=== PATIENT | female | born 1995 | race Caucasian/White ===

== ENCOUNTER → 2023-04-13 | Outpatient (CLI) | payer OTHER, SELFPAY ==
--- NOTE | 2023-04-13 16:59 | US_ITS ---
EXAM: US , TRANSVAGINAL CLINICAL INDICATION: pelvic pain/cramping, no hcg available TECHNIQUE: Real-time transvaginal obstetrical ultrasound of the maternal pelvis and a first trimester with image documentation. Transvaginal imaging was used for better evaluation of the fetus and adnexa. COMPARISON: No relevant prior studies available. FINDINGS: GESTATION: There is a small anechoic structure in the left horn of the uterus that may represent a gestational sac that has a mean sac diameter of 2 mm age 4 weeks 6 days. There is no evidence of a pole or yolk sac. PLACENTA/AMNIOTIC FLUID: Cannot be adequately evaluated due to the early gestational age. UTERUS/CERVIX: Uterus measures 8.7 x 4.1 x 6.1 cm. There is a bicornuate uterus present. No myometrial mass. OVARIES: The right ovary measures 4.0 x 2.8 x 2.7 cm. There is a 2.5 x 1.7 2.2 cm echogenic nodule on the right ovary. Left ovary measures 2.7 x 2.2 x 2.4 cm. There is a corpus luteum in the left ovary that measures 1.8 x 2.1 x 1.9 cm. No mass. FREE FLUID: No free fluid. US/Transvaginal w/Preg US IMPRESSION: 1. Bicornuate uterus with an anechoic structure in the left horn which may represent an early gestational sac age 4 weeks 6 days. There is no evidence of a pole or yolk sac. 2. Echogenic nodule in the right ovary. Also appears be a corpus luteal cyst in the left knee. Electronically Signed: Jose Eduardo Palma MD at 18:52 EDT ,
[2023-04-13 19:52] LABS: hCG Titer Quant., Serum 917 mIU/mL (1-3)
== END | disposition home or self-care (01) ==
PROVIDERS: Obstetrics & Gynecology; Referring Provider Registered Nurse; Visit Provider Registered Nurse
DX: O26.891 Other specified pregnancy related conditions, first trimester (principal); R10.2 Pelvic and perineal pain; Z3A.00 Weeks of gestation of pregnancy not specified
CPT/HCPCS: 36415; 76817; 84702

== ENCOUNTER → 2023-04-15 | Outpatient (CLI) | payer OTHER, SELFPAY ==
[2023-04-15 18:15] LABS: hCG Titer Quant., Serum 2033 mIU/mL (1-3)
== END | disposition home or self-care (01) ==
LOC: LAB 17:08
PROVIDERS: Referring Provider Obstetrics & Gynecology; Visit Provider Obstetrics & Gynecology
DX: O26.891 Other specified pregnancy related conditions, first trimester (principal); R10.2 Pelvic and perineal pain; Z3A.00 Weeks of gestation of pregnancy not specified
CPT/HCPCS: 36415; 84702

== ENCOUNTER → 2023-05-03 | Outpatient (CLI) | payer OTHER, SELFPAY ==
--- NOTE | 2023-05-03 10:59 | US_ITS ---
STUDY: FIRST TRIMESTER OBSTETRICAL ULTRASOUND REASON FOR EXAM: Female, 27 years old viability LMP: March 14, 2023. TECHNIQUE: Transvaginal TECHNICAL QUALITY: Adequate. PRIOR ULTRASOUND: Comparison is made with prior study dated April 13, 2023. FINDINGS: There is visualization of a single gestational sac in a normal intrauterine position. The mean sac diameter (MSD) measures 2.6 cm, indicating an estimated gestational age (EGA) of 7 weeks, 4 days. The gestational sac shape is within normal limits. There is a visualized yolk sac. The yolk sac measures 3.4 mm. The placenta is non-visualized. There is visualization of a live embryo. The crown-rump length (CRL) measures 1.16 cm, indicating an estimated gestational age (EGA) of 7 weeks, 3 days. There is demonstrated cardiac activity with a heart rate of 148 bpm. The estimated gestation age (EGA) by LMP is 7 weeks, 1 days. The estimated date of delivery (IRMA) by LMP is December 19, 2022. The estimated gestation age (EGA) by US is 7 weeks, 4 days. The estimated date of delivery (IRMA) by US is December 16, 2022. The uterus measures 10 cm x 8.1 cm by 5.4 cm. There is evidence of a bicornuate uterus. The gestational sac is within the left horn. Questionable small polyps in the endocervical canal. Subchorionic bleed measuring 2.5 cm x 3.5 cm x 0.6 cm. There is no demonstrated uterine fibroid. The cervix is closed. The right ovary measures 3.7 cm x 2.8 cm x 2.1 cm. A corpus luteum cyst is seen measuring 1.2 cm x 1.3 cm x 1.1 cm. There is no visualized right adnexal mass or complex lesion. The left ovary measures 3.2 cm x 2.6 cm x 2 cm. There is no left ovarian cyst. There is no visualized left adnexal mass or complex lesion. There is no fluid in the cul de sac. US/Transvaginal w/Preg US IMPRESSION: Live intrauterine gestation with a mean gestational age of 7 weeks and 4 days. Bicornuate uterus. Subchorionic bleed. Corpus luteum is seen in the right ovary. Electronically Signed: Franklin Osullivan MD at 15:29 EDT ,
== END | disposition home or self-care (01) ==
LOC: OPUS 10:58
PROVIDERS: Referring Provider Obstetrics & Gynecology; Visit Provider Obstetrics & Gynecology
DX: O26.891 Other specified pregnancy related conditions, first trimester (principal); R10.2 Pelvic and perineal pain; Z3A.00 Weeks of gestation of pregnancy not specified
CPT/HCPCS: 76817

== ENCOUNTER → 2023-05-15 | Outpatient (CLI) | payer OTHER, SELFPAY ==
[2023-05-17 22:07] LABS: Chlamydia By Nucleic Acid AMP Negative (Negative); Gonococcus By Nucleic Acid AMP Negative (Negative)
== END | disposition home or self-care (01) ==
LOC: LABSPEC 14:06
PROVIDERS: Referring Provider Obstetrics & Gynecology; Visit Provider Obstetrics & Gynecology
DX: O09.90 Supervision of high risk pregnancy, unspecified, unspecified trimester (principal); Z3A.00 Weeks of gestation of pregnancy not specified
CPT/HCPCS: 87086; 87088; 87491; 87591

== ENCOUNTER → 2023-05-30 | Outpatient (CLI) | payer OTHER, SELFPAY ==
[2023-05-30 10:46] LABS: Absolute Lymphocyte Count 1.39 X10^3/uL (0.83-4.51); Absolute Neutrophil Count 7.2 X10^3/uL (2.0-7.7); Basophil# 0.01 X10^3/uL; Basophil% 0.1 % (0-1); Eosinophil# 0.04 X10^3/uL; Eosinophils% 0.4 % (0-5); Hematocrit 38.7 % (37-47); Hemoglobin 12.5 g/dL (12.0-15.0); Lymphocyte # 1.39 X10^3/ul (0.83-4.51); Lymphocyte % 15.2 % (19-41); Mean Corp Hgb Conc 32.3 g/dL (32-36); Mean Corpuscular Volume 86.8 fL (81-99); Mean Platelet Vol. 9.7 fl (6.2-12.0); Monocyte# 0.49 X10^3/uL; Monocyte% 5.3 % (0-10); NRBC Flagged by Analyzer 0 % (0-5); Neutrophil % 78.7 % (47-70); Platelet Count 289 K/mm3 (150-450); RBC Distribution Width CV 15.5 % (11.6-14.6); RBC Distribution Width SD 49.6 fl (35.1-43.9); Red Blood Count 4.46 M/mm3 (4.2-5.4); White Blood Count 9.2 K/mm3 (4.4-11.0)
[2023-05-30 10:51] LABS: Glucose Challenge Gest 1H 50g 147 mg/dL (70-140)
[2023-05-30 11:27] LABS: NATERA MAILED SPECIMEN
[2023-05-30 11:28] LABS: HIV - WCH Non-Reactive (Nonreactive); Hepatitis B Surface Antigen Non-Reactive (Nonreactive); Hepatitis C Antibody Non-Reactive (Nonreactive); Rubella IgG Reactive (Nonreactive); Syphilis Antibodies Non-reactive
== END | disposition home or self-care (01) ==
LOC: PAVLAB 10:16
PROVIDERS: Referring Provider Obstetrics & Gynecology; Visit Provider Obstetrics & Gynecology
DX: Z34.81 Encounter for supervision of other normal pregnancy, first trimester (principal)
CPT/HCPCS: 36415; 82950; 85025; 86703; 86762; 86780; 86803; 86850; 86900; 86901; 87340

== ENCOUNTER → 2023-06-02 | Outpatient (CLI) | payer OTHER, SELFPAY ==
[2023-06-02 08:33] LABS: Glucose GTT-Gestation. Fasting 83 mg/dL (<105)
[2023-06-02 09:28] LABS: Glucose GTT-Gestational 1 Hr 183 mg/dL (<190)
[2023-06-02 10:43] LABS: Glucose GTT-Gestational 2 Hr 151 mg/dL (<165)
[2023-06-02 11:48] LABS: Glucose GTT-Gestational 3 Hr 118 L (<145)
== END | disposition home or self-care (01) ==
LOC: LAB 07:02
PROVIDERS: Referring Provider Nurse Practitioner Women's Health; Visit Provider Nurse Practitioner Women's Health
DX: Z13.1 Encounter for screening for diabetes mellitus (principal)
CPT/HCPCS: 82951; 82952

== ENCOUNTER → 2023-07-07 | Outpatient (CLI) | payer OTHER, SELFPAY | END | disposition home or self-care (01) | PROVIDERS: Referring Provider Advanced Practice Midwife; Visit Provider Advanced Practice Midwife | DX: O23.40 Unspecified infection of urinary tract in pregnancy, unspecified trimester (principal); N89.8 Other specified noninflammatory disorders of vagina; Z3A.00 Weeks of gestation of pregnancy not specified; O99.891 Other specified diseases and conditions complicating pregnancy | CPT/HCPCS: 87070; 87086; 87088; 87205 ==

== ENCOUNTER → 2023-10-02 | Outpatient (CLI) | payer OTHER, SELFPAY ==
[2023-10-02 09:15] LABS: Absolute Lymphocyte Count 1.79 X10^3/uL (0.83-4.51); Absolute Neutrophil Count 9.5 X10^3/uL (2.0-7.7); Basophil# 0.03 X10^3/uL; Basophil% 0.3 % (0-1); Eosinophil# 0.07 X10^3/uL; Eosinophils% 0.6 % (0-5); Hematocrit 34.9 % (37-47); Hemoglobin 11.1 g/dL (12.0-15.0); Lymphocyte # 1.79 X10^3/ul (0.83-4.51); Lymphocyte % 15.2 % (19-41); Mean Corp Hgb Conc 31.8 g/dL (32-36); Mean Corpuscular Hgb 28.5 pg (27.0-32.0); Mean Corpuscular Volume 89.5 fL (81-99); Mean Platelet Vol. 9.1 fl (6.2-12.0); Monocyte# 0.37 X10^3/uL; Monocyte% 3.1 % (0-10); NRBC Flagged by Analyzer 0 % (0-5); Neutrophil # 9.47 X10^3/uL (2.7-7.7); Neutrophil % 80.3 % (47-70); Platelet Count 287 K/mm3 (150-450); RBC Distribution Width CV 15.3 % (11.6-14.6); RBC Distribution Width SD 49.8 fl (35.1-43.9); White Blood Count 11.8 K/mm3 (4.4-11.0)
[2023-10-02 09:38] LABS: Glucose Challenge Gest 1H 50g 165 mg/dL (70-140)
[2023-10-02 10:13] LABS: HIV - WCH Non-Reactive (Nonreactive); Syphilis Antibodies Non-reactive
== END | disposition home or self-care (01) ==
PROVIDERS: Referring Provider Registered Nurse; Visit Provider Registered Nurse
DX: O09.90 Supervision of high risk pregnancy, unspecified, unspecified trimester (principal); Z3A.00 Weeks of gestation of pregnancy not specified; Z13.1 Encounter for screening for diabetes mellitus
CPT/HCPCS: 36415; 82950; 85025; 86703; 86780

== ENCOUNTER → 2023-10-11 | Outpatient (CLI) | payer OTHER, SELFPAY ==
[2023-10-11 08:11] LABS: Glucose GTT-Gestation. Fasting 88 mg/dL (<105)
[2023-10-11 08:47] LABS: Glucose GTT-Gestational 1 Hr 201 mg/dL (<190)
[2023-10-11 10:04] LABS: Glucose GTT-Gestational 2 Hr 131 mg/dL (<165)
[2023-10-11 11:49] LABS: Glucose GTT-Gestational 3 Hr 109 L (<145)
== END | disposition home or self-care (01) ==
PROVIDERS: Referring Provider Registered Nurse; Visit Provider Registered Nurse
DX: Z13.1 Encounter for screening for diabetes mellitus (principal)
CPT/HCPCS: 36415; 82951; 82952

== ENCOUNTER → 2023-11-20 | Outpatient (CLI) | payer OTHER, SELFPAY ==
--- NOTE | 2023-11-20 07:49 | US_ITS ---
STUDY: SECOND AND THIRD TRIMESTER OBSTETRICAL ULTRASOUND - LIMITED REASON FOR EXAM: Female, 28 years old well being LMP: March 14, 2023 PRIOR ULTRASOUND: Comparison is made with prior study dated May 03, 2023. TECHNIQUE: Transabdominal TECHNICAL QUALITY: Adequate. FINDINGS: There is a single intrauterine fetus. The fetus is in a cephalic presentation. There is demonstrated cardiac activity with a heart rate of 161 bpm. There is a normal amniotic fluid volume. The largest amniotic fluid pocket measures 7.7 cm. The amniotic fluid index (MADDISON) is 20.8 cm. The placenta is anterior in location and is not low lying. There are Grade 1 placental changes. The cervix measures 4.1 cm in length. BIOMETRY: BPD: 9.02 cm: 36 weeks, 4 days HC: 33.67 cm: 38 weeks, 4 days AC: 32.21 cm: 36 weeks, 1 days FL: 7.17 cm: 36 weeks, 5 days Age by LMP: 35 weeks, 6 days. IRMA by LMP: December 19, 2023. age by prior US: 36 weeks, 2 days. IRMA by prior US: December 16, 2023. age by current US: 37 weeks, 1 days. IRMA by current US: December 10, 2023. Estimated weight: 2953 grams, +/- 443 grams, 67 percentile. US/OB Limited With Biometrics IMPRESSION: Single live uterine gestation with mean gestational age of 36 weeks and 2 days. The measurements obtained today fall within the normal expected range. Electronically Signed: Franklin Osullivan MD at 10:59 EST ,
--- OUTSIDE RECORDS SUMMARY | 2023-11-20 08:07 | XMS RPT_ITS | CCD ---
Author Name Unknown Address [address] [place] [address] Organization [facility] Care Team Providers Care Call Out Operator Name Role Phone Free, Text Entry Unavailable Unavailable Talat Allan Unavailable Unavailable YAS CONWAY Primary Care Unavailable PROVIDER, UNKNOWN Attending Unavailable PROVIDER, UNKNOWN Admitting Unavailable PROVIDER, UNKNOWN Attending Unavailable PROVIDER, UNKNOWN Admitting Unavailable YAS CONWAY Primary Care Unavailable Susan, Michoacano Lowe Unavailable Unavailable Unavailable Yas Conway PA-C Primary Care Provider Anurag RODRIGUEZ, Kahlil Diaz Unavailable [phone] Susan, Devendra Peña Referring Unavailabl e Susan, Devendra Peña Attending Unavailabl e Susan, Devendra Peña Primary Care Unavailabl e Susan, Devendra Peña Referring Unavailabl e [place], Devendra Peña Attending Unavailabl e Susan, Devendra Peña Primary Care Unavailabl e Susan, Devendra Peña Primary Care Unavailabl e Susan, Devendra Peña Attending Unavailabl e Susan, Devendra Peña Referring Unavailabl e [place], Devendra Peña Primary Care Unavailabl e Susan, Mrs. [place]on Peña Attending Unavailabl e Susan, Devendra Peña Referring Unavailabl e Susan, Devendra Peña Primary Care Unavailabl e Susan, Mrs. Michoacano Peña Attending Unavailabl e [place], Mrs. Michoacano Peña Referring Unavailabl e Susan, Devendra Peña Primary Care Unavailabl e [place], Mrs. Michoacano Peña Attending Unavailabl e Susan, Mrs. Michoacano Peña Referring Unavailabl e ROLANDO, MD KOJO MCCARTHY Attending Unava ilable [place], Mrs. Michoacano Peña Primary Care Unavailabl e ROLANDO, MD KOJO MCCARTHY Referring Unava ilable [place], Mrs. Michoacano Peña Primary Care Unavailabl e Pershing, Dr. Rafael Malhotra Attending Unavailabl e Louis, Dr. Rafael Malhotra Referring Unavailabl e Susan, Mrs. Michoacano Peña Primary Care Unavailabl e Awais, Shayy Attending Unavailable Fried, Shayy Referring Unavailable ROLANDO, MD KOJO MCCARTHY Attending Unava ilable Susan, Mrs. Michoacano Peña Primary Care Unavailabl e Susan BLUEPRINT TRIMMER-SAYRA, Michoacano Lowe Primary Care Provider [phone] Susan, Mrs. Michoacano Peña Attending Unavailabl e Susan, Mrs. Michoacano Peña Primary Care Unavailabl e NO PRIMARY CARE, Primary Care Unavailable JANES NEFF Referring Unavailable TAWANDAJANES Attending Unavailable ALBER HARRIS Attending Unavailable NO PRIMARY CARE, Primary Care Unavailable ANA CRISTINA [place] Referring Unavailab le SUSAN, MICHOACANO Lowe Primary Care Unavailable JULIO MOORE Attending Unavaila ble SUSAN, MICHOACANO Lowe Attending Unavailable SUSAN, MICHOACANO Lowe Primary Care Unavailable SUSAN, MICHOACANO Lowe Attending Unavailable SUSAN, MICHOACANO Lowe Primary Care Unavailable SUSAN, MICHOACANO Lowe Attending Unavailable SUSAN, MICHOACANO Lowe Primary Care Unavailable SUSAN, MICHOACANO Lowe Attending Unavailable SUSAN, MICHOACANO L Primary Care Unavailable SUSAN, MICHOACANO L Primary Care Unavailable SUSAN, MICHOACANO L Primary Care Unavailable SUSAN, MICHOACANO L Primary Care Unavailable SUSAN, MICHOACANO L Primary Care Unavailable Allergies Allergy Classification Reported Allergen(s) Allergy Type Date of Onset Reaction(s) Facility (14 sources) Penicillin; Translations: [Penicillins] Drug Allergy Rash [facility] (2 sources) Amoxicillin; Translations: [AMOXICILLIN] Drug Allergy 9 Hives [facility] (8 sources) Penicillins; Translations: [PENICILLINS] Propensity to adverse reactions to drug (disorder) [address] [facility] Medications Current Medications Medication Drug Class(es) Dates Sig (Normalized) Sig (Original) [id number] 200 actuat albuterol 0.09 mg/actuat metered dose inhaler (9 sources) beta2-Adrenergic Agonist Start: 07-04-2022 take 2 puff(s) by inhalation every four hours albuterol 90 mcg/actuation inhaler Inhale 2 puffs every 4 hours if needed. 0 07/04/2022 Active Completed/Discontinued Medications Medication Drug Class(es) Dates Sig (Normalized) Sig (Original) brompheniramine maleate 0.4 mg/ml / dextromethorphan hydrobromide 2 mg/ml / pseudoephedrine hydrochloride 6 mg/ml oral solution (2 sources) alpha-Adrenergic Agonist, Uncompetitive I-dxbpir-G-aspartat e Receptor Antagonist, Sigma-1 Agonist Start: 01-09-2023 take 5 mL by mouth every four to six hours as needed Pseudoeph-Bromp hen-DM 30-2-10 MG/5ML Oral Syrup TAKE 5 ML EVERY 4 TO 6 HOURS NEEDED for up to 14 days Quantity: 1 Refills: 0 Ordered: 09-Jan-2023 Michoacano Winston Start : 09-Jan-2023 Active Problems Active Problems Problem Classification Problem Date Documented Da te Episodic/Chronic Acute bronchitis (2 sources) Acute bronchitis; Translations: [Acute bronchitis] 09-20-2021 Episodic Anxiety disorders (4 sources) Anxiety; Translations: [Other anxiety states] Chronic Immunizations and screening for infectious disease (10 sources) Suspected disease caused by 2019-nCoV; Translations: [Contact with or exposure to other viral diseases] Episodic Menstrual disorders (2 sources) Irregular menstruation, unspecified; Translations: [Irregular menstruation, unspecified] Onset: 04-10-2023 Chronic Mood disorders (18 sources) Depressive disorder; Translations: [Depressive disorder, not elsewhere classified] Onset: 01-09-2023 01-09-2023 Chronic Mood disorders (4 sources) Mood disorders; Translations: [Depression, unspecified] Onset: 01-09-2023 Nutritional deficiencies (17 sources) Vitamin D deficiency; Translations: [Unspecified vitamin D deficiency] Onset: 01-09-2023 01-09-2023 Chronic Other lower respiratory disease (4 sources) Persistent cough; Translations: [Cough] Episodic Other nutritional; endocrine; and metabolic disorders (17 sources) Body mass index 30+ - obesity; Translations: [Obesity, unspecified] Onset: 01-09-2023 01-09-2023 Chronic Other upper respiratory disease (9 sources) Allergic rhinitis; Translations: [Allergic rhinitis, cause unspecified] Onset: 01-09-2023 01-09-2023 Chronic Other upper respiratory disease (1 source) Inflammatory disorder of upper respiratory tract; Translations: [Chronic rhinitis] 03-09-2023 Chronic Other upper respiratory disease (2 sources) Chronic rhinitis; Translations: [Chronic rhinitis] Onset: 03-09-2023 Chronic Other upper respiratory disease (2 sources) Other allergic rhinitis; Translations: [Other allergic rhinitis] Onset: 01-09-2023 Chronic Other upper respiratory infections (4 sources) Chronic sinusitis, unspecified; Translations: [Chronic sinusitis, unspecified] Onset: 03-09-2023 Chronic Otitis media and related conditions (15 sources) Acute right otitis media; Translations: [Unspecified otitis media] Onset: 01-09-2023 09-25-2023 Episodic Past or Other Problems Problem Classification Problem Date Documented Da te Episodic/Chronic Abdominal pain (2 sources) Pelvic and perineal pain; Translations: [Pelvic and perineal pain] Onset: 06-13-2023 Episodic Early or threatened labor (1 source) Labor finding; Translations: [False labor, unspecified] Onset: 10-10-2019 10-10-2019 Episodic Genitourinary symptoms and ill-defined conditions (11 sources) Dysuria; Translations: [Dysuria] Onset: 06-03-2023 06-03-2023 Episodic Heart valve disorders (5 sources) Heart murmur; Translations: [Cardiac murmur, unspecified] Onset: 12-23-2016 Resolved: 03-09-2023 12-23-2021 Episodic Inflammatory diseases of female pelvic organs (6 sources) Acute vaginitis; Translations: [Acute vaginitis] Onset: 06-03-2023 06-03-2023 Episodic Malaise and fatigue (17 sources) Fatigue; Translations: [Other malaise and fatigue] Onset: 01-09-2023 01-09-2023 Episodic Other circulatory disease (10 sources) History of clinical finding in subject; Translations: [Personal history of other diseases of circulatory system] Onset: 01-09-2023 01-09-2023 Episodic Other circulatory disease (3 sources) Personal history of other diseases of the circulatory system; Translations: [Personal history of other diseases of the circulatory system] Onset: 07-20-2022 Episodic Other and delivery including normal (14 sources) Delivery normal; Translations: [Normal delivery] Onset: 03-11-2019 09-13-2019 Episodic Results Test Name Value Interpretation Reference Range Facil ity Vital Signs Date Time Vital Sign Value Performing Clinician Facility 09-25-2023 08:41-0500 Body height 165.1 cm Michoacano Davis APRN-SINGLE NEEDLE OPERATOR Work Phone: [facility] 09-25-2023 08:41-0500 Body mass index (BMI) [Ratio] 33.2 kg/m2 Michoacano Davis BLUEPRINT TRIMMER-SINGLE NEEDLE OPERATOR Work Phone: [facility] 09-25-2023 08:41-0500 Body temperature 97.5 [degF] Michoacano Davis BLUEPRINT TRIMMER-SINGLE NEEDLE OPERATOR Work Phone: [facility] 09-25-2023 08:41-0500 Body weight 90.49 kg Michoacano Davis BLUEPRINT TRIMMER-SINGLE NEEDLE OPERATOR Work Phone: [facility] 09-25-2023 08:41-0500 Diastolic blood pressure 64 mm[Hg] Michoacano Davis APRN-SINGLE NEEDLE OPERATOR Work Phone: [facility] 09-25-2023 08:41-0500 Heart rate 107 /min Michoacano Davis BLUEPRINT TRIMMER-SINGLE NEEDLE OPERATOR Work Phone: [facility] 09-25-2023 08:41-0500 SaO2% (BldA) [Mass fraction] 98 % Michoacano Davis APRN-SINGLE NEEDLE OPERATOR Work Phone: [facility] 09-25-2023 08:41-0500 Systolic blood pressure 114 mm[Hg] Michoacano Davis BLUEPRINT TRIMMER-SINGLE NEEDLE OPERATOR Work Phone: [facility] 06-13-2023 07:59-0400 Body mass index (BMI) [Ratio] 33.08 kg/m2 Michoacano Davis BLUEPRINT TRIMMER-SINGLE NEEDLE OPERATOR Work Phone: [facility] 06-13-2023 07:59-0400 Body temperature 96.91 [degF] Michoacano Davis BLUEPRINT TRIMMER-SINGLE NEEDLE OPERATOR Work Phone: [facility] 06-13-2023 07:59-0400 Body weight 90.17 kg Michoacano Davis BLUEPRINT TRIMMER-SINGLE NEEDLE OPERATOR Work Phone: [facility] 06-13-2023 07:59-0400 Diastolic blood pressure 74 mm[Hg] Michoacano Davis BLUEPRINT TRIMMER-SINGLE NEEDLE OPERATOR Work Phone: [facility] 06-13-2023 07:59-0400 Heart rate 111 /min Michoacano Barcenasd BLUEPRINT TRIMMER-SINGLE NEEDLE OPERATOR Work Phone: [facility] 06-13-2023 07:59-0400 SaO2% (BldA) [Mass fraction] 98 % Michoacano Davis BLUEPRINT TRIMMER-SINGLE NEEDLE OPERATOR Work Phone: [facility] 06-13-2023 07:59-0400 Systolic blood pressure 122 mm[Hg] Michoacano Davis BLUEPRINT TRIMMER-SINGLE NEEDLE OPERATOR Work Phone: [facility] 03-09-2023 07:58-0400 Body height 165.1 cm Michoacano Davis BLUEPRINT TRIMMER-SINGLE NEEDLE OPERATOR Work Phone: [facility] 03-09-2023 07:58-0400 Body mass index (BMI) [Ratio] 33.28 kg/m2 Michoacano Davis BLUEPRINT TRIMMER-SINGLE NEEDLE OPERATOR Work Phone: [facility] 03-09-2023 07:58-0400 Body temperature 98.6 [degF] Michoacano Barcenasd BLUEPRINT TRIMMER-SINGLE NEEDLE OPERATOR Work Phone: [facility] 03-09-2023 07:58-0400 Body weight 90.72 kg Michoacano Barcenasd BLUEPRINT TRIMMER-SINGLE NEEDLE OPERATOR Work Phone: [facility] 03-09-2023 07:58-0400 Diastolic blood pressure 76 mm[Hg] Michoacano Barcenasd BLUEPRINT TRIMMER-SINGLE NEEDLE OPERATOR Work Phone: [facility] 03-09-2023 07:58-0400 Heart rate 76 /min Michoacano Barcenasd BLUEPRINT TRIMMER-SINGLE NEEDLE OPERATOR Work Phone: [facility] 03-09-2023 07:58-0400 Systolic blood pressure 109 mm[Hg] Michoacano Barcenasd BLUEPRINT TRIMMER-SINGLE NEEDLE OPERATOR Work Phone: [facility] 12-14-2022 08:03-0500 Body height 165.1 cm Michoacano L Susan Work Phone: [facility] Work Phone: 12-14-2022 08:03-0500 Body mass index (BMI) [Ratio] 32.28 kg/m2 Michoacano L Susan Work Phone: -[facility] Work Phone: 12-14-2022 08:03-0500 Body surface area Derived from formula 1.95 m2 Michoacano L [place] Work Phone: -[facility] Work Phone: 12-14-2022 08:03-0500 Body weight 88 kg Michoacano L [place] Work Phone: [facility] Work Phone: 12-14-2022 08:03-0500 Diastolic blood pressure 68 mm[Hg] Michoacano L [place] Work Phone: [facility] Work Phone: 12-14-2022 08:03-0500 Heart rate 74 /min Michoacano L [place] Work Phone: [facility] Work Phone: 12-14-2022 08:03-0500 Systolic blood pressure 114 mm[Hg] Michoacano L Susan Work Phone: -[facility] Work Phone: 09-14-2022 08:22-0500 Body height 165.1 cm Michoacano L Susan Work Phone: [facility] Work Phone: 09-14-2022 08:22-0500 Body mass index (BMI) [Ratio] 32.15 kg/m2 Michoacano Barcenasd Work Phone: [facility] Work Phone: 09-14-2022 08:22-0500 Body surface area Derived from formula 1.95 m2 Michoacano Lowe [place] Work Phone: [facility] Work Phone: 09-14-2022 08:22-0500 Body weight 87.63 kg Michoacano Barcenasd Work Phone: [facility] Work Phone: 09-14-2022 08:22-0500 Diastolic blood pressure 79 mm[Hg] Michoacano Lowe [place] Work Phone: [facility] Work Phone: 09-14-2022 08:22-0500 Heart rate 87 /min Michoacano Barcenasd Work Phone: [facility] Work Phone: 09-14-2022 08:22-0500 Systolic blood pressure 115 mm[Hg] Michoacano Barcenasd Work Phone: [facility] Work Phone: 06-29-2022 09:08-0400 Body height 165.1 cm Michoacano Barcenasd Work Phone: [facility] Work Phone: 06-29-2022 09:08-0400 Body mass index (BMI) [Ratio] 32.17 kg/m2 Michoacano Lowe Susan Work Phone: [facility] Work Phone: 06-29-2022 09:08-0400 Body surface area Derived from formula 1.95 m2 Michoacano Lowe Susan Work Phone: [facility] Work Phone: 06-29-2022 09:08-0400 Body temperature 97.7 [degF] Michoacano Barcenasd Work Phone: [facility] Work Phone: 06-29-2022 09:08-0400 Body weight 87.69 kg Michoacano Davis Work Phone: [facility] Work Phone: 06-29-2022 09:08-0400 Diastolic blood pressure 70 mm[Hg] Michoacano Barcenasd Work Phone: [facility] Work Phone: 06-29-2022 09:08-0400 Heart rate 87 /min Michoacano Barcenasd Work Phone: [facility] Work Phone: 06-29-2022 09:08-0400 SaO2% (BldA) [Mass fraction] 98 % Michoacano Davis Work Phone: [facility] Work Phone: 06-29-2022 09:08-0400 Systolic blood pressure 118 mm[Hg] Michoacano Davis Work Phone: [facility] Work Phone: 05-11-2022 13:08-0400 Body height 165.1 cm Michoacano Barcenasd Work Phone: [address] Work Phone: 05-11-2022 13:08-0400 Body mass index (BMI) [Ratio] 33.6 kg/m2 Michoacano Barcenasd Work Phone: [address] Work Phone: 05-11-2022 13:08-0400 Body surface area Derived from formula 1.99 m2 Michoacano Barcenasd Work Phone: [place] [address] [address] [place] Work Phone: 05-11-2022 13:08-0400 Body weight 91.6 kg Michoacano Barcenasd Work Phone: [place] [address] [address] [place] Work Phone: 05-11-2022 13:08-0400 Diastolic blood pressure 78 mm[Hg] Michoacano Lowe Susan Work Phone: [address] Work Phone: 05-11-2022 13:08-0400 Systolic blood pressure 120 mm[Hg] Michoacano Lowe [place] Work Phone: [address] Work Phone: 03-30-2022 13:27-0400 Body height 165.1 cm Michoacano Lowe Susan Work Phone: [facility] Work Phone: 03-30-2022 13:27-0400 Body mass index (BMI) [Ratio] 33.38 kg/m2 Michoacano Lowe Susan Work Phone: [facility] Work Phone: 03-30-2022 13:27-0400 Body surface area Derived from formula 1.98 m2 Michoacano Lowe [place] Work Phone: [facility] Work Phone: 03-30-2022 13:27-0400 Body weight 91 kg Michoacano Lowe [place] Work Phone: [facility] Work Phone: 03-30-2022 13:27-0400 Diastolic blood pressure 62 mm[Hg] Michoacano L Susan Work Phone: [facility] Work Phone: 03-30-2022 13:27-0400 Systolic blood pressure 110 mm[Hg] Michoacano L Susan Work Phone: [facility] Work Phone: 03-29-2022 08:07-0400 Body temperature 97.5 [degF] Michoacano Barcenasd Work Phone: [facility] Work Phone: 03-29-2022 08:07-0400 Diastolic blood pressure 62 mm[Hg] Michoacano Lowe Susan Work Phone: [facility] Work Phone: 03-29-2022 08:07-0400 Heart rate 64 /min Michoacano Lowe [place] Work Phone: [facility] Work Phone: 03-29-2022 08:07-0400 Systolic blood pressure 108 mm[Hg] Michoacano Lowe Susan Work Phone: [facility] Work Phone: 03-02-2022 07:38-0400 Body height 165.1 cm Michoacano Lowe [place] Work Phone: [facility] Work Phone: 03-02-2022 07:38-0400 Body mass index (BMI) [Ratio] 33.18 kg/m2 Michoacano Lowe [place] Work Phone: [facility] Work Phone: 03-02-2022 07:38-0400 Body surface area Derived from formula 1.98 m2 Michoacano Lowe [place] Work Phone: [facility] Work Phone: 03-02-2022 07:38-0400 Body weight 90.44 kg Michoacano Barcenasd Work Phone: [facility] Work Phone: 03-02-2022 07:38-0400 Diastolic blood pressure 80 mm[Hg] Michoacano Lowe [place] Work Phone: [facility] Work Phone: 03-02-2022 07:38-0400 Heart rate 72 /min Michoacano Lowe Susan Work Phone: [facility] Work Phone: 03-02-2022 07:38-0400 Systolic blood pressure 118 mm[Hg] Michoacaon Davis Work Phone: [facility] Work Phone: 09-20-2021 16:00-0500 Body height 162 cm Text Entry Free [facility] 09-20-2021 16:00-0500 Body temperature 97.16 [degF] Text Entry Free [facility] 09-20-2021 16:00-0500 Diastolic blood pressure 67 mm[Hg] Text Entry Free [facility] 09-20-2021 16:00-0500 Heart rate 88 /min Text Entry Free [facility] 09-20-2021 16:00-0500 SaO2% (BldA) [Mass fraction] 98 % Text Entry Free [facility] 09-20-2021 16:00-0500 Systolic blood pressure 115 mm[Hg] Text Entry Free [facility] Encounters Encounter Date Encounter Type Care Provider Facility Start: 10-06-2023 End: 10-07-2023 ambulatory [facility] Start: 09-25-2023 End: 09-25-2023 ambulatory [facility] Start: 09-25-2023 End: 09-25-2023 Office outpatient visit 15 minutes Michoacano Davis BLUEPRINT TRIMMER-SINGLE NEEDLE OPERATOR Work Phone: [facility] Procedures Date Procedure Procedure Detail Performing Clinician Start: 10-06-2023 SARS-COV-2 AND INFLU FREDI A/B PCR MICHOACANO SUSAN Start: 06-13-2023 Bacteria identified in Urine by Culture MICHOACANO SUSAN Start: 06-13-2023 Comprehensive metabo lic 2000 panel - Serum or Plasma MICHOACANO DAVIS Start: 06-13-2023 URINALYSIS MICROSCOPIC ONLY MICHOACANO DAVIS Start: 06-13-2023 URINALYSIS WITH REFL EX MICROSCOPIC MICHOACANO DAVIS Start: 06-05-2023 Bacteria identified in Urine by Culture MICHOACANO DAVIS Start: 06-03-2023 TRICH VAGINALIS, AMPLIFIED MICHOACANO DAVIS Start: 06-03-2023 URINALYSIS MICROSCOPIC ONLY MICHOACANO DAVIS Start: 06-03-2023 URINALYSIS WITH REFL EX MICROSCOPIC MICHOACANO DAVIS Start: 04-10-2023 HUMAN CHORIONIC GONADOTROPIN, SERUM QUANTITATIVE MICHOACANO DAVIS Start: 05-11-2022 Microscopic observat ion [Identifier] in Cervix by Cyto stain Michoacano Davis BLUEPRINT TRIMMER-SINGLE NEEDLE OPERATOR Work Phone: Start: 03-03-2022 Lipid 1996 panel - S amanda or Plasma Michoacano Davis BLUEPRINT TRIMMER-SINGLE NEEDLE OPERATOR Work Phone: Start: 03-18-2021 Microscopic observat ion [Identifier] in Cervix by Cyto stain Yas Conway PA-C Work Phone: Operation on uterus Michoacano Lowe Susan Work Phone: Plan of Treatment Date Care Activity Detail Author Start: 2045 Shingles (RZV) Vaccine (1 of 2) Shingles (RZV) Vaccine (1 of 2) [facility] Start: 2045 Zoster Vaccines (1 of 2) Zoster Vaccines (1 of 2) [facility] Start: 07-19-2029 DTaP/Tdap/Td Vaccines (9 - Td or Tdap) DTaP/Tdap/Td Vaccines (9 - Td or Tdap) [facility] Start: 07-19-2029 Tetanus vaccination Tetanus (Td or Tdap) Booster [facility] Start: 03-03-2027 Lipid panel Lipid Panel [facility] Start: 05-11-2025 Screening for malignant neoplasm of cervix [facility] Start: 03-18-2024 Screening for malignant neoplasm of cervix Pap Smear [facility] Start: 12-25-2023 End: 12-25-2023 Patient encounter procedure 12/25/2023 9:30 AM EST Office Visit [facility] [address] [place] [id number] Michoacano Davis, BLUEPRINT TRIMMER-SINGLE NEEDLE OPERATOR [address] [facility] [address] [place] [address] [facility] Start: 07-07-2023 Influenza vaccination Influenza Vaccine (#1) [facility] Start: 06-13-2023 End: 06-13-2024 Comprehensive metabolic 2000 panel - Serum or Plasma Comprehensive Metabolic Panel Lab Routine Acute cystitis without hematuria Proteinuria, unspecified type Depression, controlled Expected: 06/13/2023 (Approximate), Expires: 06/13/2024 [facility] Work Phone: Immunizations Immunization Date Immunization Notes Care Provider Leonora john 08-29-2022 influenza, injectabl e, quadrivalent, contains preservative Michoacano Davis BLUEPRINT TRIMMER-SINGLE NEEDLE OPERATOR Work Phone: [facility] Work Phone: 08-29-2022 influenza, injectabl e, quadrivalent, preservative free Michoacano Davis Work Phone: [facility] Work Phone: Payers Date Payer Category Payer Unknown 2021 Private Health Insurance [id number] 2021 Private Health Insurance [id number] 2021 Unknown [id number] 1995 Unknown [id number] 2. [id number] 1995 Unknown [id number] 2. [id number] 1995 Unknown [id number] 2. [id number] 1995 Unknown [id number] 2.16 [id number] 1995 Unknown [id number] 2.16 [id number] 1995 Unknown [id number] 2.16 [id number] 1995 Unknown [id number] 2. [id number] 1995 Unknown [id number] 2.16. [id number] 1995 Unknown [id number] 2.16. [id number] 1995 Unknown [id number] 2.16. [id number] 1995 Unknown [id number] 2.16. [id number] 1995 Unknown [id number] 2.16. [id number] 1995 Unknown [id number] 2.16.8 [id number] 1995 Unknown [id number] 2.16. [id number] 1995 Unknown [id number] 2.16. [id number] 1995 Unknown [id number] 2.16.8 [id number] 1995 Unknown [id number] 2.16.8 [id number] 1995 Unknown [id number] 2.16.8 [id number] 1995 Unknown [id number] 2.16.84 [id number] 1995 Unknown [id number] 1995 Unknown [id number] 2.16.8 [id number] 1995 Unknown [id number] 2.16.84 [id number] 1995 Unknown [id number] 2.16.84 [id number] 1995 Unknown [id number] 2.16.84 [id number] Social History Date Type Detail Facility [facility] Tobacco smoking consumption unknown [facility] Start: 01-09-2023 End: 06-13-2023 Does not have living will Does not have living will [facility] Work Phone: Start: 12-23-2016 End: 01-09-2023 Tobacco smoking status NHIS Never smoked tobacco [facility] Start: 12-23-2016 End: 01-09-2023 Tobacco use and exposure Smokeless tobacco non-user [facility] Start: 11-03-2021 Alcohol intake Current non-drinker of alcohol (finding) [facility] Start: 11-03-2021 History SDOH Social Connections Phone 5 [facility] Start: 11-03-2021 History SDOH Social Connections Get Together 2 [facility] Start: 11-03-2021 History SDOH Social Connections Meetings 98 [facility] Start: 11-03-2021 History SDOH Social Connections Living 3 [facility] Start: 11-03-2021 History SDOH Financial 4 [facility] Start: 11-03-2021 Education 21 [facility] Start: 1995 Sex Assigned At Female [facility] Start: 01-09-2023 End: 06-13-2023 Tobacco use panel [facility] Work Phone: Start: 1995 Sex Assigned At Not on file [facility] Work Phone: Start: 10-03-2022 Gender identity Identifies as female gender (finding) [facility] Start: 02-27-2023 End: 09-25-2023 Exposure to SARS-CoV-2 (event) Not sure [facility] Start: 06-13-2023 Alcohol intake Ex-drinker (finding) [facility] Work Phone: Clinical Notes 05-11-2022 to 09-22-2023 Michoacano Davis, BLUEPRINT TRIMMER-SINGLE NEEDLE OPERATOR - 09/25/2023 10:30 AM Radha DavisSADAF-SAYRA - 06/13/2023 8:00 AM EDTAssessment & Plan Note - Julio Moore MD - 06/03/2023 10:19 AM EDTPatient Instructions Note Date & Type Note Facility 09-22-2023 History of Presen t illness Narrative Subjective Patient ID: Cristina Lantigua is a 28 y.o. female who presents for Sinusitis, Cough, and Earache. Sx onset Monday, cough, sinus congestion, ear pain, sore throat. Is 28 weeks , checked OB can only take robitussin or sudafed. Is also on Flonase nasal spray Denies fever Review of Systems HENT: Positive for congestion, ear pain, postnasal drip, sinus pressure and sore throat. Negative for ear discharge. Respiratory: Positive for cough. Negative for chest tightness and wheezing. Gastrointestinal: Negative for nausea and vomiting. Neurological: Negative for dizziness, light-headedness and headaches. Objective BP 114/64 (Patient Position: Sitting) Pulse 107 Temp 36.4 C (97.5 F) Ht 1.651 m (5' 5 ) Wt 90.5 kg (199 lb 8 oz) LMP 02/15/2023 SpO2 98% BMI 33.20 kg/m Physical Exam Vitals reviewed. Constitutional: General: She is not in acute distress. Appearance: Normal appearance. HENT: Right Ear: Swelling and tenderness present. Tympanic membrane is perforated. Left Ear: Tympanic membrane and ear canal normal. Mouth/Throat: Lips: [place]. Mouth: Mucous membranes are moist. Pharynx: Posterior oropharyngeal erythema present. No pharyngeal swelling or oropharyngeal exudate. Cardiovascular: Rate and Rhythm: Normal rate and regular rhythm. Pulmonary: Effort: Pulmonary effort is normal. Breath sounds: Normal breath sounds. Skin: General: Skin is warm and dry. Neurological: Mental Status: She is alert and oriented to person, place, and time. Assessment/Plan Diagnoses and all orders for this visit: Acute mucoid otitis media of right ear - cefdinir (Omnicef) 300 mg capsule; Take 1 capsule (300 mg) by mouth 2 times a day for 7 days. Advised to take sudafed as needed for congestion as recommended by OBGYN Return if symptoms persist or worsen documented in this encounter [facility] Work Phone: 06-13-2023 History of Presen t illness Narrative Subjective Patient ID: Cristina Lantigua is a 28 y.o. female who presents for Follow up visit and Depression (Anxiety, vitamin d deficiency). Depression Patient complains of depression. She complains of anxiety. Onset was approximately several weeks ago. Symptoms have been slightly worsened since since that time. Current symptoms include: increased anxiety. Patient denies depressed mood, hopelessness, and insomnia. Family history significant for no psychiatric illness. Possible organic causes contributing are: none. Risk factors: none. Previous treatment includes none. She complains of the following side effects from the treatment: none. 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 Negative for activity change and fatigue. Eyes: Negative for visual disturbance. Gastrointestinal: Positive for nausea and vomiting. Negative for abdominal pain, constipation and diarrhea. Genitourinary: Negative for decreased urine volume, difficulty urinating, dysuria, hematuria and vaginal bleeding. Musculoskeletal: Negative for arthralgias and myalgias. Skin: Negative. Neurological: Negative for dizziness, weakness, light-headedness and headaches. Objective BP 122/74 (BP Location: Left arm, Patient Position: Sitting) Pulse (!) 111 Temp 36.1 C (96.9 F) Wt 90.2 kg (198 lb 12.8 oz) SpO2 98% BMI 33.08 kg/m Physical Exam Constitutional: General: She is not in acute distress. Appearance: Normal appearance. Cardiovascular: Rate and Rhythm: Normal rate and regular rhythm. Pulses: Normal pulses. Pulmonary: Effort: Pulmonary effort is normal. Breath sounds: Normal breath sounds. Abdominal: General: Bowel sounds are normal. Palpations: Abdomen is soft. Skin: General: Skin is warm and dry. Neurological: Mental Status: She is alert and oriented to person, place, and time. Psychiatric: Mood and Affect: Mood normal. Assessment/Plan Diagnoses and all orders for this visit: Acute cystitis without hematuria - Urinalysis with Reflex Microscopic; Future - Comprehensive Metabolic Panel; Future Will follow up with repeat UA Proteinuria, unspecified type - Urinalysis with Reflex Microscopic; Future - Comprehensive Metabolic Panel; Future Depression, controlled - Comprehensive Metabolic Panel; Future -Chronic controlled on Zoloft Other orders - Follow Up In Primary Care - Health Maintenance; Future documented in this encounter [facility] Work Phone: 06-03-2023 Evaluation + Plan note Associated Problem(s): Dysuria -Patient is 12 weeks . Recommendation for empiric treatment of UTI with Macrobid made. Macrobid 100 mg twice daily for 10 days sent into the pharmacy. Patient was recommended to contact her primary care's office in 48 hours for the result of the urine culture, in order to see if she needs to continue the antibiotics. -Urine analysis with culture and sensitivity ordered. To be done today. Patient agreed with the plan of care. [facility] Work Phone: 06-03-2023 Miscellaneous Notes Associated Problem(s): Dysuria -Patient is 12 weeks . Recommendation for empiric treatment of UTI with Macrobid made. Macrobid 100 mg twice daily for 10 days sent into the pharmacy. Patient was recommended to contact her primary care's office in 48 hours for the result of the urine culture, in order to see if she needs to continue the antibiotics. -Urine analysis with culture and sensitivity ordered. To be done today. Patient agreed with the plan of care. documented in this encounter [facility] Work Phone: 06-03-2023 History of Presen t illness Narrative Subjective Patient ID: Cristina Lantigua is a 28 y.o. female who presents for No chief complaint on file.. HPI The patient is a 28 years old female, 12 weeks , who is here for the treatment of a mild dysuria that started couple days ago. A review of system was completed. All systems were reviewed and were normal, except for the ones that are listed in the HPI. Objective Physical Exam Assessment/Plan Problem List Items Addressed This Visit Dysuria - Primary -Patient is 12 weeks . Recommendation for empiric treatment of UTI with Macrobid made. Macrobid 100 mg twice daily for 10 days sent into the pharmacy. Patient was recommended to contact her primary care's office in 48 hours for the result of the urine culture, in order to see if she needs to continue the antibiotics. -Urine analysis with culture and sensitivity ordered. To be done today. Patient agreed with the plan of care. Relevant Medications nitrofurantoin, macrocrystal-monohydrate, (Macrobid) 100 mg capsule Other Relevant Orders C. Trachomatis / N. Gonorrhoeae, Amplified Detection TRICH VAGINALIS, AMPLIFIED Urinalysis with Reflex Microscopic Acute vaginitis Relevant Orders C. Trachomatis / N. Gonorrhoeae, Amplified Detection documented in this encounter [facility] Work Phone: 03-09-2023 History of Presen t illness Narrative Subjective Patient ID: Cristina Lantigua is a 27 y.o. female who presents for Earache. Sx onset yesterday sore throat, today congestion, nasal and sinus Sinus pain, right ear pain Cough with sputum production Has not been taking Flonase Has h/o ear infection and chronic sinusitis Is not currently on daily allergy medication, does see ENT Review of Systems Constitutional: Negative for fatigue and fever. HENT: Positive for congestion, ear pain, postnasal drip, rhinorrhea, sinus pressure, sinus pain and sore throat. Respiratory: Negative for chest tightness, shortness of breath and wheezing. Cardiovascular: Negative for chest pain, palpitations and leg swelling. Gastrointestinal: Negative for constipation, diarrhea, nausea and vomiting. Genitourinary: Negative. Musculoskeletal: Negative. Skin: Negative. Neurological: Negative for dizziness, light-headedness and headaches. Objective BP 109/76 (Patient Position: Standing) Pulse 76 Temp 37 C (98.6 F) Ht 1.651 m (5' 5 ) Wt 90.7 kg (200 lb) BMI 33.28 kg/m Physical Exam Constitutional: General: She is not in acute distress. Appearance: Normal appearance. She is normal weight. She is ill-appearing. HENT: Right Ear: Hearing and tympanic membrane normal. Swelling and tenderness present. Left Ear: Hearing and tympanic membrane normal. Nose: Congestion present. Right Sinus: Frontal sinus tenderness present. Left Sinus: Frontal sinus tenderness present. Mouth/Throat: Lips: [place]. Mouth: Mucous membranes are moist. Pharynx: Oropharyngeal exudate present. Cardiovascular: Rate and Rhythm: Normal rate and regular rhythm. Pulmonary: Effort: Pulmonary effort is normal. Breath sounds: Normal breath sounds. Skin: General: Skin is warm and dry. Neurological: Mental Status: She is alert and oriented to person, place, and time. Assessment/Plan Diagnoses and all orders for this visit: Rhinosinusitis - cefdinir (Omnicef) 300 mg capsule; Take 1 capsule (300 mg) by mouth 2 times a day for 7 days. - fluticasone (Flonase) 50 mcg/actuation nasal spray; Administer 1 spray into each nostril once daily. - Advised to continue on Flonase nasal spray daily and would benefit from taking daily OTC allergy medication such as Tg. documented in this encounter [facility] Work Phone: 03-09-2023 Instructions JONATHAN Romano - 03/09/2023 8:00 AM EDT Complete entire coarse of antibiotics, return if symptoms persist or worsen documented in this encounter [facility] Work Phone: 06-27-2022 History of Presen t illness Narrative Cristina is a 27 female here today with Complaint of sinus symptoms with cough and ear ache.Sx onset Monday eveningsx included fatigue, congestion CHRIS, bilateral ear pain, ear feels full, diarrhea. Fever on 06/28/22 100.2, productive cough.OTC Advil and NyQuil with minimal relief. [facility] Work Phone: 05-11-2022 Note 80 Date of Procedure: 05/11/2022 Pathologist: [facility], Cytology Date Reported: 05/23/2022 Date Received: 05/11/2022 Submitting Physician: KOJO MARSHALL M.D. FINAL CYTOLOGICAL INTERPRETATION A. THINPREP PAP CERVICAL: Specimen adequacy: SATISFACTORY FOR EVALUATION. Quality Indicator: Endocervical/transformation zone component is present. General Categorization: NEGATIVE FOR INTRAEPITHELIAL LESION OR MALIGNANCY. Ancillary Testing: Specimen does not meet the requisition-stated criteria for HPV testing. See Pap test interpretation above. QC review performed at [facility], [address] [place] [address] This specimen has been analyzed by the ThinPrep Imaging System ([employer] an automated imaging and review system, which assists the laboratory in evaluating cells on ThinPrep Pap tests. Following automated imaging, selected de la cruz from every slide were reviewed by a track welder and/or pathologist. Electronically Signed Out By [facility], Cytology//JAYLYN/ELOISA By the signature on this report, the individual or group listed as making the Final Interpretation/Diagnosis certifies that they have reviewed this case. Diagnostic interpretation performed at [facility] [address] [facility]. [place] [id number] Educational Note: Cervical cytology is a screening procedure primarily for squamous cancers and precursors and has associated false-negative and false-positive results as evidenced by published data. Your patient?s test should be interpreted in this context, together with patient?s history and clinical findings. Regular sampling and follow-up of unexplained clinical signs and symptoms are recommended to minimize false negative results. Clinical History Date of Last Menstrual Period: 04/19/2022 Other Clinical Conditions: HPV Reflex for ASC-US only - Include HPV Genotype Annual Clinical Diagnosis History: Screening for cervical cancer - (Z12.4) Source of Specimen A: THINPREP PAP CERVICAL [facility] Department of Pathology [id number] [place] [address] [facility] documented in this encounter [facility] Work Phone: Evaluation note* Diagnosis Dysuria- Primary Acute vaginitis Unspecified vaginitis and vulvovaginitis documented in this encounter [facility] Work Phone: Evaluation note* Diagnosis Acute cystitis without hematuria- Primary Proteinuria, unspecified type Depression, controlled documented in this encounter [facility] Work Phone: Evaluation note* Diagnosis Acute mucoid otitis media of right ear- Primary documented in this encounter [facility] Work Phone: History of Present illness Narrative* Cristina is a 26 yo female here today for wellness exam and to establish care. She has a PMHx of depression (), difficult childbirth, uterine bleeding, and post labor surgical repair of uterus (2019). Patient reports childbirth was very traumatic. She had depression which is controlled now on Zoloft. She has concerns regarding weight gain. She report significant weight gain while on Deppo shot and Nexplanon implant. She is no longer on any form of hormonal control. She has 1 child age 2 and is . She is sexually active. She has not seen OBGYN in 2 years. * Cristina would like lab work up for fatigue and weight gain. She is interested in losing weight and motivated to do so. Discussed medications for weight loss (Adepex), diet, exercise. She feels as though she eats out of boredom or habit * Otherwise she has no other health concerns today * UPT on vaccines * Had COVID infection in 10/2021 [facility] Work Phone: History of Present illness Narrative* Cristina is a 26 yo female here today for wellness exam and to establish care. She has a PMHx of depression (), difficult childbirth, uterine bleeding, and post labor surgical repair of uterus (2019). Patient reports childbirth was very traumatic. She had depression which is controlled now on Zoloft. She has concerns regarding weight gain. She report significant weight gain while on Deppo shot and Nexplanon implant. She is no longer on any form of hormonal control. She has 1 child age 2 and is . She is sexually active. She has not seen OBGYN in 2 years. * Cristina would like lab work up for fatigue and weight gain. She is interested in losing weight and motivated to do so. Discussed medications for weight loss (Adepex), diet, exercise. She feels as though she eats out of boredom or habit * Otherwise she has no other health concerns today * UPT on vaccines * Had COVID infection in 10/2021 [facility] Work Phone: History of Present illness Narrative* Cristina is a 27 yo female, here today with complaints of acute anxiety. * She is having increase in stress anxiety related to purchase/home building. 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 * the costs of building from ground up is becoming expensive and now is dealing with financial strain * recently stopped taking her Zoloft and she was feeling well and restarted 1 week ago * she reports difficulty falling asleep due to worry, irritability and frustration. * She denies HI/SI -[facility] Work Phone: History of Present illness Narrative* The last health maintenance visit was year(s) ago. there are no concerns today. The patient's health since the last visit is described as good. There are no interval changes in the patient's PMH, PSH, and current medications. There are no interval changes in the patient's social and family history.She has regular dental visits. The patient brushes 2 time(s) a day and reports her last dental visit was. Dental problems: no tooth pain. She complains of vision problems. Vision care includes wearing glasses and an eye examination within the last year. The patient complains of has appointment scheduled. She denies hearing loss. Immunizations status: up to date. * Lifestyle: She consumes a diverse and healthy diet. She does not have any weight concerns. She doesnot exercise regularly. She does not use tobacco. She denies alcohol use. * Reproductive health: she reports normal menses. * Cervical cancer screening: cancer screening reviewed and current. * Metabolic screening: lipid profile performed within the past five years. * Cristina is a 27 yo female, here today for annual wellness, she is currently on Zoloft fro depression and anxiety with symptoms well controlled. * She denies anxiety or depression symptom. * [facility] 1 month ago, unsure if , is not currently on control and is sexually active -[facility] Work Phone: Reason for referral (narrative)* Consultation (Routine) - Authorized Specialty Diagnoses / Procedures Referred By Manolo tee Referred To Contact Primary Care Procedures Follow Up In Primary Care - Health Maintenance Michoacano Davis APRN-SAYRA [address] [facility] [place], [place] [id number] Referral ID Status Reason Start Date Expiration Date V isits Requested Visits Authorized [id number] Authorized 06/13/2023 12/10/2023 1 1 [facility] Work Phone: Summary Purpose Family History No Family History Records FoundUnknown Family Member Name Dates Details Family history of diabetes m ellitus: Mother, Father(V18.0, Z83.3) Status:Active Family history of depression : Mother(V17.0, Z81.8) Status:Active Alcohol abuse: Mother(305.00 , F10.10) Status:Active Drug addiction: Mother Status:Active Family history of hypothyroi dism: Mother(V18.19, Z83.49) Status:Active PCOS (polycystic ovarian syn drome): Mother, Sister Status:Active Unknown Family Member Name Dates Details Family history of diabetes m ellitus: Mother, Father(V18.0, Z83.3) Status:Active Family history of depression : Mother(V17.0, Z81.8) Status:Active Alcohol abuse: Mother(305.00 , F10.10) Status:Active Drug addiction: Mother Status:Active Family history of hypothyroi dism: Mother(V18.19, Z83.49) Status:Active PCOS (polycystic ovarian syn drome): Mother, Sister Status:Active Unknown Family Member Name Dates Details Family history of diabetes m ellitus: Mother, Father(V18.0, Z83.3) Status:Active Family history of depression : Mother(V17.0, Z81.8) Status:Active Alcohol abuse: Mother(305.00 , F10.10) Status:Active Drug addiction: Mother Status:Active Family history of hypothyroi dism: Mother(V18.19, Z83.49) Status:Active PCOS (polycystic ovarian syn drome): Mother, Sister Status:Active Unknown Family Member Name Dates Details Family history of diabetes m ellitus: Mother, Father(V18.0, Z83.3) Status:Active Family history of depression : Mother(V17.0, Z81.8) Status:Active Alcohol abuse: Mother(305.00 , F10.10) Status:Active Drug addiction: Mother Status:Active Family history of hypothyroi dism: Mother(V18.19, Z83.49) Status:Active PCOS (polycystic ovarian syn drome): Mother, Sister Status:Active Family history of hypertensi on: Mother, Father(V17.49, Z82.49) Status:Active Unknown Family Member Name Dates Details Family history of diabetes m ellitus: Mother, Father(V18.0, Z83.3) Status:Active Family history of depression : Mother(V17.0, Z81.8) Status:Active Alcohol abuse: Mother(305.00 , F10.10) Status:Active Drug addiction: Mother Status:Active Family history of hypothyroi dism: Mother(V18.19, Z83.49) Status:Active PCOS (polycystic ovarian syn drome): Mother, Sister Status:Active Family history of hypertensi on: Mother, Father(V17.49, Z82.49) Status:Active Unknown Family Member Name Dates Details Family history of diabetes m ellitus: Mother, Father(V18.0, Z83.3) Status:Active Family history of depression : Mother(V17.0, Z81.8) Status:Active Alcohol abuse: Mother(305.00 , F10.10) Status:Active Drug addiction: Mother Status:Active Family history of hypothyroi dism: Mother(V18.19, Z83.49) Status:Active PCOS (polycystic ovarian syn drome): Mother, Sister Status:Active Family history of hypertensi on: Mother, Father(V17.49, Z82.49) Status:Active Unknown Family Member Name Dates Details Family history of diabetes m ellitus: Mother, Father(V18.0, Z83.3) Status:Active Family history of depression : Mother(V17.0, Z81.8) Status:Active Alcohol abuse: Mother(305.00 , F10.10) Status:Active Drug addiction: Mother Status:Active Family history of hypothyroi dism: Mother(V18.19, Z83.49) Status:Active PCOS (polycystic ovarian syn drome): Mother, Sister Status:Active Family history of hypertensi on: Mother, Father(V17.49, Z82.49) Status:Active Unknown Family Member Name Dates Details Family history of diabetes m ellitus: Mother, Father(V18.0, Z83.3) Status:Active Family history of depression : Mother(V17.0, Z81.8) Status:Active Alcohol abuse: Mother(305.00 , F10.10) Status:Active Drug addiction: Mother Status:Active Family history of hypothyroi dism: Mother(V18.19, Z83.49) Status:Active PCOS (polycystic ovarian syn drome): Mother, Sister Status:Active Family history of hypertensi on: Mother, Father(V17.49, Z82.49) Status:Active Unknown Family Member Name Dates Details Family history of diabetes m ellitus: Mother, Father(V18.0, Z83.3) Status:Active Family history of depression : Mother(V17.0, Z81.8) Status:Active Alcohol abuse: Mother(305.00 , F10.10) Status:Active Drug addiction: Mother Status:Active Family history of hypothyroi dism: Mother(V18.19, Z83.49) Status:Active PCOS (polycystic ovarian syn drome): Mother, Sister Status:Active Family history of hypertensi on: Mother, Father(V17.49, Z82.49) Status:Active Unknown Family Member Name Dates Details Family history of diabetes m ellitus: Mother, Father(V18.0, Z83.3) Status:Active Family history of depression : Mother(V17.0, Z81.8) Status:Active Alcohol abuse: Mother(305.00 , F10.10) Status:Active Drug addiction: Mother Status:Active Family history of hypothyroi dism: Mother(V18.19, Z83.49) Status:Active PCOS (polycystic ovarian syn drome): Mother, Sister Status:Active Family history of hypertensi on: Mother, Father(V17.49, Z82.49) Status:Active Unknown Family Member Name Dates Details Family history of diabetes m ellitus: Mother, Father(V18.0, Z83.3) Status:Active Family history of depression : Mother(V17.0, Z81.8) Status:Active Alcohol abuse: Mother(305.00 , F10.10) Status:Active Drug addiction: Mother Status:Active Family history of hypothyroi dism: Mother(V18.19, Z83.49) Status:Active PCOS (polycystic ovarian syn drome): Mother, Sister Status:Active Family history of hypertensi on: Mother, Father(V17.49, Z82.49) Status:Active Unknown Family Member Name Dates Details Family history of diabetes m ellitus: Mother, Father(V18.0, Z83.3) Status:Active Family history of depression : Mother(V17.0, Z81.8) Status:Active Alcohol abuse: Mother(305.00 , F10.10) Status:Active Drug addiction: Mother Status:Active Family history of hypothyroi dism: Mother(V18.19, Z83.49) Status:Active PCOS (polycystic ovarian syn drome): Mother, Sister Status:Active Family history of hypertensi on: Mother, Father(V17.49, Z82.49) Status:Active Unknown Family Member Name Dates Details Family history of diabetes m ellitus: Mother, Father(V18.0, Z83.3) Status:Active Family history of depression : Mother(V17.0, Z81.8) Status:Active Alcohol abuse: Mother(305.00 , F10.10) Status:Active Drug addiction: Mother Status:Active Family history of hypothyroi dism: Mother(V18.19, Z83.49) Status:Active PCOS (polycystic ovarian syn drome): Mother, Sister Status:Active Family history of hypertensi on: Mother, Father(V17.49, Z82.49) Status:Active Advance Directives No Advanced Directives Records FoundLatest Code Status on File Code Status Date Activated Date Inactivated Comments Full Code 10/11/2019 4:23 PM 10/13/2019 6:48 PM Full Code 10/10/2019 8:02 PM 10/11/2019 4:22 PM Chief Complaint New patient - wants blood work.New patient - wants blood work.Patient here today for yearly exam Last pap 2.5 years ago. She states she is worried about having PCOS as her mom and sister have it. She has not been preventing for 2.5 years and has not conceived and has weight gain of 30-40 lbs over 2 year span. LMP:04/19/2022inus pressure/ear pain/cough with production.Anxiety.Med refills. Additional Source Comments INFORMATION SOURCE (unrecogn ized section and content) DATE CREATED AUTHOR AUTHOR'S ORGANIZ ATION 05/01/2018 [facility] DATE CREATED AUTHOR AUTHOR'S ORGANIZ ATION 12/19/2021 [facility] DATE CREATED AUTHOR AUTHOR'S ORGANIZ ATION 02/18/2023 [facility] DATE CREATED AUTHOR AUTHOR'S ORGANIZ ATION 02/18/2023 [employer] DATE CREATED AUTHOR AUTHOR'S ORGANIZ ATION 06/16/2023 [facility] DATE CREATED AUTHOR AUTHOR'S ORGANIZ ATION 08/18/2023 [facility] DATE CREATED AUTHOR AUTHOR'S ORGANIZ ATION 09/26/2023 [facility] DATE CREATED AUTHOR AUTHOR'S ORGANIZ ATION 10/12/2023 [facility] <item> Privacy Markings (unrecogniz ed section and content) Section Author: Shayla Palacios PROHIBITION ON REDISCLOSURE OF CONFIDENTIAL INFORMATION This notice accompanies a disclosure of information concerning a client made to you with the consent of such client. Care Teams (unrecognized sec tion and content) Call Out Operator Relationship Specialty Start Date End Date [place] JONATHAN Lowe [address] [facility] [address] [place] [address] PCP - General 03/02/22 Call Out Operator Relationship Specialty Start Date End Date [place] Davis JONATHAN Lowe [address] [facility] [address] [place] [address] PCP - General 03/02/22 Call Out Operator Relationship Specialty Start Date End Date [place]ano DavisJONATHAN [address] [facility] [address] [place], [place] [id number] PCP - General 03/02/22 Reason for Visit (unrecogniz ed section and content) Reason Comments Follow up visit Depression Anxiety, vitamin d d eficiency Reason Comments Sinusitis Cough Earache FOR RECORDS PERTAINING TO PATIENTS WHO ARE OR HAVE BEEN ENROLLED IN A CHEMICAL DEPENDENCY/SUBSTANCEABUSE PROGRAM, SOME INFORMATION MAY BE OMITTED. This clinical summary was aggregated from multiple sources. Caution should be exercised in using it in the provision of clinical care. This summary normalizes information from multiple sources, and as a consequence, information in this document may materially change the coding, format and clinical context of patient data. In addition, data may be omitted in some cases. CLINICAL DECISIONS SHOULD BE BASED ON THE PRIMARY CLINICAL RECORDS. [facility]. provides no warranty or guarantee of the accuracy or completeness of information in this document.
== END | disposition home or self-care (01) ==
LOC: US 07:49
PROVIDERS: Referring Provider Nurse Practitioner Women's Health; Visit Provider Nurse Practitioner Women's Health
DX: Q51.3 Bicornate uterus (principal)
CPT/HCPCS: 76816

== ENCOUNTER → 2023-11-27 | Outpatient (CLI) | payer OTHER, SELFPAY ==
--- OUTSIDE RECORDS SUMMARY | 2023-11-27 17:19 | XMS RPT_ITS | CCD ---
Author Name Unknown Address [address] [place] [address] Organization [facility] Care Team Providers Care Security Guard Supervisor Name Role Phone Free, Text Entry Unavailable Unavailable Talat Allan Unavailable Unavailable YAS CONWAY Primary Care Unavailable PROVIDER, UNKNOWN Attending Unavailable PROVIDER, UNKNOWN Admitting Unavailable PROVIDER, UNKNOWN Attending Unavailable PROVIDER, UNKNOWN Admitting Unavailable YAS CONWAY Primary Care Unavailable Susan, Michoacano Lowe Unavailable Unavailable Unavailable Yas Conway PA-C Primary Care Provider [phone] Anurag RODRIGUEZ, Kahlil Diaz Unavailable [phone] Susan, Devendra Peña Referring Unavailabl e Susan, Devendra Peña Attending Unavailabl e Susan, Devendra Peña Primary Care Unavailabl e Susan, Devendra Peña Referring Unavailabl e Ringsted, Devendra Peña Attending Unavailabl e Susan, Devendra Peña Primary Care Unavailabl e Susan, Devendra Peña Primary Care Unavailabl e Susan, Devendra Peña Attending Unavailabl e Susan, Devendra Peña Referring Unavailabl e Ringsted, Devendra Peña Primary Care Unavailabl e Susan, Mrs. Michoacano Peña Attending Unavailabl e Susan, Devendra Peña Referring Unavailabl e Susan, Devendra Peña Primary Care Unavailabl e Susan, Mrs. Michoacano Peña Attending Unavailabl e Ringsted, Mrs. Michoacano Peña Referring Unavailabl e Susan, Devendra Peña Primary Care Unavailabl e Ringsted, Mrs. Michoacano Peña Attending Unavailabl e Susan, Mrs. Michoacano Peña Referring Unavailabl e ROLANDO, MD KOJO MCCARTHY Attending Unava ilable Ringsted, Mrs. Michoacano Peña Primary Care Unavailabl e ROLANDO, MD KOJO MCCARTHY Referring Unava ilable Ringsted, Mrs. Michoacano Peña Primary Care Unavailabl e Cannon, Dr. Rafael Malhotra Attending Unavailabl e Louis, Dr. Rafael Malhotra Referring Unavailabl e Susan, Mrs. Michoacano Peña Primary Care Unavailabl e Awais, Shayy Attending Unavailable Fried, Shyay Referring Unavailable ROLANDO, MD KOJO MCCARTHY Attending Unava ilable Susan, Mrs. Michoacano Peña Primary Care Unavailabl e Susan AUTOMOTIVE WELDER-SAYRA, Michoacano Lowe Primary Care Provider [phone] Susan, Mrs. Michoacano Peña Attending Unavailabl e [...] sources) Penicillin; Translations: [Penicillins] Drug Allergy Rash [facility] (2 sources) Amoxicillin; Translations: [AMOXICILLIN] Drug Allergy 9 Hives [facility] [employer] [facility] (8 sources) Penicillins; Translations: [PENICILLINS] Propensity to adverse reactions to drug (disorder) 7 Rash [facility] [place] Rep[facility] Medications Current Medications Medication Drug Class(es) Dates Sig (Normalized) Sig (Original) [id number] 200 actuat albuterol 0.09 mg/actuat metered dose [...] oral solution (2 sources) alpha-Adrenergic Agonist, Uncompetitive Y-fgjyqm-T-aspartat e Receptor Antagonist, Sigma-1 Agonist Start: 01-09-2023 [...] 08:41-0500 Body height 165.1 cm Michoacano Davis APRN-DATABASE PROGRAMMER ANALYST Work Phone: [facility] 09-25-2023 08:41-0500 Body mass index (BMI) [Ratio] 33.2 kg/m2 Michoacano Davis AUTOMOTIVE WELDER-DATABASE PROGRAMMER ANALYST Work Phone: [facility] 09-25-2023 08:41-0500 Body temperature 97.5 [degF] Michoacano Davis AUTOMOTIVE WELDER-DATABASE PROGRAMMER ANALYST Work Phone: [facility] 09-25-2023 08:41-0500 Body weight 90.49 kg Michoacano Davis AUTOMOTIVE WELDER-DATABASE PROGRAMMER ANALYST Work Phone: [facility] 09-25-2023 08:41-0500 Diastolic blood pressure 64 mm[Hg] Michoacano Davis APRN-DATABASE PROGRAMMER ANALYST Work Phone: [facility] 09-25-2023 08:41-0500 Heart rate 107 /min Michoacano Davis AUTOMOTIVE WELDER-DATABASE PROGRAMMER ANALYST Work Phone: [facility] 09-25-2023 08:41-0500 SaO2% (BldA) [Mass fraction] 98 % Michoacano Davis APRN-DATABASE PROGRAMMER ANALYST Work Phone: [facility] 09-25-2023 08:41-0500 Systolic blood pressure 114 mm[Hg] Michoacano Davis AUTOMOTIVE WELDER-DATABASE PROGRAMMER ANALYST Work Phone: [facility] 06-13-2023 07:59-0400 Body mass index (BMI) [Ratio] 33.08 kg/m2 Michoacano Davis AUTOMOTIVE WELDER-DATABASE PROGRAMMER ANALYST Work Phone: [facility] 06-13-2023 07:59-0400 Body temperature 96.91 [degF] Michoacano Davis AUTOMOTIVE WELDER-DATABASE PROGRAMMER ANALYST Work Phone: [facility] 06-13-2023 07:59-0400 Body weight 90.17 kg Michoacano Davis AUTOMOTIVE WELDER-DATABASE PROGRAMMER ANALYST Work Phone: [facility] 06-13-2023 07:59-0400 Diastolic blood pressure 74 mm[Hg] Michoacano Davis AUTOMOTIVE WELDER-DATABASE PROGRAMMER ANALYST Work Phone: [facility] 06-13-2023 07:59-0400 Heart rate 111 /min Michoacano Barcenasd AUTOMOTIVE WELDER-DATABASE PROGRAMMER ANALYST Work Phone: [facility] 06-13-2023 07:59-0400 SaO2% (BldA) [Mass fraction] 98 % Michoacano Davis AUTOMOTIVE WELDER-DATABASE PROGRAMMER ANALYST Work Phone: [facility] 06-13-2023 07:59-0400 Systolic blood pressure 122 mm[Hg] Michoacano Davis AUTOMOTIVE WELDER-DATABASE PROGRAMMER ANALYST Work Phone: [facility] 03-09-2023 07:58-0400 Body height 165.1 cm Michoacano Davis AUTOMOTIVE WELDER-DATABASE PROGRAMMER ANALYST Work Phone: [facility] 03-09-2023 07:58-0400 Body mass index (BMI) [Ratio] 33.28 kg/m2 Michoacano Davis AUTOMOTIVE WELDER-DATABASE PROGRAMMER ANALYST Work Phone: [facility] 03-09-2023 07:58-0400 Body temperature 98.6 [degF] Michoacano Barcenasd AUTOMOTIVE WELDER-DATABASE PROGRAMMER ANALYST Work Phone: [facility] 03-09-2023 07:58-0400 Body weight 90.72 kg Michoacano Barcenasd AUTOMOTIVE WELDER-DATABASE PROGRAMMER ANALYST Work Phone: [facility] 03-09-2023 07:58-0400 Diastolic blood pressure 76 mm[Hg] Michoacano Barcenasd AUTOMOTIVE WELDER-DATABASE PROGRAMMER ANALYST Work Phone: [facility] 03-09-2023 07:58-0400 Heart rate 76 /min Michoacano Barcenasd AUTOMOTIVE WELDER-DATABASE PROGRAMMER ANALYST Work Phone: [facility] 03-09-2023 07:58-0400 Systolic blood pressure 109 mm[Hg] Michoacano Barcenasd AUTOMOTIVE WELDER-DATABASE PROGRAMMER ANALYST Work Phone: [facility] 12-14-2022 08:03-0500 Body height 165.1 cm Michoacano L Susan Work Phone: [facility] Work Phone: 12-14-2022 08:03-0500 Body mass index (BMI) [Ratio] 32.28 kg/m2 Michoacano L Susan Work Phone: -[facility] Work Phone: 12-14-2022 08:03-0500 Body surface area Derived from formula 1.95 m2 Michoacano L Ringsted Work Phone: -[facility] Work Phone: 12-14-2022 08:03-0500 Body weight 88 kg Michoacano L Ringsted Work Phone: [facility] Work Phone: 12-14-2022 08:03-0500 Diastolic blood pressure 68 mm[Hg] Michoacano L Ringsted Work Phone: [facility] Work Phone: 12-14-2022 08:03-0500 Heart rate 74 /min Michoacano L Ringsted Work Phone: [facility] Work Phone: 12-14-2022 08:03-0500 Systolic blood pressure 114 mm[Hg] Michoacano L Susan Work Phone: -[facility] Work Phone: 09-14-2022 08:22-0500 Body height 165.1 cm Michoacano L Susan Work Phone: [facility] Work Phone: 09-14-2022 08:22-0500 Body mass index (BMI) [Ratio] 32.15 kg/m2 Michoacano Barcenasd Work Phone: [facility] Work Phone: 09-14-2022 08:22-0500 Body surface area Derived from formula 1.95 m2 Michoacano Lowe Ringsted Work Phone: [facility] Work Phone: 09-14-2022 08:22-0500 Body weight 87.63 kg Michoacano Barcenasd Work Phone: [facility] Work Phone: 09-14-2022 08:22-0500 Diastolic blood pressure 79 mm[Hg] Michoacano Lowe Ringsted Work Phone: [facility] Work Phone: 09-14-2022 08:22-0500 Heart rate 87 /min Michoacano Barcenasd Work Phone: [facility] Work Phone: 09-14-2022 08:22-0500 Systolic blood pressure 115 mm[Hg] Michoacano Barcenasd Work Phone: [facility] Work Phone: 06-29-2022 09:08-0400 Body height 165.1 cm Michoacano Barcenasd Work Phone: [facility] Work Phone: 06-29-2022 09:08-0400 Body mass index (BMI) [Ratio] 32.17 kg/m2 Michoacano Lowe Susan Work Phone: [facility] Work Phone: 06-29-2022 09:08-0400 Body surface area Derived from formula 1.95 m2 Michoacano Lowe Susan Work Phone: [facility] Work Phone: 06-29-2022 09:08-0400 Body temperature 97.7 [degF] Michoacano Barcenasd Work Phone: [facility] Work Phone: 06-29-2022 09:08-0400 Body weight 87.69 kg Michoacano Davis Work Phone: [facility] Work Phone: 06-29-2022 09:08-0400 Diastolic blood pressure 70 mm[Hg] Michoacano Barcenasd Work Phone: [facility] Work Phone: 06-29-2022 09:08-0400 Heart rate 87 /min Michoacano Barcenasd Work Phone: [facility] Work Phone: 06-29-2022 09:08-0400 SaO2% (BldA) [Mass fraction] 98 % Michoacano Davis Work Phone: [facility] Work Phone: 06-29-2022 09:08-0400 Systolic blood pressure 118 mm[Hg] Michoacano Davis Work Phone: [facility] Work Phone: 05-11-2022 13:08-0400 Body height 165.1 cm Michoacano Barcenasd Work Phone: [address] Work Phone: 05-11-2022 13:08-0400 Body mass index (BMI) [Ratio] 33.6 kg/m2 Michoacano Barcenasd Work Phone: [address] Work Phone: 05-11-2022 13:08-0400 Body surface area Derived from formula 1.99 m2 Michoacano Barcenasd Work Phone: [place] [address] [place] Work Phone: 05-11-2022 13:08-0400 Body weight 91.6 kg Michoacano Barcenasd Work Phone: [place] [address] [place] Work Phone: 05-11-2022 13:08-0400 Diastolic blood pressure 78 mm[Hg] Michoacano Lowe Susan Work Phone: [address] Work Phone: 05-11-2022 13:08-0400 Systolic blood pressure 120 mm[Hg] Michoacano Lowe Ringsted Work Phone: [address] Work Phone: 03-30-2022 13:27-0400 Body height 165.1 cm Michoacano Lowe Susan Work Phone: [facility] Work Phone: 03-30-2022 13:27-0400 Body mass index (BMI) [Ratio] 33.38 kg/m2 Michoacano Lowe Susan Work Phone: [facility] Work Phone: 03-30-2022 13:27-0400 Body surface area Derived from formula 1.98 m2 Michoacano Lowe Ringsted Work Phone: [facility] Work Phone: 03-30-2022 13:27-0400 Body weight 91 kg Michoacano Lowe Ringsted Work Phone: [facility] Work Phone: 03-30-2022 13:27-0400 Diastolic blood pressure 62 mm[Hg] Michoacano L Susan Work Phone: [facility] Work Phone: 03-30-2022 13:27-0400 Systolic blood pressure 110 mm[Hg] Michoacano L Susan Work Phone: [facility] Work Phone: 03-29-2022 08:07-0400 Body temperature 97.5 [degF] Michoacano Barcenasd Work Phone: [facility] Work Phone: 03-29-2022 08:07-0400 Diastolic blood pressure 62 mm[Hg] Michoacano Lowe Susan Work Phone: [facility] Work Phone: 03-29-2022 08:07-0400 Heart rate 64 /min Michoacano Lowe Ringsted Work Phone: [facility] Work Phone: 03-29-2022 08:07-0400 Systolic blood pressure 108 mm[Hg] Michoacano Lowe Susan Work Phone: [facility] Work Phone: 03-02-2022 07:38-0400 Body height 165.1 cm Michoacano Lowe Ringsted Work Phone: [facility] Work Phone: 03-02-2022 07:38-0400 Body mass index (BMI) [Ratio] 33.18 kg/m2 Michoacano Lowe Ringsted Work Phone: [facility] Work Phone: 03-02-2022 07:38-0400 Body surface area Derived from formula 1.98 m2 Michoacano Lowe Ringsted Work Phone: [facility] Work Phone: 03-02-2022 07:38-0400 Body weight 90.44 kg Michoacano Barcenasd Work Phone: [facility] Work Phone: 03-02-2022 07:38-0400 Diastolic blood pressure 80 mm[Hg] Michoacano Lowe Ringsted Work Phone: [facility] Work Phone: 03-02-2022 07:38-0400 Heart rate 72 /min Michoacano Lowe Susan Work Phone: [facility] Work Phone: 03-02-2022 07:38-0400 Systolic blood pressure 118 mm[Hg] Michoacano Davis Work Phone: [facility] Work Phone: 09-20-2021 16:00-0500 Body height 162 cm Text Entry Free [facility] 09-20-2021 16:00-0500 Body temperature 97.16 [degF] Text Entry Free [facility] 09-20-2021 16:00-0500 Diastolic blood pressure 67 mm[Hg] Text Entry Free [facility] 09-20-2021 16:00-0500 Heart rate 88 /min Text Entry Free [facility] 09-20-2021 16:00-0500 SaO2% (BldA) [Mass fraction] 98 % Text Entry Free [facility] 09-20-2021 16:00-0500 Systolic blood pressure 115 mm[Hg] Text Entry Free [facility] Encounters Encounter Date Encounter Type Care Provider Facility Start: 10-06-2023 End: 10-07-2023 ambulatory [facility] Start: 09-25-2023 End: 09-25-[address] [facility] Start: 09-25-2023 End: 09-25-2023 Office outpatient visit 15 minutes Michoacano Davis AUTOMOTIVE WELDER-DATABASE PROGRAMMER ANALYST Work Phone: [facility] Procedures Date Procedure Procedure Detail Performing Clinician [...] 06-03-2023 URINALYSIS WITH REFL EX MICROSCOPIC MICHOACANO ADVIS Start: 04-10-2023 HUMAN CHORIONIC GONADOTROPIN, SERUM QUANTITATIVE MICHOACANO DAVIS Start: 05-11-2022 Microscopic observat ion [Identifier] in Cervix by Cyto stain Michoacano Davis AUTOMOTIVE WELDER-DATABASE PROGRAMMER ANALYST Work Phone: Start: 03-03-2022 Lipid 1996 panel - S amanda or Plasma Michoacano Davis AUTOMOTIVE WELDER-DATABASE PROGRAMMER ANALYST Work Phone: Start: 03-18-2021 Microscopic observat ion [Identifier] in Cervix by Cyto stain Yas Conway PA-C Work Phone: Operation on uterus Michoacano Lowe Susan Work Phone: Plan of Treatment Date Care Activity Detail Author Start: 2045 Shingles (RZV) Vaccine (1 of 2) Shingles (RZV) Vaccine (1 of 2) [facility] Start: 2045 Zoster Vaccines (1 of 2) Zoster Vaccines (1 of 2) [facility] Start: 07-19-2029 DTaP/Tdap/Td Vaccines (9 - Td or Tdap) DTaP/Tdap/Td Vaccines (9 - Td or Tdap) [facility] Start: 07-19-2029 Tetanus vaccination Tetanus (Td or Tdap) Booster [facility] Start: 03-03-2027 Lipid panel Lipid Panel [facility] Start: 05-11-2025 Screening for malignant neoplasm of cervix [facility] Start: 03-18-2024 Screening for malignant neoplasm of cervix Pap Smear [facility] Start: 12-25-2023 End: 12-25-2023 Patient encounter procedure 12/25/2023 9:30 AM EST Office Visit [facility] [address] [place] [id number] Michoacano Davis, AUTOMOTIVE WELDER-DATABASE PROGRAMMER ANALYST [address] [facility] [address] [place] [address] [facility] Start: 07-07-2023 Influenza vaccination Influenza Vaccine (#1) [facility] Start: 06-13-2023 End: 06-13-2024 Comprehensive metabolic 2000 panel - Serum or Plasma Comprehensive Metabolic Panel Lab Routine Acute cystitis without hematuria Proteinuria, unspecified type Depression, controlled Expected: 06/13/2023 (Approximate), Expires: 06/13/2024 [facility] Work Phone: Immunizations Immunization Date Immunization Notes Care Provider Leonora john 08-29-2022 influenza, injectabl e, quadrivalent, contains preservative Michoacano Davis AUTOMOTIVE WELDER-DATABASE PROGRAMMER ANALYST Work Phone: [facility] Work Phone: 08-29-2022 influenza, injectabl e, quadrivalent, preservative free Michoacano Davis Work Phone: [facility] Work Phone: Payers Date Payer Category Payer Unknown 2021 Private Health Insurance [id number] 2021 Private Health Insurance [id number] 2021 Unknown [id number] 1995 Unknown [id number] 2. [id number] 1995 Unknown [id number] 2. 840.1.100919.3.579.2.732 1995 Unknown [id number] 2. 840.1.320014.3.579.2.356 1995 Unknown [id number] 2.16 840.1.474678.3.579.2.356 1995 Unknown [id number] 2.16 840.1.076212.3.579.2.356 1995 Unknown [id number] 2.16 840.1.183426.3.579.2.356 1995 Unknown [id number] 2. 840.1.609711.3.579.2.356 1995 Unknown [id number] 2.16. 840.1.227267.3.579.2.356 1995 Unknown [id number] 2.16. 840.1.461771.3.579.2.356 1995 Unknown [id number] 2.16. 840.1.755970.3.579.2.356 1995 Unknown [id number] 2.16. 840.1.493563.3.579.2.356 1995 Unknown [id number] 2.16. 840.1.175239.3.579.2.356 1995 Unknown [id number] 2.16.8 40.1.533265.3.579.2.1069 1995 Unknown [id number] 2.16. 840.1.521269.3.579.2.479 1995 Unknown [id number] 2.16. 840.1.860422.3.579.2.479 1995 Unknown [id number] 2.16.8 40.1.906200.3.579.2.1243 1995 Unknown [id number] 2.16.8 40.1.630182.3.579.2.4 1995 Unknown [id number] 2.16.8 40.1.396110.3.579.2.1243 1995 Unknown [id number] 2.16.84 0.1.147973.3.579.2.1243 1995 Unknown [id number] 2.16.840. 1.868589.3.579.2.1243 1995 Unknown [id number] 2.16.8 40.1.792090.3.579.2.1244 1995 Unknown [id number] 2.16.84 0.1.604310.3.579.2.1244 1995 Unknown [id number] 2.16.84 0.1.175092.3.579.2.1245 1995 Unknown [id number] 2.16.84 0.1.118590.3.579.2.1245 Social History Date Type Detail Facility [facility] Tobacco smoking consumption unknown [facility] Start: 01-09-2023 End: 06-13-2023 Does not have living will Does not have living will [facility] Work Phone: Start: 12-23-2016 End: 01-09-2023 Tobacco [...] Start: 01-09-2023 End: 06-13-2023 Tobacco use panel [facility] Work Phone: Start: 1995 Sex Assigned At Not on file [facility] Work Phone: Start: 10-03-2022 Gender identity Identifies as female gender (finding) [facility] Start: 02-27-2023 End: 09-25-2023 Exposure to SARS-CoV-2 (event) Not sure [facility] Start: 06-13-2023 Alcohol intake Ex-drinker (finding) [facility] Work Phone: Clinical Notes 05-11-2022 to 09-22-2023 Michoacano Davis, AUTOMOTIVE WELDER-DATABASE PROGRAMMER ANALYST - 09/25/2023 10:30 AM Radha DavisSADAF-SAYRA - [...] membrane and ear canal normal. Mouth/Throat: Lips: [place]. Mouth: Mucous membranes are moist. Pharynx: Posterior [...] persist or worsen documented in this encounter [facility] Work Phone: 06-13-2023 History of Presen t [...] days, is prescribed Zofran not effective, following PRESSROOM WORKER next appointment tomorrow Denies depression symptoms UTI [...] Health Maintenance; Future documented in this encounter [facility] Work Phone: 06-03-2023 Evaluation + Plan note [...] Patient agreed with the plan of care. [facility] Work Phone: 06-03-2023 Miscellaneous Notes Associated Problem(s): [...] plan of care. documented in this encounter [facility] Work Phone: 06-03-2023 History of Presen t [...] Gonorrhoeae, Amplified Detection documented in this encounter [facility] Work Phone: 03-09-2023 History of Presen t [...] Sinus: Frontal sinus tenderness present. Mouth/Throat: Lips: [place]. Mouth: Mucous membranes are moist. Pharynx: Oropharyngeal [...] such as Tg. documented in this encounter [facility] Work Phone: 03-09-2023 Instructions JONATHAN Romano - 03/09/2023 8:00 AM EDT Complete entire coarse of antibiotics, return if symptoms persist or worsen documented in this encounter [facility] Work Phone: 06-27-2022 History of Presen t illness Narrative Cristina is a 27 female here today with Complaint of sinus symptoms with cough and ear ache.Sx onset Monday eveningsx included fatigue, congestion CHRIS, bilateral ear pain, ear feels full, diarrhea. Fever on 06/28/22 100.2, productive cough.OTC Advil and NyQuil with minimal relief. [facility] Work Phone: 05-11-2022 Note 80 Date of Procedure: 05/11/2022 Pathologist: [facility], Cytology Date Reported: 05/23/2022 Date Received: 05/11/2022 Submitting Physician: KOJO MARSHALL M.D. FINAL CYTOLOGICAL INTERPRETATION A. THINPREP PAP CERVICAL: Specimen adequacy: SATISFACTORY FOR EVALUATION. Quality Indicator: Endocervical/transformation zone component is present. General Categorization: NEGATIVE FOR INTRAEPITHELIAL LESION OR MALIGNANCY. Ancillary Testing: Specimen does not meet the requisition-stated criteria for HPV testing. See Pap test interpretation above. QC review performed at [facility], [address] [place] [address] This specimen has been analyzed by the ThinPrep Imaging System ([employer] an automated imaging and review system, which assists the laboratory in evaluating cells on ThinPrep Pap tests. Following automated imaging, selected de la cruz from every slide were reviewed by a tree killer and/or pathologist. Electronically Signed Out By [facility], Cytology//JAYLYN/ELOISA By the signature on this report, the individual or group listed as making the Final Interpretation/Diagnosis certifies that they have reviewed this case. Diagnostic interpretation performed at [facility] [address] [facility]. [place] [id number] Educational Note: Cervical cytology is a screening [...] Source of Specimen A: THINPREP PAP CERVICAL [facility] Department of Pathology [address] [place] [address] [facility] documented in this encounter [facility] Work Phone: Evaluation note* Diagnosis Dysuria- Primary Acute vaginitis Unspecified vaginitis and vulvovaginitis documented in this encounter [facility] Work Phone: Evaluation note* Diagnosis Acute cystitis without hematuria- Primary Proteinuria, unspecified type Depression, controlled documented in this encounter [facility] Work Phone: Evaluation note* Diagnosis Acute mucoid otitis media of right ear- Primary documented in this encounter [facility] Work Phone: History of Present illness Narrative* [...] vaccines * Had COVID infection in 10/2021 [facility] Work Phone: History of Present illness [...] vaccines * Had COVID infection in 10/2021 [facility] Work Phone: History of Present illness Narrative* Cristina is a 27 yo female, here today with complaints of acute anxiety. * She is having increase in stress anxiety related to purchase/home building. Has had some issues with a closing deal and is now dealing with a financial issue and dietary services director is now involved. * the costs of building from ground up is becoming expensive and now is dealing with financial strain * recently stopped taking her Zoloft and she was feeling well and restarted 1 week ago * she reports difficulty falling asleep due to worry, irritability and frustration. * She denies HI/SI -[facility] Work Phone: History of Present illness Narrative* [...] currently on control and is sexually active -[facility] Work Phone: Reason for referral (narrative)* Consultation (Routine) - Authorized Specialty Diagnoses / Procedures Referred By Manolo tee Referred To Contact Primary Care Procedures Follow Up In Primary Care - Health Maintenance Michoacano Davis APRN-SAYRA [address] [facility], [place] [phone] Referral ID Status Reason Start Date Expiration Date V isits Requested Visits Authorized [id number] Authorized 06/13/2023 12/10/2023 1 1 [facility] Work Phone: Summary Purpose Family History [...] DATE CREATED AUTHOR AUTHOR'S ORGANIZ ATION 05/01/2018 [facility] DATE CREATED AUTHOR AUTHOR'S ORGANIZ ATION 12/19/2021 [facility] DATE CREATED AUTHOR AUTHOR'S ORGANIZ ATION 02/18/2023 [facility] DATE CREATED AUTHOR AUTHOR'S ORGANIZ ATION 02/18/2023 [employer] DATE CREATED AUTHOR AUTHOR'S ORGANIZ ATION 06/16/2023 [facility] DATE CREATED AUTHOR AUTHOR'S ORGANIZ ATION 08/18/2023 [facility] DATE CREATED AUTHOR AUTHOR'S ORGANIZ ATION 09/26/2023 [facility] DATE CREATED AUTHOR AUTHOR'S ORGANIZ ATION 10/12/2023 [facility] <item> Privacy Markings (unrecogniz ed section and content) Section Author: Shayla Palacios PROHIBITION ON REDISCLOSURE OF CONFIDENTIAL INFORMATION This notice accompanies a disclosure of information concerning a client made to you with the consent of such client. Care Teams (unrecognized sec tion and content) Security Guard Supervisor Relationship Specialty Start Date End Date Michoacano Davis JONATHAN Lowe [address] [facility] [address] [place] [address] PCP - General 03/02/22 Security Guard Supervisor Relationship Specialty Start Date End Date Michoacano Davis JONATHAN Lowe [address] [facility] [address] [place] [address] PCP - General 03/02/22 Security Guard Supervisor Relationship Specialty Start Date End Date Michoacano DavisJONATHAN [address] [facility] [address] [place], [place] [id number] PCP - General 03/02/22 Reason for Visit [...] BE BASED ON THE PRIMARY CLINICAL RECORDS. [employer] [facility]. provides no warranty or guarantee of the accuracy or completeness of information in this document.
== END | disposition home or self-care (01) ==
LOC: LABSPEC 17:00
PROVIDERS: Referring Provider Obstetrics & Gynecology; Visit Provider Obstetrics & Gynecology
DX: O09.90 Supervision of high risk pregnancy, unspecified, unspecified trimester (principal); Z3A.00 Weeks of gestation of pregnancy not specified
CPT/HCPCS: 87081

== ENCOUNTER 2023-11-29 21:27 | Outpatient (CLI) | payer OTHER, SELFPAY ==
[2023-11-29] VITALS (14 sets, daily range): BP systolic 129; BP diastolic 74–75; PULSE 79–100; TEMP 36.3; O2SAT 97–99; BMI 36.1
--- OUTSIDE RECORDS SUMMARY | 2023-11-29 21:30 | XMS RPT_ITS | CCD ---
Author Name Unknown Address [address] [place] [address] Organization [facility] Care Team Providers Care Director Of Technology Name Role Phone Free, Text Entry Unavailable Unavailable Talat Allan Unavailable Unavailable YAS CONWAY Primary Care Unavailable PROVIDER, UNKNOWN Attending Unavailable PROVIDER, UNKNOWN Admitting Unavailable PROVIDER, UNKNOWN Attending Unavailable PROVIDER, UNKNOWN Admitting Unavailable YAS CONWAY Primary Care Unavailable Susan, Michoacano Lowe Unavailable Unavailable Unavailable Yas Conway PA-C Primary Care Provider [phone] Anurag RODRIGUEZ, Kahlil Diaz Unavailable [phone] Susan, Devendra Peña Referring Unavailabl e Susan, Devendra Peña Attending Unavailabl e Susan, Devendra Peña Primary Care Unavailabl e Susan, Devendra Peña Referring Unavailabl e [place], Devendra Peña Attending Unavailabl e Susan, Devendra Peña Primary Care Unavailabl e Susan, Devendra Peña Primary Care Unavailabl e Susan, Devendra Peña Attending Unavailabl e Susan, Devendra Peña Referring Unavailabl e [place], Devendra Peña Primary Care Unavailabl e Susan, Mrs. Michoacano Peña Attending Unavailabl e Susan, Devendra Peña Referring Unavailabl e Susan, Devendra Peña Primary Care Unavailabl e Susan, Mrs. Michoacano Peña Attending Unavailabl e [place], Mrs. Michoacano Peña Referring Unavailabl e Susan, Devendra Peña Primary Care Unavailabl e [place], Mrs. Michoacano Peña Attending Unavailabl e Susan, Mrs. Michoacano Peña Referring Unavailabl e ROLANDO, MD KOJO MCCARTHY Attending Unava ilable [place], Mrs. Michoacano Pñea Primary Care Unavailabl e ROLANDO, MD KOJO MCCARTHY Referring Unava ilable [place], Mrs. Michoacano Peña Primary Care Unavailabl e [place], Dr. Rafael Malhotra Attending Unavailabl e Louis, Dr. Rafael Malhotra Referring Unavailabl e Susan, Mrs. Michoacano Peña Primary Care Unavailabl e Awais, Shayy Attending Unavailable Fried, Shayy Referring Unavailable ROLANDO, MD KOJO MCCARTHY Attending Unava ilable Susan, Mrs. Michoacano Peña Primary Care Unavailabl e Susan INDUSTRIAL CAFETERIA MANAGER-SAYRA, Michoacano Lowe Primary Care Provider Susan, Mrs. Michoacano Peña Attending Unavailabl e [...] SUSAN, MICHOACANO L Primary Care Unavailable SUSAN, MICHOAACNO L Primary Care Unavailable Allergies Allergy Classification Reported Allergen(s) Allergy Type Date of Onset Reaction(s) Facility (14 sources) Penicillin; Translations: [Penicillins] Drug Allergy Rash [facility] (2 sources) Amoxicillin; Translations: [AMOXICILLIN] Drug Allergy 9 Hives [facility] [employer] [facility] (8 sources) Penicillins; Translations: [PENICILLINS] Propensity to adverse reactions to drug (disorder) 7 Rash [facility] Medications Current Medications Medication Drug Class(es) Dates Sig (Normalized) Sig (Original) [id number] 200 actuat albuterol 0.09 mg/actuat metered dose [...] oral solution (2 sources) alpha-Adrenergic Agonist, Uncompetitive D-kdnvzr-[id number]-aspartat e Receptor Antagonist, Sigma-1 Agonist Start: 01-09-2023 [...] 08:41-0500 Body height 165.1 cm Michoacano Davis APRN-411 DIRECTORY ASSISTANCE OPERATOR Work Phone: [facility] 09-25-2023 08:41-0500 Body mass index (BMI) [Ratio] 33.2 kg/m2 Michoacano Davis INDUSTRIAL CAFETERIA MANAGER-411 DIRECTORY ASSISTANCE OPERATOR Work Phone: [facility] 09-25-2023 08:41-0500 Body temperature 97.5 [degF] Michoacano Davis INDUSTRIAL CAFETERIA MANAGER-411 DIRECTORY ASSISTANCE OPERATOR Work Phone: [facility] 09-25-2023 08:41-0500 Body weight 90.49 kg Michoacano Davis INDUSTRIAL CAFETERIA MANAGER-411 DIRECTORY ASSISTANCE OPERATOR Work Phone: [facility] 09-25-2023 08:41-0500 Diastolic blood pressure 64 mm[Hg] Michoacano Davis APRN-411 DIRECTORY ASSISTANCE OPERATOR Work Phone: [facility] 09-25-2023 08:41-0500 Heart rate 107 /min Michoacano Davis INDUSTRIAL CAFETERIA MANAGER-411 DIRECTORY ASSISTANCE OPERATOR Work Phone: [facility] 09-25-2023 08:41-0500 SaO2% (BldA) [Mass fraction] 98 % Michoacano Davis APRN-411 DIRECTORY ASSISTANCE OPERATOR Work Phone: [facility] 09-25-2023 08:41-0500 Systolic blood pressure 114 mm[Hg] Michoacano Davis INDUSTRIAL CAFETERIA MANAGER-411 DIRECTORY ASSISTANCE OPERATOR Work Phone: [facility] 06-13-2023 07:59-0400 Body mass index (BMI) [Ratio] 33.08 kg/m2 Michoacano Davis INDUSTRIAL CAFETERIA MANAGER-411 DIRECTORY ASSISTANCE OPERATOR Work Phone: [facility] 06-13-2023 07:59-0400 Body temperature 96.91 [degF] Michoacano Davis INDUSTRIAL CAFETERIA MANAGER-411 DIRECTORY ASSISTANCE OPERATOR Work Phone: [facility] 06-13-2023 07:59-0400 Body weight 90.17 kg Michoacano Davis INDUSTRIAL CAFETERIA MANAGER-411 DIRECTORY ASSISTANCE OPERATOR Work Phone: [facility] 06-13-2023 07:59-0400 Diastolic blood pressure 74 mm[Hg] Michoacano Davis INDUSTRIAL CAFETERIA MANAGER-411 DIRECTORY ASSISTANCE OPERATOR Work Phone: [facility] 06-13-2023 07:59-0400 Heart rate 111 /min Michoacano Barcenasd INDUSTRIAL CAFETERIA MANAGER-411 DIRECTORY ASSISTANCE OPERATOR Work Phone: [facility] 06-13-2023 07:59-0400 SaO2% (BldA) [Mass fraction] 98 % Michoacano Davis INDUSTRIAL CAFETERIA MANAGER-411 DIRECTORY ASSISTANCE OPERATOR Work Phone: [facility] 06-13-2023 07:59-0400 Systolic blood pressure 122 mm[Hg] Michoacano Davis INDUSTRIAL CAFETERIA MANAGER-411 DIRECTORY ASSISTANCE OPERATOR Work Phone: [facility] 03-09-2023 07:58-0400 Body height 165.1 cm Michoacano Davis INDUSTRIAL CAFETERIA MANAGER-411 DIRECTORY ASSISTANCE OPERATOR Work Phone: [facility] 03-09-2023 07:58-0400 Body mass index (BMI) [Ratio] 33.28 kg/m2 Michoacano Davis INDUSTRIAL CAFETERIA MANAGER-411 DIRECTORY ASSISTANCE OPERATOR Work Phone: [facility] 03-09-2023 07:58-0400 Body temperature 98.6 [degF] Michoacano Barcenasd INDUSTRIAL CAFETERIA MANAGER-411 DIRECTORY ASSISTANCE OPERATOR Work Phone: [facility] 03-09-2023 07:58-0400 Body weight 90.72 kg Michoacano Barcenasd INDUSTRIAL CAFETERIA MANAGER-411 DIRECTORY ASSISTANCE OPERATOR Work Phone: [facility] 03-09-2023 07:58-0400 Diastolic blood pressure 76 mm[Hg] Michoacano Barcenasd INDUSTRIAL CAFETERIA MANAGER-411 DIRECTORY ASSISTANCE OPERATOR Work Phone: [facility] 03-09-2023 07:58-0400 Heart rate 76 /min Michoacano Barcenasd INDUSTRIAL CAFETERIA MANAGER-411 DIRECTORY ASSISTANCE OPERATOR Work Phone: [facility] 03-09-2023 07:58-0400 Systolic blood pressure 109 mm[Hg] Michoacano Barcenasd INDUSTRIAL CAFETERIA MANAGER-411 DIRECTORY ASSISTANCE OPERATOR Work Phone: [facility] 12-14-2022 08:03-0500 Body height 165.1 cm Michoacano L Susan Work Phone: [facility] Work Phone: 12-14-2022 08:03-0500 Body mass index (BMI) [Ratio] 32.28 kg/m2 Michoacano L Susan Work Phone: -[facility] Work Phone: 12-14-2022 08:03-0500 Body surface area Derived from formula 1.95 m2 Michoacano L [place] Work Phone: -[facility] Work Phone: 12-14-2022 08:03-0500 Body weight 88 kg Michoacano L [place] Work Phone: [facility] Work Phone: 12-14-2022 08:03-0500 Diastolic blood pressure 68 mm[Hg] Michoacano L [place] Work Phone: [facility] Work Phone: 12-14-2022 08:03-0500 Heart rate 74 /min Michoacano L [place] Work Phone: [facility] Work Phone: 12-14-2022 08:03-0500 Systolic blood pressure 114 mm[Hg] Michoacano L Susan Work Phone: -[facility] Work Phone: 09-14-2022 08:22-0500 Body height 165.1 cm Michoacano L Susan Work Phone: [facility] Work Phone: 09-14-2022 08:22-0500 Body mass index (BMI) [Ratio] 32.15 kg/m2 Michoacano Barcenasd Work Phone: [facility] Work Phone: 09-14-2022 08:22-0500 Body surface area Derived from formula 1.95 m2 Michoacano Lowe [place] Work Phone: [facility] Work Phone: 09-14-2022 08:22-0500 Body weight 87.63 kg Michoacano Barcenasd Work Phone: [facility] Work Phone: 09-14-2022 08:22-0500 Diastolic blood pressure 79 mm[Hg] Michoacano Lowe [place] Work Phone: [facility] Work Phone: 09-14-2022 08:22-0500 Heart rate 87 /min Michoacano Barcenasd Work Phone: [facility] Work Phone: 09-14-2022 08:22-0500 Systolic blood pressure 115 mm[Hg] Michoacano Barcenasd Work Phone: [facility] Work Phone: 06-29-2022 09:08-0400 Body height 165.1 cm Michoacano Barcenasd Work Phone: [facility] Work Phone: 06-29-2022 09:08-0400 Body mass index (BMI) [Ratio] 32.17 kg/m2 Michoacano Lowe Susan Work Phone: [facility] Work Phone: 06-29-2022 09:08-0400 Body surface area Derived from formula 1.95 m2 Michoacano Lowe Susan Work Phone: [facility] Work Phone: 06-29-2022 09:08-0400 Body temperature 97.7 [degF] Michoacano Barcenasd Work Phone: [facility] Work Phone: 06-29-2022 09:08-0400 Body weight 87.69 kg Michoacano Davis Work Phone: [facility] Work Phone: 06-29-2022 09:08-0400 Diastolic blood pressure 70 mm[Hg] Michoacano Barcenasd Work Phone: [facility] Work Phone: 06-29-2022 09:08-0400 Heart rate 87 /min Michoacano Barcenasd Work Phone: [facility] Work Phone: 06-29-2022 09:08-0400 SaO2% (BldA) [Mass fraction] 98 % Michoacano Davis Work Phone: [facility] Work Phone: 06-29-2022 09:08-0400 Systolic blood pressure 118 mm[Hg] Michoacano Davis Work Phone: [facility] Work Phone: 05-11-2022 13:08-0400 Body height 165.1 cm Michoacano Barcenasd Work Phone: [address] Work Phone: 05-11-2022 13:08-0400 Body mass index (BMI) [Ratio] 33.6 kg/m2 Michoacano Barcenasd Work Phone: [address] Work Phone: 05-11-2022 13:08-0400 Body surface area Derived from formula 1.99 m2 Michoacano Barcenasd Work Phone: [place] [address] [place] Work Phone: 05-11-2022 13:08-0400 Body weight 91.6 kg Michoacano Barcenasd Work Phone: [place] [address] [place] Work Phone: 05-11-2022 13:08-0400 Diastolic blood pressure 78 mm[Hg] Michoacano Lowe Susan Work Phone: [address] Work Phone: 05-11-2022 13:08-0400 Systolic blood pressure 120 mm[Hg] Michoacano Lowe [place] Work Phone: [address] Work Phone: 03-30-2022 13:27-0400 Body height 165.1 cm Michoacano Lowe Susan Work Phone: [facility] Work Phone: 03-30-2022 13:27-0400 Body mass index (BMI) [Ratio] 33.38 kg/m2 Michoacano Lowe Susan Work Phone: [facility] Work Phone: 03-30-2022 13:27-0400 Body surface area Derived from formula 1.98 m2 Michoacano Lowe [place] Work Phone: [facility] Work Phone: 03-30-2022 13:27-0400 Body weight 91 kg Michoacano Lowe [place] Work Phone: [facility] Work Phone: 03-30-2022 13:27-0400 Diastolic blood pressure 62 mm[Hg] Michoacano L Susan Work Phone: [facility] Work Phone: 03-30-2022 13:27-0400 Systolic blood pressure 110 mm[Hg] Michoacano L Susan Work Phone: [facility] Work Phone: 03-29-2022 08:07-0400 Body temperature 97.5 [degF] Michoacano Barcenasd Work Phone: [facility] Work Phone: 03-29-2022 08:07-0400 Diastolic blood pressure 62 mm[Hg] Michoacano Lowe Susan Work Phone: [facility] Work Phone: 03-29-2022 08:07-0400 Heart rate 64 /min Michoacano Lowe [place] Work Phone: [facility] Work Phone: 03-29-2022 08:07-0400 Systolic blood pressure 108 mm[Hg] Michoacano Lowe Susan Work Phone: [facility] Work Phone: 03-02-2022 07:38-0400 Body height 165.1 cm Michoacano Lowe [place] Work Phone: [facility] Work Phone: 03-02-2022 07:38-0400 Body mass index (BMI) [Ratio] 33.18 kg/m2 Michoacano Lowe [place] Work Phone: [facility] Work Phone: 03-02-2022 07:38-0400 Body surface area Derived from formula 1.98 m2 Michoacano Lowe [place] Work Phone: [facility] Work Phone: 03-02-2022 07:38-0400 Body weight 90.44 kg Michoacano Barcenasd Work Phone: [facility] Work Phone: 03-02-2022 07:38-0400 Diastolic blood pressure 80 mm[Hg] Michoacano Lowe [place] Work Phone: [facility] Work Phone: 03-02-2022 07:38-0400 Heart rate 72 /min Michoacano Lowe Susan Work Phone: [facility] Work Phone: 03-02-2022 07:38-0400 Systolic blood pressure 118 mm[Hg] Michoacano Davis Work Phone: [facility] Work Phone: 09-20-2021 16:00-0500 Body height 162 cm Text Entry Free [facility] 09-20-2021 16:00-0500 Body temperature 97.16 [degF] Text Entry Free [facility] 09-20-2021 16:00-0500 Diastolic blood pressure 67 mm[Hg] Text Entry Free [facility] 09-20-2021 16:00-0500 Heart rate 88 /min Text Entry Free [facility] 09-20-2021 16:00-0500 SaO2% (BldA) [Mass fraction] 98 % Text Entry Free [facility] 09-20-2021 16:00-0500 Systolic blood pressure 115 mm[Hg] Text Entry Free [facility] Encounters Encounter Date Encounter Type Care Provider Facility Start: 10-06-2023 End: 10-07-2023 ambulatory [facility] Start: 09-25-2023 End: 09-25-2023 ambulatory [facility] Start: 09-25-2023 End: 09-25-2023 Office outpatient visit 15 minutes Michoacano Davis INDUSTRIAL CAFETERIA MANAGER-411 DIRECTORY ASSISTANCE OPERATOR Work Phone: [facility] Procedures Date Procedure Procedure Detail [...] in Cervix by Cyto stain Michoacano Davis INDUSTRIAL CAFETERIA MANAGER-411 DIRECTORY ASSISTANCE OPERATOR Work Phone: Start: 03-03-2022 Lipid 1996 panel - S amanda or Plasma Michoacano Davis INDUSTRIAL CAFETERIA MANAGER-411 DIRECTORY ASSISTANCE OPERATOR Work Phone: Start: 03-18-2021 Microscopic observat ion [Identifier] in Cervix by Cyto stain Yas Conway PA-C Work Phone: Operation on uterus Michoacano Lowe Susan Work Phone: Plan of Treatment Date Care Activity Detail Author Start: 2045 Shingles (RZV) Vaccine (1 of 2) Shingles (RZV) Vaccine (1 of 2) [facility] Start: 2045 Zoster Vaccines (1 of 2) Zoster Vaccines (1 of 2) [facility] Start: 07-19-2029 DTaP/Tdap/Td Vaccines (9 - Td or Tdap) DTaP/Tdap/Td Vaccines (9 - Td or Tdap) [facility] Start: 07-19-2029 Tetanus vaccination Tetanus (Td or Tdap) Booster [facility] Start: 03-03-2027 Lipid panel Lipid Panel [facility] Start: 05-11-2025 Screening for malignant neoplasm of cervix [facility] Start: 03-18-2024 Screening for malignant neoplasm of cervix Pap Smear [facility] Start: 12-25-2023 End: 12-25-2023 Patient encounter procedure 12/25/2023 9:30 AM EST Office Visit [facility] [address] [place] [id number] Michoacano Davis, INDUSTRIAL CAFETERIA MANAGER-411 DIRECTORY ASSISTANCE OPERATOR [address] [facility] [place] [address] [place] [address] [facility] Start: 07-07-2023 Influenza vaccination Influenza Vaccine (#1) [facility] Start: 06-13-2023 End: 06-13-2024 Comprehensive metabolic 2000 panel - Serum or Plasma Comprehensive Metabolic Panel Lab Routine Acute cystitis without hematuria Proteinuria, unspecified type Depression, controlled Expected: 06/13/2023 (Approximate), Expires: 06/13/2024 [facility] Work Phone: Immunizations Immunization Date Immunization Notes Care Provider Leonora john 08-29-2022 influenza, injectabl e, quadrivalent, contains preservative Michoacano Davis INDUSTRIAL CAFETERIA MANAGER-411 DIRECTORY ASSISTANCE OPERATOR Work Phone: [facility] Work Phone: 08-29-2022 influenza, injectabl e, quadrivalent, preservative free Michoacano Davis Work Phone: [facility] Work Phone: Payers Date Payer Category Payer Unknown 2021 Private Health Insurance [id number] 2021 Private Health Insurance [id number] 2021 Unknown [id number] 1995 Unknown [id number] 2. [id number] 1995 Unknown [id number] 2. 840.1.335811.3.579.2.732 1995 Unknown [id number] 2. 840.1.641859.3.579.2.356 1995 Unknown [id number] 2.16 840.1.316463.3.579.2.356 1995 Unknown [id number] 2.16 840.1.345180.3.579.2.356 1995 Unknown [id number] 2.16 840.1.616430.3.579.2.356 1995 Unknown [id number] 2. 840.1.235959.3.579.2.356 1995 Unknown [id number] 2.16. 840.1.513664.3.579.2.356 1995 Unknown [id number] 2.16. 840.1.830234.3.579.2.356 1995 Unknown [id number] 2.16. 840.1.699490.3.579.2.356 1995 Unknown [id number] 2.16. 840.1.889984.3.579.2.356 1995 Unknown [id number] 2.16. 840.1.079949.3.579.2.356 1995 Unknown [id number] 2.16.8 40.1.009441.3.579.2.1069 1995 Unknown [id number] 2.16. 840.1.321316.3.579.2.479 1995 Unknown [id number] 2.16. 840.1.097233.3.579.2.479 1995 Unknown [id number] 2.16.8 40.1.117622.3.579.2.1243 1995 Unknown [id number] 2.16.8 40.1.056229.3.579.2.4 1995 Unknown [id number] 2.16.8 40.1.187404.3.579.2.1243 1995 Unknown [id number] 2.16.84 0.1.431279.3.579.2.1243 1995 Unknown [id number] 2.16.840. 1.972359.3.579.2.1243 1995 Unknown [id number] 2.16.8 40.1.105543.3.579.2.1244 1995 Unknown [id number] 2.16.84 0.1.945815.3.579.2.1244 1995 Unknown [id number] 2.16.84 0.1.821654.3.579.2.1245 1995 Unknown [id number] 2.16.84 0.1.584734.3.579.2.1245 Social History Date Type Detail Facility [facility] Tobacco smoking consumption unknown [facility] Start: 01-09-2023 End: 06-13-2023 Does not have living will Does not have living will [facility] Work Phone: Start: 12-23-2016 End: 01-09-2023 [...] Start: 01-09-2023 End: 06-13-2023 Tobacco use panel [facility] Work Phone: Start: 1995 Sex Assigned At Not on file [facility] Work Phone: Start: 10-03-2022 Gender identity Identifies as female gender (finding) [facility] Start: 02-27-2023 End: 09-25-2023 Exposure to SARS-CoV-2 (event) Not sure [facility] Start: 06-13-2023 Alcohol intake Ex-drinker (finding) [facility] Work Phone: Clinical Notes 05-11-2022 to 09-22-2023 Michoacano Davis, INDUSTRIAL CAFETERIA MANAGER-411 DIRECTORY ASSISTANCE OPERATOR - 09/25/2023 10:30 AM Radha DavisSADAF-SAYRA [...] membrane and ear canal normal. Mouth/Throat: Lips: [place]. Mouth: Mucous membranes are moist. Pharynx: Posterior [...] persist or worsen documented in this encounter [facility] Work Phone: 06-13-2023 History of Presen t illness Narrative Subjective Patient ID: Critsina Lantigua is a 28 y.o. 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 [facility] Work Phone: 06-03-2023 Miscellaneous Notes Associated Problem(s): [...] plan of care. documented in this encounter [facility] Work Phone: 06-03-2023 History of Presen t [...] Gonorrhoeae, Amplified Detection documented in this encounter [facility] Work Phone: 03-09-2023 History of Presen t [...] Sinus: Frontal sinus tenderness present. Mouth/Throat: Lips: [place]. Mouth: Mucous membranes are moist. Pharynx: Oropharyngeal [...] such as Tg. documented in this encounter [facility] Work Phone: 03-09-2023 Instructions JONATHAN Romano - 03/09/2023 8:00 AM EDT Complete entire coarse of antibiotics, return if symptoms persist or worsen documented in this encounter [facility] Work Phone: 06-27-2022 History of Presen t illness Narrative Cristina is a 27 female here today with Complaint of sinus symptoms with cough and ear ache.Sx onset Monday eveningsx included fatigue, congestion CHRIS, bilateral ear pain, ear feels full, diarrhea. Fever on 06/28/22 100.2, productive cough.OTC Advil and NyQuil with minimal relief. [facility] Work Phone: 05-11-2022 Note 80 Date of Procedure: 05/11/2022 Pathologist: [facility], Cytology Date Reported: 05/23/2022 Date Received: 05/11/2022 Submitting Physician: KOJO MARSHALL M.D. FINAL CYTOLOGICAL INTERPRETATION A. THINPREP PAP CERVICAL: Specimen adequacy: SATISFACTORY FOR EVALUATION. Quality Indicator: Endocervical/transformation zone component is present. General Categorization: NEGATIVE FOR INTRAEPITHELIAL LESION OR MALIGNANCY. Ancillary Testing: Specimen does not meet the requisition-stated criteria for HPV testing. See Pap test interpretation above. QC review performed at [facility], [address] [place] [address] This specimen has been analyzed by the ThinPrep Imaging System ([id number] an automated imaging and review system, which assists the laboratory in evaluating cells on ThinPrep Pap tests. Following automated imaging, selected de la cruz from every slide were reviewed by a billing representative and/or pathologist. Electronically Signed Out By [facility], Cytology//JAYLYN/ELOISA By the signature on this report, the individual or group listed as making the Final Interpretation/Diagnosis certifies that they have reviewed this case. Diagnostic interpretation performed at [facility] [address] [facility]. [place] [id number] Educational Note: Cervical cytology is a screening [...] Source of Specimen A: THINPREP PAP CERVICAL [facility] Department of Pathology [address] [place] [address] [facility] documented in this encounter [facility] Work Phone: Evaluation note* Diagnosis Dysuria- Primary Acute vaginitis Unspecified vaginitis and vulvovaginitis documented in this encounter [facility] Work Phone: Evaluation note* Diagnosis Acute cystitis without hematuria- Primary Proteinuria, unspecified type Depression, controlled documented in this encounter [facility] Work Phone: Evaluation note* Diagnosis Acute mucoid otitis media of right ear- Primary documented in this encounter [facility] Work Phone: History of Present illness [...] vaccines * Had COVID infection in 10/2021 [facility] Work Phone: History of Present illness [...] vaccines * Had COVID infection in 10/2021 [facility] Work Phone: History of Present illness Narrative* Cristina is a 27 yo female, here today with complaints of acute anxiety. * She is having increase in stress anxiety related to purchase/home building. 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 * the costs of building from ground up is becoming expensive and now is dealing with financial strain * recently stopped taking her Zoloft and she was feeling well and restarted 1 week ago * she reports difficulty falling asleep due to worry, irritability and frustration. * She denies HI/SI -[facility] Work Phone: History of Present illness [...] currently on control and is sexually active -[facility] Work Phone: Reason for referral (narrative)* Consultation (Routine) - Authorized Specialty Diagnoses / Procedures Referred By Manolo tee Referred To Contact Primary Care Procedures Follow Up In Primary Care - Health Maintenance Michoacano Davis APRN-SAYRA [address] [facility], [place] [id number] Referral ID Status Reason Start Date Expiration Date V isits Requested Visits Authorized [id number] Authorized 06/13/2023 12/10/2023 1 1 [facility] Work Phone: Summary Purpose Family History No [...] DATE CREATED AUTHOR AUTHOR'S ORGANIZ ATION 05/01/2018 [facility] [facility] System DATE CREATED AUTHOR AUTHOR'S ORGANIZ ATION 12/19/2021 [facility] DATE CREATED AUTHOR AUTHOR'S ORGANIZ ATION 02/18/2023 [facility] DATE CREATED AUTHOR AUTHOR'S ORGANIZ ATION 02/18/2023 [facility] DATE CREATED AUTHOR AUTHOR'S ORGANIZ ATION 06/16/2023 [facility] DATE CREATED AUTHOR AUTHOR'S ORGANIZ ATION 08/18/2023 [facility] DATE CREATED AUTHOR AUTHOR'S ORGANIZ ATION 09/26/2023 [facility] DATE CREATED AUTHOR AUTHOR'S ORGANIZ ATION 10/12/2023 [facility] <item> Privacy Markings (unrecogniz ed section and content) Section Author: Shayla Palacios PROHIBITION ON REDISCLOSURE OF CONFIDENTIAL INFORMATION This notice accompanies a disclosure of information concerning a client made to you with the consent of such client. Care Teams (unrecognized sec tion and content) Director Of Technology Relationship Specialty Start Date End Date Michoacano Davis JONATHAN Lwoe [address] [facility] [place], [address] [place] [address] PCP - General 03/02/22 Director Of Technology Relationship Specialty Start Date End Date Michoacano Davis JONATHAN Lowe [address] [facility] [place], [address] [place] [address] PCP - General 03/02/22 Director Of Technology Relationship Specialty Start Date End Date Michoacano DavisJONATHAN [address] [facility] [place] [address] [place], [place] [id number] PCP - General 03/02/22 Reason for Visit [...] BE BASED ON THE PRIMARY CLINICAL RECORDS. [employer] [facility]. provides no warranty or guarantee of the accuracy or completeness of information in this document.
[2023-11-29 22:15] LABS: Red Blood Cells-Urine 0 SEEN /hpf (0-5)
[2023-11-29 22:18] LABS: Color, Urine Yellow (Yellow); Glucose, Dipstick Normal (Normal); Ketone-Dipstick 15 mg/dl (Negative); Leukocyte Esterase-Dipstick 100 /ul (Negative); Nitrite-Dipstick Negative (Negative); Occult Blood-Urine Negative /ul (Negative); Protein-Dipstick Negative (Negative); Urine Bilirubin Dipstick Negative (Negative); Urine Clarity Sl. Cloudy (Clear); Urine Urobilinogen 1 mg/dl (Normal)
[2023-11-29 22:24] LABS: Bacteria 1+ /hpf (None Seen); Squamous Epithelial Cells - UA 0-5 SEEN /hpf (5-10); White Blood Cells 5-10 SEEN /hpf (0-5)
[2023-11-29 22:25] LABS: Mucous, Urine RARE /hpf (<or=2+)
[2023-11-29] MEDS: cycloBENZAPRine HCl 10 MG Tablet PO (22:42)
--- NOTE | 2023-12-01 18:22 | OB.TRI.HP_ITS ---
HPI - General HPI Narrative Cristina is a 28 y/o @ 37 weeks 3 days who presents to L&D with lower pelvic pressure. She has known polyhydramnios. Maternal Data Information IRMA Calculator Estimated Delivery Date Method Current WG Current Estimate 12/19/23 LMP (Certain) 37w 3d PFSH PFSH Medical History Bicornuate uterus Home Medications cholecalciferol (vitamin D3) 50 mcg (2,000 unit) capsule 50 mcg PO DAILY 05/15/23 [History Last Taken Unknown] docosahexaenoic acid 200 mg capsule ( DHA) mg PO 05/15/23 [History Last Taken Unknown] famotidine 20 mg tablet (Pepcid) 20 mg PO DAILY #30 tabs 05/15/23 [Rx Last Taken Unknown] ondansetron HCl 4 mg tablet 4 mg PO Q4H #60 tabs 05/15/23 [Rx Last Taken Unknown] sertraline 50 mg tablet (Zoloft) 50 mg PO DAILY 05/15/23 [History Last Taken Unknown] promethazine 12.5 mg tablet 12.5 mg PO Q6H PRN nausea and vomiting #90 tabs 06/20/23 [Rx Last Taken Unknown] aspirin 81 mg tablet,delayed release (Adult Low Dose Aspirin) 81 mg DAILY Covid positive 11/29/23 [History Last Taken Unknown] Allergy/AdvReac Type Severity Reaction Status Date / Time Penicillins AdvReac Mild rash Verified 11/29/23 22:16 Family History Mother , 2016 Thyroid disorder Hypertension Diabetes PCOS (polycystic ovarian syndrome) Father Diabetes Hypertension Sister PCOS (polycystic ovarian syndrome) Social History adopted: No household members: family number of children: 1 current occupational status: employed 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 Date Name GA/Weeks Outcome Route Bth Weight Gen Labor Lgth Anesthesia Del [facility] FOB 10/11/19 Eugenia live - full term 7#6oz Female 12 epi dural [facility] Delivery Date: 10/11/19 Last Updated by: Cheryle Velasco heart shaped uterus, laceration of uterus was taking to OR Visit Details Expected Delivery Route/Plan Labor Preferences- CB/BF classes: no labor support person: Carlos labor intervention preferences: pain management options preferred: epidural cut cord/dad catch: dad cuts the cord : yes PP control planned: discussed discussed possible routes of delivery and associated risks: [] special requests: [] Plans Covid status: discussed Flu vaccine: discussed Tdap vaccine: given Rhogam: na LARC form signed: yes Problem list reviewed and updated with the most current plan of care details and appropriate orders placed. Relevant counseling for the gestational age provided. Continue routine care and follow up unless otherwise noted in visit notes/problem list details OB Flowsheet Initial Weight: Not Recorded Date -?-?-?-?-?-?-?-?-?-?-?-?- EGA Weight BP Urine Prot -?-?-?-?-?-?-?-?-?-?-?-?- Glucose FHR FuHt Pres Dilation -?-?-?-?-?-?-?-?-?-?-?-?- Effaced St Visit Note 05/15/23 -?-?-?-?-?-?-?-?-?-?-?-?- 8w 6d 202 lb 6 oz 102/67 Nega tive -?-?-?-?-?-?-?-?-?-?-?-?- Negative 169 -?-?-?-?-?-?-?-?-?-?-?-?- SM- CRL consiste nt with LMP 06/14/23 -?-?-?-?-?-?-?-?-?-?-?-?- 13w 1d 198 lb 104/68 Negative -?-?-?-?-?-?-?-?-?-?-?-?- Negative 170 -?-?-?-?-?-?--?-?-?-?-?-?- MH-No VB. Recent UTI tx [facility]-culture pending. Br US confirm FHT 07/07/23 -?-?-?-?-?-?-?-?-?-?-?-?- 16w 3d 197 lb 8 oz Negative -?-?-?-?-?-?-?-?-?-?-?-?- Negative 160 -?-?-?-?-?-?-?-?-?-?-?-?- KW-no vb/crampin g. increased thick vaginal discharge, no odor, itching. US on 08/0408/04/23 -?-?-?-?-?-?-?-?-?-?-?-?- 20w 3d 199 lb 8 oz 118/70 Nega tive -?-?-?-?-?-?-?-?-?-?-?-?- Negative 156 -?-?-?-?-?-?-?-?-?-?-?-?- LC- no vb/crampi ng today. had some spotting after lifting heavy boxes last week. resolved. has anatomy scan today. 09/01/23 -?-?-?-?-?-?-?-?-?-?-?-?- 24w 3d 202 lb 4 oz -?-?-?-?-?-?-?-?-?-?-?-?- 155 -?-?-?-?-?-?-?-?-?-?-?-?- LC- no vb/ctx/lo f. good fm. no concerns. 28 week labs ordered. 10/02/23 -?-?-?-?-?-?-?-?-?-?-?-?- 28w 6d 201 lb 4 oz 113/72 Nega tive -?-?-?-?-?-?-?-?-?-?-?-?- Negative 150 28 -?-?-?-?-?-?-?-?-?-?-?-?- JV- 3rd tri labs done today and pending. no lof, vaginal bleeding, or dec fm. tdap done today. wants FMLA paper work filled out. 10/16/23 -?-?-?-?-?-?-?-?-?-?-?-?- 30w 6d 203 lb 8 oz 118/64 Nega tive -?-?-?-?-?-?-?-?-?-?-?-?- Negative 161 30 -?-?-?-?-?-?-?-?-?-?-?-?- MH-No VB, LOF. G ood FM. Recent covid-start low dose ASA. 36 wk growth US ordered 10/31/23 -?-?-?-?-?-?-?-?-?-?-?-?- 33w 0d 205 lb 118/76 Negative -?-?-?-?-?-?-?-?-?-?-?-?- Negative 140 32 -?-?-?-?-?-?-?-?-?-?-?-?- LC- no vb/ctx/lo f. good fm. compression stockings for trace LE edema. no s/sx of PEC. 11/13/23 -?-?-?-?-?-?-?-?-?-?-?-?- 34w 6d 207 lb 8 oz 113/77 Nega tive -?-?-?-?-?-?-?-?-?-?-?-?- Negative 125 33 -?-?-?-?-?-?-?-?-?-?-?-?- JV- no lof, vagi nal bleeding, or dec fm. having leg and lower back cramping. has ultrasound next visit. 11/27/23 -?-?-?-?-?-?-?-?-?-?-?-?- 36w 6d 210 lb 2 oz 111/74 Nega tive -?-?-?-?-?-?-?-?-?-?-?-?- Negative 130 37 -?-?-?-?-?-?-?-?-?-?-?-?- JV- no lof, vagi nal bleeding, or dec fm. MADDISON today is 25 - 27 cm (measured twice) ROS Constitutional Constitutional: Reports systems reviewed and no addt'l complaints, except as documented Gastrointestinal Gastrointestinal: Denies bloating, constipation, cramping, diarrhea, nausea or vomiting Genitourinary Genitourinary: Reports other Details: Denies vaginal odor, vaginal bleeding, or vaginal discharge ; Denies difficulty urinating or flank pain NST FHR Rate Baby A Baseline: 140 Variability:: Moderate Accelerations:: 15 x 15 Decelerations:: None NST Reactive:: Yes FHR Category:: Category I Assessment & Plan (1) Polyhydramnios affecting in third trimester: (2) COVID-19 affecting in second trimester: COMMENT: start low dose ASA (3) Need for Tdap vaccination: COMMENT: Given 10/02/23 (4) Needs flu shot: COMMENT: Given 10/02/23 (5) UTI in : QUALIFIERS: Trimester: second trimester Qualified Code(s): O23.42 - Unspecified infection of urinary tract in , second trimester COMMENT: Seen urgent care at , took 4 days of macrobid. Urine culture negative (6) Abnormal glucose level: COMMENT: 3 HR GTT Normal (7) Bicornuate uterus: COMMENT: in left horn. 36 week growth. 67% (8) Obesity affecting : QUALIFIERS: Trimester: second trimester Obesity type affecting : unspecified obesity Qualified Code(s): O99.212 - Obesity complicating , second trimester COMMENT: GCT 1 tm ordered, healthy weight gain encouraged. (9) History of hemorrhage: COMMENT: obtain records from [facility], questionable cervical laceration at delivery. received blood transfusion. (10) : QUALIFIERS: Weeks of gestation: 36 weeks Qualified Code(s): Z3A.36 - 36 weeks gestation of COMMENT: NIPT LR. declined carrier. NL anatomy. desires cord banking.- paperwork provided. (11) Supervision of high-risk : QUALIFIERS: Trimester: first trimester Qualified Code(s): O09.91 - Supervision of high risk , unspecified, first trimester COMMENT: PRR IRMA 12/19/23 Girl PC Eugenia Carlos PLAN: Plan false labor, no uti symptoms or signs on UA. labor precautions discussed Dc to home. keep next scheduled NST in office. plan 39 week delivery Charges/Coding Multi Select Codes Urinary/Genital Urinary/Genital CPT Codes: 54640-98 non-stress test Interp
== END 2023-11-30 00:02 | disposition home or self-care (01) ==
LOC: WPOUT 21:27 → WP 21:28
PROVIDERS: Referring Provider Obstetrics & Gynecology; Visit Provider Obstetrics & Gynecology
DX: O40.3XX0 Polyhydramnios, third trimester, not applicable or unspecified (principal); Z3A.37 37 weeks gestation of pregnancy
CPT/HCPCS: 59050; 81001; 99221; G0378

== ENCOUNTER 2023-12-18 07:10 | Inpatient (IN) | payer OTHER, SELFPAY ==
[2023-12-18] VITALS (69 sets, daily range): BP systolic 115–170; BP diastolic 56–79; PULSE 67–97; TEMP 36.5–37.2; O2SAT 92–100; BMI 36.7
--- OUTSIDE RECORDS SUMMARY | 2023-12-18 07:21 | XMS RPT_ITS | CCD ---
Author Name Unknown Address [address] [place] [address] Organization [facility] Care Team Providers Care Shift Supervisor Rn Name Role Phone Free, Text Entry Unavailable Unavailable Talat Allan Unavailable Unavailable YAS CONWAY Primary Care Unavailable PROVIDER, UNKNOWN Attending Unavailable PROVIDER, UNKNOWN Admitting Unavailable PROVIDER, UNKNOWN Attending Unavailable PROVIDER, UNKNOWN Admitting Unavailable YAS CONWAY Primary Care Unavailable Susan, Michoacano Lowe Unavailable Unavailable Unavailable Yas Conway PA-C Primary Care Provider Anurag RODRIGUEZ, Kahlil Diaz Unavailable [phone] Susan, Devendra Peña Referring Unavailabl e Chaffee, Devendra Peña Attending Unavailabl e Susan, Devendra Peña Primary Care Unavailabl e Chaffee, Devendra Peña Referring Unavailabl e Chaffee, Devendra Peña Attending Unavailabl e Chaffee, Devendra Peña Primary Care Unavailabl e Chaffee, Devendra Peña Primary Care Unavailabl e Chaffee, Devendra Peña Attending Unavailabl e Chaffee, Devendra Peña Referring Unavailabl e Susan, Devendra Peña Primary Care Unavailabl e Chaffee, Mrs. Michoacano Peña Attending Unavailabl e Susan, Devendra Peña Referring Unavailabl e Chaffee, Devendra Peña Primary Care Unavailabl e Chaffee, Mrs. Michoacano Peña Attending Unavailabl e Susan, Mrs. Michoacano Peña Referring Unavailabl e Chaffee, Devendra Peña Primary Care Unavailabl e Susan, Mrs. Michoacano Peña Attending Unavailabl e Chaffee, Mrs. Michoacano Peña Referring Unavailabl e ROLANDO, MD KOJO MCCARTHY Attending Unava ilable Susan, Mrs. Michoacano Peña Primary Care Unavailabl e ROLADNO, MD OKJO MCCARTHY Referring Unava ilable Susan, Mrs. Michoacano Peña Primary Care Unavailabl e Louis, Dr. Rafael Malhotra Attending Unavailabl e Noble, Dr. Rafael Malhotra Referring Unavailabl e Susan, Mrs. Michoacano Peña Primary Care Unavailabl e Awais, Shayy Attending Unavailable Fried, Shayy Referring Unavailable ROLANDO, MD KOJO MCCARTHY Attending Unava ilable Susan, Mrs. Michoacano Peña Primary Care Unavailabl e Chaffee GROOVER OPERATOR-SAYRA, Michoacano Lowe Primary Care Provider Chaffee, Mrs. Michoacano Peña Attending Unavailabl e Susan, [...] Unavailable SUSAN, MICHOACANO L Primary Care Unavailable SSUAN, MICHOACANO L Primary Care Unavailable SUSAN, MICHOACANO L Primary Care Unavailable SUSAN, MICHOACANO L Primary Care Unavailable Allergies Allergy Classification Reported Allergen(s) Allergy Type Date of Onset Reaction(s) Facility (14 sources) Penicillin; Translations: [Penicillins] Drug Allergy Rash [facility] (2 sources) Amoxicillin; Translations: [AMOXICILLIN] Drug Allergy 9 Hives [facility] (8 sources) Penicillins; Translations: [PENICILLINS] Propensity to adverse reactions to drug (disorder) 7 [facility] Medications Current Medications Medication Drug Class(es) Dates Sig (Normalized) Sig (Original) [id number] 200 actuat albuterol 0.09 mg/actuat metered dose [...] oral solution (2 sources) alpha-Adrenergic Agonist, Uncompetitive A-dscpvq-T-aspartat e Receptor Antagonist, Sigma-1 Agonist Start: 01-09-2023 [...] 08:41-0500 Body height 165.1 cm Michoacano Davis APRN-REEL SYSTEM OPERATOR Work Phone: [facility] 09-25-2023 08:41-0500 Body mass index (BMI) [Ratio] 33.2 kg/m2 Michoacano Davis GROOVER OPERATOR-REEL SYSTEM OPERATOR Work Phone: [facility] 09-25-2023 08:41-0500 Body temperature 97.5 [degF] Michoacano Davis GROOVER OPERATOR-REEL SYSTEM OPERATOR Work Phone: [facility] 09-25-2023 08:41-0500 Body weight 90.49 kg Michoacano Davis GROOVER OPERATOR-REEL SYSTEM OPERATOR Work Phone: [facility] 09-25-2023 08:41-0500 Diastolic blood pressure 64 mm[Hg] Michoacano Davis APRN-REEL SYSTEM OPERATOR Work Phone: [facility] 09-25-2023 08:41-0500 Heart rate 107 /min Michoacano Davis GROOVER OPERATOR-REEL SYSTEM OPERATOR Work Phone: [facility] 09-25-2023 08:41-0500 SaO2% (BldA) [Mass fraction] 98 % Michoacano Davis APRN-REEL SYSTEM OPERATOR Work Phone: [facility] 09-25-2023 08:41-0500 Systolic blood pressure 114 mm[Hg] Michoacano Davis GROOVER OPERATOR-REEL SYSTEM OPERATOR Work Phone: [facility] 06-13-2023 07:59-0400 Body mass index (BMI) [Ratio] 33.08 kg/m2 Michoacano Davis GROOVER OPERATOR-REEL SYSTEM OPERATOR Work Phone: [facility] 06-13-2023 07:59-0400 Body temperature 96.91 [degF] Michoacano Davis GROOVER OPERATOR-REEL SYSTEM OPERATOR Work Phone: [facility] 06-13-2023 07:59-0400 Body weight 90.17 kg Michoacano Davis GROOVER OPERATOR-REEL SYSTEM OPERATOR Work Phone: [facility] 06-13-2023 07:59-0400 Diastolic blood pressure 74 mm[Hg] Michoacano Davis GROOVER OPERATOR-REEL SYSTEM OPERATOR Work Phone: [facility] 06-13-2023 07:59-0400 Heart rate 111 /min Michoacano Barcenasd GROOVER OPERATOR-REEL SYSTEM OPERATOR Work Phone: [facility] 06-13-2023 07:59-0400 SaO2% (BldA) [Mass fraction] 98 % Michoacano Davis GROOVER OPERATOR-REEL SYSTEM OPERATOR Work Phone: [facility] 06-13-2023 07:59-0400 Systolic blood pressure 122 mm[Hg] Michoacano Davis GROOVER OPERATOR-REEL SYSTEM OPERATOR Work Phone: [facility] 03-09-2023 07:58-0400 Body height 165.1 cm Michoacano Davis GROOVER OPERATOR-REEL SYSTEM OPERATOR Work Phone: [facility] 03-09-2023 07:58-0400 Body mass index (BMI) [Ratio] 33.28 kg/m2 Michoacano Davis GROOVER OPERATOR-REEL SYSTEM OPERATOR Work Phone: [facility] 03-09-2023 07:58-0400 Body temperature 98.6 [degF] Michoacano Barcenasd GROOVER OPERATOR-REEL SYSTEM OPERATOR Work Phone: [facility] 03-09-2023 07:58-0400 Body weight 90.72 kg Michoacano Barcenasd GROOVER OPERATOR-REEL SYSTEM OPERATOR Work Phone: [facility] 03-09-2023 07:58-0400 Diastolic blood pressure 76 mm[Hg] Michoacano Barcenasd GROOVER OPERATOR-REEL SYSTEM OPERATOR Work Phone: [facility] 03-09-2023 07:58-0400 Heart rate 76 /min Michoacano Barcenasd GROOVER OPERATOR-REEL SYSTEM OPERATOR Work Phone: [facility] 03-09-2023 07:58-0400 Systolic blood pressure 109 mm[Hg] Michoacano Barcenasd GROOVER OPERATOR-REEL SYSTEM OPERATOR Work Phone: [facility] 12-14-2022 08:03-0500 Body height 165.1 cm Michoacano L Susan Work Phone: [facility] Work Phone: 12-14-2022 08:03-0500 Body mass index (BMI) [Ratio] 32.28 kg/m2 Michoacano L Chaffee Work Phone: -[facility] Work Phone: 12-14-2022 08:03-0500 Body surface area Derived from formula 1.95 m2 Michoacano L Chaffee Work Phone: -[facility] Work Phone: 12-14-2022 08:03-0500 Body weight 88 kg Michoacano L Chaffee Work Phone: [facility] Work Phone: 12-14-2022 08:03-0500 Diastolic blood pressure 68 mm[Hg] Michoacano L Chaffee Work Phone: [facility] Work Phone: 12-14-2022 08:03-0500 Heart rate 74 /min Michoacano L Chaffee Work Phone: [facility] Work Phone: 12-14-2022 08:03-0500 Systolic blood pressure 114 mm[Hg] Michoacano L Chaffee Work Phone: -[facility] Work Phone: 09-14-2022 08:22-0500 Body height 165.1 cm Michoacano L Chaffee Work Phone: [facility] Work Phone: 09-14-2022 08:22-0500 Body mass index (BMI) [Ratio] 32.15 kg/m2 Michoacano Barcenasd Work Phone: [facility] Work Phone: 09-14-2022 08:22-0500 Body surface area Derived from formula 1.95 m2 Michoacano Lowe Susan Work Phone: [facility] Work Phone: 09-14-2022 08:22-0500 Body weight 87.63 kg Michoacano Barcenasd Work Phone: [facility] Work Phone: 09-14-2022 08:22-0500 Diastolic blood pressure 79 mm[Hg] Michoacano Lowe Chaffee Work Phone: [facility] Work Phone: 09-14-2022 08:22-0500 Heart rate 87 /min Michoacano Barcenasd Work Phone: [facility] Work Phone: 09-14-2022 08:22-0500 Systolic blood pressure 115 mm[Hg] Michoacano Barcenasd Work Phone: [facility] Work Phone: 06-29-2022 09:08-0400 Body height 165.1 cm Michoacano Barcenasd Work Phone: [facility] Work Phone: 06-29-2022 09:08-0400 Body mass index (BMI) [Ratio] 32.17 kg/m2 Michoacano Lowe Chaffee Work Phone: [facility] Work Phone: 06-29-2022 09:08-0400 Body surface area Derived from formula 1.95 m2 Michoacano Lowe Susan Work Phone: [facility] Work Phone: 06-29-2022 09:08-0400 Body temperature 97.7 [degF] Michoacano Barcenasd Work Phone: [facility] Work Phone: 06-29-2022 09:08-0400 Body weight 87.69 kg Michoacano Davis Work Phone: [facility] Work Phone: 06-29-2022 09:08-0400 Diastolic blood pressure 70 mm[Hg] Michoacano Barcenasd Work Phone: [facility] Work Phone: 06-29-2022 09:08-0400 Heart rate 87 /min Michoacano Barcenasd Work Phone: [facility] Work Phone: 06-29-2022 09:08-0400 SaO2% (BldA) [Mass fraction] 98 % Michoacano Davis Work Phone: [facility] Work Phone: 06-29-2022 09:08-0400 Systolic blood pressure 118 mm[Hg] Michoacano Davis Work Phone: [facility] Work Phone: 05-11-2022 13:08-0400 Body height 165.1 cm Michoacano Barcenasd Work Phone: [address] Work Phone: 05-11-2022 13:08-0400 Body mass index (BMI) [Ratio] 33.6 kg/m2 Michoacano Barcenasd Work Phone: [address] Work Phone: 05-11-2022 13:08-0400 Body surface area Derived from formula 1.99 m2 Michoacano Barcenasd Work Phone: [place] [address] [place] Work Phone: 05-11-2022 13:08-0400 Body weight 91.6 kg Michoacano Barcenasd Work Phone: [place] [address] [place] Work Phone: 05-11-2022 13:08-0400 Diastolic blood pressure 78 mm[Hg] Michoacano Lowe Susan Work Phone: [address] Work Phone: 05-11-2022 13:08-0400 Systolic blood pressure 120 mm[Hg] Michoacano Lowe Chaffee Work Phone: [address] Work Phone: 03-30-2022 13:27-0400 Body height 165.1 cm Michoacano Lowe Chaffee Work Phone: [facility] Work Phone: 03-30-2022 13:27-0400 Body mass index (BMI) [Ratio] 33.38 kg/m2 Michoacano Lowe Susan Work Phone: [facility] Work Phone: 03-30-2022 13:27-0400 Body surface area Derived from formula 1.98 m2 Michoacano Lowe Susan Work Phone: [facility] Work Phone: 03-30-2022 13:27-0400 Body weight 91 kg Michoacano Lowe Susan Work Phone: [facility] Work Phone: 03-30-2022 13:27-0400 Diastolic blood pressure 62 mm[Hg] Michoacano L Chaffee Work Phone: [facility] Work Phone: 03-30-2022 13:27-0400 Systolic blood pressure 110 mm[Hg] Michoacano L Chaffee Work Phone: [facility] Work Phone: 03-29-2022 08:07-0400 Body temperature 97.5 [degF] Michoacano Barcenasd Work Phone: [facility] Work Phone: 03-29-2022 08:07-0400 Diastolic blood pressure 62 mm[Hg] Michoacano Lowe Susan Work Phone: [facility] Work Phone: 03-29-2022 08:07-0400 Heart rate 64 /min Michoacano Lowe Chaffee Work Phone: [facility] Work Phone: 03-29-2022 08:07-0400 Systolic blood pressure 108 mm[Hg] Michoacano Lowe Susan Work Phone: [facility] Work Phone: 03-02-2022 07:38-0400 Body height 165.1 cm Michoacano Lowe Susan Work Phone: [facility] Work Phone: 03-02-2022 07:38-0400 Body mass index (BMI) [Ratio] 33.18 kg/m2 Michoacano Lowe Chaffee Work Phone: [facility] Work Phone: 03-02-2022 07:38-0400 Body surface area Derived from formula 1.98 m2 Michoacano Lowe Susan Work Phone: [facility] Work Phone: 03-02-2022 07:38-0400 Body weight 90.44 kg Michoacano Barcenasd Work Phone: [facility] Work Phone: 03-02-2022 07:38-0400 Diastolic blood pressure 80 mm[Hg] Mcihoacano Lowe Susan Work Phone: [facility] Work Phone: 03-02-2022 07:38-0400 Heart rate 72 /min Michoacano Lowe Susan Work Phone: [facility] Work Phone: 03-02-2022 07:38-0400 Systolic blood pressure 118 mm[Hg] Michoacano Davis Work Phone: [facility] Work Phone: 09-20-2021 16:00-0500 Body height 162 cm Text Entry [facility] 09-20-2021 16:00-0500 Body temperature 97.16 [degF] Text Entry [facility] 09-20-2021 16:00-0500 Diastolic blood pressure 67 mm[Hg] Text Entry [facility] 09-20-2021 16:00-0500 Heart rate 88 /min Text Entry [facility] 09-20-2021 16:00-0500 SaO2% (BldA) [Mass fraction] 98 % Text Entry [facility] 09-20-2021 16:00-0500 Systolic blood pressure 115 mm[Hg] Text Entry [facility] Encounters Encounter Date Encounter Type Care Provider Facility Start: 10-06-2023 End: 10-07-[address] [facility] Start: 09-25-2023 End: 09-25-2023 ambulatory [facility] Start: 09-25-2023 End: 09-25-2023 Office outpatient visit 15 minutes Michoacano Davis GROOVER OPERATOR-REEL SYSTEM OPERATOR Work Phone: [facility] Procedures Date Procedure Procedure Detail Performing [...] in Cervix by Cyto stain Michoacano Davis GROOVER OPERATOR-REEL SYSTEM OPERATOR Work Phone: Start: 03-03-2022 Lipid 1996 panel - S amanda or Plasma Michoacano Davis GROOVER OPERATOR-REEL SYSTEM OPERATOR Work Phone: Start: 03-18-2021 Microscopic observat [...] Zoster Vaccines (1 of 2) [facility] Start: 07-19-2029 DTaP/Tdap/Td Vaccines (9 - Td or Tdap) DTaP/Tdap/Td Vaccines (9 - Td or Tdap) [facility] Start: 07-19-2029 Tetanus vaccination Tetanus (Td or Tdap) [facility] Start: 03-03-2027 Lipid panel Lipid Panel [facility] Start: 05-11-2025 Screening for malignant neoplasm of cervix [facility] Start: 03-18-2024 Screening for malignant neoplasm of cervix Pap Smear [facility] Start: 12-25-2023 End: 12-25-2023 Patient encounter procedure 12/25/2023 9:30 AM EST Office Visit [facility] [address] [place] [id number] Michoacano Davis, GROOVER OPERATOR-REEL SYSTEM OPERATOR [address] [facility] [address] [place] [address] [facility] Start: 07-07-2023 Influenza vaccination Influenza Vaccine (#1) [facility] Start: 06-13-2023 End: 06-13-2024 Comprehensive metabolic 2000 panel - Serum or Plasma Comprehensive Metabolic Panel Lab Routine Acute cystitis without hematuria Proteinuria, unspecified type Depression, controlled Expected: 06/13/2023 (Approximate), Expires: 06/13/2024 [facility] Work Phone: Immunizations Immunization Date Immunization Notes Care Provider Leonora john 08-29-2022 influenza, injectabl e, quadrivalent, contains preservative Michoacano Davis GROOVER OPERATOR-REEL SYSTEM OPERATOR Work Phone: [facility] Work Phone: 08-29-2022 influenza, injectabl e, quadrivalent, preservative free Michoacano Davis Work Phone: [facility] Work Phone: Payers Date Payer Category Payer Unknown 2021 Private Health Insurance [id number] 2021 Private Health Insurance [id number] 2021 Unknown [id number] 1995 Unknown [id number] 2. [id number] 1995 Unknown [id number] 2. 840.1.665620.3.579.2.732 1995 Unknown [id number] 2. 840.1.470003.3.579.2.356 1995 Unknown [id number] 2.16 840.1.106734.3.579.2.356 1995 Unknown [id number] 2.16 840.1.338324.3.579.2.356 1995 Unknown [id number] 2.16 840.1.446258.3.579.2.356 1995 Unknown [id number] 2. 840.1.036379.3.579.2.356 1995 Unknown [id number] 2.16. 840.1.895223.3.579.2.356 1995 Unknown [id number] 2.16. 840.1.117184.3.579.2.356 1995 Unknown [id number] 2.16. 840.1.975667.3.579.2.356 1995 Unknown [id number] 2.16. 840.1.088634.3.579.2.356 1995 Unknown [id number] 2.16. 840.1.762899.3.579.2.356 1995 Unknown [id number] 2.16.8 40.1.137127.3.579.2.1069 1995 Unknown [id number] 2.16. 840.1.712911.3.579.2.479 1995 Unknown [id number] 2.16. 840.1.497042.3.579.2.479 1995 Unknown [id number] 2.16.8 40.1.429877.3.579.2.1243 1995 Unknown [id number] 2.16.8 40.1.663401.3.579.2.4 1995 Unknown [id number] 2.16.8 40.1.277092.3.579.2.1243 1995 Unknown [id number] 2.16.84 0.1.256380.3.579.2.1243 1995 Unknown [id number] 2.16.840. 1.661456.3.579.2.1243 1995 Unknown [id number] 2.16.8 40.1.765279.3.579.2.1244 1995 Unknown [id number] 2.16.84 0.1.642665.3.579.2.1244 1995 Unknown [id number] 2.16.84 0.1.655411.3.579.2.1245 1995 Unknown [id number] 2.16.84 0.1.053464.3.579.2.1245 Social History Date Type Detail Facility [facility] Tobacco smoking consumption unknown [facility] Start: 01-09-2023 End: 06-13-2023 Does not have living will Does not have living will [facility] Work Phone: Start: 12-23-2016 End: 01-09-2023 [...] End: 06-13-2023 Tobacco use panel [facility] Work Phone: Start: 1995 Sex Assigned At Not on file [facility] Work Phone: Start: 10-03-2022 Gender identity Identifies as female gender (finding) [facility] Start: 02-27-2023 End: 09-25-2023 Exposure to SARS-CoV-2 (event) Not sure [facility] Start: 06-13-2023 Alcohol intake Ex-drinker (finding) [facility] Work Phone: Clinical Notes 05-11-2022 to 09-22-2023 Michoacano Davis, GROOVER OPERATOR-REEL SYSTEM OPERATOR - 09/25/2023 10:30 AM Radha DavisSADAF-SAYRA [...] membrane and ear canal normal. Mouth/Throat: Lips: [place]. Mouth: Mucous membranes are moist. 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 [facility] Work Phone: 06-03-2023 Miscellaneous Notes Associated Problem(s): [...] care. documented in this encounter [facility] Work Phone: 06-03-2023 History of Presen t [...] Detection documented in this encounter [facility] Work Phone: 03-09-2023 History of Presen t [...] Sinus: Frontal sinus tenderness present. Mouth/Throat: Lips: [place]. Mouth: Mucous membranes are moist. Pharynx: Oropharyngeal [...] Tg. documented in this encounter [facility] Work Phone: 03-09-2023 Instructions JONATHAN Romano - 03/09/2023 8:00 AM EDT Complete entire coarse of antibiotics, return if symptoms persist or worsen documented in this encounter [facility] Work Phone: 06-27-2022 History of Presen t illness Narrative Cristina is a 27 female here today with Complaint of sinus symptoms with cough and ear ache.Sx onset Monday eveningsx included fatigue, congestion CHRIS, bilateral ear pain, ear feels full, diarrhea. Fever on 06/28/22 100.2, productive cough.OTC Advil and NyQuil with minimal relief. [facility] Work Phone: 05-11-2022 Note 80 Date of Procedure: 05/11/2022 Pathologist: [facility], Cytology Date Reported: 05/23/2022 Date Received: 05/11/2022 Submitting Physician: KOJO MARSHALL M.D. FINAL CYTOLOGICAL INTERPRETATION A. THINPREP PAP CERVICAL: Specimen adequacy: SATISFACTORY FOR EVALUATION. Quality Indicator: Endocervical/transformation zone component is present. General Categorization: NEGATIVE FOR INTRAEPITHELIAL LESION OR MALIGNANCY. Ancillary Testing: Specimen does not meet the requisition-stated criteria for HPV testing. See Pap test interpretation above. QC review performed at [facility], [address] [place] [address] This specimen has been analyzed by the ThinPrep Imaging System ([employer] an automated imaging and review system, which assists the laboratory in evaluating cells on ThinPrep Pap tests. Following automated imaging, selected de la cruz from every slide were reviewed by a budget engineer and/or pathologist. Electronically Signed Out By [facility], Cytology//JAYLYN/ELOISA By the signature on this report, the individual or group listed as making the Final Interpretation/Diagnosis certifies that they have reviewed this case. Diagnostic interpretation performed at [facility] [address] [facility]. [place] [id number] Educational Note: Cervical cytology is a screening [...] Source of Specimen A: THINPREP PAP CERVICAL [facility] Department of Pathology [id number] [place] [address] [facility] documented in this encounter [facility] Work Phone: Evaluation note* Diagnosis Dysuria- Primary Acute vaginitis Unspecified vaginitis and vulvovaginitis documented in this encounter [facility] Work Phone: Evaluation note* Diagnosis Acute cystitis without hematuria- Primary Proteinuria, unspecified type Depression, controlled documented in this encounter [facility] Work Phone: Evaluation note* Diagnosis Acute mucoid otitis media of right ear- Primary documented in this encounter [facility] Work Phone: History of Present illness Narrative* [...] vaccines * Had COVID infection in 10/2021 [facility] Work Phone: History of Present illness Narrative* [...] vaccines * Had COVID infection in 10/2021 [facility] Work Phone: History of Present illness Narrative* Cristina is a 27 yo female, here today with complaints of acute anxiety. * She is having increase in stress anxiety related to purchase/home building. 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 * the costs of building from ground up is becoming expensive and now is dealing with financial strain * recently stopped taking her Zoloft and she was feeling well and restarted 1 week ago * she reports difficulty falling asleep due to worry, irritability and frustration. * She denies HI/SI -[facility] Work Phone: History of Present illness Narrative* [...] currently on control and is sexually active -[facility] Work Phone: Reason for referral (narrative)* Consultation (Routine) - Authorized Specialty Diagnoses / Procedures Referred By Manolo tee Referred To Contact Primary Care Procedures Follow Up In Primary Care - Health Maintenance Michoacano Davis APRN-SAYRA [address] [facility], [place] [id number] Referral ID Status Reason Start Date Expiration Date V isits Requested Visits Authorized [id number] Authorized 06/13/2023 12/10/2023 1 1 [facility] Work Phone: Summary Purpose Family History [...] DATE CREATED AUTHOR AUTHOR'S ORGANIZ ATION 05/01/2018 [facility] DATE CREATED AUTHOR AUTHOR'S ORGANIZ ATION 12/19/2021 [facility] DATE CREATED AUTHOR AUTHOR'S ORGANIZ ATION 02/18/2023 [facility] DATE CREATED AUTHOR AUTHOR'S ORGANIZ ATION 02/18/2023 [facility] DATE CREATED AUTHOR AUTHOR'S ORGANIZ ATION 06/16/2023 [facility] DATE CREATED AUTHOR AUTHOR'S ORGANIZ ATION 08/18/2023 [facility] DATE CREATED AUTHOR AUTHOR'S ORGANIZ ATION 09/26/2023 [facility] DATE CREATED AUTHOR AUTHOR'S ORGANIZ ATION 10/12/2023 [facility] <item> Privacy Markings (unrecogniz ed section and content) Section Author: Shayla Palacios PROHIBITION ON REDISCLOSURE OF CONFIDENTIAL INFORMATION This notice accompanies a disclosure of information concerning a client made to you with the consent of such client. Care Teams (unrecognized sec tion and content) Shift Supervisor Rn Relationship Specialty Start Date End Date Michoacano Davis JONATHAN [address] [facility] [address] [place] [address] PCP - General 03/02/22 Shift Supervisor Rn Relationship Specialty Start Date End Date Michoacano Davis JONATHAN [address] [facility] [address] [place] [address] PCP - General 03/02/22 Shift Supervisor Rn Relationship Specialty Start Date End Date Michoacano DavisJONATHAN [address] [facility] [address] [place], [place] [id number] PCP - General 03/02/22 Reason for Visit [...] BE BASED ON THE PRIMARY CLINICAL RECORDS. [employer] [facility]. provides no warranty or guarantee of the accuracy or completeness of information in this document.
[2023-12-18] MEDS: Lactated Ringers 1,000 ML 50 ML IV (07:55)
[2023-12-18 08:30] LABS: Absolute Lymphocyte Count 2.45 X10^3/uL (0.83-4.51); Absolute Neutrophil Count 8.1 X10^3/uL (2.0-7.7); Basophil# 0.03 X10^3/uL; Basophil% 0.3 % (0-1); Eosinophil# 0.05 X10^3/uL; Eosinophils% 0.4 % (0-5); Hematocrit 33.7 % (37-47); Hemoglobin 10.7 g/dL (12.0-15.0); Lymphocyte # 2.45 X10^3/ul (0.83-4.51); Lymphocyte % 21.3 % (19-41); Mean Corp Hgb Conc 31.8 g/dL (32-36); Mean Corpuscular Hgb 27.6 pg (27.0-32.0); Mean Corpuscular Volume 87.1 fL (81-99); Mean Platelet Vol. 10.1 fl (6.2-12.0); Monocyte# 0.85 X10^3/uL; Monocyte% 7.4 % (0-10); NRBC Flagged by Analyzer 0 % (0-5); Neutrophil # 8.05 X10^3/uL (2.7-7.7); Neutrophil % 70.2 % (47-70); Platelet Count 338 K/mm3 (150-450); RBC Distribution Width CV 16.5 % (11.6-14.6); Red Blood Count 3.87 M/mm3 (4.2-5.4); White Blood Count 11.5 K/mm3 (4.4-11.0)
--- NOTE | 2023-12-18 08:41 | PCM.HP.OB ---
HPI - General General Date of Admission: 12/18/23 HPI Narrative KEENA LANTIGUA, is a 28 F who presents for IOL secondary to polyhydramnios Maternal Data Information IRMA Calculator Estimated Delivery Date Method Current WG Current Estimate 12/19/23 LMP (Certain) 39w 6d PFSH PFS Medical History (Updated 12/18/23 @ 08:[address] Azucena Nam MD) Anxiety Bicornuate uterus Depression History of blood transfusion Polyhydramnios Home Medications cholecalciferol (vitamin D3) 50 mcg (2,000 unit) capsule 50 mcg PO DAILY 05/15/23 [History Last Taken 12/17/23 22:30 50 mcg] docosahexaenoic acid 200 mg capsule ( DHA) mg PO 05/15/23 [History Last Taken 12/17/23 22:30 200 mg] famotidine 20 mg tablet (Pepcid) 20 mg PO DAILY heartburn #30 tabs 05/15/23 [Rx Last Taken 12/17/23 22:30 20 mg] ondansetron HCl 4 mg tablet 4 mg PO Q4H #60 tabs 05/15/23 [Rx Last Taken Unknown] sertraline 50 mg tablet (Zoloft) 50 mg PO DAILY anxiety/dep 05/15/23 [History Last Taken 12/17/23 22:30 50 mg] promethazine 12.5 mg tablet 12.5 mg PO Q6H PRN nausea and vomiting #90 tabs 06/20/23 [Rx Last Taken Unknown] aspirin 81 mg tablet,delayed release (Adult Low Dose Aspirin) 81 mg DAILY Covid positive 11/29/23 [History Last Taken 12/17/23 22:30 81 mg] Allergy/AdvReac Type Severity Reaction Status Date / Time Penicillins AdvReac Mild rash Verified 12/18/23 08:13 Family History Mother , 2016 Thyroid disorder Hypertension Diabetes PCOS (polycystic ovarian syndrome) Father Diabetes Hypertension Sister PCOS (polycystic ovarian syndrome) Social History adopted: No household members: family number of children: 1 current occupational status: employed 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 Date Name GA/Weeks Outcome Route Bth Weight Gen Labor Lgth Anesthesia Del Locatn Provider FOB 10/11/19 Eugenia live - full term 7#6oz Female 12 epidural [facility] Delivery Date: 10/11/19 Last Updated by: Cheryle Velasco heart shaped uterus, laceration of uterus was taking to OR Visit Details Expected Delivery Route/Plan Labor Preferences- CB/BF classes: no labor support person: Carlos labor intervention preferences: pain management options preferred: epidural cut cord/dad catch: dad cuts the cord : yes PP control planned: discussed discussed possible routes of delivery and associated risks: [] special requests: [] Plans Covid status: discussed Flu vaccine: discussed Tdap vaccine: given Rhogam: na LARC form signed: yes Problem list reviewed and updated with the most current plan of care details and appropriate orders placed. Relevant counseling for the gestational age provided. Continue routine care and follow up unless otherwise noted in visit notes/problem list details OB Flowsheet Initial Weight: Not Recorded Date <del>?</del> EGA Weight BP Urine Prot <del>?</del> Glucose FHR FuHt Pres Dilation <del>?</del> Effaced St Visit Note 05/15/23 <del>?</del> 8w 6d 202 lb 6 oz 102/67 Negative <del>?</del> Negative 169 <del>?</del> SM- CRL consistent with LMP 06/14/23 <del>?</del> 13w 1d 198 lb 104/68 Negative <del>?</del> Negative 170 <del>?</del> MH-No VB. Recent UTI tx [facility]-culture pending. Br US confirm FHT 07/07/23 <del>?</del> 16w 3d 197 lb 8 oz Negative <del>?</del> Negative 160 <del>?</del> KW-no vb/cramping. increased thick vaginal discharge, no odor, itching. US on 08/0408/04/23 <del>?</del> 20w 3d 199 lb 8 oz 118/70 Negative <del>?</del> Negative 156 <del>?</del> LC- no vb/cramping today. had some spotting after lifting heavy boxes last week. resolved. has anatomy scan today. 09/01/23 <del>?</del> 24w 3d 202 lb 4 oz <del>?</del> 155 <del>?</del> LC- no vb/ctx/lof. good fm. no concerns. 28 week labs ordered. 10/02/23 <del>?</del> 28w 6d 201 lb 4 oz 113/72 Negative <del>?</del> Negative 150 28 <del>?</del> JV- 3rd tri labs done today and pending. no lof, vaginal bleeding, or dec fm. tdap done today. wants FMLA paper work filled out. 10/16/23 <del>?</del> 30w 6d 203 lb 8 oz 118/64 Negative <del>?</del> Negative 161 30 <del>?</del> MH-No VB, LOF. Good FM. Recent covid-start low dose ASA. 36 wk growth US ordered 10/31/23 <del>?</del> 33w 0d 205 lb 118/76 Negative <del>?</del> Negative 140 32 <del>?</del> LC- no vb/ctx/lof. good fm. compression stockings for trace LE edema. no s/sx of PEC. 11/13/23 <del>?</del> 34w 6d 207 lb 8 oz 113/77 Negative <del>?</del> Negative 125 33 <del>?</del> JV- no lof, vaginal bleeding, or dec fm. having leg and lower back cramping. has ultrasound next visit. 11/27/23 <del>?</del> 36w 6d 210 lb 2 oz 111/74 Negative <del>?</del> Negative 130 37 <del>?</del> JV- no lof, vaginal bleeding, or dec fm. MADDISON today is 25 - 27 cm (measured twice) 12/04/23 <del>?</del> 37w 6d 211 lb 123/76 Negative <del>?</del> Negative 150 Cephalic 2.5 <del>?</del> 70 -2 JV- heart tracing showed some marked variability in the beginning of the NST, followed by moderate variability and + accelerations. JV- heart tracing showed some marked variability in the beginning of the NST, followed by moderate variability and + accelerations. MADDISON is 19 today 12/11/23 <del>?</del> 38w 6d 210 lb 107/68 <del>?</del> 140 Cephalic 2.5 <del>?</del> 50 -2 SM- no vb lof good fm no regular ctx set up for IOL monday per patient request due to daughters surgery monday SM- no vb lof good fm no regular ctx set up for IOL monday per patient request due to daughters surgery monday, repeat nst 12/14/23 <del>?</del> 39w 2d 212 lb 6 oz 123/78 Negative <del>?</del> Negative 140 <del>?</del> MH-NST only reactive. NST FHR Rate Baby A Baseline: 130 Variability:: Moderate Accelerations:: 15 x 15 Decelerations:: None NST Reactive:: Yes FHR Category:: Category I Uterine Activity:: irregular ROS Constitutional Constitutional: Reports systems reviewed and no addt'l complaints, except as documented Eyes Eyes: Denies change in vision ENT HEENT: Reports systems reviewed and no addt'l complaints, except as documented; Denies headache(s) Cardiovascular Cardiovascular: Reports systems reviewed and no addt'l complaints, except as documented; Denies chest pain or dyspnea Respiratory/Chest Respiratory/Chest: Reports systems reviewed and no addt'l complaints, except as documented Gastrointestinal Gastrointestinal: Reports systems reviewed and no addt'l complaints, except as documented; Denies abdominal pain Genitourinary Genitourinary: Reports systems reviewed and no addt'l complaints, except as documented, contractions Details: present (irregular) and movement Details: present; Denies dysuria or genital lesions Musculoskeletal Musculoskeletal: Reports systems reviewed and no addt'l complaints, except as documented Neurologic Neurologic: Reports systems reviewed and no addt'l complaints, except as documented Endocrine Endocrinology: Reports systems reviewed and no addt'l complaints, except as documented Vital Signs Vital Signs Vital Signs: 12/18/23 07:37 12/18/23 07:37 12/18/23 07:36 Temperature Temperature Source Temporal Pulse Rate 96 Blood Pressure 132/78 H BP Systolic 132 BP Diastolic 78 12/18/23 07:36 12/18/23 08:36 12/18/23 08:36 Temperature 98.9 F Temperature Source Pulse Rate 77 Blood Pressure 124/71 H BP Systolic 124 BP Diastolic 71 Weight Weight: 214 lb 1.102 oz Body Mass Index (BMI) 36.7 Physical Exam Const alert, oriented x3, no apparent distress and healthy appearing HEENT normocephalic and moist oral mucous membranes Head and Scalp: atraumatic Neck full ROM, no lymphadenopathy, supple and thyroid normal General: trachea midline Lymph Lymphatic: no lymphadenopathy noted Chest inspection of chest normal Resp normal respiratory effort Cardio regular rate GI normal to inspection, nondistended, normoactive bowel sounds, soft to palpation and non-tender Inspection: gravid external exam normal Manual OB Exam: estimated gestational size appropriate, presentation cephalic, dilated, effaced and station Extremity normal to inspection General Extremity: Negative for edema Skin no rashes or lesions noted Neuro no focal motor deficits and deep tendon reflexes 2+ bilaterally Motor Exam: strength 5/5 throughout and clonus absent Psych mental status grossly normal Labs Labs Labs: Blood Type O POSITIVE Antibody Screen NEGATIVE Hct 33.7 % (37-47) L Hgb 10.7 g/dL (12.0-15.0) L Pap Smear Negative Obstetrics Ultrasound Syphilis Total Ab Non-reactive Rubella IgG Antibody Reactive (Nonreactive) Hep Bs Antigen Non-Reactive (Nonreactive) Hepatitis C Antibody Non-Reactive (Nonreactive) Chlamydia DNA (DEBORAH) Negative (Negative) N.gonorrhoeae DNA (DEBORAH) Negative (Negative) HIV 1&2 Antibody Non-Reactive (Nonreactive) Glucose 1 Hr 50 gm 165 mg/dL (70-140) H Gest Glucose Tolerance MG/DL Assessment & Plan (1) Polyhydramnios affecting in third trimester: COMMENT: weekly nsts, deliver 40 weeks, repeat NST ordered . (2) COVID-19 affecting in second trimester: COMMENT: start low dose ASA (3) Need for Tdap vaccination: COMMENT: Given 10/02/23 (4) Needs flu shot: COMMENT: Given 10/02/23 (5) UTI in : QUALIFIERS: Trimester: second trimester Qualified Code(s): O23.42 - Unspecified infection of urinary tract in , second trimester COMMENT: Seen urgent care at , took 4 days of macrobid. Urine culture negative (6) Abnormal glucose level: COMMENT: 3 HR GTT Normal (7) Obesity affecting : QUALIFIERS: Trimester: third trimester Obesity type affecting : unspecified obesity Qualified Code(s): O99.213 - Obesity complicating , third trimester COMMENT: GCT 1 tm ordered, healthy weight gain encouraged. (8) History of hemorrhage: COMMENT: obtain records from [facility], questionable cervical laceration at delivery. received blood transfusion. (9) : QUALIFIERS: Weeks of gestation: 39 weeks Qualified Code(s): Z3A.39 - 39 weeks gestation of COMMENT: NIPT LR. declined carrier. NL anatomy. desires cord banking.-paperwork provided. 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 36 week growth. 67% (12) Encounter for induction of labor: PLAN: Plan Patient presents IOL, plan management for with pitocin/AROM. Pain management: plans epidural. GBS negative. Management of any complications: poly I have reviewed the [facility] and made any clinically relevant updates.
[2023-12-18] MEDS: Oxytocin 15 Units/NS 250ml 15 UNITS/250 ML IV.SOLN 2 UNITS IV (08:45)
[2023-12-18 09:09] LABS: Syphilis Antibodies Non-reactive
[2023-12-18] MEDS: Acetaminophen 500 MG Tablet PO (12:29)
[2023-12-18] MEDS: LACTATED RINGERS 500 ML 999 ML IV (12:56)
[2023-12-18] MEDS: fentaNYL-bupivacaine (epidural) 100 ML BAG EPIDURAL (13:58)
[2023-12-18] MEDS: Ondansetron 4 MG/2 ML Vial IV (14:40)
[2023-12-18] MEDS: Lactated Ringers 1,000 ML 200 ML IV (16:09)
[2023-12-18] MEDS: Oxytocin 15 Units/NS 250ml 15 UNITS/250 ML IV.SOLN 83 UNITS IV (18:05)
--- NOTE | 2023-12-18 18:09 | EX.PCM.OBRPT ---
Assessment & Plan (1) Encounter for induction of labor: (2) Polyhydramnios affecting in third trimester: COMMENT: weekly nsts, deliver 40 weeks, repeat NST ordered . (3) UTI in : QUALIFIERS: Trimester: second trimester Qualified Code(s): O23.42 - Unspecified infection of urinary tract in , second trimester COMMENT: Seen urgent care at , took 4 days of macrobid. Urine culture negative (4) Abnormal glucose level: COMMENT: 3 HR GTT Normal (5) Obesity affecting : QUALIFIERS: Trimester: third trimester Obesity type affecting : unspecified obesity Qualified Code(s): O99.213 - Obesity complicating , third trimester COMMENT: GCT 1 tm ordered, healthy weight gain encouraged. (6) History of hemorrhage: COMMENT: obtain records [facility], questionable cervical laceration at delivery. received blood transfusion. (7) : QUALIFIERS: Weeks of gestation: 39 weeks Qualified Code(s): Z3A.39 - 39 weeks gestation of COMMENT: NIPT LR. declined carrier. NL anatomy. desires cord banking.-paperwork provided. (8) Supervision of high-risk : QUALIFIERS: Trimester: third trimester Qualified Code(s): O09.93 - Supervision of high risk , unspecified, third trimester COMMENT: PRR IRMA 12/19/23 Girl PC Eugenia Carlos (9) Bicornuate uterus: COMMENT: in left horn. 36 week growth. 67% Maternal Data Information IRMA Calculator Estimated Delivery Date Method Current WG Current Estimate 12/19/23 LMP (Certain) 39w 6d Vaginal Delivery Operative Information Date of Procedure: 12/18/23 Pre-Operative Diagnosis: see a/p diagnoses Post-Operative Diagnosis: same Surgery / Procedure Performed: Spontaneous Vaginal Delivery Type of Anesthesia: Epidural Special Medications: none Estimated Blood Loss: 200 Fluids Replaced: crystalloid Findings Description of Procedure: patient was noted to be complete. membranes ruptured. Patient began pushing and delivered the head in the CLARA presentation. The head was delivered atraumatically. The anterior and posterior shoulders delivered without complication followed by the rest of the infant and the infant was placed on the maternal abdomen. Delayed cord clamping was employed for approximately 60 seconds. Cord was clamped and cut and gentle traction was applied to the cord and the placenta delivered spontaneously immediately following it was noted to be intact with three-vessel cord. The perineum and vagina were inspected and noted to have no laceration. EBL was 200 cc. Patient and tolerated delivery well. Amniotic Fluid Description: Clear Placental Delivery Description: Spontaneous Placenta Disposition: [facility] Cord Vessel Description: 3 Vessels Cord Entanglement: None Delayed Cord Clamping: Yes Post Vaginal Delivery Medications Given After Delivery: IV Pitocin Episiotomy Description: None Complication Complications: None Procedures Urinary/Genital [id number]: [id number] Vaginal Delivery [facility]
--- NOTE | 2023-12-18 18:10 | DCINST_ITS ---
Discharge Instructions Diet Discharge Diet: No restrictions Activity Discharge Activity: Return to Normal Activity, May Not Drive (while taking narcotic pain medications.) and May Shower May resume sexual activity in: 4-6 weeks Dressing / Incision Call your doctor if your incision/area has: Continuous Slow Oozing, Sudden Increased Bleeding, Increased Pain/ Swelling, Increased Redness and Foul Smelling Discharge Follow Up Care Please Follow Up With: Azucena Nam MD When: Call [phone] to make an appointment with your doctor in 6 weeks. If you had elevated blood pressure or 4th degree laceration, you will need to be seen in 2 weeks. Test Results: Test results from this visit will be discussed in further detail at your follow- up appointment, if applicable. Discharge Plan Admission Admit Date/Time: 12/18/23 07:10 Attending Provider: Azucena Nam Primary Care Provider: Care Physician,Thalia Primary Discharge Orders/Prescriptions Prescriptions: No Action sertraline [Zoloft] 50 mg tablet 50 mg PO DAILY cholecalciferol (vitamin D3) 50 mcg (2,000 unit) capsule 50 mcg PO DAILY DHA 200 mg capsule PO famotidine [Pepcid] 20 mg tablet 20 mg PO DAILY Qty: 30 6RF ondansetron HCl 4 mg tablet 4 mg PO Q4H Qty: 60 3RF aspirin [Adult Low Dose Aspirin] 81 mg tablet,delayed release (DR/EC) 81 mg DAILY promethazine 12.5 mg tablet 12.5 mg PO Q6H PRN (Reason: nausea and vomiting) Qty: 90 2RF Referrals / Follow Up: Care Physician,No Primary [Primary Care Provider] - Disposition Disposition (needs filled in before D/C Order can be placed): Home, Self Care
--- NOTE | 2023-12-18 18:11 | DCINST_ITS ---
Discharge Instructions Diet Discharge Diet: No restrictions Activity May resume sexual activity in: 4-6 weeks Dressing / Incision Call your doctor if your incision/area has: Continuous Slow Oozing, Sudden Increased Bleeding, Increased Pain/ Swelling, Increased Redness and Foul Smelling Discharge Follow Up Care Please Follow Up With: Azucena Nam MD Test Results: Test results from this visit will be discussed in further detail at your follow- up appointment, if applicable. Discharge Plan Admission Admit Date/Time: 12/18/23 07:10 Attending Provider: Azucena Nam Primary Care Provider: Care PhysicianThalia Primary Discharge Orders/Prescriptions Prescriptions: No Action sertraline [Zoloft] 50 mg tablet 50 mg PO DAILY cholecalciferol (vitamin D3) 50 mcg (2,000 unit) capsule 50 mcg PO DAILY DHA 200 mg capsule PO famotidine [Pepcid] 20 mg tablet 20 mg PO DAILY Qty: 30 6RF ondansetron HCl 4 mg tablet 4 mg PO Q4H Qty: 60 3RF aspirin [Adult Low Dose Aspirin] 81 mg tablet,delayed release (DR/EC) 81 mg DAILY promethazine 12.5 mg tablet 12.5 mg PO Q6H PRN (Reason: nausea and vomiting) Qty: 90 2RF Referrals / Follow Up: Care Physician,Thalia Primary [Primary Care Provider] - Disposition Disposition (needs filled in before D/C Order can be placed): Home, Self Care
[2023-12-18] MEDS: Naproxen 500 MG Tablet PO (18:58)
--- NOTE | 2023-12-18 20:41 | NURSING ---
epidural catheter removed at 1954 by this RN. Blue tip verified and intact.
[2023-12-19] VITALS: BP 130/72; PULSE 70; RESP 16; TEMP 36.7; O2SAT 98
[2023-12-19 00:04] VITALS: BP 130/72; PULSE 68
[2023-12-19 03:46] VITALS: BP 127/66; PULSE 61; PULSE 64; RESP 16; TEMP 36.3; O2SAT 100
[2023-12-19] MEDS: Acetaminophen 500 MG Tablet 1000 MG PO ×2 (03:51→10:40)
--- NOTE | 2023-12-19 07:27 | PN.OBGYN_ITS ---
Subjective Subjective Patient doing well without complaints. Tolerating PO. Ambulating and voiding without difficulty. Feeding well. Denies chest pain, shortness of breath, calf pain/swelling, fevers, chills, lightheadedness. Objective Data Objective Data Vital Signs: Vital Signs Temp Pulse Resp BP Pulse Ox O2 Del Method 97.4 F L 61 16 127/66 H 100 Room Air 12/19/23 03:46 12/19/23 03:46 12/19/23 03:46 12/19/23 03:46 12/19/23 03:46 12/19/23 03:46 Oxygen Delivery Method Room Air Weight: 214 lb 1.102 oz Body Mass Index (BMI) 36.7 Intake & Output: Intake and Output for Last 24 Hours 12/17/23 12/18/23 12/19/23 23:59 23:59 23:59 Intake Total 2134.16 / 2134.16 Output Total 1050 / 1050 400 / 400 Balance 1084.16 / 1084.16 -400 / -400 Lab / Micro Data Attestation: I reviewed the patient's lab results. 12/18/23 07:55 Labs: Laboratory Results - last 24 hr 12/18/23 07:55: WBC 11.5 H, RBC 3.87 L, Hgb 10.7 L, Hct 33.7 L, MCV 87.1, MCH 27.6, MCHC 31.8 L, RDW Std Deviation 52.0 H, RDW Coeff of Aniceto 16.5 H, Plt Count 338, MPV 10.1, Immature Gran % (Auto) 0.400, Neut % (Auto) 70.2 H, Lymph % (Auto) 21.3, [place] % (Auto) 7.4, Eos % (Auto) 0.4, Baso % (Auto) 0.3, Absolute Neuts (auto) 8.1 H, Absolute Lymphs (auto) 2.45, Nucleated RBC % 0, Syphilis Total Ab Non-reactive, Blood Type O POSITIVE, Antibody Screen NEGATIVE ROS Constitutional Constitutional: Reports systems reviewed and no addt'l complaints, except as documented; Denies anorexia or headache(s) Cardiovascular Cardiovascular: Reports systems reviewed and no addt'l complaints, except as documented; Denies dizziness, dyspnea, nausea or tachypnea Respiratory/Chest Respiratory/Chest: Reports systems reviewed and no addt'l complaints, except as documented; Denies cough, dyspnea, shortness of breath at rest or tachypnea Gastrointestinal Gastrointestinal: Reports systems reviewed and no addt'l complaints, except as documented; Denies abdominal pain, constipation or nausea Genitourinary Genitourinary: Reports systems reviewed and no addt'l complaints, except as documented; Denies burning urination, difficulty urinating, dysuria, urinary frequency or urinary incontinence Musculoskeletal Musculoskeletal: Reports systems reviewed and no addt'l complaints, except as documented Integumentary Integumentary: Reports systems reviewed and no addt'l complaints, except as documented Neurologic Neurologic: Reports systems reviewed and no addt'l complaints, except as documented; Denies abnormal speech, dizziness or headache(s) Psychiatric Psychiatric: Reports systems reviewed and no addt'l complaints, except as doc umented Endocrine Endocrinology: Reports systems reviewed and no addt'l complaints, except as documented Hematologic/Lymphatic Hematologic/Lymphatic: Reports systems reviewed and no addt'l complaints, except as documented Physical Exam Const alert, oriented x3 and no apparent distress Neck full ROM Resp normal respiratory effort, normal air movement and no retractions Effort and Inspection: able to speak in complete sentences and symmetric chest movement GI soft to palpation Bladder / Kidney Exam: bladder normal to palpation Uterus Palpation: uterus fundus firm Extremity normal to inspection and full ROM Psych mental status grossly normal, thought process normal and cooperative Assessment & Plan (1) Vaginal delivery: PLAN: s/p PPD # 1 1. routine post delivery care 2. breast feeding- support given 3. rh positive 4. rubella immune 5. Discharge home Charges/Coding Multi Select Codes Urinary/Genital Urinary/Genital CPT Codes: No Charge
[2023-12-19] MEDS: Naproxen 500 MG Tablet PO ×2 (07:37→14:35)
[2023-12-19 08:18] VITALS: BP 127/73; PULSE 74; RESP 16; TEMP 36.2; O2SAT 98
[2023-12-19 08:19] VITALS: BP 127/73; PULSE 71
[2023-12-19] MEDS: Sertraline 50 MG Tablet PO (10:41)
[2023-12-19] MEDS: Famotidine 20 MG Tablet PO (10:41)
[2023-12-19 14:06] VITALS: BP 135/82; PULSE 68; RESP 16; TEMP 36.6
--- NOTE | 2023-12-19 15:40 | CASEMGMT ---
Social Work Assessment Labor and Delivery Unit Patient Address:[address] [place] [address] [address], [place] [id number] Phone number: [phone] Date of Referral: 12/18/23 Time of Referral:? [id number] Referred By: Azucena Nam Date of Intervention: ??12/19/23 Time of Intervention:? 1230 Reason for Referral:? Other Sw completed chart review and acknowledges social work consult. Sw notes that mother of baby (REN- Cristina) has history of anxiety and depression. Sw presented to bedside and introduced self to MOB and father of baby (FOConrado- Giuseppe). Also present was paternal grandma. Sw asked if it was okay for sw to complete assessment, or was ok to return later. MOB stated okay to complete assessment now. Sw completed psychosocial assessment and provided resources. History obtained from: medical records, MOB and FOB Household composition: Currently residing in the home is DEVEN MCCLURE, their 4 year old daughter (Eugenia, : 10/11/19) and now baby. Parents deny any issues or concerns with housing. Patient's parent/guardian status:? ?REN states that she and DEVEN met through her sister and brother in law. They randomly met one day while getting lunch with REN's sister and her . They have been together for 9 years. No concerns at this time regarding domestic violence or intimate partner violence. Medical History: ?REN is 2, para 1- now 2 following labor and delivery of .REN received routine care with [facility] during . REN delivered baby on 12/18/23 via vaginal delivery at 39 weeks gestation. Baby girl, named Lissy Eastman, was born weighing 8lb and 4oz and her apgars were 8 and 9 at one and five minutes of life, respectfully. Baby will be followed by Dr. Lund for pediatrics. REN states that she is breast feeding and it is going well, she has a pump for home. Educational Status:? Both parents graduated high school and obtained some college. No concerns with reading, learning or comprehension. Financial Status: Both parents are gainfully employed outside of the home. 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 Infant Supplies:?? Parents report that they have obtained all necessary baby supplies, including: car seat, safe sleep space, clothes, diapers and wipes. Childcare/Caregiver(s):? MOB is the primary caregiver to baby along with FOB when he is not working. MOB states that if they ever need assistance with childcare paternal grandma is able to help. Transportation:?? Both parents drive and have reliable means of transportation. No barriers. Programs/Agencies Involved: No linkage financial community resources at this time. ??? Children Services/Legal Issues:??? No history of children services involvement. No issues or concerns warranting referral to be made at this time. Behavioral Health Issues: ??Mental Health History:??DEVEN denies mental health history. MOB states that she has been diagnosed with anxiety and depression. REN is prescribed zoloft from her primary care doctor. MOB states that she had depression following the delivery of her first baby. MOB states that she was extremely depressed and felt as though she struggled to establish a connection with the baby. MOB reports that she feels fine at this time following delivery of baby. ? Substance Use History: MOB denies substance use history prior to and during .?? Family History:?Parents deny substance use history among their family members as well as no significant mental health diagnoses including bipolar and schizophrenia. ? Drug Screens: ??No drug screens observed in chart review. Family/Social Stressors:? Parents deny stressors or concerns at this time. Support Systems: MOB states that DEVEN, paternal grandma and her sister are her biggest supports. Depression/Shaken Baby/Safe Sleeping:? Sw educated parents on signs and symptoms of baby blues and depression to be on the lookout for. Sw provided literature for parents to review along with list of local resources. Parents expressed understanding. Sw educated parents on shaken baby prevention and ABCs of safe sleep. Parents express understanding. ASSESSMENT:? MOB and baby admitted following labor and delivery of . MOB and FOB participated in compeltion of psychosocial assessment. Parents made and maintained eye contact with sw during assessment. Parents observed to provide supportive, loving and appropriate hands on care of . MOB with mental health history including depression. MOB aware of signs and symptoms to be on the look out for. Parents receptive to sw involvement and support. PLAN:? MOB and baby to be discharged when medically ready. ?No other services requested or indicated. Socrates Chavez, [employer], HEAD HOST/HOSTESS
== END 2023-12-19 18:55 | disposition home or self-care (01) | DRG 807 ==
PROVIDERS: Admitting Provider Obstetrics & Gynecology; Visit Provider Obstetrics & Gynecology
DX: O40.3XX0 Polyhydramnios, third trimester, not applicable or unspecified (principal); Z37.0 Single live birth; E66.8 Other obesity; O99.214 Obesity complicating childbirth; O99.814 Abnormal glucose complicating childbirth; Z79.82 Long term (current) use of aspirin; Z87.440 Personal history of urinary (tract) infections; Q51.3 Bicornate uterus; Z87.59 Personal history of other complications of pregnancy, childbirth and the puerperium; Z86.16 Personal history of COVID-19; Z3A.39 39 weeks gestation of pregnancy; O99.893 Other specified diseases and conditions complicating puerperium
CPT/HCPCS: 59025; 59050; 85025; 86780; 86850; 86900; 86901; 99221; J7120; G0378; J2405

== ENCOUNTER → 2024-02-01 | Outpatient (CLI) | payer OTHER, SELFPAY ==
[2024-02-05 18:11] LABS: HPV Reflexed? NOT INDICATED
== END | disposition home or self-care (01) ==
PROVIDERS: Referring Provider Obstetrics & Gynecology; Visit Provider Obstetrics & Gynecology
DX: Z12.4 Encounter for screening for malignant neoplasm of cervix (principal)
CPT/HCPCS: 88175; G0145

== ENCOUNTER → 2025-01-03 | Outpatient (CLI) | payer OTHER, SELFPAY ==
[2025-01-03 16:32] LABS: Thyroid Stim Hormone (TSH) 0.969 uIU/mL (0.300-4.200)
== END | disposition home or self-care (01) ==
LOC: LAB 14:51
PROVIDERS: Referring Provider Obstetrics & Gynecology; Visit Provider Obstetrics & Gynecology
DX: R63.5 Abnormal weight gain (principal); Z30.09 Encounter for other general counseling and advice on contraception
CPT/HCPCS: 36415; 84439; 84443

== ENCOUNTER → 2025-05-03 | Outpatient (CLI) | payer OTHER, SELFPAY ==
--- NOTE | 2025-05-02 | LES_PTH ---
PATIENT: KEENA LANTIGUA LOC: [facility] U#:[id number] AGE/SX: 29/F ROOM: RE05/03/[address]: Dr. Braydon Adame MD : [id number] BED: DIS: 05/03/2025 SPEC #: [id number] RECD: 05/02/25 17:12 STATUS: ARCHANA REDilcia #: [id number] JOSETTE: 05/02/25 00:[address]: Braydon Adame DEPT: SURGICAL PATHOLOGY RECD BY: Talat Mukherjee ENTERED: 05/05/25 09:41 SP TYPE: Lesion OT DR: No Primary Care Phys Tissues: A - Skin of face, NOS B - Skin of face, NOS C - Skin of face, NOS Procedures: Surgery Specimen Level IV HEADER OPERATION: Excision and closure, three nevi on face PRE-OP DIAGNOSIS: Skin lesions TISSUE SUBMITTED: A- Right chin lesion, B- Right cheek inferior lesion, C- Right upper cheek lesion MICROSCOPIC DIAGNOSIS A. Chin, right, lesion, excision: * Intradermal melanocytic nevus. * B. Cheek, inferior, right, lesion, excision: * Intradermal melanocytic nevus. C. Cheek, upper, right, lesion, excision: * Intradermal melanocytic nevus. MICROSCOPIC DESCRIPTION Slides are reviewed. GROSS DESCRIPTION Received in 3 formalin containers, labeled with the patient's name and date of . Designated as: A. Right chin lesion is a 0.9 x 0.4 cm gilbert skin ellipse, devoid of orientation and excised to a maximum depth of 0.3 cm. There are blue markings along the periphery and a 0.3 x 0.2 cm vague, hyperpigmented apparent lesion abutting the nearest peripheral edge. The resection margin is inked orange and the specimen is serially sectioned. Entirely submitted in 1 cassette. B. Right cheek inferior lesion is a 0.5 x 0.3 cm gilbert skin ellipse, devoid of orientation and excised to a maximum depth of 0.2 cm. The epidermal surface is granular and somewhat friable with a <0.1 x <0.1 cm area of hyperpigmentation, located 0.1 cm from the peripheral edge. The resection margin is inked and the specimen is bisected. Entirely submitted in 1 cassette. C. Right upper cheek lesion is a 0.2 x 0.2 x <0.1 cm irregular, light brown skin shave devoid of orientation. The resection margin is inked orange and the specimen is entirely submitted in 1 cassette. [place] 05/05/2025 CPT:96779x2
--- OUTSIDE RECORDS SUMMARY | 2025-05-03 08:59 | XMS RPT_ITS | CCD ---
Author Organization [facility] Care Team Providers Care Fire Tower Keeper Name Role Phone Free, Text Entry Unavailable Unavailable Talat Allan Unavailable Unavailable STALIN ISABEL Primary Care Unavailable PROVIDER, UNKNOWN Attending Unavailable PROVIDER, UNKNOWN Admitting Unavailable PROVIDER, UNKNOWN Attending Unavailable PROVIDER, UNKNOWN Admitting Unavailable STALIN ISABEL Primary Care Unavailable SusanKeyonna Mynor Unavailable Unavailable Unavailable Stalin Isabel PA-C Primary Care Provider Kahlil Osborn MD Unavailable [phone] Susan, Keyonna Peña Referring Unavailabl e Susan, Devendra Peña Attending Unavailabl e [place], Devendra Peña Primary Care Unavailabl e Susan, Devendra Peña Referring Unavailabl e Susan, Devendra Peña Attending Unavailabl e Susan, Devendra Keyonnathom Peña Primary Care Unavailabl e [place], Devendra Keyonnathom Peña Primary Care Unavailabl e [place], Devendra Peña Attending Unavailabl e Susan, Devendra Peña Referring Unavailabl e Susan, Mrs. Curranthom Peña Primary Care Unavailabl e [place], Devendra Peña Attending Unavailabl e Susan, Keyonna Peña Referring Unavailabl e [place], Keyonna Peña Primary Care Unavailabl e Susan, Devendra Peña Attending Unavailabl e [place], Devendra Peña Referring Unavailabl e Susan, Keyonna Peña Primary Care Unavailabl e [place], Devendra Peña Attending Unavailabl e [place], Devendra Peña Referring Unavailabl e MD BEVERLY ASTUDILLO Attending Unava ilable Susan, Mrs. Keyonna Peña Primary Care Unavailabl e MD BEVERLY ASTUDILLO Referring Unava ilable [place], Mrs. Keyonna Peña Primary Care Unavailabl e [place], Dr. Rafael Malhotra Attending Unavailabl e [place], Dr. Rafael Malhotra Referring Unavailabl e Susan, Mrs. Keyonna Peña Primary Care Unavailabl e Fried, Shayy Attending Unavailable Fried, Shayy Referring Unavailable MD BEVERLY ASTUDILLO Attending Unava ilable [place], Mrs. Keyonna Peña Primary Care Unavailabl e [place] ROCKET ENGINE COMPONENT MECHANIC-REAL ESTATE ASSESSOR, Keyonna Lowe Primary Care Provider [phone] Dr. Azucena Nam Attending Provider [phone] SUSAN, KEYONNA Primary Care Provider Unavailabl e SUSAN, KEYONNA Referring Provider Unavailable Susan, Mrs. Keyonna Peña Attending Unavailabl e Susan, Mrs. Keyonna Peña Primary Care Unavailabl e Yun BASKET OPERATOR, BASKET OPERATOR-C Janes Attending Provider [phone] JULIA Cavanaugh Attending Provider [phone] NO PRIMARY CARE, MD Primary Care Unavailable JANES MALCOLM S Referring Unavailable YUNJANES WINTER S Attending Unavailable ALBER HARRIS Attending Unavailable NO PRIMARY CARE, MD Primary Care Unavailable ELEANOR [place] Referring Unavailab le [place] BASKET OPERATOR, BASKET OPERATOR-C Janes Attending Provider [phone] SUSAN, KEYONNA Primary Care Provider Unavailabl e SUSAN, KEYONNA Referring Provider Unavailable JULIA Cavanaugh Attending Provider [phone] JULIA Christie Attending Provider [phone] Dr. Eleanor Zimmerman Attending Provider [phone] Yun BASKET OPERATOR, BASKET OPERATOR-C Janes Attending Provider [phone] SUSAN, KEYONNA Primary Care Provider Unavailabl e SUSAN, KEYONNA Referring Provider Unavailable JULIA Christie Attending Provider [phone] Care Physician, No Primary Primary Care Provider Unavailable Dr. Eleanor Zimmerman Referring Provider [phone] Dr. Eleanor Zimmerman Other Provider Care Physician, No Primary Referring Provider Un available Dr. Azucena Nam Attending Provider [phone] Dr. Azucena Nam Admit Provider Dr. Azucena Nam Other Provider JULIA Cavanaugh Attending Provider [phone] Stentz PA-C, Aubrey Primary Care Provider Yun BASKET OPERATOR, BASKET OPERATOR-C Janes Attending Provider [phone] SUSAN, KEYONNA Primary Care Provider Unavailabl e SUSAN, KEYONNA Referring Provider Unavailable JULIA Christie Attending Provider Dr. Eleanor Zimmerman Attending Provider [phone] Care Physician, No Primary Primary Care Provider Unavailable Dr. Eleanor Zimmerman Referring Provider [phone] Dr. Eleanor Zimmerman Other Provider Care Physician, No Primary Referring Provider Un available Dr. Azucena Nam Attending Provider [phone] Dr. Azucena Nam Admit Provider Dr. Azucena Nam Other Provider JULIA Cavanaugh Attending Provider [phone] Bertrand DE SOUZA, AP-Dafne Li Attending Provider STENTZ, AUBREY Primary Care Unavailable SUSAN, KEYONNA L Primary Care Unavailable SUSAN, KEYONNA L Primary Care Unavailable SUSAN, KEYONNA L Primary Care Unavailable Petruzzi PA-C, Stalin Primary Care Provider Kahlil Osborn MD Unavailable [phone] Susan ROCKET ENGINE COMPONENT MECHANIC-Keyonna COLBERT Primary Care Provider Care Physician, No Primary Primary Care Provider Unavailable Care Physician, No Primary Referring Provider Un available Dr. Eleanor Zimmerman DO Attending Provider Dr. Eleanor Zimmerman DO Referring Provider STENTZ, AUBREY Attending Unavailable STENTZ, AUBREY Primary Care Unavailable NATASHA JOHN Attending Unavailable STENTZ, AUBREY Primary Care Unavailable STENTZ, AUBREY Attending Unavailable STENTZ, AUBREY Primary Care Unavailable STENTZ, AUBREY Attending Unavailable STENTZ, AUBREY Referring Unavailable STENTZ, AUBREY Primary Care Unavailable Deep RODRIGUEZ, Dr. Bryson Attending Provider [phone] Stalin Isabel PA-C Primary Care Provider [phone] Yun DE SOUZA, Janes Attending Unavailable Care Physician, No Primary Referring Unava ilable Care Physician, No Primary Primary Care Unava ilable Care Physician, No Primary Referring Unava ilable Care Physician, No Primary Primary Care Unava ilable Braydon Adame Attending Unavailable Care Physician, No Primary Referring Unava ilable Eleanor Zimmerman Attending Unavailabl e Care Physician, No Primary Primary Care Unava ilable Vande VelEleanor hyde Attending Unavailabl e Vande Velde, Eleanor Referring Unavailabl e Care Physician, No Primary Primary Care Unava ilable Care Physician, No Primary Referring Unava ilable Care Physician, No Primary Primary Care Unava ilable Yesica Herrera Attending Unavailable Pallavi Cavanaugh Attending Unavailable Care Physician, No Primary Referring Unava ilable Care Physician, No Primary Primary Care Unava ilable Care Physician, No Primary Referring Unava ilable Care Physician, No Primary Primary Care Unava ilable Bertrand DE SOUZA, Jen Attending Unavailable Braydon Adame Attending Unavailable Care Physician, No Primary Referring Unava ilable Care Physician, No Primary Primary Care Unava ilable Allergies Allergy Classification Reported Allergen(s) Allergy Type Date of Onset Reaction(s) Facility (14 sources) Penicillin; Translations: [Penicillins] Drug Allergy Rash [facility] (11 sources) Amoxicillin; Translations: [AMOXICILLIN] Drug Allergy 9 Hives [facility] (20 sources) Penicillins; Translations: [PENICILLINS] Propensity to adverse reactions to drug (disorder) 7 [facility] Medications Current Medications Medication Drug Class(es) Dates Sig (Normalized) Sig (Original) [id number] 200 actuat albuterol 0.09 mg/actuat metered dose inhaler (11 sources) beta2-Adrenergic Agonist Start: 07-04-2022 End: 12-25-2023 take 2 puff(s) by inhalation every four hours albuterol 90 mcg/actuation inhaler Inhale 2 puffs every 4 hours if needed. 0 07/04/2022 12/25/2023 Discontinued (Med List Cleanup) Start: 07-04-2022 take 2 puff(s) by in halation every four to six hours as needed Albuterol Sulfate HFA 108 (90 Base) MCG/ACT Inhalation Aerosol Solution INHALE 2 PUFFS EVERY 4-6 HOURS NEEDED. Quantity: 3 Refills: 1 Ordered: 04-Jul-2022 Keyonna Winston Start : 04-Jul-2022 Active Start: 09-20-2021 take 2 puff(s) by in halation twice daily as needed for cough albuterol 90 mcg/inh inhalation aerosol ; 2 puff(s) inhaled 2 times a day as needed for cough Quantity: 8.5 Refills: 0 Ordered: 20-Sep-2021 Talat Allan Start: 20-Sep-2021 Generic Substitution Allowed Comments: For inhalation only.It is very important that you take or use this exactly as directed. Do not skip doses or discontinue unless directed by your doctor.Obtain medical advice before taking any non-prescription drugs as some may affect the action of this medication.Shake well before use. Comment on above: For inhalation only. It is very important that you take or use this exactly as directed. Do not skip doses or discontinue unless directed by your doctor.Obtain medical advice before taking any non-prescription drugs as some may affect the action of this medication.Shake well before use. amoxicillin 875 mg / clavulanate 125 mg oral tablet (2 sources) Penicillin-class Antibacterial Start: 06-29-20 End: 07-06-20 take 1 tablet by mouth once daily Amoxicillin-Pot Clavulanate 875-125 MG Oral Tablet TAKE 1 TABLET EVERY 12 HOURS DAILY. Quantity: 14 Refills: 0 Ordered: 29-Jun-2022 Keyonna Winston Start : 29-Jun-2022 End : 06-Jul-2022 Active Start: 03-29-2022 End: 04-05-2022 take 1 tablet by mouth once daily Amoxicillin-Pot Clavulanate 875-125 MG Oral Tablet TAKE 1 TABLET EVERY 12 HOURS DAILY. Quantity: 14 Refills: 0 Ordered: 29-Mar-2022 Keyonna Winston Start : 29-Mar-2022 End : 05-Apr-2022 Active azithromycin 250 mg oral tablet (1 source) Macrolide Antimicrobial Start: 08-06-2024 End: 08-11-2024 azithromycin (Zithromax) 250 mg tablet Indications: Acute non-recurrent sinusitis, unspecified location Take 2 tablets (500 mg) by mouth once daily for 1 day, THEN 1 tablet (250 mg) once daily for 4 days. Take 2 tabs (500 mg) by mouth today, than 1 daily for 4 days.. 6 tablet 08/06/2024 08/11/2024 Active biotin 1 mg oral capsule (3 sources) Start: 01-03-2025 take 1 capsule by mouth once daily Biotin 1 mg capsule Active 1 mg PO daily January 03, 2025 1:00am cefdinir 300 mg oral capsule (2 sources) Cephalosporin Antibacterial Start: 09-25-2023 End: 10-02-2023 take 1 capsule by mouth twice daily cefdinir (Omnicef) 300 mg capsule Indications: Acute mucoid otitis media of right ear Take 1 capsule (300 mg) by mouth 2 times a day for 7 days. 14 capsule 0 09/25/2023 10/02/2023 Active Start: 03-09-2023 End: 03-16-2023 take 1 capsule by mouth twice daily cefdinir (Omnicef) 300 mg capsule Indications: Rhinosinusitis Take 1 capsule (300 mg) by mouth 2 times a day for 7 days. 14 capsule 0 03/09/2023 03/16/2023 Active cholecalciferol 0.05 mg oral capsule (20 sources) Vitamin D Start: 05-15-2023 take 1 capsule by mouth once daily Cholecalciferol (Vitamin D3) 50 mcg (2,000 unit) capsule Active 50 ug PO DAILY May 15, 2023 12:00am cholecalciferol (Vitamin D-3) 25 MCG (1000 UT) tablet Take by mouth. Active Vitamin D 1000 U NIT TABS Quantity: 2 Refills: 0 Ordered: 03-Mar-2022 DO Active Norgestimate-Ethinyl Estradiol (3 sources) Progestin, Estrogen Start: 01-03-2025 Norgestimate-Ethinyl Estradiol (Sprintec (28)) 0.25-35 mg-mcg tablet Active 1 {tbl} PO daily January 03, 2025 1:00am fluconazole 150 mg oral tablet (1 source) Azole Antifungal Start: 01-13-2023 End: 03-09-2023 fluconazole (Diflucan) 150 mg tablet Indications: Vaginal yeast infection Take 1 dose today then repeat dose in 2-3 days 2 tablet 0 01/13/2023 03/09/2023 Discontinued (Med List Cleanup) fluticasone propionate 0.05 mg/actuat metered dose nasal spray (19 sources) Corticosteroid Start: 03-09-2023 End: 12-25-2023 take 1 spray(s) nasal route once daily fluticasone (Flonase) 50 mcg/actuation nasal spray Indications: Rhinosinusitis Administer 1 spray into each nostril once daily. 16 g 3 12/25/2023 Active Start: 06-29-2022 End: 03-09-2023 fluticasone (Flonase) 50 mcg/actuation nasal spray Administer into affected nostril(s). 0 06/29/2022 03/09/2023 Discontinued (Reorder) Start: 06-29-2022 fluticasone (F lonase) 50 mcg/actuation nasal spray Administer into affected nostril(s). 0 06/29/2022 Active Start: 11-04-2021 take 1 spray(s) nasa l route once daily fluticasone (FLONASE) 50 mcg/act nasal inhaler Indications: Acute serous otitis media, recurrence not specified, unspecified laterality Use 1 [place] in each nostril daily. 16 g 3 11/04/2021 Active meloxicam 7.5 mg oral tablet (1 source) Nonsteroidal Anti-inflammatory Drug Start: 05-27-2024 End: 06-11-2024 take 2 tablets by mouth once daily meloxicam (Mobic) 7.5 mg tablet Indications: Flank pain as manifestation of blood transfusion reaction Take 2 tablets (15 mg) by mouth once daily for 15 days. 30 tablet 05/27/2024 06/11/2024 Active Multivitamin preparation (1 source) Multi Vitamin+ Quantity: 0 Refills: 0 Ordered: 20-Sep-2021 Barbara Pastrana Generic Substitution Allowed multivitamin tablet (9 sources) multivitamin tablet Take by mouth. Active multivitamin tab let Take by mouth. 0 Active Multivitamin tablet (3 sources) Start: 01-03-2025 Multivitamin t ablet Active 1 {tbl} PO daily January 03, 2025 1:00am sertraline 25 mg oral tablet (20 sources) Serotonin Reuptake Inhibitor Start: 12-25-2023 End: 03-12-2025 take 1 tablet by mouth once daily sertraline (Zoloft) 25 mg tablet Indications: Depression, controlled Take 1 tablet (25 mg) by mouth once daily. 90 tablet 3 03/12/2024 03/12/2025 Active Start: 09-14-2022 take 1 tablet by colt th every other day Sertraline HCl - 25 MG Oral Tablet Take 1 tablet every other day for 2 weeks, then take daily in addition too nando 50 mg tablet Quantity: 30 Refills: 1 Ordered: 14-Sep-2022 Keyonna Winston Start : 14-Sep-2022 Active Start: 05-11-2021 End: 03-12-2025 take 1 tablet by mouth once daily Sertraline (Zoloft) 50 mg tablet Active 50 mg PO DAILY May 15, 2023 12:00am Zoloft Quantity: 0 Refills: 0 Ordered: 20-Sep-2021 Barbara Pastrana Generic Substitution Allowed tretinoin 1 mg/ml topical cream (3 sources) Retinoid Start: 01-03-2025 Tretinoin 0.1 % cream Active 1 NMA TOPICAL AT BEDTIME 45 January 03, 2025 1:00am Completed/Discontinued Medications Medication Drug Class(es) Dates Sig (Normalized) Sig (Original) aspirin 81 mg delayed release oral tablet (6 sources) Platelet Aggregation Inhibitor, Nonsteroidal Anti-inflammatory Drug Start: 11-29-2023 End: 02-01-2024 Aspirin (Aspirin 81 Mg Tablet,Delayed Release) 81 mg tablet,delayed release (DR/EC) Discontinued 81 mg DAILY November 29, 2023 1:00am February 01, 2024 12:08pm brompheniramine maleate 0.4 mg/ml / dextromethorphan hydrobromide 2 mg/ml / pseudoephedrine hydrochloride 6 mg/ml oral solution (3 sources) alpha-Adrenergic Agonist, Uncompetitive C-booljw-V-aspartat e Receptor Antagonist, Sigma-1 Agonist Start: 01-09-2023 take 5 mL by mouth every four to six hours as needed Pseudoeph-Bromphe n-DM 30-2-10 MG/5ML Oral Syrup TAKE 5 ML EVERY 4 TO 6 HOURS NEEDED for up to 14 days Quantity: 1 Refills: 0 Ordered: 09-Jan-2023 Keyonna Winston Start : 09-Jan-2023 Active Start: 01-09-2023 End: 01-23-2023 take 5 mL by mouth four times daily as needed mdeaivyglskuggw-suldqpjlb-IZ 2-30-10 mg/ 5 mL syrup Indications: Non-seasonal allergic rhinitis, unspecified trigger , Other acute recurrent sinusitis Take 5 mL by mouth 4 times a day as needed for allergies for up to 14 days. 120 mL 0 01/09/2023 01/23/2023 Active Start: 09-20-2021 take 10 mL by mouth every six hours brompheniramine/pseudoephedrine/dextrome thor rowell [id number]/5 mL oral syrup ; 10 milliliter(s) orally every 6 hours Quantity: 120 Refills: 0 Ordered: 20-Sep-2021 Talat Allan Start: 20-Sep-2021 Generic Substitution Allowed Comments: May cause drowsiness. Alcohol may intensify this effect. Use care when operating dangerous machinery.Obtain medical advice before taking any non-prescription drugs as some may affect the action of this medication. Comment on above: May cause drowsiness . Alcohol may intensify this effect. Use care when operating dangerous machinery.Obtain medical advice before taking any non-prescription drugs as some may affect the action of this medication. ciprofloxacin 3 mg/ml / dexamethasone 1 mg/ml otic suspension (2 sources) Corticosteroid, Quinolone Antimicrobial Start: 01-09-2023 Ciprofloxacin-Dexamet hasone 0.3-0.1 % Otic Suspension INSTILL 4 DROPS IN THE AFFECTED EAR(S) TWICE DAILY Quantity: 1 Refills: 0 Ordered: 09-Jan-2023 Keyonna Winston Start : 09-Jan-2023 Active Start: 01-09-2023 End: 01-14-2023 ciprofloxacin-dexamethasone (CiproDEX) otic suspension Indications: Recurrent acute allergic otitis media of both ears Administer 4 drops into each ear in the morning and 4 drops before bedtime. Do all this for 5 days. 7.5 mL 0 01/09/2023 01/14/2023 Active docosahexaenoic acid 200 mg oral capsule (13 sources) Start: 05-15-2023 End: 01-03-2025 Docosahexaenoic Acid ( Dha) 200 mg capsule Discontinued mg PO May 15, 2023 12:00am January 03, 2025 3:16pm famotidine 20 mg oral tablet (13 sources) Histamine-2 Receptor Antagonist Start: 05-15-2023 End: 06-27-2024 take 1 tablet by mouth once daily Famotidine (Pepcid) 20 mg tablet Discontinued 20 mg PO DAILY May 15, 2023 12:00am June 27, 2024 2:43pm hydrOXYzine hydrochloride 10 mg oral tablet (4 sources) Antihistamine Start: 09-14-2022 take 1 tablet by mouth three times daily as needed for anxiety hydrOXYzine HCl - 10 MG Oral Tablet TAKE 1 TABLET 3 times daily PRN as needed for anxiety Quantity: 90 Refills: 1 Ordered: 14-Sep-2022 Keyonna Winston Start : 14-Sep-2022 Active Multi-Vitamins TABS (13 sources) Multi-Vitamins T ABS Quantity: 0 Refills: 0 Ordered: 02-Mar-2022 DO Active mupirocin 0.02 mg/mg topical ointment (3 sources) RNA Synthetase Inhibitor Antibacterial Start: 08-29-2024 End: 01-03-2025 Mupirocin 2 % ointment Discontinued 1 NMA TOPICAL THREE TIMES A DAY August 29, 2024 12:00am January 03, 2025 3:16pm Apply to area three times daily nitrofurantoin, macrocrystals 25 mg / nitrofurantoin, monohydrate 75 mg oral capsule (6 sources) Nitrofuran Antibacterial Start: 12-20-2023 End: 12-27-2023 take 1 capsule by mouth twice daily at mealtime Nitrofurantoin Monohyd/M-Cryst (Macrobid) 100 mg capsule Discontinued 100 mg PO TWICE A DAY 14 December 20, 2023 1:00am December 26, 2023 1:00am December 27, 2023 1:04am must administer with a meal/food Start: 06-03-2023 End: 06-13-2023 take 1 capsule by mouth twice daily nitrofurantoin, macrocrystal-monohydrate , (Macrobid) 100 mg capsule Indications: Dysuria Take 1 capsule (100 mg) by mouth 2 times a day for 10 days. 20 capsule 0 06/03/2023 06/13/2023 Active ondansetron 4 mg oral tablet (20 sources) Serotonin-3 Receptor Antagonist Start: 05-15-2023 End: 02-01-2024 take 1 tablet by mouth every four hours Ondansetron Hcl 4 mg tablet Discontinued 4 mg PO Q4H 60 May 15, 2023 12:00am February 01, 2024 12:08pm Start: 04-19-2023 End: 05-15-2023 take 1 tablet by mouth every eight hours Ondansetron 4 mg tablet,disintegrating Discontinued 4 mg PO Q8H April 19, 2023 12:00am May 15, 2023 9:32am predniSONE 10 mg oral tablet (3 sources) Start: 07-04-2022 End: 12-14-2022 predniSONE 10 MG Oral Tablet take 4 tablets for 2 days, then 3 tablets for 2, take 2 tablets for 2 days then take 1 tablet for 2 days. Quantity: 21 Refills: 0 Ordered: 04-Jul-2022 Keyonna Winston Start : 04-Jul-2022 End : 14-Dec-2022 Complete Start: 09-20-2021 End: 09-24-2021 take 3 tablets by mouth once daily at mealtime predniSONE 10 mg oral tablet ; 3 tab(s) orally once a day x 5 days Quantity: 15 Refills: 0 Ordered: 20-Sep-2021 Talat Allan Start: 20-Sep-2021 End: 24-Sep-2021 Generic Substitution Allowed Comments: It is very important that you take or use this exactly as directed. Do not skip doses or discontinue unless directed by your doctor.Obtain medical advice before taking any non-prescription drugs as some may affect the action of this medication.Take with food or milk. Comment on above: It is very important that you take or use this exactly as directed. Do not skip doses or discontinue unless directed by your doctor.Obtain medical advice before taking any non-prescription drugs as some may affect the action of this medication.Take with food or milk. Probiotic CAPS (13 sources) Probiotic CAPS Quantity: 0 Refills: 0 Ordered: 02-Mar-2022 DO Active promethazine hydrochloride 12.5 mg oral tablet (10 sources) Phenothiazine Start: End: take 1 tablet by mouth every six hours as needed for nausea and vomiting Promethazine 12.5 mg tablet Discontinued 12.5 mg PO EVERY 6 HOURS as needed for nausea and vomiting June 20, 2023 12:00am February 01, 2024 12:08pm Vitamin B Complex (B Complex-Vitamin B12) tablet (13 sources) Start: End: Vitamin B Complex (B Complex-Vitamin B12) tablet Discontinued 1 {tbl} PO DAILY May 15, 2023 12:00am November 29, 2023 11:17pm Start: 05-15-2023 End: 11-29-2023 take 1 tablet by mouth once daily Vitamin B Complex (B Complex-Vitamin B12) tablet Discontinued 1 TABLET PO DAILY May 15, 2023 12:00am November 29, 2023 11:17pm Start: 05-15-2023 End: 11-29-2023 take 1 tablet by mouth once daily Vitamin B Complex (B Complex-Vitamin B12) tablet Discontinued 1 TABLET PO DAILY May 14, 2023 11:00pm November 29, 2023 10:17pm Start: 05-15-2023 take 1 tablet by colt th once daily Vitamin B Complex (B Complex-Vitamin B12) tablet Active 1 TABLET PO DAILY May 14, 2023 11:00pm Start: 05-15-2023 take 1 tablet by colt th once daily Vitamin B Complex (B Complex-Vitamin B12) tablet Active 1 TABLET PO DAILY May 15, 2023 12:00am Problems Active Problems Problem Classification Problem Date Documented Date Episodic/Chronic Acute bronchitis (2 sources) Acute bronchitis; Translations: [Acute bronchitis] 09-20-2021 Episodic Anxiety disorders (7 sources) Anxiety; Translations: [Other anxiety states] Onset: 08-06-2024 08-06-2024 Chronic Diabetes mellitus without complication (20 sources) Abnormal glucose level; Translations: [Other abnormal glucose] 06-02-2023 Episodic Comment on above: 3 HR GTT Normal 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 36 week growth. 67% Immunizations and screening for infectious disease (20 sources) Suspected disease caused by 2019-nCoV; Translations: [Contact with or exposure to other viral diseases] 10-02-2023 Episodic Comment on above: Given 10/02/23 Menstrual disorders (3 sources) Irregular menstruation, unspecified; Translations: [Amenorrhea, unspecified] Onset: 06-13-2023 Chronic Mood disorders (20 sources) Depressive disorder; Translations: [Depressive disorder, not elsewhere classified] Onset: 01-09-2023 01-09-2023 Chronic Mood disorders (4 sources) Mood disorders; Translations: [Depression, unspecified] Onset: 01-09-2023 Nutritional deficiencies (20 sources) Vitamin D deficiency; Translations: [Unspecified vitamin D deficiency] Onset: 01-09-2023 01-09-2023 Chronic Other and unspecified benign neoplasm (2 sources) Dermal cellular nevus ; Translations: [Other benign neoplasm of skin of unspecified part of face] 04-18-2025 Episodic Comment on above: x3 Other complications of (13 sources) Maternal obesity complicating , childbirth and the puerperium, antepartum; Translations: [Obesity complicating , unspecified trimester] 05-15-2023 Chronic Comment on above: GCT 1 tm ordered, he althy weight gain encouraged. Other complications of (20 sources) Obesity complicating , unspecified trimester; Translations: [Obesity complicating , childbirth, or the puerperium, unspecified as to episode of care or not applicable] 05-15-2023 Chronic Other complications of (15 sources) Pain in female pelvis; Translations: [Other specified related conditions, first trimester] 04-13-2023 Episodic Other complications of (13 sources) High risk ; Translations: [Supervision of high risk , unspecified, unspecified trimester] 05-15-2023 Episodic Comment on above: PRR [facility]MA 12/19/23 Girl PC Eugenia Carlos Other complications of (20 sources) Supervision of high risk , unspecified, unspecified trimester; Translations: [Supervision of unspecified high-risk ] 05-15-2023 Episodic Other complications of (10 sources) Urinary tract infection in ; Translations: [Unspecified infection of urinary tract in , unspecified trimester] 06-14-2023 Episodic Comment on above: Seen urgent care at , took 4 days of macrobid. Urine culture negative Other complications of (20 sources) Unspecified infection of urinary tract in , unspecified trimester; Translations: [Infections of genitourinary tract in , unspecified as to episode of care or not applicable] 06-14-2023 Episodic Other complications of (8 sources) Disease caused by 2019-nCoV; Translations: [Other viral diseases complicating , second trimester] 10-16-2023 Episodic Comment on above: start low dose ASA Other complications of (8 sources) Other viral diseases complicating , second trimester; Translations: [Other viral diseases in the mother, antepartum condition or complication] 10-16-2023 Episodic Other female genital disorders (2 sources) Vaginal discharge; Translations: [Other specified noninflammatory disorders of vagina] 07-07-2023 Episodic Other female genital disorders (3 sources) Other specified noninflammatory disorders of vagina; Translations: [Leukorrhea, not specified as infective] 08-04-2023 Episodic Other lower respiratory disease (4 sources) Persistent cough; Translations: [Cough] Episodic Other nutritional; endocrine; and metabolic disorders (20 sources) Body mass index 30+ - obesity; Translations: [Obesity, unspecified] Onset: 01-09-2023 01-09-2023 Chronic Other nutritional; endocrine; and metabolic disorders (6 sources) Weight increased; Translations: [Abnormal weight gain] 01-03-2025 Episodic Other and delivery including normal (20 sources) Delivery normal; Translations: [Normal delivery] Onset: 03-11-2019 Resolved: 08-06-2024 09-13-2019 Episodic Comment on above: 10/11/19 39 WEEKS FEM KATIE 7LBS 6OZ; NIPT LR. declined ca rrier. NL anatomy. desires cord banking.-paperwork provided. Other screening for suspected conditions (not mental disorders or infectious disease) (20 sources) Patient encounter status; Translations: [Breast screening, unspecified] Onset: 05-11-2022 Episodic Comment on above: 11/30/2018 NIL; No PA needed for IUD Ref# [id number] Other upper respiratory disease (1 source) Inflammatory disorder of upper respiratory tract; Translations: [Chronic rhinitis] 03-09-2023 Chronic Other upper respiratory infections (3 sources) Chronic sinusitis, unspecified; Translations: [Unspecified sinusitis (chronic)] Onset: 10-06-2023 12-25-2023 Chronic Otitis media and related conditions (12 sources) Acute right otitis media; Translations: [Unspecified otitis media] 09-25-2023 Episodic Polyhydramnios and other problems of amniotic cavity (7 sources) Polyhydramnios with problem; Translations: [Polyhydramnios, third trimester, not applicable or unspecified] 11-27-2023 Episodic Comment on above: weekly nsts, deliver 40 weeks, repeat NST ordered . Residual codes; unclassified (13 sources) History of hemorrhage; Translations: [Personal history of other complications of , childbirth and the puerperium] 05-15-2023 Episodic Comment on above: obtain records from [facility], questionable cervical laceration at delivery. received blood transfusion. Residual codes; unclassified (20 sources) Personal history of other complications of , childbirth and the puerperium; Translations: [Personal history of other genital system and obstetric disorders] 05-15-2023 Episodic Unclassified (2 sources) pt here for med check Onset: 09-20-2024 Past or Other Problems Problem Classification Problem Date Documented Date Episodic/Chronic Abdominal pain (6 sources) Unspecified abdominal pain; Translations: [Pelvic and perineal pain] Onset: 06-13-2023 Episodic Complications of surgical procedures or medical care (5 sources) Other complications following infusion, transfusion and therapeutic injection, initial encounter; Translations: [Flank pain] Onset: 05-27-2024 Episodic Contraceptive and procreative management (3 sources) Encounter for surveillance of implantable subdermal contraceptive; Translations: [Encounter for initial prescription of implantable subdermal contraceptive] Onset: 06-27-2024 Episodic E Codes: Adverse effects of medical care (4 sources) Other medical procedures as the cause of abnormal reaction of the patient, or of later complication, without mention of misadventure at the time of the procedure; Translations: [Other medical procedures as the cause of abnormal reaction of the patient, or of later complication, without mention of misadventure at the time of the procedure] Onset: 05-27-2024 Episodic Early or threatened labor (3 sources) Labor finding; Translations: [False labor, unspecified] Onset: 10-10-2019 10-10-2019 Episodic Genitourinary symptoms and ill-defined conditions (14 sources) Dysuria; Translations: [Dysuria] Onset: 06-03-2023 Resolved: 08-06-2024 06-03-2023 Episodic Heart valve disorders (11 sources) Heart murmur; Translations: [Cardiac murmur, unspecified] Onset: 12-23-2016 Resolved: 03-09-2023 12-23-2021 Episodic Inflammatory diseases of female pelvic organs (10 sources) Acute vaginitis; Translations: [Acute vaginitis] Onset: 06-03-2023 Resolved: 08-06-2024 06-03-2023 Episodic Malaise and fatigue (20 sources) Fatigue; Translations: [Other malaise and fatigue] Onset: 01-09-2023 01-09-2023 Episodic Other circulatory disease (15 sources) History of clinical finding in subject; Translations: [Personal history of other diseases of circulatory system] Onset: 01-09-2023 01-09-2023 Episodic Other circulatory disease (3 sources) Personal history of other diseases of the circulatory system; Translations: [Personal history of other diseases of the circulatory system] Onset: 07-20-2022 Episodic Other nutritional; endocrine; and metabolic disorders (1 source) Abnormal weight gain; Translations: [Abnormal weight gain] Onset: 01-16-2025 Episodic Other skin disorders (3 sources) Ingrowing nail; Translations: [Ingrowing nail] Onset: 02-09-2018 02-09-2018 Episodic Other upper respiratory disease (15 sources) Allergic rhinitis; Translations: [Allergic rhinitis, cause unspecified] Onset: 01-09-2023 Resolved: 08-06-2024 01-09-2023 Chronic Other upper respiratory infections (15 sources) Upper respiratory infection; Translations: [Acute sinusitis] Onset: 08-06-2024 09-20-2021 Episodic Comment on above: URI Skin and subcutaneous tissue infections (3 sources) Paronychia of toe; Translations: [Cellulitis of unspecified toe] Onset: 05-19-2017 05-19-2017 Episodic Unclassified (10 sources) Finding of menstrual bleeding; Translations: [Menstruation] Comment on above: AGE 9; Unclassified (4 sources) Onset: 12-25-2023 Resolved: 05-27-2024 12-25-2023 Urinary tract infections (4 sources) Acute cystitis; Translations: [Acute cystitis without hematuria] Onset: 06-13-2023 06-13-2023 Episodic Results Test Name Value Interpretation Reference Range Facility Plastic Surgery Visit Report on 04-18-2025 Plastic Surgery Visit Report [facility] [address], [address] [place] [address] OFFICE VISIT Date of Service: 04/18/25 MR#: [id number] Acct: [id number] Name: CRISTINA SMILEY Rep #: [id number] : 1995 Provider: Dr. Braydon Adame MD Age/Sex: 29/F Location: [facility] Status: Signed Intake Vital Signs 3 01/03/25 14:06 04/18/25 11:14 Height 5 ft 4 in Weight: 190 lb BP 118/83 H Blood Pressure Location Rt brachial Position Sitting Respiration 18 Pulse 85 Pulse Source Monitor Pulse Oximetry (%) 97 Oxygen Delivery Method room air Intake Visit Reasons: MOLES ON FACE Chief Complaint: Moles on face Is patient in pain?: No Allergies Penicillins Adverse Reaction (Mild, Verified 04/18/25 10:52) rash Medications 3 ???Medication ???Instructions ???Recorded ???Confirmed ???Type cholecalciferol (vitamin D3) 50 50 mcg PO DAILY 05/15/23 04/18/25 History mcg (2,000 unit) capsule sertraline 50 mg tablet (Zoloft) 50 mg PO DAILY anxiety/dep 3 04/18/25 History biotin 1 mg capsule 1 mg PO QDAY 01/03/25 04/18/25 His tory multivitamin 1 tab PO QDAY 01/03/25 04/18/25 Hi story norgestimate 0.25 mg-ethinyl 1 tab PO QDAY #84 tabs 01/03/25 Rx estradiol 0.035 mg tablet (Sprintec (28)) tretinoin 0.1 % topical cream 1 applic topical QHS #45 grams 04/18/25 Rx PFSH Medical History Vaginal delivery Encounter for induction of labor History of blood transfusion Polyhydramnios Depression Anxiety Polyhydramnios affecting in third trimester COVID-19 affecting in second trimester Need for Tdap vaccination Needs flu shot UTI in Abnormal glucose level Obesity affecting History of hemorrhage Supervision of high-risk Bicornuate uterus Family History Mother , 2016 Thyroid disorder Hypertension Diabetes PCOS (polycystic ovarian syndrome) Father Diabetes Hypertension Sister PCOS (polycystic ovarian syndrome) Social History adopted: No household members: family number of children: 2 current occupational 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 She reports these spots have been present for years and have increased in size over the last year. These facial nevi do not cause pain but are sensitive, prompting her concern due to her father's history of skin cancer. The nevi are located on the right malar cheek and along the marionette line, each less than 0.5 mm in size, slightly raised, and presenting with varying pigmentation. There are no signs of recent acute changes such as bleeding. The patient is otherwise healthy, with no other significant symptoms or medical history of skin issues reported. Attestation: Documentation on this patient encounter was supported using ambient scribe technology/ voice AI technology. The patient consented to recording for the purpose of documenting the encounter. Provider reviewed content of the generated note prior to signature. ROS Details - Dermatologic: Reports sensitive spots on her face; Denies pain. - General: Denies recent acute changes or symptoms. - Social: Denies smoking or vaping. General General: Yes good health; No fatigue, fever(s) or weight loss HENMT HENMT: No rhinitis, sore throat/mouth sore, nasal congestion, contacts or glaucoma Endo Endocrine: No thyroid disease, polydipsia, heat intolerance, cold intolerance, hepatitis or excessive urine Skin Skin: Yes changing moles; No Bleeding, bruising or suspicious lesion Musc Musculoskeletal: No joint pain, joint stiffness, muscle weakness, back pain, osteoarthritis or Muscle aches/ myalgia Neuro Neurological: Yes headache(s), No lightheadedness and No numbness Cardio Cardiovascular: No chest pain, pacemaker, fatigue or shortness of breat with exertion Psych Psychiatric: No depression, claustrophobia or anxiety Resp Respiratory: No spitting up, shortness of breath, sleep apnea, asthma, emphysema, TB, Cough or Smoker Gastro Gastroi (more content not included)... Normal 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 Is patient in pain?: No Allergies Penicillins Adverse Reaction (Mild, Verified 01/03/25 14:05) rash Medications ???Medication ???Instructions ???Recorded ???Confirmed ???Type cholecalciferol (vitamin D3) 50 50 mcg PO DAILY 05/15/23 01/03/25 History mcg (2,000 unit) capsule sertraline 50 mg tablet (Zoloft) 50 mg PO DAILY anxiety/dep 3 01/03/25 History biotin 1 mg capsule 1 mg PO QDAY 01/03/25 01/03/25 His tory multivitamin 1 tab PO QDAY 01/03/25 01/03/25 Hi story norgestimate 0.25 mg-ethinyl 1 tab PO QDAY #84 tabs 01/03/25 Rx estradiol 35 mcg tablet (Sprintec (28)) tretinoin 0.1 % topical cream 1 applic topical QHS #45 grams 01/03/25 Rx Post menopausal: No Patient : No PFSH Medical History Vaginal delivery Encounter for induction of labor History of blood transfusion Polyhydramnios Depression Anxiety Polyhydramnios affecting in third trimester COVID-19 affecting in second trimester Need for Tdap vaccination Needs flu shot UTI in Abnormal glucose level Obesity affecting History of hemorrhage Supervision of high-risk Bicornuate uterus Family History Mother , 2016 Thyroid disorder Hypertension Diabetes PCOS (polycystic ovarian syndrome) Father Diabetes Hypertension Sister PCOS (polycystic ovarian syndrome) Social History adopted: No household members: family number of children: 2 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 she complains of weight gain and acne. She is breast feeding her one year old but wants to wean off and wants to try ocps again. no migraine with aura history, blood clots, or seizure history. History 2 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 Date Name GA/Weeks Outcome Route Bth Weight Gen Labor Lgth Anesthesia Del Locatn Provider FOB 10/11/19 Eugenia live - full term 7#6oz Female 12 epidural [facility] 12/21/23 Ilah 40 live - full term 8lbs 4oz Female [facility] Mar nasreen Lopezrett Delivery Date: 10/11/19 Last Updated by: Cheryle Velasco heart shaped uterus, laceration of uterus was taking to OR Delivery Date: 12/21/23 Last Updated by: Mary Ovalles IOL poly ROS Const ROS Unobtainable: All systems reviewed are unremarkable except as noted in H Resp Resp: Reports system reviewed and no additional complaints, except as documented; Denies cough GI GI: Reports as per HPI Psych Psych: Reports system reviewed and no additional complaints, except as documented Exam Const General: cooperative, healthy appearing, comfortable and no acute distress Resp Effort Inspection: normal respiratory effort Skin General: no rashes or lesions noted Psych Appearance: grossly normal Speech and Movement: speech and movement normal Office Procedures Nexplanon Removal Nexplanon Removal Consent Signed: Yes Time out checklist: patient Details: Sign in Communication: Completed Sign out Discussion: Completed Technique: Patient place din supine position with left arm bent at the elbow and placed of the head. Skin cleansed with betadine. 1 mL of 1% lidocaine with epi injected subQ along insertion site. Scalpel used to make a 5mm stab incision superficially at distal end of nexplanon. De (more content not included)... Normal [facility] T4 Free Directon 01-03-2025 T4 FREE DIRECT 1.00 ng/dL Normal 0.76-1.46 [facility] Comment on above: Performed By: #### L [id number], [id number] #### [facility] [address] [place], [address] T4 freeOrdered By: Eleanor Hooks on 01-03-2025 Free T4 [Mass/Vol] 1.00 ng/dL 0.76-1.46 [facility] TSH DL <= 0.005 mIU/L QnOrde red By: Eleanor Hooks on 01-03-2025 Thyroid Stimulating Hormone (TSH) 0.969 uIU/mL 0.300-4.200 [facility] TSH Qn 0.969 uIU/mL 0.300-4.200 [facility] Thyroid Stim Hormone (TSH)on 01-03-2025 TSH 0.969 uIU/mL Normal 0.300-4.200 [facility] Comment on above: Performed By: #### L [id number], [id number] #### [facility] [address] [place], [place], [id number] [facility] MR/EL.[facility] [address] [place] [address] OFFICE VISIT Date of Service: 08/29/24 MR#: [id number] Acct: [id number] Name: CRISTINA SMILEY Rep #: [id number] : 1995 Provider: Jen Thurston NP Age/Sex: 29/F Location: [facility] Status: Signed Intake Vital Signs 07/19/24 10:43 08/29/24 09:08 08/29/24 10:58 Height 5 ft 4 in 5 ft 4 in 5 ft 4 in Weight: 190 lb 2 oz BMI 32.6 BP 114/71 Intake Visit Reasons: NIPPLE CHECK Chief Complaint: nipple check, discomfort Allergies Penicillins Adverse Reaction (Mild, Verified 07/19/24 10:48) rash : Yes PFSH PFSH Medical History Vaginal delivery Encounter for induction of labor History of blood transfusion Polyhydramnios Depression Anxiety Polyhydramnios affecting in third trimester COVID-19 affecting in second trimester Need for Tdap vaccination Needs flu shot UTI in Abnormal glucose level Obesity affecting History of hemorrhage Supervision of high-risk Bicornuate uterus Family History Mother , 2016 Thyroid disorder Hypertension Diabetes PCOS (polycystic ovarian syndrome) Father Diabetes Hypertension Sister PCOS (polycystic ovarian syndrome) Social History adopted: No household members: family number of children: 2 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 Date Name GA/Weeks Outcome Route Bth Weight Infant Gen Labor Lgth Anesthesia Del Locatn Provider FOB 10/11/19 Eugenia live - full term 7#6oz Female 12 epidural [facility] 12/21/23 Ilah 40 live - full term 8lbs 4oz Female [facility] Mar canthony Giuseppe Delivery Date: 10/11/19 Last Updated by: Cheryle Velasco heart shaped uterus, laceration of uterus was taking to OR Delivery Date: 12/21/23 Last Updated by: Mary Ovalles IOL poly HPI HPI HPI: CRISTINA SMILEY, is a 29 F who presents to the office today for nipple pain, discomfort. History provided by the patient. ROS ROS Const Constitutional: Denies fever(s) or lethargy : Denies nipple discharge Skin Skin/Breast: Denies breast pain, breast skin changes or nipple discharge Details: on demand when with baby, pumping when at work, noticed slightly swollen area to left areola over a month ago, did pop area and blood came out, feels like it is still healing but noticed another area on right areola Exam Maternal Assessment Breast Assessment Bilateral Breasts: Full Nipple Assessment Bilateral Nipples: Everted Areolar Tissue Areolar Tissue: Pliable Assessment Baby Feeding History Is your baby latching onto the breast: Yes Number of Breast Feedings in 24 hours: on demand when with baby Breast Pumping Type of Breast Pump: MomCozy Frequency: q 3 hours when at work Amount: 3-6 oz Goals Breast Feeding Goals: Exclusive Exam Const General: comfortable and no acute distress Orientation: alert and oriented x3 Chest Breast inspection: normal inspection of the breasts Breast palpation: normal palpation of the breasts Other: left areola with 0.5x0.5 cm skin abrasion, appears to be healing, no bleeding, right areola with 0.5x0.5 cm raised area to gland, no swelling or redness present Resp Effort Inspection: normal respiratory effort Skin General: no rashes or lesions noted Psych Appearance: grossly normal Mental Status: mental status grossly normal Affect: normal affect Assessment and Plan Assessment and Plan (1) nipple pain: Plan: Appears to be superficial abrasions - possible rubbing from pump on glands. Healing on left side. Will send in mupirocin to use TID. Follow up if no improvement or for any new/worsening symptoms. (2) Care and examination of lactating mother: Plan: Plan as above. Medications: New mupirocin 2% Apply to area t (more content not included)... Normal 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 Is patient in pain?: No Allergies Penicillins Adverse Reaction (Mild, Verified 07/19/24 10:48) rash Medications ???Medication ???Instructions ???Recorded ???Confirmed ???Type cholecalciferol (vitamin D3) 50 50 mcg PO DAILY 05/15/23 07/19/24 History mcg (2,000 unit) capsule docosahexaenoic acid 200 mg mg PO 05/15/23 07/19/24 History capsule ( DHA) sertraline 50 mg tablet (Zoloft) 50 mg PO DAILY anxiety/dep 05/15/23 07/19/24 History Post menopausal: No Patient : No PFSH PFSH Medical History Vaginal delivery Encounter for induction of labor History of blood transfusion Polyhydramnios Depression Anxiety Polyhydramnios affecting in third trimester COVID-19 affecting in second trimester Need for Tdap vaccination Needs flu shot UTI in Abnormal glucose level Obesity affecting History of hemorrhage Supervision of high-risk Bicornuate uterus Family History Mother , 2016 Thyroid disorder Hypertension Diabetes PCOS (polycystic ovarian syndrome) Father Diabetes Hypertension Sister PCOS (polycystic ovarian syndrome) Social History adopted: No household members: family number of children: 2 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 Date Name GA/Weeks Outcome Route Bth Weight Infant Gen Labor Lgth Anesthesia Del Locatn Provider FOB 10/11/19 Eugenia live - full term 7#6oz Female 12 epidural [facility] 12/21/23 Ilah 40 live - full term 8lbs 4oz Female [facility] Misty Chin Delivery Date: 10/11/19 Last Updated by: Cheryle Velasco heart shaped uterus, laceration of uterus was taking to OR Delivery Date: 12/21/23 Last Updated by: Mary Ovalles IOL poly HPI nexplanon insert Details: CRISTINA SMILEY is a 29 year old who presents for NExplanon Insertion. ROS Const Constitutional: Reports system reviewed and no additional complaints, except as documented Cardio Card: Reports system reviewed and no additional complaints, except as documented Resp Resp: Reports system reviewed and no additional complaints, except as documented GI GI: Reports system reviewed and no additional complaints, except as documented : Reports system reviewed and no additional complaints, except as documented Musc Musc: Reports system reviewed and no additional complaints, except as documented Skin Skin/Breast: Reports system reviewed and no additional complaints, except as documented Neuro Neuro: Reports system reviewed and no additional complaints, except as documented Psych Psych: Reports system reviewed and no additional complaints, except as documented Endo Endo: Reports system reviewed and no additional complaints, except as documented Elmer/Lymph Hematologic/Lymphatic: Reports system reviewed and no additional complaints, except as documented Aller/Immun Allergic/Immunologic: Reports system reviewed and no additional complaints, except as documented Exam Const General: cooperative, healthy appearing and comfortable Neck Neck: normal visual inspection and full ROM Resp Effort Inspection: normal respiratory effort, able to speak in complete sentences and symmetric chest movement GI Inspection: normal to inspection Palpation: soft Neuro General: patient alert, patient awake and patient oriented x3 Cognition: normal cogn (more content not included)... Normal 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 Office Visit Report [facility] [address], [address] [place] [address] OFFICE VISIT Date of Service: 06/27/24 MR#: [id number] Acct: [id number] Name: CRISTINA SMILEY Rep #: [id number] : 1995 Provider: SELAM Redman Age/Sex: 29/F Location: [facility] Status: Signed Intake Vital Signs 02/19/24 14:09 06/27/24 14:41 Height 5 ft 4 in 5 ft 4 in Weight: 187 lb BMI 32.1 BP 122/75 H Intake Visit Reasons: BC CONSULT Chief Complaint: control Is patient in pain?: No Allergies Penicillins Adverse Reaction (Mild, Verified 06/27/24 14:43) rash Medications ???Medication ???Instructions ???Recorded ???Confirmed ???Type cholecalciferol (vitamin D3) 50 50 mcg PO DAILY 05/15/23 06/27/24 History mcg (2,000 unit) capsule docosahexaenoic acid 200 mg mg PO 05/15/23 06/27/24 History capsule ( DHA) sertraline 50 mg tablet (Zoloft) 50 mg PO DAILY anxiety/dep 05/15/23 06/27/24 History Is last menstrual period known: Yes Last Menstrual Period: 06/01/24 Post menopausal: No Patient : No : Yes Control Method: none PFSH Medical History Vaginal delivery Encounter for induction of labor History of blood transfusion Polyhydramnios Depression Anxiety Polyhydramnios affecting in third trimester COVID-19 affecting in second trimester Need for Tdap vaccination Needs flu shot UTI in Abnormal glucose level Obesity affecting History of hemorrhage Supervision of high-risk Bicornuate uterus Family History Mother , 2016 Thyroid disorder Hypertension Diabetes PCOS (polycystic ovarian syndrome) Father Diabetes Hypertension Sister PCOS (polycystic ovarian syndrome) Social History adopted: No household members: family number of children: 2 current occupational status: employed 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 current occupational exposures/hazards: No pets and animals: Yes pets and animals: dog(s) history of recent travel: No sexually active: Yes Smoking Status: Former smoker second hand exposure: Yes alcohol intake: current details: not during what type of physical activity do you participate in: none seatbelt use: always do you feel safe at home: Yes 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 Date Name GA/Weeks Outcome Route Bth Weight Gen Labor Lgth Anesthesia Del Locatn Provider FOB 10/11/19 Eugenia live - full term 7#6oz Female 12 epidural [facility] 12/21/23 Ilah 40 live - full term 8lbs 4oz Female [facility] Misty Chin Delivery Date: 10/11/19 Last Updated by: Cheryle Velasco heart shaped uterus, laceration of uterus was taking to OR Delivery Date: 12/21/23 Last Updated by: Mary Ovalles IOL poly Exam Const General: cooperative, healthy appearing, comfortable and well developed Eyes General: appearance normal, both eyes and all related structures Neck Neck: normal visual inspection Skin General: no rashes or lesions noted Neuro General: patient alert, patient awake, patient oriented x3 and moves all extremities Psych Appearance: grossly normal and well kempt Affect: normal affect Speech and Movement: speech and movement normal Attitude: cooperative Results POC Urine Office , Urine Negative Last Edit by Bianca Jain on 06/27/24 14:52 Coding Level of Care Code Established Pt Off vis,est,level 2 Patient Type Established Diagnoses Encounter for counseling regarding contraception Z30.09 Assessment and Plan Assessment and Plan (1) Encounter for counseling regarding contraception: Status: Acute Plan: Discussed different contraception options. S/P vaginal delivery. She is interested in non hormonal Paragaurd (copper IUD). RTO to have placed. Education offered to patient; declines. Call office with questions or concerns. Orders: Orders POC Urine Today Z30.9 - Encounter for contraceptive management, unspecified 06/27/24 1509 Date Yesica DOSS Cosigner Signature: Date (more content not included)... Normal [facility] Bacteria identifiedon 2023 Bacteria identified Cx Nom (U) Test: Urine Culture Specimen Source: Clean Catch/Voided Specimen Type: Urine Specimen Date: 05/27/2024 1054 Result Date: 05/28/2024 1023 Result Status: Final result Abnormal: No Resulting Lab: [facility] [address] [place] [address] CULTURE No significant growth Normal [facility] Comment on above: Performed By: #### 6 30-4 #### NICKY Lowe ([id number]) [facility] ([facility]) [address] [place] [address] Basic metabolic 2000 panelon 05-27-2024 Anion gap [Moles/Vol] 13 mmol/L Normal 10-20 [facility] Comment on above: Performed By: #### 2 4321-2 #### AG TOSCANO ([id number]) [facility] ([facility]) [address] [place] [address]229 Calcium [Mass/Vol] 9.1 mg/dL Normal 8.6-10.3 [facility] Comment on above: Performed By: #### 2 4321-2 #### AG TOSCANO ([id number]) [facility] ([facility]) [address] [place] [address]5047 Chloride [Moles/Vol] 107 mmol/L Normal 98-107 [facility] Comment on above: Performed By: #### 2 4321-2 #### AG TOSCANO ([id number]) [facility] ([facility]) [address] [place] [address] 15906 CO2 [Moles/Vol] 23 mmol/L Normal 21-[address] [facility] Comment on above: Performed By: #### 2 4321-2 #### AG TOSCANO ([id number]) [facility] ([facility]) [address] [place] [address] 55649 Creatinine [Mass/Vol] 0.54 mg/dL Normal 0.50-1.05 [facility] Comment on above: Performed By: #### 2 4321-2 #### AG TOSCANO ([id number]) [facility] ([facility]) [address] [place] [address] 58858 GFR/1.73 sq M.predicted MDRD (S/P/Bld) [Vol rate/Area] mL/min/{1.73_m2} Normal >60 [facility] Comment on above: Result Comment: Calc ulations of estimated GFR are performed using the 2020 CKD-EPI Study Refit equation without the race variable for the IDMS-Traceable creatinine methods. https://jasn.asnjournals.org/content//ASN.74800 49579 Performed By: #### 2 4321-2 #### AG TOSCANO ([id number]) [facility] ([facility]) [address] [place] [address] 59904 Glucose [Mass/Vol] 75 mg/dL Normal 74-99 [facility] Comment on above: Performed By: #### 2 4321-2 #### AG TOSCANO ([id number]) [facility] ([facility]) [address] [place] [address] 41598 Potassium [Moles/Vol] 3.9 mmol/L Normal 3.5-5.3 [facility] Comment on above: Performed By: #### 2 4321-2 #### AG TOSCANO ([id number]) [facility] ([facility]) [address] [place] [address] 15045 Sodium [Moles/Vol] 139 mmol/L Normal 136-145 [facility] Comment on above: Performed By: #### 2 4321-2 #### AG TOSCANO ([id number]) [facility] ([facility]) [address] [place] [address] 88300 Urea nitrogen [Mass/Vol] 15 mg/dL Normal 6-23 [facility] Comment on above: Performed By: #### 2 4321-2 #### AG TOSCANO ([id number]) [facility] ([facility]) [address] [place] [address] 84403 CBC panel Auto (Bld)on 05-27 Erythrocyte distribution width (RBC) [Ratio] 14.2 % Normal 11.5-14.5 [facility] Comment on above: Performed By: #### 5 8410-2 #### AG TOSCANO ([id number]) [facility] ([facility]) [address] [place] [address] 46909 Hematocrit (Bld) [Volume fraction] 40.2 % Normal 36.0-46.0 [facility] Comment on above: Performed By: #### 5 8410-2 #### AG TOSCANO ([id number]) [facility] ([facility]) [address] [place] [address] 97081 Hemoglobin (Bld) [Mass/Vol] 12.5 g/dL Normal 12.0-16.0 [facility] Comment on above: Performed By: #### 5 8410-2 #### AG TOSCANO ([id number]) [facility] ([facility]) [address] [place] [address] 61956 MCH (RBC) [Entitic mass] 28.7 pg Normal 26.0-34.0 [facility] Comment on above: Performed By: #### 5 8410-2 #### AG TOSCANO ([id number]) [facility] ([facility]) [address] [place] [address] 35770 MCHC (RBC) [Mass/Vol] 31.1 g/dL Low 32.0-36.0 [facility] Comment on above: Performed By: #### 5 8410-2 #### AG TOSCANO ([id number]) [facility] ([facility]) [address] [place] [address] 55227 MCV (RBC) [Entitic vol] 92 fL Normal 80-100 [facility] Comment on above: Performed By: #### 5 8410-2 #### AG TOSCANO ([id number]) [facility] ([facility]) [address] [place] [address] 01905 Nucleated RBC/100 WBC (Bld) [Ratio] 0.0 /100 WBCs Normal 0.0-0.0 [facility] Comment on above: Performed By: #### 5 8410-2 #### AG TOSCANO ([id number]) [facility] ([facility]) [address] [place] [address] 45208 Platelets (Bld) [#/Vol] 305 x10*3/uL Normal 150-450 [facility] Comment on above: Performed By: #### 5 8410-2 #### AG TOSCANO ([id number]) [facility] ([facility]) [address] [place] [address] RBC (Bld) [#/Vol] 4.35 x10*6/uL Normal 4.00-5.20 [facility] Comment on above: Performed By: #### 5 8410-2 #### AG TOSCANO ([id number]) [facility] ([facility]) [facility] [place] [phone] WBC (Bld) [#/Vol] 6.1 x10*3/uL Normal 4.4-11.3 [facility] Comment on above: Performed By: #### 5 8410-2 #### AG TOSCANO ([id number]) [facility] ([facility]) [address] [place] [address] POCT UA Automated manually r esultedon 05-27-2024 Appearance (U) Clear Clear [facility] Work Phone: [phone] Glucose Test strip (U) [Mass/Vol] Negative NEGATIVE mg/dl [facility] Work Phone: Hemoglobin Ql (U) Negative NEGATIVE [facility] Work Phone: )[phone] Interpretation and review of laboratory results Abnormal [facility] Work Phone: )[phone] Leukocyte esterase Test strip Ql (U) TRACE Abnormal NEGATIVE [facility] Work Phone: Nitrite Ql (U) Negative NEGATIVE [facility] Work Phone: pH (U) 7.0 [pH] No Reference Range Established [facility] Work Phone: POC Bilirubin, Urine Negative NEGATIVE [facility] Work Phone: )[phone] POC Color, Urine Dark [place] Abnormal Straw, Yellow, Light-Yellow [facility] Work Phone: )[phone] POC Ketones, Urine Negative NEGATIVE mg/dl [facility] Work Phone: )[phone] POC Protein, Urine TRACE Abnormal NEGATIVE, 30 (1+) mg/dl [facility] Work Phone: POC Specific [place], Urine 1.025 1.005 - 1.035 [facility] Work Phone: POC Urobilinogen, Urine 1.0 0.2, 1.0 EU/DL [facility] Work Phone: [facility] Work Phone: Cervical or vagninal specime n microscopic examination by cytology stain (reported asOrdered By: Azucena Nam on 02-01-2024 Cytology report Cyto stain Doc (Cvx/Vag) Comment . [facility] Comment on above: The Pap smear is a s creening test designed to aid in thedetection of premalignant and malignant conditions of theuterine cervix. It is not a diagnostic procedure andshould not be used as the sole means of detecting cervicalcancer. Both false-positive and false-negative reports dooccur. Laboratory - CytologyOrdered By: Azucena Nam on 02-01-2024 Emergency Room Physician Cyto stain Nom (Cvx/Vag) [ID] Comment . [facility] Comment on above: Mignon Casas, Cyto technologist (ASCP) Laboratory - Miscellaneous t estsOrdered By: Azucena Nam on 02-01-2024 Service comment (Unsp spec) [Interp] . . [facility] No Panel InformationOrdered By: Azucena Nam on 02-01-2024 Human Papillomavirus Screen Comment . [facility] Comment on above: The HPV DNA reflex c riteria were not met with this specimenresult therefore, no HPV testing was performed.Performed at: [address] [id number] Director: Uzma Hammonds MD, Phone: [phone] Thin prep Papanicolaou smear with manual screeningOrdered By: Azucena Nam on 02-01-2024 Thin prep Papanicolaou smear with manual screening Comment . [facility] Comment on above: NEGATIVE FOR INTRAEP ITHELIAL LESION OR MALIGNANCY. This liquid based Th inPrep(R) pap test was screened withthe use of an image guided system. Absolute lymphocyte countOrd ered By: Azucena Nam on 12-18-2023 Lymphocytes Auto (Unsp spec) [#/Vol] 2.45 10*3/uL 0.83-4.51 [facility] Automated lymphocyte count a s percentage of total leukocytesOrdered By: Azucena Nam on 12-18-2023 Lymphocytes/100 WBC Auto (Unsp spec) 21.3 % 19-41 [facility] Basophil percentageOrdered B y: Azucena Nam on 12-18-2023 Basophils/100 WBC (Bld) 0.3 % 0-1 [facility] Eosinophils/100 WBC (Bld) 0.4 % 0-5 [facility] Hemoglobin (Bld) [Mass/Vol] 10.7 g/dL 12.0-15.0 [facility] Monocytes/100 WBC (Bld) 7.4 % 0-10 [facility] Neutrophils (Bld) [#/Vol] 8.1 10*3/uL 2.0-7.7 [facility] Neutrophils/100 WBC (Bld) 70.2 % 47-70 [facility] WBC (Bld) [#/Vol] 11.5 10*3/uL 4.4-11.0 [facility] Determination of erythrocyte mean corpuscular volume (MCV)Ordered By: Azucena Nam on 12-18-2023 MCV (RBC) [Entitic vol] 87.1 fL 81-99 [facility] Erythrocyte distribution wid th ratioOrdered By: Azucena Nam on 12-18-2023 Erythrocyte distribution width (RBC) [Ratio] 16.5 % 11.6-14.6 [facility] Erythrocyte distribution wid th standard deviationOrdered By: Azucena Nam on 12-18-2023 Erythrocyte distribution width (RBC) [Entitic vol] 52.0 fL 35.1-43.9 [facility] Hematocrit Auto (Bld) [Volum e fraction]Ordered By: Azucena Nam on 12-18-2023 Hematocrit (Bld) [Volume fraction] 33.7 % 37-47 [facility] Immature granulocytes/100 WB C Auto (Bld)Ordered By: Azucena Nam on 12-18-2023 Immature granulocytes/100 WBC (Bld) 0.400 % 0.0-0.9 [facility] Comment on above: IG% - Immature Granu locytes (promyelocytes, myelocytes and metamyelocytes) > 1% indicates that a LEFT SHIFT is Present. Laboratory - Hematology and Cell countsOrdered By: Azucena Nam on 12-18-2023 MCH (RBC) [Entitic mass] 27.6 pg 27.0-32.0 [facility] MCHC (RBC) [Mass/Vol] 31.8 g/dL 32-36 [facility] Nucleated RBC/100 WBC (Bld) [Ratio] 0 % 0-5 [facility] Platelet mean volume (Bld) [Entitic vol] 10.1 fL 6.2-12.0 [facility] Platelets (Bld) [#/Vol] 338 10*3/uL 150-450 [facility] RBC Auto (Bld) [#/Vol]Ordere d By: Azucena Nam on 12-18-2023 RBC (Bld) [#/Vol] 3.87 10*6/uL 4.2-5.4 [facility] Serum Treponema species anti body detectionOrdered By: Azucena Nam on 12-18-2023 Treponema sp Ab Ql (S) Non-Reactive [facility] Laboratory - Chemistry and C hemistry - challengeon 12-14-2023 Glucose Ql (U) Negative [facility] Laboratory - Urinalysison Protein Ql (U) Negative [facility] Comment on above: Office Urine Protein previously reported as Positive Laboratory - Chemistry and C hemistry - challengeon 12-04-2023 Glucose Ql (U) Negative [facility] - Urinalysison Protein Ql (U) Negative [facility] Basophil percentageOrdered B y: Eleanor Hooks on 11-29-2023 Basophil percentage 5-10 SEEN /hpf 0-5 [facility] Bilirubin Test strip Ql (U)O rdered By: Eleanor Hooks on 11-29-2023 Bilirubin Ql (U) Negative Negative [facility] Ketones Test strip Ql (U)Ord ered By: Eleanor Hooks on 11-29-2023 Ketones Ql (U) 15 mg/dl Negative [facility] Mucus LM Ql (Urine sed)Order ed By: Eleanor Hooks on 11-29-2023 Mucus Ql (Urine sed) RARE /hpf [facility] Nitrite Test strip Ql (U)Ord ered By: Eleanor Hooks on 11-29-2023 Nitrite Ql (U) Negative Negative [facility] No Panel InformationOrdered By: Eleanor Hooks on 11-29-2023 Urine RBC 0 SEEN /hpf 0-5 [facility] Protein Test strip Ql (U)Ord ered By: Eleanor Hooks on 11-29-2023 Protein Ql (U) Negative Negative [facility] Squamous epithelial cells de tection in urine sediment by light microscopyOrdered By: Eleanor Hooks on 11-29-2023 Epithelial cells.squamous LM Ql (Urine sed) 0-5 SEEN /hpf 5-10 [facility] Urine blood detectionOrdered By: Eleanor Hooks on 11-29-2023 RBC Ql (U) Negative Negative [facility] Urine clarityOrdered By: Serenity Hooks on 11-29-2023 Clarity (U) Sl. Cloudy Clear [facility] Urine color determinationOrd ered By: Eleanor Hooks on 11-29-2023 Color (U) Yellow Yellow [facility] Urine glucose detectionOrder ed By: Eleanor Hooks on 11-29-2023 Glucose Ql (U) Normal mg/dl Normal [facility] Urine leukocyte esterase det ection by dipstickOrdered By: Eleanor Hooks on 11-29-2023 Leukocyte esterase Test strip Ql (U) 100 /ul Negative [facility] Urine pHOrdered By: Eleanor Hooks on 11-29-2023 pH (U) 6.0 [pH] 5.0 - 8.0 [facility] Urine sediment bacteria coun t by microscopy (number/high power field)Ordered By: Eleanor Hooks on 11-29-2023 Bacteria LM.HPF (Urine sed) [#/Area] 1 /[HPF] None Seen [facility] Urine specific gravity measu rementOrdered By: Eleanor Hooks on 11-29-2023 Specific gravity (U) [Rel density] 1.020 1.002-1.030 [facility] Urine urobilinogen measureme ntOrdered By: Eleanor Hooks on 11-29-2023 Urobilinogen Ql (U) 1 mg/dl Normal [facility] Laboratory - Chemistry and C hemistry - challengeon 11-27-2023 Glucose Ql (U) Negative [facility] Laboratory - Urinalysison Protein Ql (U) Negative [facility] No Panel InformationOrdered By: Eleanor Hooks on 11-27-2023 Group B Streptococcus Culture Group B Beta Streptococcus is not isolated. [facility] Group B Streptococcus Culture Group B Beta Streptococcus is not isolated. [facility] Laboratory - Chemistry and C hemistry - challengeon 11-13-2023 Glucose Ql (U) Negative [facility] Laboratory - Urinalysison Protein Ql (U) Negative [facility] Laboratory - Chemistry and C hemistry - challengeon 10-31-2023 Glucose Ql (U) Negative [facility] - Urinalysison Protein Ql (U) Negative [facility] Laboratory - Chemistry and C hemistry - challengeon 10-16-2023 Glucose Ql (U) Negative [facility] - Urinalysison Protein Ql (U) Negative [facility] Quantitative serum or plasma 3 hour gestational glucose tolerance panelOrdered By: Lucina Christie on 10-11-2023 Glucose tolerance 3 hours gestational panel See comment [facility] Comment on above: FASTING 88 Col: 04/28 0708GLUCOSE TOLERANCE TEST FOR Reference Interval GESTATIONAL DIABETES Fasting <105 mg/dL 1 hour <190 mg/dl 2 hour <165 mg/dl 3 hour <145 mg/dl 1 HR GLU 201 H Col: 10/11/23 0815 2 HR GLU 131 Col: 10/11/23 0916 3 HR GLU 109 Col: 10/11/23 1016 Influenza virus A and B and SARS-CoV-2 (COVID-19) identified DEBORAH+probe Nom (Resp)on 10-06-2023 FLUAV RNA DEBORAH+probe Ql (Resp) Not detected Normal Not Detected [facility] Comment on above: Order Comment: This assay has received FDA Emergency Use Authorization (EUA) and is only authorized for the duration of time that circumstances exist to justify the authorization of the emergency use of in vitro diagnostic tests for the detection of SARS-CoV-2 virus and/or diagnosis of COVID-19 infection under section 564(b)(1) of the Act, 21 U.S.C. 360bbb-3(b)(1). Testing for SARS-CoV-2 is only recommended for patients who meet current clinical and/or epidemiological criteria as defined by federal, state, or local public health directives. This assay is an in vitro diagnostic nucleic acid amplification test for the qualitative detection of SARS-CoV-2, Influenza A, and Influenza B from nasopharyngeal specimens and has been validated for use at [facility]. Negative results do not preclude COVID-19 infections or Influenza A/B infections, and should not be used as the sole basis for diagnosis, treatment, or other management decisions. If Influenza A/B and RSV PCR results are negative, testing for Parainfluenza virus, Adenovirus and Metapneumovirus is routinely performed for [facility] pediatric oncology and intensive care inpatients, and is available on other patients by placing an add-on request. Performed By: #### 9 5423-0 #### NICKY Lowe ([id number]) [facility] ([facility]) [address] [place] [address] FLUBV RNA DEBORAH+probe Ql (Resp) Not detected Normal Not Detected [facility] Comment on above: Order Comment: This assay has received FDA Emergency Use Authorization (EUA) and is only authorized for the duration of time that circumstances exist to justify the authorization of the emergency use of in vitro diagnostic tests for the detection of SARS-CoV-2 virus and/or diagnosis of COVID-19 infection under section 564(b)(1) of the Act, 21 U.S.C. 360bbb-3(b)(1). Testing for SARS-CoV-2 is only recommended for patients who meet current clinical and/or epidemiological criteria as defined by federal, state, or local public health directives. This assay is an in vitro diagnostic nucleic acid amplification test for the qualitative detection of SARS-CoV-2, Influenza A, and Influenza B from nasopharyngeal specimens and has been validated for use at [facility]. Negative results do not preclude COVID-19 infections or Influenza A/B infections, and should not be used as the sole basis for diagnosis, treatment, or other management decisions. If Influenza A/B and RSV PCR results are negative, testing for Parainfluenza virus, Adenovirus and Metapneumovirus is routinely performed for [facility] pediatric oncology and intensive care inpatients, and is available on other patients by placing an add-on request. Performed By: #### 9 5423-0 #### NICKY Lowe ([id number]) [facility] ([facility]) [address] [place] [address] SARS-CoV-2 (COVID-19) ORF1ab region DEBORAH+probe Ql (Resp) Detected Abnormal Not Detected [facility] Comment on above: Order Comment: This assay has received FDA Emergency Use Authorization (EUA) and is only authorized for the duration of time that circumstances exist to justify the authorization of the emergency use of in vitro diagnostic tests for the detection of SARS-CoV-2 virus and/or diagnosis of COVID-19 infection under section 564(b)(1) of the Act, 21 U.S.C. 360bbb-3(b)(1). Testing for SARS-CoV-2 is only recommended for patients who meet current clinical and/or epidemiological criteria as defined by federal, state, or local public health directives. This assay is an in vitro diagnostic nucleic acid amplification test for the qualitative detection of SARS-CoV-2, Influenza A, and Influenza B from nasopharyngeal specimens and has been validated for use at [facility]. Negative results do not preclude COVID-19 infections or Influenza A/B infections, and should not be used as the sole basis for diagnosis, treatment, or other management decisions. If Influenza A/B and RSV PCR results are negative, testing for Parainfluenza virus, Adenovirus and Metapneumovirus is routinely performed for [facility] pediatric oncology and intensive care inpatients, and is available on other patients by placing an add-on request. Performed By: #### [id number] #### NICKY Lowe ([id number]) [facility] ([facility]) [address] [place] [id number] Absolute lymphocyte countOrd ered By: Lucina Christie on 10-02-2023 Lymphocytes Auto (Unsp spec) [#/Vol] 1.79 10*3/uL 0.83-4.51 [facility] Basophil percentageOrdered B y: Lucina Christie on 10-02-2023 Basophils/100 WBC (Bld) 0.3 % 0-1 [facility] Eosinophils/100 WBC (Bld) 0.6 % 0-5 [facility] Neutrophils (Bld) [#/Vol] 9.5 10*3/uL 2.0-7.7 [facility] Neutrophils/100 WBC (Bld) 80.3 % 47-70 [facility] WBC (Bld) [#/Vol] 11.8 10*3/uL 4.4-11.0 [facility] Blood erythrocytes count (nu mber/volume)Ordered By: Lucina Christie on 10-02-2023 RBC (Bld) [#/Vol] 3.90 10*6/uL 4.2-5.4 [facility] Blood hemoglobin measurement (mass/volume)Ordered By: Lucina Christie on 10-02-2023 Hemoglobin (Bld) [Mass/Vol] 11.1 g/dL 12.0-15.0 [facility] Blood lymphocytes/100 leukoc ytesOrdered By: Lucina Christie on 10-02-2023 Lymphocytes/100 WBC (Bld) 15.2 % 19-41 [facility] Blood monocytes/100 leukocyt esOrdered By: Lucina Christie on 10-02-2023 Monocytes/100 WBC (Bld) 3.1 % 0-10 [facility] Blood platelet mean volumeOr dered By: Lucina Christie on 10-02-2023 Platelet mean volume (Bld) [Entitic vol] 9.1 fL 6.2-12.0 [facility] Determination of erythrocyte mean corpuscular volume (MCV)Ordered By: Lucina Christie on 10-02-2023 MCV (RBC) [Entitic vol] 89.5 fL 81-99 [facility] Gestational diabetes screen 1-hour screen with 50g oral glucose loadOrdered By: Lucina Christie on 10-02-2023 Glucose 1 Hr post 50 g glucose PO [Mass/Vol] 165 mg/dL 70-140 [facility] HIV 1 and HIV-2 antibody ass ay with HIV-1 p24 antigen detectionOrdered By: Lucina Christie on 10-02-2023 HIV 1+2 Ab+HIV1 p24 Ag IA Ql Non-Reactive Nonreactive [facility] Hematocrit Auto (Bld) [Volum e fraction]Ordered By: Lucina Christie on 10-02-2023 Hematocrit (Bld) [Volume fraction] 34.9 % 37-47 [facility] - Chemistry and C hemistry - challengeon 10-02-2023 Glucose Ql (U) Negative [facility] - Hematology and Cell countsOrdered By: Lucina Christie on 10-02-2023 Erythrocyte distribution width (RBC) [Entitic vol] 49.8 fL 35.1-43.9 [facility] Erythrocyte distribution width (RBC) [Ratio] 15.3 % 11.6-14.6 [facility] Immature granulocytes/100 WBC (Bld) 0.500 % 0.0-0.9 [facility] Comment on above: IG% - Immature Granu locytes (promyelocytes, myelocytes and metamyelocytes) > 1% indicates that a LEFT SHIFT is Present. MCH (RBC) [Entitic mass] 28.5 pg 27.0-32.0 [facility] Nucleated RBC/100 WBC (Bld) [Ratio] 0 % 0-5 [facility] - Urinalysison Protein Ql (U) Negative [facility] MCHC Auto (RBC) [Mass/Vol]Or dered By: Lucina Christie on 10-02-2023 MCHC (RBC) [Mass/Vol] 31.8 g/dL 32-36 [facility] Platelets bldOrdered By: Elis Christie on 10-02-2023 Platelets (Bld) [#/Vol] 287 10*3/uL 150-450 [facility] Serum Treponema species anti body detectionOrdered By: Lucina Christie on 10-02-2023 Treponema sp Ab Ql (S) Non-Reactive [facility] - Chemistry and C hemistry - challengeon 08-04-2023 Glucose Ql (U) Negative [facility] - Urinalysison Protein Ql (U) Negative [facility] Culture, urineOrdered By: Carlos Cavanaugh on 07-07-2023 Bacteria identified Cx Nom (U) Positive [facility] Bacteria identified Cx Nom (U) Positive [facility] Gram stain for investigation of transfusion reactionOrdered By: Pallavi Cavanaugh on 07-07-2023 Microscopic observation Gram stain Nom (Unsp spec) [facility] Microscopic observation Gram stain Nom (Unsp spec) [facility] - Chemistry and C hemistry - challengeon 07-07-2023 Bilirubin Ql (U) Small (1+) [facility] Glucose Ql (U) Negative [facility] Ketones Ql (U) Moderate (40+) [facility] pH (U) 5.0 [pH] [facility] Specific gravity (U) [Rel density] 1.030 [facility] Urobilinogen (U) [Mass/Vol] Negative [facility] - Hematology and Cell countson 07-07-2023 Hemoglobin Ql (U) Negative [facility] - Specimen inform ationon 07-07-2023 Clarity (U) Cloudy [facility] Color (U) [place] [facility] - Urinalysison Nitrite Ql (U) Negative [facility] Protein Ql (U) Negative [facility] No Panel Informationon 07-[address] [facility] Urine Non-Hemolyzed Blood Negative [facility] Thin prep Papanicolaou smear with manual screeningOrdered By: Pallavi Cavanaugh on 07-07-2023 Thin prep Papanicolaou smear with manual screening Normal genital michael isolated [facility] Thin prep Papanicolaou smear with manual screening Normal genital michael isolated [facility] - Chemistry and C hemistry - challengeon 06-14-2023 Glucose Ql (U) Negative [facility] - Urinalysison Protein Ql (U) Negative [facility] COMPREHENSIVE PANELon 2022 Albumin [Mass/Vol] 3.9 g/dL Normal 3.4 - 5.0 [facility] Comment on above: Performed By: #### C MP #### [address] [address] ALP [Catalytic activity/Vol] 58 U/L Normal 33 - 110 [facility] Comment on above: Performed By: #### C MP #### [address] [address] ALT [Catalytic activity/Vol] 16 U/L Normal 7 - 45 [facility] Comment on above: Result Comment: Bridgett ents treated with Sulfasalazine may generate falsely decreased results for ALT. Performed By: #### C MP #### [address] [address] Anion gap [Moles/Vol] 13 mmol/L Normal 10 - 20 [facility] Comment on above: Performed By: #### C MP #### [address] [address] AST [Catalytic activity/Vol] 13 U/L Normal 9 - 39 [facility] Comment on above: Performed By: #### C MP #### [address] [address] Bilirubin [Mass/Vol] 0.5 mg/dL Normal 0.0 - 1.2 [facility] Comment on above: Performed By: #### C MP #### [address] [address] Calcium [Mass/Vol] 8.9 mg/dL Normal 8.6 - 10.3 [facility] Comment on above: Performed By: #### C MP #### [address] [address] Chloride [Moles/Vol] 104 mmol/L Normal 98 - 107 [facility] Comment on above: Performed By: #### C MP #### [address] [address] Creatinine [Mass/Vol] 0.55 mg/dL Normal 0.50 - 1.05 [facility] Comment on above: Performed By: #### C MP #### [address] [address] eGFR FEMALE >90 Normal >90 [facility] Comment on above: Result Comment: CALC ULATIONS OF ESTIMATED GFR ARE PERFORMED USING THE 2020 CKD-EPI STUDY REFIT EQUATION WITHOUT THE RACE VARIABLE FOR THE IDMS-TRACEABLE CREATININE METHODS. https://jasn.asnjournals.org/content//ASN.16141 34162 Performed By: #### C MP #### [address] [address] Glucose [Mass/Vol] 120 mg/dL High 74 - 99 [facility] Comment on above: Performed By: #### C MP #### [place] [id number] HCO3 (Bld) [Moles/Vol] 22 mmol/L Normal 21 - 32 [facility] Comment on above: Performed By: #### C MP #### [place] [id number] Potassium [Moles/Vol] 3.7 mmol/L Normal 3.5 - 5.3 [facility] Comment on above: Performed By: #### C MP #### [place] [address] Protein [Mass/Vol] 6.1 g/dL Low 6.4 - 8.2 [facility] Comment on above: Performed By: #### C MP #### [place] [address] Sodium [Moles/Vol] 135 mmol/L Low 136 - 145 [facility] Comment on above: Performed By: #### C MP #### [place] [address] Urea nitrogen [Mass/Vol] 6 mg/dL Normal 6 - 23 [facility] Comment on above: Performed By: #### C MP #### [place] [address] UA MICROSCOPICon 06-13-2023 BACTERIA 4+ /HPF Abnormal [facility] Comment on above: Performed By: #### U AMIC #### [address] [address] Mucus Ql (Urine sed) 4+ /LPF Normal [facility] Comment on above: Performed By: #### U AMIC #### [place] [address] RBC 3 /HPF Normal 0-5 [facility] Comment on above: Performed By: #### U AMIC #### [place] [address] SQUAMOUS EPITH. CELLS 10 /HPF Normal [facility] Comment on above: Performed By: #### U AMIC #### [place] [address] WBC 16 /HPF Abnormal 0-5 [facility] Comment on above: Performed By: #### U AMIC #### [place] [address] WBC CLUMPS MOD Normal [facility] Comment on above: Performed By: #### U AMIC #### [place] [address] Lab Specimen Source Normal [facility] Comment on above: Performed By: #### U AMIC #### [place] [address] Performed By: #### U A #### [place] [address] Performed By: #### C MP #### [place] [address] URINALYSISon 06-13-2023 Appearance (U) HAZY Normal CLEAR [facility] Comment on above: Performed By: #### U A #### [place] [address] Bilirubin Ql (U) Negative Normal NEGATIVE [facility] Comment on above: Performed By: #### U A #### [place] [address] Color (U) Yellow Normal STRAW,YELLOW [facility] Comment on above: Performed By: #### U A #### [place] [address] Glucose Ql (U) 150(1+) Abnormal NEGATIVE [facility] Comment on above: Performed By: #### U A #### [place] [address] Hemoglobin Ql (U) Negative Normal NEGATIVE [facility] Comment on above: Performed By: #### U A #### [place] [address] Ketones Ql (U) 5 (TRACE) Abnormal NEGATIVE [facility] Comment on above: Performed By: #### U A #### [place] [id number] Leukocyte esterase Test strip Ql (U) SMALL (1+) Abnormal NEGATIVE [facility] Comment on above: Performed By: #### U A #### [address] [address] Nitrite Ql (U) Negative Normal NEGATIVE [facility] Comment on above: Performed By: #### U A #### [place] [id number] pH (U) 5.0 [pH] Normal 5.0 - 8.0 [facility] Comment on above: Performed By: #### U A #### [place] [id number] Protein Ql (U) Negative Normal NEGATIVE [facility] Comment on above: Performed By: #### U A #### [place] [address] Specific gravity (U) [Rel density] 1.030 Normal 1.005 - 1.035 [facility] Comment on above: Performed By: #### U A #### [place] [id number] Urobilinogen (U) [Mass/Vol] mg/dL Normal 0.0 - 1.9 [facility] Comment on above: Performed By: #### U A #### [place] [id number] URINE CULTURE,BACTERIALon URINE CULTURE,BACTERIAL PATIENT: CRSITINA SMILEY LOCATION: [facility] BILL#: [id number] : 89 AGE: SEX: F ORDERED BY: KEYONNA DAVIS SOURCE: URINE COLLECTED: 06/13/23 14:50 ANTIBIOTICS AT JOSETTE.: RECEIVED : 06/14/23 19:44 SITE: Clean Catch/Voided R E S U L T S URINE CULTURE,BACTERIAL FINAL 06/15/23 12:18 NO SIGNIFICANT GROWTH. Normal [facility] Comment on above: Performed By: #### U RINC #### [facility] [address] [place] [address] URINE CULTURE,BACTERIALon URINE CULTURE,BACTERIAL PATIENT: CRISTINA SMILEY LOCATION: [facility] N[facility]UL#: [id number] : 89 AGE: SEX: F ORDERED BY: JULIO MOORE SOURCE: URINE COLLECTED: 06/05/23 07:52 ANTIBIOTICS AT JOSETTE.: RECEIVED : 06/05/23 19:37 SITE: Clean Catch/Voided R E S U L T S URINE CULTURE,BACTERIAL FINAL 06/06/23 12:01 NO SIGNIFICANT GROWTH. Normal [facility] Comment on above: Performed By: #### U RIN #### [facility] [address] [place] [address] TRICHOMONAS,NUCLEIC ACID DET ECTIONon 06-04-2023 TRICHOMONAS VAGINALIS Negative Normal Negative [facility] Comment on above: Result Comment: The APTIMA Trichomonas vaginalis assay is FDA-approved for testing on female endocervical swabs, vaginal swabs, and ThinPrep liquid pap samples. Performance characteristics for Trichomonas vaginalis on specific [id number] sample types (female and male urine and male urethral swabs) have been validated by [facility]. This laboratory is certified by CLIA to perform high complexity testing. Samples from all other sites are not validated for this method. Performance characteristics for Trichomonas Vaginalis testing on urine samples has been validated by [facility]. Testing on this sample type is not FDA-approved, but such approval is not necessary. This laboratory is certified by CLIA to perform high complexity testing. Performed By: #### T GAGE #### [facility] [address] [place] [address] GC + CHLAMYDIA BY AMPLIFIED DETECTIONon 06-03-2023 CHLAMYDIA TRACH.,AMPLIFIED Canceled Normal [facility] Comment on above: Order Comment: TEST GC + CHLAMYDIA BY AMPLIFIED DETECTION WAS CANCELLED, 06/03/2023 15:16 Aptima sent to [facility]. Performed By: #### [facility] #### [place] [address] N.GONORRHEA,AMPLIFIED Canceled Normal [facility] Comment on above: Order Comment: TEST GC + CHLAMYDIA BY AMPLIFIED DETECTION WAS CANCELLED, 06/03/2023 15:16 Aptima sent to [facility]. Performed By: #### G CCHA #### [place] [address] Lab Specimen Source Urine Normal [facility] Comment on above: Order Comment: TEST GC + CHLAMYDIA BY AMPLIFIED DETECTION WAS CANCELLED, 06/03/2023 15:16 Aptima sent to [facility]. Performed By: #### G [facility] #### [place] [address] Performed By: #### T GAGE #### [facility] [address] [place] [address] UA MICROSCOPICon 06-03-2023 AMORPHOUS CRYSTAL 3+ /HPF Abnormal [facility] Comment on above: Performed By: #### U AMIC #### [place] [address] BACTERIA 1+ /HPF Abnormal [facility] Comment on above: Performed By: #### U AMIC #### [place] [address] RBC None Normal 0-5 [facility] Comment on above: Performed By: #### U AMIC #### [place] [address] WBC None Normal 0-5 [facility] Comment on above: Performed By: #### U AMIC #### [place] [address] Lab Specimen Source Normal [facility] Comment on above: Performed By: #### U AMIC #### [place] [address] Performed By: #### U A #### [place] [id number] URINALYSISon 06-03-2023 Appearance (U) HAZY Normal CLEAR [facility] Comment on above: Performed By: #### U A #### [place] [address] Bilirubin Ql (U) Negative Normal NEGATIVE [facility] Comment on above: Performed By: #### U A #### [place] [address] Color (U) Red Normal STRAW,YELLOW [facility] Comment on above: Performed By: #### U A #### [place] [address] Glucose Ql (U) 50(TRACE) Abnormal NEGATIVE [facility] Comment on above: Performed By: #### U A #### [place] [address] Hemoglobin Ql (U) Negative Normal NEGATIVE [facility] Comment on above: Performed By: #### U A #### [place] [address] Ketones Ql (U) Negative Normal NEGATIVE [facility] Comment on above: Performed By: #### U A #### [place] [address] Leukocyte esterase Test strip Ql (U) Negative Normal NEGATIVE [facility] Comment on above: Performed By: #### U A #### [place] [address] Nitrite Ql (U) Positive Abnormal NEGATIVE [facility] Comment on above: Performed By: #### U A #### [place] [address] pH (U) 5.0 [pH] Normal 5.0 - 8.0 [facility] Comment on above: Performed By: #### U A #### [place] [address] Protein Ql (U) 100 (2+) Abnormal NEGATIVE [facility] Comment on above: Performed By: #### U A #### [place] [address] Specific gravity (U) [Rel density] 1.020 Normal 1.005 - 1.035 [facility] Comment on above: Performed By: #### U A #### [address] [place] [address] Urobilinogen (U) [Mass/Vol] 4.0 mg/dL High 0.0 - 1.9 [facility] Comment on above: Result Comment: SOME PIGMENTS AND MEDICATIONS MAY CAUSE A FALSE POSITIVE UROBILINOGEN Performed By: #### U A #### [address] [address] Quantitative serum or plasma 3 hour gestational glucose tolerance panelOrdered By: Janes Malcolm on 06-02-2023 Glucose tolerance 3 hours gestational panel See comment [facility] Comment on above: FASTING 83 Col: 05/07 06/28 0730GLUCOSE TOLERANCE TEST FOR Reference Interval GESTATIONAL DIABETES Fasting <105 mg/dL 1 hour <190 mg/dl 2 hour <165 mg/dl 3 hour <145 mg/dl 1 HR GLU 183 Col: 06/02/23 0833 2 HR GLU 151 Col: 06/02/23 0933 3 HR GLU 118 Col: 06/02/23 1033 Absolute lymphocyte countOrd ered By: Azucena Nam on 05-30-2023 Lymphocytes Auto (Unsp spec) [#/Vol] 1.39 10*3/uL 0.83-4.51 [facility] Basophil percentageOrdered B y: Azucena Nam on 05-30-2023 Basophils/100 WBC (Bld) 0.1 % 0-1 [facility] Eosinophils/100 WBC (Bld) 0.4 % 0-5 [facility] Neutrophils (Bld) [#/Vol] 7.2 10*3/uL 2.0-7.7 [facility] Neutrophils/100 WBC (Bld) 78.7 % 47-70 [facility] WBC (Bld) [#/Vol] 9.2 10*3/uL 4.4-11.0 [facility] Blood erythrocytes count (nu mber/volume)Ordered By: Azucena Nam on 05-30-2023 RBC (Bld) [#/Vol] 4.46 10*6/uL 4.2-5.4 [facility] Blood hemoglobin measurement (mass/volume)Ordered By: Azucena Nam on 05-30-2023 Hemoglobin (Bld) [Mass/Vol] 12.5 g/dL 12.0-15.0 [facility] Blood lymphocytes/100 leukoc ytesOrdered By: Azucena Nam on 05-30-2023 Lymphocytes/100 WBC (Bld) 15.2 % 19-41 [facility] Blood monocytes/100 leukocyt esOrdered By: Azucena Nam on 05-30-2023 Monocytes/100 WBC (Bld) 5.3 % 0-10 [facility] Blood platelet mean volumeOr dered By: Azucena Nam on 05-30-2023 Platelet mean volume (Bld) [Entitic vol] 9.7 fL 6.2-12.0 [facility] Determination of erythrocyte mean corpuscular volume (MCV)Ordered By: Azucena Nam on 05-30-2023 MCV (RBC) [Entitic vol] 86.8 fL 81-99 [facility] Gestational diabetes screen 1-hour screen with 50g oral glucose loadOrdered By: Azucena Nam on 05-30-2023 Glucose 1 Hr post 50 g glucose PO [Mass/Vol] 147 mg/dL 70-140 [facility] HIV 1 and HIV-2 antibody ass ay with HIV-1 p24 antigen detectionOrdered By: Azucena Nam on 05-30-2023 HIV 1+2 Ab+HIV1 p24 Ag IA Ql Non-Reactive Nonreactive [facility] Hematocrit Auto (Bld) [Volum e fraction]Ordered By: Azucena Nam on 05-30-2023 Hematocrit (Bld) [Volume fraction] 38.7 % 37-47 [facility] - Hematology and Cell countsOrdered By: Azucena Nam on 05-30-2023 Erythrocyte distribution width (RBC) [Entitic vol] 49.6 fL 35.1-43.9 [facility] Erythrocyte distribution width (RBC) [Ratio] 15.5 % 11.6-14.6 [facility] Immature granulocytes/100 WBC (Bld) 0.300 % 0.0-0.9 [facility] Comment on above: IG% - Immature Granu locytes (promyelocytes, myelocytes and metamyelocytes) > 1% indicates that a LEFT SHIFT is Present. MCH (RBC) [Entitic mass] 28.0 pg 27.0-32.0 [facility] Nucleated RBC/100 WBC (Bld) [Ratio] 0 % 0-5 [facility] Auto ([facility]BC) [Mass/Vol]Or dered By: Azucena Nam on 05-30-2023 MCHC (RBC) [Mass/Vol] 32.3 g/dL 32-36 [facility] No Panel InformationOrdered By: Azucena Nam on 05-30-2023 Hepatitis B Surface Antigen Non-Reactive Nonreactive [facility] Hepatitis C Antibody Non-Reactive Nonreactive [facility] Comment on above: Non Reactive: < 0.8 Equivocal: >/= 0.8 to < 1.0 Reactive: >/= 1.0The CDC recommends that a reactive/equivocal HCV antibody result be followed up by the HCV Nucleic Acid Amplificationtest (031952) Miscellaneous Test Comment MAILED SPECIMEN [facility] Rubella IgG Antibody Reactive Nonreactive [facility] Comment on above: Antibody Results Int erpretation of Immune Status Non Reactive Presumed Non-Immune Equivocal Equivocal Reactive Presumed Immune Platelets bldOrdered By: Carlitos Nam on 05-30-2023 Platelets (Bld) [#/Vol] 289 10*3/uL 150-450 [facility] Serum Treponema species anti body detectionOrdered By: Azucena Nam on 05-30-2023 Treponema sp Ab Ql (S) Non-Reactive [facility] Chlamydia trachomatis rRNA d etection by probe and target amplification methodOrdered By: Azucena Nam on 05-15-2023 C. trachomatis rRNA DEBORAH+probe Ql (Unsp spec) Negative Negative [facility] Culture, urineOrdered By: Suzanne Nam on 05-15-2023 Bacteria identified Cx Nom (U) Positive [facility] - Chemistry and C hemistry - challengeon 05-15-2023 Glucose Ql (U) Negative [facility] - Microbiology an d Antimicrobial susceptibilityOrdered By: Azucena Nam on 05-15-2023 N. gonorrhoeae DNA DEBORAH+probe Ql (Unsp spec) Negative Negative [facility] Comment on above: Performed at: =[address] [id number] Director: Uzma Hammonds MD, Phone: [phone] Laboratory - Urinalysison Protein Ql (U) Negative [facility] Serum or plasma choriogonado tropin detectionOrdered By: Dr. Nam on 04-15-2023 HCG ( test) Ql 2033 mIU/mL <4 [facility] Comment on above: hCG levels with Gest ational AgeGestational Age hCG mIU/mL (IU/L)0.2 - 1 week 5 - 501-2 weeks 50 - 5002-3 weeks 100 - 34685-4 weeks 500 - 348918-6 weeks 1000 - 485716-6 weeks 89419 - 100,0006-8 weeks 99527 - 200,0002-3 months 09714 - 100,000 Serum or plasma choriogonado tropin detectionOrdered By: Dr. Nam on 04-13-2023 HCG ( test) Ql 917 mIU/mL <4 [facility] Comment on above: hCG levels with Gest ational AgeGestational Age hCG mIU/mL (IU/L)0.2 - 1 week 5 - 501-2 weeks 50 - 5002-3 weeks 100 - 36233-7 weeks 500 - 453997-5 weeks 1000 - 619170-2 weeks 67295 - 100,0006-8 weeks 02606 - 200,0002-3 months 497[address] - 100,000 HCG,BETA-QUANTITATIVEon -0 HCG,BETA-QUANTITATIVE 335 mIU/mL Abnormal [facility] Comment on above: Result Comment: . Total HCG measurement is performed using the [employer] Access Immunoassay which detects intact HCG and free beta HCG subunit. . This test is not indicated for use as a tumor marker. HCG testing is performed using a different test methodology at [facility] than other [facility]. Direct result comparison should only be made within the same method. REF VALUES NON FEMALE <5 MALES <5 . Low-level positive HCG results can be seen in early , in papi- or post-menopausal females due to normal pituitary HCG production, or with analytic interference. Repeat testing in 48-72 hours can aid in assessing for as results should double in this time period. FSH measurement is recommended in papi- or post-menopausal females as concurrent elevation of FSH can support pituitary production as the source of the HCG elevation. Performed By: #### H CGQU #### [address] [address] Lab Specimen Source Normal [facility] Comment on above: Performed By: #### H CGQU #### [address] [address] DIGESTER - Office Visiton 02-04 DIGESTER - Office Visit Diagnoses/Problems Assessed Breast tenderness in female (611.71) (N64.4) Provider Impressions Breast exam wnl Disc. option of breast u/s if tenderness resumes or pt. has any additional concerns and pt. verbalized understanding Chief Complaint PT HERE TODAY WITH CONCERNS OF RIGHT BREAST PAIN. PT STATES THE PAIN STARTED LAST WEEK IN BOTH BREAST. PT STATES HER PARTNER FELT A LUMP IN HER RIGHT BREAST. PT STATES SHE WAS ALSO 9 DAYS LATE ON HER PERIOD. PT DID TAKE A TEST AND BOTH WERE NEGATIVE. PT DID START HER PERIOD 02/15/23. History of Present IllnessPt. presents for f/u on bilateral breast tenderness Had breast tenderness this month, 9 days late for period, now period has started and breast tenderness has subsided Pt. desires breast exam today Open to x 2.5 yrs, not ready for fertility intervention at this time Review of Systems Constitutional: no fever and no chills. Integumentary: as noted in HPI. Active Problems Problems Acute right otitis media (382.9) (H66.91) Acute sinusitis (461.9) (J01.90) Allergic rhinitis (477.9) (J30.9) Depression, controlled (311) (F32.A) Fatigue (780.79) (R53.83) History of heart murmur in childhood (V12.59) (Z86.79) Mild vitamin D deficiency (268.9) (E55.9) Obesity (BMI 30-39.9) (278.00) (E66.9) Persistent cough (786.2) (R05.3) Screening for breast cancer (V76.10) (Z12.39) Screening for cervical cancer (V76.2) (Z12.4) Situational anxiety (300.09) (F41.8) Suspected COVID-19 virus infection (V01.79) (Z20.822) Upper respiratory infection (465.9) (J06.9) Women's annual routine gynecological examination (V72.31) (Z01.419) Past Medical History Problems History of Encounter for Papanicolaou smear of cervix (V76.2) (Z12.4) 11/30/2018 NIL Encounter for preventive health examination (V70.0) (Z00.00) Resolved Date: History of Menstruation AGE 9 History of NVD (normal vaginal delivery) (650) (O80) 10/11/19 39 WEEKS FEMALE 7LBS 6OZ Surgical History Problems History of Uterine surgery Family History Mother Family history of Alcohol abuse Family history of Drug addiction Family history of depression (V17.0) (Z81.8) Family history of diabetes mellitus (V18.0) (Z83.3) Family history of hypertension (V17.49) (Z82.49) Family history of hypothyroidism (V18.19) (Z83.49) Family history of PCOS (polycystic ovarian syndrome) Father Family history of diabetes mellitus (V18.0) (Z83.3) Family history of hypertension (V17.49) (Z82.49) Sister Family history of PCOS (polycystic ovarian syndrome) Social History Problems Does not have living will History of marijuana use (305.23) (F12.91) Never smoker No illicit drug use Rarely consumes alcohol (V49.89) (Z78.9) Sexually active Allergies Medication Penicillins Rash; Recorded By: Maddison Atkins; 03/02/2022 7:39:56 AM Current Meds Medication NameInstruction Albuterol Sulfate HFA 108 (90 Base) MCG/ACT Inhalation Aerosol SolutionINHALE 2 PUFFS EVERY 4-6 HOURS NEEDED. Ciprofloxacin-Dexamethas one 0.3-0.1 % Otic SuspensionINSTILL 4 DROPS IN THE AFFECTED EAR(S) TWICE DAILY Fluticasone Propionate 50 MCG/ACT Nasal Suspension1 spray in each nostril twice daily as needed for post-nasal drip hydrOXYzine HCl - 10 MG Oral TabletTAKE 1 TABLET 3 times daily PRN as needed for anxiety Multi-Vitamins TABS Probiotic CAPS Gvrgjtczo-Wyfoysbv-BY 30-2-10 MG/5ML Oral SyrupTAKE 5 ML EVERY 4 TO 6 HOURS NEEDED for up to 14 days Sertraline HCl - 25 MG Oral TabletTake 1 tablet every other day for 2 weeks, then take daily in addition too nando 50 mg tablet Sertraline HCl - 50 MG Oral TabletTAKE 1 TABLET DAILY. Vitamin D 1000 UNIT TABS Vitals Vital Signs Recorded: 16Feb2023 10:34AM Shtkynzh015 Ywmtmrdvk20 Height5 ft 5 in Mslmlo618 lb 15.87 oz BMI Idvlrfmokd61.45 kg/m2 BSA Calculated1.98 [id number] Physical Exam Constitutional: Alert and in no acute distress. Well developed, well nourished Pulmonary: No respiratory distress Chest: Breasts: normal appearance, no nipple discharge and no skin changes, palpation of breasts and axillae: no palpable mass and no axillary lymphadenopathy and sexual maturation normal Psychiatric: alert and oriented x 3., affect normal to patient baseline, mood: appropriate and judgment and insight: intact Signatures Electronically signed by : Shayy Ernandez, SADAF-CNAndrés ROCKET ENGINE COMPONENT MECHANIC-REAL ESTATE ASSESSOR; Feb 16 2023 10:47AM EST (Author) Normal Touchworks CBCon 12-14-2022 Erythrocyte distribution width (RBC) [Ratio] 15.3 % High 11.5 - 14.5 [facility] Comment on above: Performed By: #### C BC #### [address] [address] Hematocrit (Bld) [Volume fraction] 42.4 % Normal 36.0 - 46.0 [facility] Comment on above: Performed By: #### C BC #### [address] [address] Hemoglobin (Bld) [Mass/Vol] 12.8 g/dL Normal 12.0 - 16.0 [facility] Comment on above: Performed By: #### C BC #### [address] [address] MCHC (RBC) [Mass/Vol] 30.2 g/dL Low 32.0 - 36.0 [facility] Comment on above: Performed By: #### C BC #### [address] [address] MCV (RBC) [Entitic vol] 88 fL Normal 80 - 100 [facility] Comment on above: Performed By: #### C BC #### [place] [id number] Platelets (Bld) [#/Vol] 400 10*3/uL Normal 150 - 450 [facility] Comment on above: Performed By: #### C BC #### [address] [address] RBC 4.80 x10E12/L Normal 4.00 - 5.20 [facility] Comment on above: Performed By: #### C BC #### [address] [address] WBC (Bld) [#/Vol] 9.5 10*3/uL Normal 4.4 - 11.3 [facility] Comment on above: Performed By: #### C BC #### [address] [address] COMPREHENSIVE PANELon 2022 Albumin [Mass/Vol] 4.4 g/dL Normal 3.4 - 5.0 [facility] Comment on above: Performed By: #### C MP #### [address] [address] ALP [Catalytic activity/Vol] 70 U/L Normal 33 - 110 [facility] Comment on above: Performed By: #### C MP #### [address] [address] ALT [Catalytic activity/Vol] 23 U/L Normal 7 - 45 [facility] Comment on above: Result Comment: Bridgett ents treated with Sulfasalazine may generate falsely decreased results for ALT. Performed By: #### C MP #### [address] [address] Anion gap [Moles/Vol] 9 mmol/L Low 10 - 20 [facility] Comment on above: Performed By: #### C MP #### [address] [address] AST [Catalytic activity/Vol] 18 U/L Normal 9 - 39 [facility] Comment on above: Performed By: #### C MP #### [address] [address] Bilirubin [Mass/Vol] 0.7 mg/dL Normal 0.0 - 1.2 [facility] Comment on above: Performed By: #### C MP #### [address] [address] Calcium [Mass/Vol] 9.6 mg/dL Normal 8.6 - 10.3 [facility] Comment on above: Performed By: #### C MP #### [address] [address] Chloride [Moles/Vol] 105 mmol/L Normal 98 - 107 [facility] Comment on above: Performed By: #### C MP #### [address] [address] Creatinine [Mass/Vol] 0.66 mg/dL Normal 0.50 - 1.05 [facility] Comment on above: Performed By: #### C MP #### [address] [address] eGFR FEMALE >90 Normal >90 [facility] Comment on above: Result Comment: CALC ULATIONS OF ESTIMATED GFR ARE PERFORMED USING THE 2020 CKD-EPI STUDY REFIT EQUATION WITHOUT THE RACE VARIABLE FOR THE IDMS-TRACEABLE CREATININE METHODS. https://jasn.asnjournals.org/content/early//ASN.17758 43506 Performed By: #### C MP #### [address] [address] Glucose [Mass/Vol] 114 mg/dL High 74 - 99 [facility] Comment on above: Performed By: #### C MP #### [address] [address] HCO3 (Bld) [Moles/Vol] 28 mmol/L Normal 21 - 32 [facility] Comment on above: Performed By: #### C MP #### [address] [address] Potassium [Moles/Vol] 3.9 mmol/L Normal 3.5 - 5.3 [facility] Comment on above: Performed By: #### C MP #### [address] [address] Protein [Mass/Vol] 7.4 g/dL Normal 6.4 - 8.2 [facility] Comment on above: Performed By: #### C MP #### [address] [address] Sodium [Moles/Vol] 138 mmol/L Normal 136 - 145 [facility] Comment on above: Performed By: #### C MP #### [address] [address] Urea nitrogen [Mass/Vol] 13 mg/dL Normal 6 - 23 [facility] Comment on above: Performed By: #### C MP #### [address] [address] Laboratory - Chemistry and C hemistry - challengeon 12-14-2022 Albumin BCP dye [Mass/Vol] 4.4 g/dL 3.4 - 5.0 [facility] Work Phone: ALP [Catalytic activity/Vol] 70 U/L 33 - 110 [facility] Work Phone: [phone] ALT With P-5'-P [Catalytic activity/Vol] 23 U/L 7 - 45 [facility] Work Phone: [phone] Comment on above: Patients treated wit h Sulfasalazine may generate falsely decreased results for ALT. Anion gap [Moles/Vol] 9 mmol/L below low threshold 10 - 20 [facility] Work Phone: [phone] AST With P-5'-P [Catalytic activity/Vol] 18 U/L 9 - 39 [facility] Work Phone: [phone] Bilirubin [Mass/Vol] 0.7 mg/dL 0.0 - 1.2 [facility] Work Phone: [phone] Calcium [Mass/Vol] 9.6 mg/dL 8.6 - 10.3 [facility] Work Phone: [phone] Chloride [Moles/Vol] 105 mmol/L 98 - 107 [facility] Work Phone: [phone] CO2 [Moles/Vol] 28 mmol/L 21 - 32 [facility] Work Phone: Creatinine [Mass/Vol] 0.66 mg/dL See Below [facility] Work Phone: Comment on above: Reference Range: 0.5 0 - 1.05 Glucose [Mass/Vol] 114 mg/dL above high threshold 74 - 99 [facility] Work Phone: [phone] Potassium [Moles/Vol] 3.9 mmol/L 3.5 - 5.3 [facility] Work Phone: Protein [Mass/Vol] 7.4 g/dL 6.4 - 8.2 [facility] Work Phone: [phone] Sodium [Moles/Vol] 138 mmol/L 136 - 145 [facility] Work Phone: Urea nitrogen [Mass/Vol] 13 mg/dL 6 - 23 [facility] Work Phone: Laboratory - Hematology and Cell countson 12-14-2022 Erythrocyte distribution width (RBC) [Ratio] 15.3 % above high threshold See Below [facility] Work Phone: [phone] Comment on above: Reference Range: 11. 5 - 14.5 Hematocrit (Bld) [Volume fraction] 42.4 % See Below [facility] Work Phone: Comment on above: Reference Range: 36. 0 - 46.0 Hemoglobin (Bld) [Mass/Vol] 12.8 g/dL See Below [facility] Work Phone: Comment on above: Reference Range: 12. 0 - 16.0 MCHC (RBC) [Mass/Vol] 30.2 g/dL below low threshold See Below [facility] Work Phone: Comment on above: Reference Range: 32. 0 - 36.0 MCV (RBC) [Entitic vol] 88 fL 80 - 100 [facility] Work Phone: [phone] Platelets (Bld) [#/Vol] 400 10*3/uL 150 - 450 [facility] Work Phone: RBC (Bld) [#/Vol] 4.80 {x10E12/L} See Below [facility] Work Phone: Comment on above: Reference Range: 4.0 0 - 5.20 WBC (Bld) [#/Vol] 9.5 10*3/uL 4.4 - 11.3 [facility] Work Phone: No Panel Informationon 12-14 >90 >90 [facility] Work Phone: Comment on above: CALCULATIONS OF DILAN MATED GFR ARE PERFORMED USING THE 2020 CKD-EPI STUDY REFIT EQUATION WITHOUT THE RACE VARIABLE FOR THE IDMS-TRACEABLE CREATININE METHODS.https://jasn.asnjournals.org/content/early//A .1701116310 Office Visit ([facility])on 12-14-2022 Follow-up visit Diagnoses/Problems Encounter for preventive health examination (V70.0) (Z00.00) Mild vitamin D deficiency (268.9) (E55.9) Depression, controlled (311) (F32.A) Orders Depression, controlled Renew: Sertraline HCl - 50 MG Oral Tablet (Zoloft); TAKE 1 TABLET DAILY Follow-up visit in 6 months Outpatient Follow-up Status: Hold For - Scheduling Requested for: [id number] Health Maintenance Complete Blood Count; Status:In Progress - Specimen/Data Collected; Done: [id number] Comprehensive Metabolic Panel; Status:In Progress - Specimen/Data Collected; Done: [id number] Mild vitamin D deficiency Vitamin D 25-Hydroxy; Status:In Progress - Specimen/Data Collected; Done: [id number] Situational anxiety Start: Sertraline HCl - 25 MG Oral Tablet; Take 1 tablet every other day for 2 weeks, then take daily in addition too nando 50 mg tablet Provider Impressions Vitamin D Deficiency: Continue on vitamin D3 supplement daily, will check lab for Vitamin D hydroxy Depression/Anxiety: Symptoms well controlled on Zoloft 75 mg daily, refill sent to pharmacy Will check lab for CBC and CMP Follow up in 1 year for annual wellness or as needed Chief Complaint Med refills. History of Present Illness The last health maintenance visit was year(s) ago. there are no concerns today. The patient's health since the last visit is described as good. There are no interval changes in the patient's PMH, PSH, and current medications. There are no interval changes in the patient's social and family history. She has regular dental visits. The patient brushes 2 time(s) a day and reports her last dental visit was. Dental problems: no tooth pain. She complains of vision problems. Vision care includes wearing glasses and an eye examination within the last year. The patient complains of has appointment scheduled. She denies hearing loss. Immunizations status: up to date. Lifestyle: She consumes a diverse and healthy diet. She does not have any weight concerns. She does not exercise regularly. She does not use tobacco. She denies alcohol use. Reproductive health: she reports normal menses. Cervical cancer screening: cancer screening reviewed and current. Metabolic screening: lipid profile performed within the past five years. Cristina is a 27 yo female, here today for annual wellness, she is currently on Zoloft fro depression and anxiety with symptoms well controlled. She denies anxiety or depression symptom. [facility] 1 month ago, unsure if , is not currently on control and is sexually active 'Scores and Scales' CEASAR-7 [id number] CEASAR-7 Total Score20 Feeling nervous, anxious or on edgeNearly every day - 3 Not being able to stop or control worryingNearly every day - 3 Worrying too much about different thingsNearly every day - 3 Trouble relaxingNearly every day - 3 Being so restless that it's hard to sit stillOver half the days - 2 Becoming easily annoyed or irritableNearly every day - 3 Feeling afraid as if something awful might happenNearly every day - 3 Review of Systems Constitutional: no chills, no fever and no night sweats. Eyes: no blurred vision and no eyesight problems. Cardiovascular: no chest pain, no intermittent leg claudication, no lower extremity edema, no palpitations and no syncope. Respiratory: no cough, no shortness of breath during exertion, no shortness of breath at rest and no wheezing. Gastrointestinal: no abdominal pain, no blood in stools, no constipation, no diarrhea, no melena, no nausea, no rectal pain and no vomiting. Genitourinary: no dysuria, no change in urinary frequency, no urinary hesitancy, no feelings of urinary urgency and no vaginal discharge. Musculoskeletal: no arthralgias, no back pain and no myalgias. Integumentary: no new skin lesions and no rashes. Neurological: no difficulty walking, no headache, no limb weakness, no numbness and no tingling. Psychiatric: no anxiety, no depression, no homicidal thoughts, no anhedonia and no suicidal ideations. Hematologic/Lymphatic: no tendency for easy bruising. Active Problems Acute right otitis media (382.9) (H66.91) Acute sinusitis (461.9) (J01.90) Allergic rhinitis (477.9) (J30.9) Depression, controlled (311) (F32.A) Fatigue (780.79) (R53.83) History of heart murmur in childhood (V12.59) (Z86.79) Mild vitamin D deficiency (268.9) (E55.9) Obesity (BMI 30-39.9) (278.00) (E66.9) Persistent cough (786.2) (R05.3) Screening for breast cancer (V76.10) (Z12.39) Screening for cervical cancer (V76.2) (Z12.4) Situational anxiety (300.09) (F41.8) Suspected COVID-19 virus infection (V01.79) (Z20.822) Upper respiratory infection (465.9) (J06.9) Women's annual routine gynecological examination (V72.31) (Z01.419) Past Medical History History of Encounter for Papanicolaou smear of cervix (V76.2) (Z12.4) 11/30/2018 NIL Encounter for preventive health examination (V70.0) (Z00.00) Resolved Date: History of Menstruation A (more content not included)... Normal [employer] Tobacco Screening.on 023 Tobacco use status CPHS b) No -[facility] Work Phone: VITAMIN D, 25-HYDROXYon VITAMIN D, 25-HYDROXY 35 ng/mL Normal [facility] Comment on above: Result Comment: . DEFICIENCY: < 20 NG/ML INSUFFICIENCY: 20-29 NG/ML SUFFICIENCY: 30-100 NG/ML THIS ASSAY ACCURATELY QUANTIFIES THE SUM OF VITAMIN D3, 25-HYDROXY AND VIT D2,25-HYDROXY. Performed By: #### V TDOH #### [facility] [address] [place] [address] Vitamin D 25-Hydroxyon 12-14 25-hydroxyvitamin D3 [Mass/Vol] 35 ng/mL [facility] Work Phone: Comment on above: .DEFICIENCY: < 20 NG /MLINSUFFICIENCY: 20-29 NG/MLSUFFICIENCY: 30-100 NG/MLTHIS ASSAY ACCURATELY QUANTIFIES THE SUM OFVITAMIN D3, 25-HYDROXY AND VIT D2,25-HYDROXY. No Panel Informationon 09-14 Nearly every day - 3 [facility] Work Phone: Over half the days - 2 [facility] Work Phone: Severe Anxiety [facility] Work Phone: Very difficult [facility] Work Phone: Comment on above: How difficult have t hose problems made it for you to do your work, take care of things at home, or get along with other people? 20 1 [facility] Work Phone: Comment on above: Over the last two we eks, how often have you been bothered by the following problems? Feeling nervous, anxious, or on edge: Nearly every day - 3Not being able to stop or control worrying: Nearly every day - 3Worrying too much about different things: Nearly every day - 3Trouble relaxing: Nearly every day - 3Being so restless that it's hard to sit still: Over half the days - 2Becoming easily annoyed or irritable: Nearly every day - 3Feeling afraid as if something awful might happen: Nearly every day - 3 Office Visit ([facility]on 09-14-2022 Follow-up visit Diagnoses/Problems Situational anxiety (300.09) (F41.8) Depression, controlled (311) (F32.A) Orders Depression, controlled, Situational anxiety Follow-up visit in 3 months Outpatient Follow-up Status: Hold For - Scheduling Requested for: 14Sep2022 Situational anxiety Start: hydrOXYzine HCl - 10 MG Oral Tablet; TAKE 1 TABLET 3 times daily PRN as needed for anxiety Start: Sertraline HCl - 25 MG Oral Tablet; Take 1 tablet every other day for 2 weeks, then take daily in addition too nando 50 mg tablet Provider Impressions Situational anxiety: Start on Hydroxyzine 10 mg three times a day as needed for acute anxiety, will increase Zoloft to 75 mg, take 75 mg every other day, alternating with 50 mg for 2 weeks, then take 75 mg daily. Depression: Symptoms controlled, Zoloft as above. Follow up in 3 months Chief Complaint Anxiety. History of Present Illness Cristina is a 27 yo female, here today with complaints of acute anxiety. She is having increase in stress anxiety related to purchase/home building. 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 the costs of building from ground up is becoming expensive and now is dealing with financial strain recently stopped taking her Zoloft and she was feeling well and restarted 1 week ago she reports difficulty falling asleep due to worry, irritability and frustration. She denies HI/SI 'Scores and Scales' CEASAR-7 14Sep2022 CEASAR-7 Total Score20 Feeling nervous, anxious or on edgeNearly every day - 3 Not being able to stop or control worryingNearly every day - 3 Worrying too much about different thingsNearly every day - 3 Trouble relaxingNearly every day - 3 Being so restless that it's hard to sit stillOver half the days - 2 Becoming easily annoyed or irritableNearly every day - 3 Feeling afraid as if something awful might happenNearly every day - 3 Review of Systems Constitutional: no chills, no fever and no night sweats. Cardiovascular: no chest pain, no intermittent leg claudication, no lower extremity edema, no palpitations and no syncope. Respiratory: no cough, no shortness of breath during exertion, no shortness of breath at rest and no wheezing. Gastrointestinal: no abdominal pain, no blood in stools, no constipation, no diarrhea, no melena, no nausea, no rectal pain and no vomiting. Neurological: no difficulty walking, no headache, no limb weakness, no numbness and no tingling. Psychiatric: anxiety and sleep disturbances, but no personality change, no depression, no homicidal thoughts and no suicidal ideations. Active Problems Acute right otitis media (382.9) (H66.91) Acute sinusitis (461.9) (J01.90) Allergic rhinitis (477.9) (J30.9) Depression, controlled (311) (F32.A) Fatigue (780.79) (R53.83) History of heart murmur in childhood (V12.59) (Z86.79) Mild vitamin D deficiency (268.9) (E55.9) Obesity (BMI 30-39.9) (278.00) (E66.9) Persistent cough (786.2) (R05.3) Screening for breast cancer (V76.10) (Z12.39) Screening for cervical cancer (V76.2) (Z12.4) Suspected COVID-19 virus infection (V01.79) (Z20.822) Upper respiratory infection (465.9) (J06.9) Women's annual routine gynecological examination (V72.31) (Z01.419) Past Medical History History of Encounter for Papanicolaou smear of cervix (V76.2) (Z12.4) 11/30/2018 NIL Encounter for preventive health examination (V70.0) (Z00.00) Resolved Date: History of Menstruation AGE 9 History of NVD (normal vaginal delivery) (650) (O80) 10/11/19 39 WEEKS FEMALE 7LBS 6OZ Surgical History History of Uterine surgery Family History Family history of Alcohol abuse Family history of Drug addiction Family history of depression (V17.0) (Z81.8) Family history of diabetes mellitus (V18.0) (Z83.3) Family history of hypertension (V17.49) (Z82.49) Family history of hypothyroidism (V18.19) (Z83.49) Family history of PCOS (polycystic ovarian syndrome) Family history of diabetes mellitus (V18.0) (Z83.3) Family history of hypertension (V17.49) (Z82.49) Family history of PCOS (polycystic ovarian syndrome) Social History Does not have living will History of marijuana use (305.23) (F12.91) Never smoker No illicit drug use Rarely consumes alcohol (V49.89) (Z78.9) Sexually active Allergies Penicillins Rash; Recorded By: Maddison Atkins; 03/02/2022 7:39:56 AM Current Meds Medication NameInstructionReason Fluticasone Propionate 50 MCG/ACT Nasal Suspension1 spray in each nostril twice daily as needed for post-nasal dripAllergic rhinitis Albuterol Sulfate HFA 108 (90 Base) MCG/ACT Inhalation Aerosol SolutionINHALE 2 PUFFS EVERY 4-6 HOURS NEEDED.Allergic rhinitis, Persistent cough Sertraline HCl - 50 MG Oral TabletTAKE 1 TABLET DAILY.Depression, controlled Vitamin D 1000 UNIT TABSMild vitamin D deficiency predniSONE 10 MG Oral Tablettake 4 tablets for 2 days, then 3 tablets for 2, take 2 (more content not included)... Normal [employer] Tobacco Screening.on 022 Tobacco use status CPHS b) No -[facility] Work Phone: Electrocardiogram 12 Leadon 07-20-2022 Electrocardiogram 12 Lead Ventricular Rate 73 Atrial Rate 73 P-R Interval 138 QRS Duration 90 Q-T Interval 364 QTC Calculation(Bazett) 401 P [place] 48 R [place] 73 T [place] 61 QRS Count 12 Q Onset 218 P Onset 149 P Offset 207 T Offset 400 QTC [place] 388 Diagnosis Class Normal Diagnosis Normal sinus rhythm Normal ECG No previous ECGs available Confirmed by Elmer Montemayor (85) on 07/22/2022 10:46:20 AM Normal [facility] Office Visit (Family Medicin e)on 07-04-2022 Follow-up visit Diagnoses/Problems Persistent cough (786.2) (R05.3) Allergic rhinitis (477.9) (J30.9) Upper respiratory infection (465.9) (J06.9) Orders Allergic rhinitis, Persistent cough Start: Albuterol Sulfate HFA 108 (90 Base) MCG/ACT Inhalation Aerosol Solution; INHALE 2 PUFFS EVERY 4-6 HOURS NEEDED Persistent cough, Upper respiratory infection Start: predniSONE 10 MG Oral Tablet; take 4 tablets for 2 days, then 3 tablets for 2, take 2 tablets for 2 days then take 1 tablet for 2 days Provider Impressions Upper respiratory infection: Will start on Albuterol inhaler as needed for cough and prednisone 10 mg tapering dose pack. Complete antibiotic and take Robitussin as needed for cough. If symptoms persist or worsen return to office Chief Complaint Cough/ears are full. History of Present Illness Cristina is a 27 yo female here to follow up on acute sinuitis and ear infection. She reports sinus symptoms improved, facial pain/swelling is better, however ears still feel full and cough is worsening. She has a few days left on her antibiotic, she is taking daily allergy medication and Flonase daily as well She denies fever, wheezing, or SOB Review of Systems Constitutional: no chills, no fever and no night sweats. Eyes: no eyesight problems, no eye pain and eyes not red. ENT: the ears feel full, but no earache and no discharge from the ear(s). Respiratory: cough, but no shortness of breath during exertion, no shortness of breath at rest and no wheezing. Gastrointestinal: no abdominal pain, no blood in stools, no constipation, no diarrhea, no melena, no nausea, no rectal pain and no vomiting. Genitourinary: no dysuria, no change in urinary frequency, no urinary hesitancy, no feelings of urinary urgency and no vaginal discharge. Neurological: no difficulty walking, no headache, no limb weakness, no numbness and no tingling. Psychiatric: no anxiety, no depression, no anhedonia and no substance use disorders. Active Problems Acute right otitis media (382.9) (H66.91) Acute sinusitis (461.9) (J01.90) Allergic rhinitis (477.9) (J30.9) Depression, controlled (311) (F32.A) Fatigue (780.79) (R53.83) History of heart murmur in childhood (V12.59) (Z86.79) Mild vitamin D deficiency (268.9) (E55.9) Obesity (BMI 30-39.9) (278.00) (E66.9) Screening for breast cancer (V76.10) (Z12.39) Screening for cervical cancer (V76.2) (Z12.4) Suspected COVID-19 virus infection (V01.79) (Z20.822) Women's annual routine gynecological examination (V72.31) (Z01.419) Past Medical History History of Encounter for Papanicolaou smear of cervix (V76.2) (Z12.4) 11/30/2018 NIL Encounter for preventive health examination (V70.0) (Z00.00) Resolved Date: History of Menstruation AGE 9 History of NVD (normal vaginal delivery) (650) (O80) 10/11/19 39 WEEKS FEMALE 7LBS 6OZ Surgical History History of Uterine surgery Family History Family history of Alcohol abuse Family history of Drug addiction Family history of depression (V17.0) (Z81.8) Family history of diabetes mellitus (V18.0) (Z83.3) Family history of hypertension (V17.49) (Z82.49) Family history of hypothyroidism (V18.19) (Z83.49) Family history of PCOS (polycystic ovarian syndrome) Family history of diabetes mellitus (V18.0) (Z83.3) Family history of hypertension (V17.49) (Z82.49) Family history of PCOS (polycystic ovarian syndrome) Social History Does not have living will History of marijuana use (305.23) (Z87.898) Never smoker No illicit drug use Rarely consumes alcohol (V49.89) (Z78.9) Sexually active Allergies Penicillins Rash; Recorded By: Maddison Atkins; 03/02/2022 7:39:56 AM Current Meds Medication NameInstructionReason Amoxicillin-Pot Clavulanate 875-125 MG Oral TabletTAKE 1 TABLET EVERY 12 HOURS DAILY.Acute right otitis media, Acute sinusitis Fluticasone Propionate 50 MCG/ACT Nasal Suspension1 spray in each nostril twice daily as needed for post-nasal dripAllergic rhinitis Vitamin D 1000 UNIT TABSMild vitamin D deficiency Multi-Vitamins TABS Probiotic CAPS Zoloft 50 MG Oral TabletTAKE 1 TABLET DAILY. Physical Exam Constitutional: Alert and in no acute distress. Well developed, well nourished. acutely ill and well nourished. Head and Face: Head and face: Normal. Palpation of the face and sinuses: Normal. Eyes: Normal external exam. Pupils were equal in size, round, reactive to light (PERRL) with normal accommodation and extraocular movements intact (EOMI). Ears, Nose, Mouth, and Throat: External inspection of ears and nose: Normal. Otoscopic examination: Normal. The right tympanic membrane was normal and had an intact light reflex. The left tympanic membrane was normal and had an intact light reflex. The right external canal was swollen and was erythematous. The left external canal was swollen and was erythematous. Cardiovascular: Heart rate and rhythm were normal, normal S1 and S2, no gallops, no murmurs and no (more content not included)... [facility] e)on 06-29-2022 Follow-up visit Diagnoses/Problems Acute sinusitis (461.9) (J01.90) Acute right otitis media (382.9) (H66.91) Allergic rhinitis (477.9) (J30.9) Orders Acute right otitis media, Acute sinusitis Start: Amoxicillin-Pot Clavulanate 875-125 MG Oral Tablet; TAKE 1 TABLET EVERY 12 HOURS DAILY Allergic rhinitis Start: Fluticasone Propionate 50 MCG/ACT Nasal Suspension; 1 spray in each nostril twice daily as needed for post-nasal drip Provider Impressions Right otitis media: Augmentin 875/125 mg twice daily for 7 days. If ear infection reoccurs may need to see ENT, this is the second occurrence since 03/27. Sinuitis: Antibiotic as above, will start on Flonase nasal spray twice daily. Allergic Rhinitis: Recommend OTC 24 hour allergy medication daily and Flonase nasal spray as above. return if symptoms persist or worsen. Chief Complaint Sinus pressure/ear pain/cough with production. History of Present Illness Cristina is a 27 female here today with Complaint of sinus symptoms with cough and ear ache. Sx onset Monday evening sx included fatigue, congestion CHRIS, bilateral ear pain, ear feels full, diarrhea. Fever on 06/28/22 100.2, productive cough. OTC Advil and NyQuil with minimal relief. Review of Systems Constitutional: feeling poorly, feeling tired and fever, but no chills and no night sweats. Eyes: no blurred vision and no eyesight problems. ENT: earache, the ears feel full, nasal congestion, nasal discharge, postnasal drip, rhinorrhea and sinus pressure, but no hearing loss, no tinnitus, no hoarseness, no oral lesions and no sore throat. Cardiovascular: no chest pain, no intermittent leg claudication, no lower extremity edema, no palpitations and no syncope. Respiratory: no cough, no shortness of breath during exertion, no shortness of breath at rest and no wheezing. Gastrointestinal: no abdominal pain, no blood in stools, no constipation, no diarrhea, no melena, no nausea, no rectal pain and no vomiting. Genitourinary: no dysuria, no change in urinary frequency, no urinary hesitancy, no feelings of urinary urgency and no vaginal discharge. Neurological: headache, but no difficulty walking, no dizziness, no limb weakness, no numbness and no tingling. Psychiatric: no anxiety, no depression, no anhedonia and no substance use disorders. Active Problems Acute right otitis media (382.9) (H66.91) Depression, controlled (311) (F32.A) Fatigue (780.79) (R53.83) History of heart murmur in childhood (V12.59) (Z86.79) Mild vitamin D deficiency (268.9) (E55.9) Obesity (BMI 30-39.9) (278.00) (E66.9) Screening for breast cancer (V76.10) (Z12.39) Screening for cervical cancer (V76.2) (Z12.4) Suspected COVID-19 virus infection (V01.79) (Z20.822) Women's annual routine gynecological examination (V72.31) (Z01.419) Past Medical History History of Encounter for Papanicolaou smear of cervix (V76.2) (Z12.4) 11/30/2018 NIL Encounter for preventive health examination (V70.0) (Z00.00) Resolved Date: History of Menstruation AGE 9 History of NVD (normal vaginal delivery) (650) (O80) 10/11/19 39 WEEKS FEMALE 7LBS 6OZ Surgical History History of Uterine surgery Family History Family history of Alcohol abuse Family history of Drug addiction Family history of depression (V17.0) (Z81.8) Family history of diabetes mellitus (V18.0) (Z83.3) Family history of hypertension (V17.49) (Z82.49) Family history of hypothyroidism (V18.19) (Z83.49) Family history of PCOS (polycystic ovarian syndrome) Family history of diabetes mellitus (V18.0) (Z83.3) Family history of hypertension (V17.49) (Z82.49) Family history of PCOS (polycystic ovarian syndrome) Social History Does not have living will History of marijuana use (305.23) (Z87.898) Never smoker No illicit drug use Rarely consumes alcohol (V49.89) (Z78.9) Sexually active Allergies Penicillins Rash; Recorded By: Maddison Atkins; 03/02/2022 7:39:56 AM Current Meds Medication NameInstructionReason Vitamin D 1000 UNIT TABSMild vitamin D deficiency Multi-Vitamins TABS Probiotic CAPS Zoloft 50 MG Oral TabletTAKE 1 TABLET DAILY. Vitals Vital Signs Recorded: 29Jun2022 09:08AM Ywlxwqvxtbe08.7 F Heart Rate87 Vkknwfhq324 Oebcvndnu78 Height5 ft 5 in Yjyxqz044 lb 5 oz BMI Wctywnrxbl57.17 kg/m2 BSA Calculated1.95 Tobacco Useb) No O2 Ciatmuhtad73 Physical Exam Constitutional: Alert and in no acute distress. Well developed, well nourished. well developed, acutely ill, well nourished and appears tired. Head and Face: Palpation of the face and sinuses: Abnormal. (edema to right cheek). Examination of the Sinuses: right maxillary tenderness and right frontal tenderness. Ears, Nose, Mouth, and Throat: External inspection of ears and nose: Normal. Otoscopic examination: Abnormal. The right tympanic membrane was red. The right external canal was tender, was swollen and was erythematous. Exam of the right middle ear showed a middle (more content not included)... Normal [employer] Tobacco Screening.on 022 Tobacco use status [facility] b) No [facility] Work Phone: LMPon 05-11-2022 Last menstrual period start date 19Apr2022 [facility] [employer] Work Phone: [phone] Laboratory - Cytologyon Cytology report Cyto stain.thin prep Doc (Cvx/Vag) [facility] [employer] Work Phone: [phone] DIGESTER - Office Visiton DIGESTER - Office Visit Provider Impressio ns Patient is here for routine [employer] exam Pap smear was done with HPV reflex. Patient advised that if she does not conceived after 1 year of trying we could pursue an infertility work-up. Although the yield is probably low considering she conceived spontaneously 2-1/2 years ago Chief Complaint Patient here today for yearly exam Last pap 2.5 years ago. She states she is worried about having PCOS as her mom and sister have it. She has not been preventing for 2.5 years and has not conceived and has weight gain of 30-40 lbs over 2 year span. LMP:04/19/2022 History of Present IllnessPatient is a 26-year-old woman who comes in for routine [employer] O[employer]ATOR exam. Patient reports that she does not use anything for contraception has not been trying to prevent a . She has currently a child that is 2-1/2 years old. The child was conceived spontaneously. Patient reports a family history of PCOS however she reports that her menstrual cycles come monthly. Patient reports that she has concerns about recent weight gain however she reports that her PCP did a whole panel of blood work and a work-up and thus far has not found any clear source for her recent weight gain Review of Systems Constitutional: Denies any significant temperature change but reports recent weight gain which her PCP has worked up and has not found any clear etiology. Cardiovascular: Denies any shortness of breath or chest pain. Respiratory: Denies any cough or shortness of breath. Gastrointestinal: Denies any changes in her bowel habits or abdominal pain. Genitourinary: as noted in HPI. Musculoskeletal: Denies any change in her mobility. Psychiatric: Denies any significant change in her mood or in her sleeping pattern. Active Problems Problems Acute right otitis media (382.9) (H66.91) Depression, controlled (311) (F32.A) Fatigue (780.79) (R53.83) Mild vitamin D deficiency (268.9) (E55.9) Obesity (BMI 30-39.9) (278.00) (E66.9) Screening for breast cancer (V76.10) (Z12.39) Screening for cervical cancer (V76.2) (Z12.4) Suspected COVID-19 virus infection (V01.79) (Z20.822) Women's annual routine gynecological examination (V72.31) (Z01.419) Past Medical History Problems History of Encounter for Papanicolaou smear of cervix (V76.2) (Z12.4) 11/30/2018 NIL Encounter for preventive health examination (V70.0) (Z00.00) Resolved Date: History of Menstruation AGE 9 History of NVD (normal vaginal delivery) (650) (O80) 10/11/19 39 WEEKS FEMALE 7LBS 6OZ Surgical History Problems History of Uterine surgery Family History Mother Family history of Alcohol abuse Family history of Drug addiction Family history of depression (V17.0) (Z81.8) Family history of diabetes mellitus (V18.0) (Z83.3) Family history of hypertension (V17.49) (Z82.49) Family history of hypothyroidism (V18.19) (Z83.49) Family history of PCOS (polycystic ovarian syndrome) Father Family history of diabetes mellitus (V18.0) (Z83.3) Family history of hypertension (V17.49) (Z82.49) Sister Family history of PCOS (polycystic ovarian syndrome) Social History Problems Does not have living will History of marijuana use (305.23) (Z87.898) Never smoker No illicit drug use Rarely consumes alcohol (V49.89) (Z78.9) Sexually active Allergies Medication Penicillins Rash; Recorded By: Maddison Atkins; 03/02/2022 7:39:56 AM Current Meds Medication NameInstruction Multi-Vitamins TABS Probiotic CAPS Vitamin D 1000 UNIT TABS Zoloft 50 MG Oral TabletTAKE 1 TABLET DAILY. Vitals Vital Signs Recorded: [id number] 01:08PM Zdbvsucd517 Ggwgqcwad50 Height5 ft 5 in Yltprf579 lb 15.04 oz BMI Wgtgmsyngb73.6 kg/m2 BSA Calculated1.99 [id number] Physical Exam Constitutional: Healthy-appearing in no physical distress. Head and Face: No obvious lesions. Neck: Good range of motion no masses no adenopathy. Cardiovascular: Regular rate and rhythm. Pulmonary: Clear to auscultation with good air movement. Chest: No discrete masses discharge retraction or skin changes. Abdomen: Soft nontender no masses. External genitalia revealed no lesions the vagina was well estrogenized the cervix was nonfriable uterus and adnexa were normal size nontender Musculoskeletal: Good mobility of her extremities. Psychiatric: Appropriately oriented with normal mood and affect. Signatures Electronically signed by : Beverly Astudillo DO; May 11 2022 1:34PM EST (Author) Normal [facility] LMPon 03-30-2022 Last menstrual period start date 14Mar2022 [facility] Work Phone: DIGESTER - Office Visiton 03-07 DIGESTER - Office Visit Diagnoses/Problems Assessed Women's annual routine gynecological examination (V72.31) (Z01.419) Screening for breast cancer (V76.10) (Z12.39) Screening for cervical cancer (V76.2) (Z12.4) Chief Complaint NEW Patient is here for yearly exam. Patient does NOT DO self breast exams regularly. LMP 03/14/22 PT HAS NO CONCERNS AT THIS TIME. Active Problems Problems Acute right otitis media (382.9) (H66.91) Depression, controlled (311) (F32.A) Fatigue (780.79) (R53.83) Mild vitamin D deficiency (268.9) (E55.9) Obesity (BMI 30-39.9) (278.00) (E66.9) Screening for breast cancer (V76.10) (Z12.39) Screening for cervical cancer (V76.2) (Z12.4) Suspected COVID-19 virus infection (V01.79) (Z20.822) Women's annual routine gynecological examination (V72.31) (Z01.419) Past Medical History Problems Encounter for preventive health examination (V70.0) (Z00.00) Resolved Date: History of Menstruation AGE 9 History of NVD (normal vaginal delivery) (650) (O80) 10/11/19 39 WEEKS FEMALE 7LBS 6OZ Surgical History Problems History of Uterine surgery Family History Mother Family history of Alcohol abuse Family history of Drug addiction Family history of depression (V17.0) (Z81.8) Family history of diabetes mellitus (V18.0) (Z83.3) Family history of hypertension (V17.49) (Z82.49) Family history of hypothyroidism (V18.19) (Z83.49) Family history of PCOS (polycystic ovarian syndrome) Father Family history of diabetes mellitus (V18.0) (Z83.3) Family history of hypertension (V17.49) (Z82.49) Sister Family history of PCOS (polycystic ovarian syndrome) Social History Problems Does not have living will History of marijuana use (305.23) (Z87.898) Never smoker No illicit drug use Rarely consumes alcohol (V49.89) (Z78.9) Sexually active Allergies Medication Penicillins Rash; Recorded By: Maddison Atkins; 03/02/2022 7:39:56 AM Current Meds Medication NameInstruction Amoxicillin-Pot Clavulanate 875-125 MG Oral TabletTAKE 1 TABLET EVERY 12 HOURS DAILY. Multi-Vitamins TABS Probiotic CAPS Vitamin D 1000 UNIT TABS Zoloft 50 MG Oral TabletTAKE 1 TABLET DAILY. Vitals Vital Signs Recorded: 30Mar2022 01:27PM Gibhqfeg035 Hqqtqqgjh28 Height5 ft 5 in Gauuhy906 lb 9.87 oz BMI Eltihmhulh11.38 kg/m2 BSA Calculated1.98 [id number] Signatures Electronically signed by : Rafael Myers DO; Mar 30 2022 1:55PM EST (Author) [facility] Covid 19 Resultson 2 SARS-CoV-2 (COVID-19) RNA DEBORAH+probe Ql (Unsp spec) NEGATIVE COVID-19 Test Coronaviruses are common world-wide and are the cause of many common colds. SARS-COV2 is a new coronavirus that began circulating worldwide in 2019 so we are calling it COVID-19. It has been estimated that four out of five patients with COVID-19 will recover at home without the need for medical attention. Symptoms of COVID-19 may include cough, fever, shortness of breath, loss of taste or smell and other flu-like symptoms including chills, sore muscles, sore throat, and headache. Severe illness is more common in older people and people with other health problems such as high blood pressure, obesity, and immune system problems. If the test is positive, you have COVID-19. You will be contacted by the ordering physicians office and instructed to remain on home isolation, in accordance with CDC guidelines. You may also be contacted by the [facility] to see if any of your close contacts may have been exposed to the virus and need to quarantine. If the test is negative, you likely do not have COVID-19 at this time, but you still may have a different illness that can spread to other people (like Influenza, or the Flu) and could still be at risk for getting COVID-19. We recommend that you stay away from other people to limit the spread of illness until your symptoms are improving and you are fever-free for 24 hours without the use of fever lowering medications such as acetaminophen or ibuprofen. No test is 100% accurate so if you are still concerned you may have COVID-19, talk to your doctor about the need to continue to stay away from others. Medicines Unless your provider told you not to use the following: Acetaminophen (Tylenol and others) is generally safe. Anti-inflammatory medications, such as Ibuprofen (Advil or Motrin) or Naproxen (Aleve) can also be used. Pwhk-eia-dkjuzyt cough and cold medicines can be used according to the instructions on the package. Some xrhm-iyi-luyebwf medicines also contain acetaminophen. Make sure you are not taking more than your recommended dose. For those not hospitalized, there is no specific treatment available for this illness. Antibiotics do not treat Coronaviruses. Follow-Up Follow up with your doctor by scheduling a virtual visit or consider follow-up at one of our urgent care fever clinics. If you are having difficulty breathing, or are very weak and having difficulty standing, this is a medical emergency. Call 911 or have someone take you to the nearest emergency room immediately. If possible, wear a facemask. Additional guidance from the CDC for patients who tested POSITIVE for COVID-19 How to isolate: Isolate yourself in a specific room at home and limit your contact with others. Use a separate bathroom from other members of the household, when possible. Leave home only to get essential medical care. Do not go to work, school or public areas. Avoid using public transportation, ride-sharing, or taxis. Restrict contact with pets and other animals. If you must care for your pet or be around animals while you are sick, wash your hands before and after your interaction and wear a facemask. Make sure that shared spaces in the home have good airflow, such as by an air conditioner or an opened window, weather permitting. Personal Hygiene Procedures: Wear a face mask when in the same room as other people or pets. If a face mask interferes with your breathing, others should wear a mask when sharing space with you. Frequent hand-washing: wash your hands with soap and water for at least 20 seconds. If soap and water are not available, use alcohol-based hand attending psychiatrist. Avoid touching your eyes, nose, and mouth with unwashed hands. Household Hygiene Procedures: Avoid sharing personal household items such as dishes, glassware, cups, eating utensils, towels or bedding with other people or pets in your home. After use, these items should be washed with soap and hot water. Disinfect all high-touch surfaces every day with antibacterial cleaning solutions such as Lysol wipes, bleach, cleansers, etc. High-touch surfaces include tabletops, doorknobs, bathroom fixtures, toilets, phones, keyboards, tablets and bedside tables. Immediately clean any surfaces that may have blood, poop or body fluids on them, using antibacterial cleaning solutions such as Lysol wipes, bleach, cleansers, etc. If clothing or bedding come into contact with blood, poop or body fluids, they should be washed immediately. Follow the directions on the laundry detergent and clothing labels but hot water is recommended when possible. Stopping home isolation precautions: If possible, consult your doctor before stopping home isolation precautions. According to the CDC, you can discontinue home isolation precautions when you have met both of these criteria: Your fever and respiratory symptoms have been gone for 24 ruthie (more content not included)... Normal [facility] INFLUENZA A/B, COVID 2019 PC R,SYMPTOMATICon 03-29-2022 INFLUENZA A, PCR Not detected Normal Not Detected [facility] Comment on above: Result Comment: Resp iratory virus testing is performed routinely by PCR for Influenza A/B and RSV. If Influenza and RSV PCR are negative, testing for parainfluenza 1,2,3 viruses and adenovirus is routinely performed for oncology inpatients and intensive care unit patients at [facility] and is available on request on other patients by calling Laboratory Client Services at [phone]. Not Detected results do not preclude Influenza A/B or RSV infections since the adequacy of sample collection or low viral burden may impact the clinical sensitivity of this test method. Performed By: #### C OINP #### [facility] [id number] [place] [address] INFLUENZA B, PCR Not detected Normal Not Detected [facility] Comment on above: Result Comment: Resp iratory virus testing is performed routinely by PCR for Influenza A/B and RSV. If Influenza and RSV PCR are negative, testing for parainfluenza 1,2,3 viruses and adenovirus is routinely performed for oncology inpatients and intensive care unit patients at [facility] and is available on request on other patients by calling Laboratory Client Services at [phone] Not Detected results do not preclude Influenza A/B or RSV infections since the adequacy of sample collection or low viral burden may impact the clinical sensitivity of this test method. . The TaqManTM SARS-CoV-2, Flu A, Flu B Multiplex Assay is a multiplex, real-time RT-PCR assay for the detection of RNA from the SARS-CoV-2, Influenza A, and Influenza B viruses. A negative result does not preclude the possibility of SARS-CoV-2, Influenza A, or Influenza B infections, and should not be used as the sole basis for patient management decision as a negative result may be caused by very low levels of infection, collection errors, or testing errors. . This test was developed and its performance characteristics were determined by the Microbiology Laboratory, Department of Pathology, [facility], [employer], [place]. It has not been cleared or approved by the US Food and Drug Administration; however, FDA clearance or approval is not currently required for clinical use. This test should not be regarded as investigational or for research purposes. Performed By: #### C OINP #### [facility] [address] [place] [address] SARS-CoV-2 (COVID-19) RNA DEBORAH+probe Ql (Unsp spec) Not detected Normal Not Detected [facility] Comment on above: Result Comment: . This assay is designed to detect the N, ORF1ab and/or S genes of SARS-CoV-2 via nucleic acid amplification. A Negative (NOT DETECTED) result does not preclude 2019-nCoV infection since the adequacy of sample collection and/or low viral burden may result in presence of viral nucleic acids below the clinical sensitivity of this test method. Negative (NOT DETECTED) result should not be used as the sole basis for treatment or other patient management decisions. Rather negative results should be combined with clinical observations, patient history, and epidemiological information to make patient management decisions. Fact sheet for providers: https://www.fda.gov/media/135526/download Fact sheet for patients: https://www.fda.gov/media/902209/download This test has received FDA Emergency Use Authorization (EUA) and has been verified by [facility] ([facility]). This test is only authorized for the duration of time that circumstances exist to justify the authorization of the emergency use of in vitro diagnostic tests for the detection of SARS-CoV-2 virus and/or diagnosis of COVID-19 infection under section 564(b)(1) of the Act, 21 U.S.C. 360bbb-3(b)(1), unless the authorization is terminated or revoked sooner. [facility] is certified under CLIA-88 as qualified to perform high complexity testing. Testing is performed in the [facility] laboratories located at [address] [place] [address]. Performed By: #### C OINP #### [place] [address] Lab Specimen Source Nasal, Nasopharyngeal Normal [facility] Comment on above: Performed By: #### C OINP #### [place] [address] INFLUENZA A/B, COVID 2019 PCR,SYMPTOMATIC Not detected See Below -[facility] Work Phone: Comment on above: Reference Range: Not Detected.This assay is designed to detect the N, ORF1ab and/or S genes of SARS-CoV-2 via nucleic acid amplification. A Negative (NOT DETECTED) result does not preclude 2019-nCoV infection since the adequacy of sample collection and/or low viral burden may result in presence of viral nucleic acids below the clinical sensitivity of this test method. Negative (NOT DETECTED) result should not be used as the sole basis for treatment or other patient management decisions. Rather negative results should be combined with clinical observations, patient history, and epidemiological information to make patient management decisions.Fact sheet for providers: https://www.fda.gov/media/010459/downloadFact sheet for patients: https://www.fda.gov/media/921069/downloadThis test has received FDA Emergency Use Authorization (EUA) and has been verified by [facility] ([facility]). This test is only authorized for the duration of time that circumstances exist to justify the authorization of the emergency use of in vitro diagnostic tests for the detection of SARS-CoV-2 virus and/or diagnosis of COVID-19 infection under section 564(b)(1) of the Act, 21 U.S.C. 360bbb-3(b)(1), unless the authorization is terminated or revoked sooner. [facility] is certified under CLIA-88 as qualified to perform high complexity testing. Testing is performed in the [facility] laboratories located at [address] [place] [address]. Reference Range: Not Detected Respiratory virus testing is performed routinely by PCR for Influenza A/B and RSV. If Influenza and RSV PCR are negative, testing for parainfluenza 1,2,3 viruses and adenovirus is routinely performed for oncology inpatients and intensive care unit patients at [facility] and is available on request on other patients by calling Laboratory Client Services at [phone] Not Detected results do not preclude Influenza A/B or RSV infections since the adequacy of sample collection or low viral burden may impact the clinical sensitivity of this test method..The TaqManTM SARS-CoV-2, Flu A, Flu B Multiplex Assay is a multiplex, real-time RT-PCR assay for the detection of RNA from the SARS-CoV-2, Influenza A, and Influenza B viruses. A negative result does not preclude the possibility of SARS-CoV-2, Influenza A, or Influenza B infections, and should not be used as the sole basis for patient management decision as a negative result may be caused by very low levels of infection, collection errors, or testing errors. .This test was developed and its performance characteristics were determined by the Microbiology Laboratory, Department of Pathology, [facility], [employer], [place]. It has not been cleared or approved by the US Food and Drug Administration; however, FDA clearance or approval is not currently required for clinical use. This test should not be regarded as investigational or for research purposes. SOURCE: Nasal, Nasop haryngealReference Range: Not Detected Respiratory virus testing is performed routinely by PCR for Influenza A/B and RSV. If Influenza and RSV PCR are negative, testing for parainfluenza 1,2,3 viruses and adenovirus is routinely performed for oncology inpatients and intensive care unit patients at [facility] and is available on request on other patients by calling Laboratory Client Services at [phone]. Not Detected results do not preclude Influenza A/B or RSV infections since the adequacy of sample collection or low viral burden may impact the clinical sensitivity of this test method. Office Visit (Family Nael dennis)on 03-29-2022 Follow-up visit Diagnoses/Problems Suspected COVID-19 virus infection (V01.79) (Z20.822) Acute right otitis media (382.9) (H66.91) Orders Acute right otitis media Start: Amoxicillin-Pot Clavulanate 875-125 MG Oral Tablet; TAKE 1 TABLET EVERY 12 HOURS DAILY Suspected COVID-19 virus infection INFLUENZA A/B, COVID 2019 PCR,SYMPTOMATIC; Status:In Progress - Specimen/Data Collected; Done: 29Mar2022 Provider Impressions Acute right otitis media: Start Augmentin for 7 days. Suspected COVID 19: will obtain COVID PCR test, instructed to isolate until COVID test results available. If positive follow company and cdc guideline for returning to work and masking. Return if symptoms persist or worsen. Chief Complaint B/L ear pain/sore throat/ fatigue/cough - since monday. History of Present Illness Cristina is a 26 yo female here today with complaints of sore throat, ear pain, and cough. Sx onset 03/25/20. She has had COVID tested positive in 10/2021. She is vaccinated Moderna Patient denies fever, change of taste or smell or body aches. Review of Systems Constitutional: feeling poorly, but no chills, not feeling tired, no fever and no night sweats. Eyes: no blurred vision and no eyesight problems. ENT: earache, postnasal drip and sore throat. Cardiovascular: no chest pain, no intermittent leg claudication, no lower extremity edema, no palpitations and no syncope. Respiratory: cough. Gastrointestinal: no abdominal pain, no blood in stools, no constipation, no diarrhea, no melena, no nausea, no rectal pain and no vomiting. Genitourinary: no dysuria, no change in urinary frequency, no urinary hesitancy, no feelings of urinary urgency and no vaginal discharge. Neurological: no difficulty walking, no headache, no limb weakness, no numbness and no tingling. Endocrine: no recent weight gain and no recent weight loss. Active Problems Depression, controlled (311) (F32.A) Fatigue (780.79) (R53.83) Mild vitamin D deficiency (268.9) (E55.9) Obesity (BMI 30-39.9) (278.00) (E66.9) Past Medical History Encounter for preventive health examination (V70.0) (Z00.00) Resolved Date: Surgical History History of Uterine surgery Family History Family history of Alcohol abuse Family history of Drug addiction Family history of depression (V17.0) (Z81.8) Family history of diabetes mellitus (V18.0) (Z83.3) Family history of hypothyroidism (V18.19) (Z83.49) Family history of PCOS (polycystic ovarian syndrome) Family history of diabetes mellitus (V18.0) (Z83.3) Family history of PCOS (polycystic ovarian syndrome) Social History Does not have living will Never smoker No illicit drug use Allergies Penicillins Rash; Recorded By: Maddison Atkins; 03/02/2022 7:39:56 AM Current Meds Medication NameInstructionReason Vitamin D 1000 UNIT TABSMild vitamin D deficiency Multi-Vitamins TABS Probiotic CAPS Zoloft 50 MG Oral TabletTAKE 1 TABLET DAILY. Vitals Vital Signs Recorded: [id number] 08:07AM Epfuvablgrx93.5 F Heart Rate64 Adatnyki351 Uawawdsts31 Tobacco Useb) No Physical Exam Ears, Nose, Mouth, and Throat: External inspection of ears and nose: Normal. Otoscopic examination: Abnormal. The right tympanic membrane was red and was obscured partially, but had an intact light reflex. The left tympanic membrane was normal. The right external canal was tender and was erythematous. The left external canal was normal. Exam of the right middle ear showed a middle ear effusion serous and mucoid. Hearing: Normal. Nasal mucosa, septum, and turbinates: Normal. Oropharynx: Normal. Inspection of the oropharynx showed fully visible tonsils, uvula and soft palate (Mallampati class 1). Oral mucosa was normal. The palate examination showed no abnormalities. The tongue was normal. The tonsils were normal. Cardiovascular: Heart rate and rhythm were normal, normal S1 and S2, no gallops, no murmurs and no pericardial rub. Pedal pulses: Normal. No peripheral edema. Pulmonary: No respiratory distress. Clear bilateral breath sounds. Psychiatric: Judgment and insight: Intact. Mood and affect: Normal. 'Scores and Scales' Signatures Electronically signed by : JONATHAN Du; Mar 29 2022 9:18AM EST (Author) Normal [employer] Tobacco Screening.on 022 Tobacco use status CP b) No -[facility] Work Phone: CBCon 03-03-2022 Erythrocyte distribution width (RBC) [Ratio] 15.7 % High 11.5 - 14.5 [facility] Comment on above: Performed By: #### C BC #### [place] [address] Hematocrit (Bld) [Volume fraction] 38.4 % Normal 36.0 - 46.0 [facility] Comment on above: Performed By: #### C BC #### [address] [address] Hemoglobin (Bld) [Mass/Vol] 12.6 g/dL Normal 12.0 - 16.0 [facility] Comment on above: Performed By: #### C BC #### [address] [address] MCHC (RBC) [Mass/Vol] 32.7 g/dL Normal 32.0 - 36.0 [facility] Comment on above: Performed By: #### C BC #### [address] [address] MCV (RBC) [Entitic vol] 83 fL Normal 80 - 100 [facility] Comment on above: Performed By: #### C BC #### [address] [address] Platelets (Bld) [#/Vol] 383 10*3/uL Normal 150 - 450 [facility] Comment on above: Performed By: #### C BC #### [address] [address] RBC 4.60 x10E12/L Normal 4.00 - 5.20 [facility] Comment on above: Performed By: #### C BC #### [address] [address] WBC (Bld) [#/Vol] 7.4 10*3/uL Normal 4.4 - 11.3 [facility] Comment on above: Performed By: #### C BC #### [address] [address] COMPREHENSIVE PANELon 2021 Albumin [Mass/Vol] 4.3 g/dL Normal 3.4 - 5.0 [facility] Comment on above: Performed By: #### C MP #### [address] [address] ALP [Catalytic activity/Vol] 94 U/L Normal 33 - 110 [facility] Comment on above: Performed By: #### C MP #### [address] [address] ALT [Catalytic activity/Vol] 21 U/L Normal 7 - 45 [facility] Comment on above: Result Comment: Bridgett ents treated with Sulfasalazine may generate falsely decreased results for ALT. Performed By: #### C MP #### [address] [address] Anion gap [Moles/Vol] 13 mmol/L Normal 10 - 20 [facility] Comment on above: Performed By: #### C MP #### [address] [address] AST [Catalytic activity/Vol] 19 U/L Normal 9 - 39 [facility] Comment on above: Performed By: #### C MP #### [address] [address] Bilirubin [Mass/Vol] 0.7 mg/dL Normal 0.0 - 1.2 [facility] Comment on above: Performed By: #### C MP #### [address] [address] Calcium [Mass/Vol] 9.1 mg/dL Normal 8.6 - 10.3 [facility] Comment on above: Performed By: #### C MP #### [address] [address] Chloride [Moles/Vol] 104 mmol/L Normal 98 - 107 [facility] Comment on above: Performed By: #### C MP #### [address] [address] Creatinine [Mass/Vol] 0.58 mg/dL Normal 0.50 - 1.05 [facility] Comment on above: Performed By: #### C MP #### [address] [address] eGFR FEMALE >90 Normal >90 [facility] Comment on above: Result Comment: CALC ULATIONS OF ESTIMATED GFR ARE PERFORMED USING THE 2020 CKD-EPI STUDY REFIT EQUATION WITHOUT THE RACE VARIABLE FOR THE IDMS-TRACEABLE CREATININE METHODS. https://jasn.asnjournals.org/content/early//ASN.81474 12427 Performed By: #### C MP #### [address] [address] Glucose [Mass/Vol] 82 mg/dL Normal 74 - 99 [facility] Comment on above: Performed By: #### C MP #### [address] [address] HCO3 (Bld) [Moles/Vol] 24 mmol/L Normal 21 - 32 [facility] Comment on above: Performed By: #### C MP #### [address] [address] Potassium [Moles/Vol] 3.5 mmol/L Normal 3.5 - 5.3 [facility] Comment on above: Performed By: #### C MP #### [address] [address] Protein [Mass/Vol] 7.3 g/dL Normal 6.4 - 8.2 [facility] Comment on above: Performed By: #### C MP #### [address] [address] Sodium [Moles/Vol] 137 mmol/L Normal 136 - 145 [facility] Comment on above: Performed By: #### C MP #### [address] [place] [address] Urea nitrogen [Mass/Vol] 11 mg/dL Normal 6 - 23 [facility] Comment on above: Performed By: #### C MP #### [address] [address] HEMOGLOBIN A1Con 03-03-2022 Glucose [Mass/Vol] 114 mg/dL Normal [facility] Comment on above: Performed By: #### H BA1E #### [address] [address] HbA1c (Bld) [Mass fraction] 5.6 % Normal [facility] Comment on above: Result Comment: Diag nosis of Diabetes-Adults Non-Diabetic: < or = 5.6% Increased risk for developing diabetes: 5.7-6.4% Diagnostic of diabetes: > or = 6.5% . Monitoring of Diabetes Age (y) Therapeutic Goal (%) Adults: >18 <7.0 Pediatrics: 13-18 <7.5 7-12 <8.0 0- 6 7.5-8.5 [employer]. Diabetes Care 33(S1), Nov 2009. Performed By: #### H BA1E #### [address] [address] Hemoglobin A1Con 03-03-2022 Glucose [Mass/Vol] 114 mg/dL [facility] Work Phone: HbA1c (Bld) [Mass fraction] 5.6 % [facility] Work Phone: Comment on above: Diagnosis of Diabete s-Adults Non-Diabetic: < or = 5.6% Increased risk for developing diabetes: 5.7-6.4% Diagnostic of diabetes: > or = 6.5%. Monitoring of Diabetes Age (y) Therapeutic Goal (%) Adults: >18 <7.0 Pediatrics: 13-18 <7.5 7-12 <8.0 0- 6 7.5-8.5 [employer]. Diabetes Care 33(S1), Nov 2009. LIPID PANEL (CORONARY RISK 2 )on 03-03-2022 Cholesterol [Mass/Vol] 144 mg/dL Normal 0 - 199 [facility] Comment on above: Result Comment: . AGE DESIRABLE BORDERLINE HIGH HIGH 0-19 Y 0 - 169 170 - 199 >/= 200 20-24 Y 0 - 189 190 - 224 >/= 225 >24 Y 0 - 199 200 - 239 >/= 240 All ranges are based on fasting samples. Specific therapeutic targets will vary based on patient-specific cardiac risk. . Pediatric guidelines reference:Pediatrics 2011, 128(S5). Adult guidelines reference: NCEP ATPIII Guidelines, PAM 2001, 258:2486-97 . Venipuncture immediately after or during the administration of Metamizole may lead to falsely low results. Testing should be performed immediately prior to Metamizole dosing. Performed By: #### L IPID #### [address] [address] Cholesterol in HDL [Mass/Vol] 60.0 mg/dL Normal [facility] Comment on above: Result Comment: . AGE VERY LOW LOW NORMAL HIGH 0-19 Y < 35 < 40 40-45 ---- 20-24 Y ---- < 40 >45 ---- >24 Y ---- < 40 40-60 >60 . Performed By: #### L IPID #### [address] [address] Cholesterol in LDL [Mass/Vol] 74 mg/dL Normal 0 - 99 [facility] Comment on above: Result Comment: . NEAR BORD AGE DESIRABLE OPTIMAL HIGH HIGH VERY HIGH 0-19 Y 0 - 109 --- 110-129 >/= 130 ---- 20-24 Y 0 - 119 --- 120-159 >/= 160 ---- >24 Y 0 - 99 100-129 130-159 160-189 >/=190 . Performed By: #### L IPID #### [address] [address] Cholesterol in VLDL [Mass/Vol] 10 mg/dL Normal 0 - 40 [facility] Comment on above: Performed By: #### L IPID #### [address] [address] Cholesterol.total/Chol esterol in HDL [Mass ratio] 2.4 {ratio} Normal [facility] Comment on above: Result Comment: REF VALUES DESIRABLE < 3.4 HIGH RISK > 5.0 Performed By: #### L IPID #### [address] [address] Triglyceride [Mass/Vol] 51 mg/dL Normal 0 - 149 [facility] Comment on above: Result Comment: . AGE DESIRABLE BORDERLINE HIGH HIGH VERY HIGH 0 D-90 D 19 - 174 ---- ---- ---- 91 D- 9 Y 0 - 74 75 - 99 >/= 100 ---- 10-19 Y 0 - 89 90 - 129 >/= 130 ---- 20-24 Y 0 - 114 115 - 149 >/= 150 ---- >24 Y 0 - 149 150 - 199 200- 499 >/= 500 . Venipuncture immediately after or during the administration of Metamizole may lead to falsely low results. Testing should be performed immediately prior to Metamizole dosing. Performed By: #### L IPID #### [address] [address] Laboratory - Chemistry and C hemistry - challengeon 03-03-2022 Albumin BCP dye [Mass/Vol] 4.3 g/dL 3.4 - 5.0 [facility] Work Phone: ALP [Catalytic activity/Vol] 94 U/L 33 - 110 [facility] Work Phone: ALT With P-5'-P [Catalytic activity/Vol] 21 U/L 7 - 45 [facility] Work Phone: Comment on above: Patients treated wit h Sulfasalazine may generate falsely decreased results for ALT. Anion gap [Moles/Vol] 13 mmol/L 10 - 20 [facility] Work Phone: AST With P-5'-P [Catalytic activity/Vol] 19 U/L 9 - 39 [facility] Work Phone: Bilirubin [Mass/Vol] 0.7 mg/dL 0.0 - 1.2 [facility] Work Phone: Calcium [Mass/Vol] 9.1 mg/dL 8.6 - 10.3 [facility] Work Phone: Chloride [Moles/Vol] 104 mmol/L 98 - 107 [facility] Work Phone: CO2 [Moles/Vol] 24 mmol/L 21 - 32 [facility] Work Phone: Creatinine [Mass/Vol] 0.58 mg/dL See Below [facility] Work Phone: Comment on above: Reference Range: 0.5 0 - 1.05 Glucose [Mass/Vol] 82 mg/dL 74 - 99 [facility] Work Phone: [phone] Potassium [Moles/Vol] 3.5 mmol/L 3.5 - 5.3 [facility] Work Phone: [phone] Protein [Mass/Vol] 7.3 g/dL 6.4 - 8.2 [facility] Work Phone: [phone] Sodium [Moles/Vol] 137 mmol/L 136 - 145 [facility] Work Phone: [phone] TSH Qn 2.11 m[IU]/L See Below [facility] Work Phone: Comment on above: Reference Range: 0.4 4 - 3.98 TSH testing is performed using different testing methodology at [facility] than at other [facility]. Direct result comparisons should only be made within the same method. Urea nitrogen [Mass/Vol] 11 mg/dL 6 - 23 [facility] Work Phone: Laboratory - Hematology and Cell countson 03-03-2022 Erythrocyte distribution width (RBC) [Ratio] 15.7 % above high threshold See Below [facility] Work Phone: Comment on above: Reference Range: 11. 5 - 14.5 Hematocrit (Bld) [Volume fraction] 38.4 % See Below [facility] Work Phone: Comment on above: Reference Range: 36. 0 - 46.0 Hemoglobin (Bld) [Mass/Vol] 12.6 g/dL See Below [facility] Work Phone: Comment on above: Reference Range: 12. 0 - 16.0 MCHC (RBC) [Mass/Vol] 32.7 g/dL See Below [facility] Work Phone: Comment on above: Reference Range: 32. 0 - 36.0 MCV (RBC) [Entitic vol] 83 fL 80 - 100 [facility] Work Phone: Platelets (Bld) [#/Vol] 383 10*3/uL 150 - 450 [facility] Work Phone: RBC (Bld) [#/Vol] 4.60 {x10E12/L} See Below [facility] Work Phone: Comment on above: Reference Range: 4.0 0 - 5.20 WBC (Bld) [#/Vol] 7.4 10*3/uL 4.4 - 11.3 [facility] Work Phone: Lipid Panelon 03-03-2022 Cholesterol [Mass/Vol] 144 mg/dL 0 - 199 [facility] Work Phone: Comment on above: . AGE DESIRABLE BORD NINA HIGH HIGH 0-19 Y 0 - 169 170 - 199 >/= 200 20-24 Y 0 - 189 190 - 224 >/= 225 >24 Y 0 - 199 200 - 239 >/= 240 All ranges are based on fasting samples. Specific therapeutic targets will vary based on patient-specific cardiac risk.. Pediatric guidelines reference:Pediatrics 2011, 128(S5). Adult guidelines reference: NCEP ATPIII Guidelines, PAM 2001, 258:2486-97. Venipuncture immediately after or during the administration of Metamizole may lead to falsely low results. Testing should be performed immediately prior to Metamizole dosing. Cholesterol in HDL [Mass/Vol] 60.0 mg/dL [facility] Work Phone: Comment on above: . AGE VERY LOW LOW N ORMAL HIGH 0-19 Y < 35 < 40 40-45 ---- 20-24 Y ---- < 40 >45 ---- >24 Y ---- < 40 40-60 >60. Cholesterol in LDL [Mass/Vol] 74 mg/dL 0 - 99 [facility] Work Phone: Comment on above: . NEAR BORD AGE ENRIQUE RABLE OPTIMAL HIGH HIGH VERY HIGH 0-19 Y 0 - 109 --- 110-129 >/= 130 ---- 20-24 Y 0 - 119 --- 120-159 >/= 160 ---- >24 Y 0 - 99 100-129 130-159 160-189 >/=190. Cholesterol.total/Chol esterol in HDL [Mass ratio] 2.4 {ratio} [facility] Work Phone: Comment on above: REF VALUESDESIRABLE < 3.4HIGH RISK > 5.0 Triglyceride [Mass/Vol] 51 mg/dL 0 - 149 [facility] [employer] Phone: Comment on above: . AGE DESIRABLE BORD NINA HIGH HIGH VERY HIGH 0 D-90 D 19 - 174 ---- ---- ----91 D- 9 Y 0 - 74 75 - 99 >/= 100 ---- 10-19 Y 0 - 89 90 - 129 >/= 130 ---- 20-24 Y 0 - 114 115 - 149 >/= 150 ---- >24 Y 0 - 149 150 - 199 200- 499 >/= 500. Venipuncture immediately after or during the administration of Metamizole may lead to falsely low results. Testing should be performed immediately prior to Metamizole dosing. Lipid Panel 10 mg/dL 0 - 40 [facility] Work Phone: No Panel Informationon 03-03 >90 >90 [facility] [employer] Phone: Comment on above: CALCULATIONS OF DILAN MATED GFR ARE PERFORMED USING THE 2020 CKD-EPI STUDY REFIT EQUATION WITHOUT THE RACE VARIABLE FOR THE IDMS-TRACEABLE CREATININE METHODS.[email or web address] TSH WITH REFLEX TO FREE T4 I F ABNORMALon 03-03-2022 TSH Qn 2.11 m[IU]/L Normal 0.44 - 3.98 [facility] Comment on above: Result Comment: TSH testing is performed using different testing methodology at [facility] than at other [facility]. Direct result comparisons should only be made within the same method. Performed By: #### T HYDS #### [address] [address] VITAMIN B12on 03-03-2022 Cobalamin (Vitamin B12) [Mass/Vol] 422 pg/mL Normal 211 - 911 [facility] Comment on above: Performed By: #### C MP #### [address] [address] VITAMIN D, 25-HYDROXYon 02-05 VITAMIN D, 25-HYDROXY 22 ng/mL Abnormal [facility] Comment on above: Result Comment: . DEFICIENCY: < 20 NG/ML INSUFFICIENCY: 20-29 NG/ML SUFFICIENCY: 30-100 NG/ML THIS ASSAY ACCURATELY QUANTIFIES THE SUM OF VITAMIN D3, 25-HYDROXY AND VIT D2,25-HYDROXY. Performed By: #### C MP #### [address] [address] Vitamin B12, Serumon 022 Cobalamin (Vitamin B12) [Mass/Vol] 422 pg/mL 211 - 911 [facility] Work Phone: Vitamin D 25-Hydroxyon 03-03 25-hydroxyvitamin D3 [Mass/Vol] 22 ng/mL Abnormal [facility] Work Phone: Comment on above: .DEFICIENCY: < 20 NG /MLINSUFFICIENCY: 20-29 NG/MLSUFFICIENCY: 30-100 NG/MLTHIS ASSAY ACCURATELY QUANTIFIES THE SUM OFVITAMIN D3, 25-HYDROXY AND VIT D2,25-HYDROXY. Office Visit (Family Medicin e)on 03-02-2022 Follow-up visit Diagnoses/Problems Encounter for preventive health examination (V70.0) (Z00.00) Obesity (BMI 30-39.9) (278.00) (E66.9) Fatigue (780.79) (R53.83) Depression, controlled (311) (F32.A) Orders Fatigue Vitamin B12, Serum; Status:Active; Requested for:02Mar2022; Vitamin D 25-Hydroxy; Status:Active; Requested for:02Mar2022; Health Maintenance Complete Blood Count; Status:Active; Requested for:02Mar2022; Follow-up visit in 1 year Outpatient Follow-up Status: Hold For - Scheduling Requested for: 02Mar2022 Gynecology Referral Evaluation and Treatment Evaluate AND Treat, establish care, family HX of PCOS and mother with hysterectomy in 30's Status: Hold For - Scheduling Requested for: 02Mar2022 Comprehensive Metabolic Panel; Status:Active; Requested for:02Mar2022; Lipid Panel; Status:Active; Requested for:02Mar2022; TSH WITH REFLEX TO FREE T4 IF ABNORMAL; Status:Active; Requested for:02Mar2022; Obesity (BMI 30-39.9) Hemoglobin A1C; Status:Active; Requested for:02Mar2022; SocHx: Never smoker Tobacco Use Screening; Status:Complete; Done: 02Mar2022 Provider Impressions Health Maintenance: Will check labs for CBC, CMP, Lipid panel, and TSH. Will refer to OBGYN fro establish care. Obesity: Will check HGB A1C and TSH. Recommend healthy diet increase protein, fruits and vegetables. Increase activity/exercise. Fatigue: will check Vitamin B12 and D levels. Depression: Well controlled continue on current medication Zoloft 50 mg daily. Chief Complaint New patient - wants blood work. Adult Risk Screening Tobacco Screening: CRISTINA does not use tobacco. Blood Pressure monitoring Blood Pressure Controlled, Systolic <130 mm Hg Depression/Suicide Screening: During the past 2 weeks, the patient has not felt down, depressed or hopeless. During the past 2 weeks, the patient has not felt little interest or pleasure in doing things. History of Present Illness Cristina is a 26 yo female here [...] has not seen OBGYN in 2 years. Cristina would like lab work up for fatigue and weight gain. She is interested in losing weight and motivated to do so. Discussed medications for weight loss (Adepex), diet, exercise. She feels as though she eats out of boredom or habit Otherwise she has no other health concerns today UPT on vaccines Had COVID infection in 10/2021 Review of Systems Constitutional: feeling tired, but no chills, not feeling poorly, no fever and no night sweats. Eyes: no blurred vision and no eyesight problems. ENT: no hearing loss, no nasal congestion, no nasal discharge, no hoarseness and no sore throat. Neck: no mass(es) and no swelling. Cardiovascular: no chest pain, no intermittent leg claudication, no lower extremity edema, no palpitations and no syncope. Respiratory: no cough, no shortness of breath during exertion, no shortness of breath at rest and no wheezing. Gastrointestinal: no abdominal pain, no blood in stools, no constipation, no diarrhea, no melena, no nausea, no rectal pain and no vomiting. Genitourinary: no dysuria, no change in urinary frequency, no urinary hesitancy, no feelings of urinary urgency and no vaginal discharge The patient presents with complaints of sudden onset of moderate bilateral lower abdominal and bilateral lower back dysmenorrhea, described as sharp. Her symptoms are caused by menarche. Symptoms are improved by NSAIDs. Symptoms are not made worse by psychological stress and missing meals. Risk Factors: obesity. Musculoskeletal: no arthralgias, no back pain and no myalgias. Integumentary: no new skin lesions and no rashes. Neurological: no difficulty walking, no headache, no limb weakness, no numbness and no tingling. Psychiatric: no anxiety, no depression, no anhedonia and no substance use disorders. Endocrine: no changes in appetite, no polyuria, no feelings of weakness, no hair thinning or loss, no heat/cold intolerance and no muscle weakness. Surgical History History of Uterine surgery Family History Family history of Alcohol abuse Family history of Drug addiction Family history of depression (V17.0) (Z81.8) Family history of diabetes mellitus (V18.0) (Z83.3) Family history of hypothyroidism (V18.19) (Z83.49) Family history of PCOS (polycystic ovarian syndrome) Family history of diabetes mellitus (V18.0) (Z83.3) Family history of PCOS (polycystic ovarian syndrome) Social History Does not have living will Never smoker No (more content not included)... Normal [employer] Tobacco Screening.on 022 Tobacco use status [facility] b) No -[facility] Work Phone: Telephone Encounteron 2021 Profiling Machine Setup Operator Authentication Interface Message Text From: Cristina Smiley To: Physician Print Designer Stalin Sloan Sent: 11/09/2021 7:41 AM EST Subject: Question Hi Dr Sloan, Today is my first day back to work, on my way there I got nauseous and also pulled over on the side of the road to throw up. Could this be from my antibiotic or motion sickness from not driving anywhere the last few weeks? And if that's the case what is the next step as far as antibiotics go, or could I get an RX for zofran to help with the nausea until it gets better? Thank you, Cristina Smiley Normal [facility] Progress Noteson 11-04-2021 Profiling Machine Setup Operator Authentication Interface Message Text TELEMEDICINE VISIT - FOLLOW-UP This visit was performed via interactive telehealth. This visit was initiated by the patient and the patient and provider interacted in real time. Location of the patient: Home of patient Location of the provider: [facility] [address] [place] [id number] MEDICATIONS: Current Outpatient Medications Medication Sig Dispense Refill * sertraline (Zoloft) 50 MG tablet Take 1 Tablet by mouth daily. 90 Tablet 3 No current facility-administered medications for this visit. Farzana Sloan, I know it's been a while since I've seen you. I just tested positive for covid this morning and wanted to see if there any suggestions you had as far as reducing symptoms or any vitamins I should take to help. Also I feel like I have so much congestion it's starting to give me an ear ache and I'm worried I might have an infection. Is there anyway I can do a virtual visit with you or do you have any other suggestions? Thank you, Cristina Smiley. Appetite: Good Fever: denies Chills: denies Nausea: denies Vomiting: denies Diarrhea: denies Bowel Status: bowel movement QD PHYSICAL EXAM Physical findings attained by report and telemedicine visualization Covid-19 Telephone Encounter: Because of the recent pandemic of Covid-19 we are minimizing potential exposure of patients by making telephone calls to scheduled patients. I have determined, based on history and conversation, that this patient's in person visit can be postponed until the pandemic has subsided. Through shared decision making, the patient concurs with this course of action Cristina was seen today for telephone counseling and other issues and ear pain/earache. Pt with Covid c/o left ear pain getting worst h/o ear infections. Diagnoses and all orders for this visit: Acute serous otitis media, recurrence not specified, unspecified laterality- Bactrim and Flonase COVID- treat symptoms taking Vitamins. Follow up: as needed Phone numbers This visit has been rescheduled as a phone visit to comply with patient safety concerns in accordance with CDC recommendations. Total Time Spent with Patient which also includes pre-charting and post chartin minutes, of which greater than 50% was spent on counseling or coordinating care. Stalin Isabel PA-C Normal [facility] Telephone Encounteron 2020 Profiling Machine Setup Operator Authentication Interface Message Text Patient was identified by name and date of . Quin Hsu Was able to make pt appt for 11/04/21 Pt verbalized understanding, no further questions or concerns at this time Normal [facility] Profiling Machine Setup Operator Authentication Interface Message Text Regarding: Covid ----- Message from Stalin Isabel PA-C sent at 11/03/2021 9:42 AM EST ----- ----- Message from Cristina Smiley to Stalin Isabel PA-C sent at 11/02/2021 7:10 PM ----- Farzana Sloan, I know it's been a while since I've seen you. I just tested positive for covid this morning and wanted to see if there any suggestions you had as far as reducing symptoms or any vitamins I should take to help. Also I feel like I have so much congestion it's starting to give me an ear ache and I'm worried I might have an infection. Is there anyway I can do a virtual visit with you or do you have any other suggestions? Thank you, Cristina Weston [facility] Profiling Machine Setup Operator Authentication Interface Message Text Call pt make telephone tomorrow,. Tell her to take Vit C, D3 and Zinc. Thanks, Stalin Weston [facility] Profiling Machine Setup Operator Authentication Interface Message Text From: Cristina Smiley To: Physician Print Designer Stalin Sloan Sent: 11/02/2021 7:10 PM EST Subject: Ninoid Farzana Sloan, I know it's been a while since I've seen you. I just tested positive for covid this morning and wanted to see if there any suggestions you had as far as reducing symptoms or any vitamins I should take to help. Also I feel like I have so much congestion it's starting to give me an ear ache and I'm worried I might have an infection. Is there anyway I can do a virtual visit with you or do you have any other suggestions? Thank you, Cristina Weston [facility] Progress Noteson 04-02-2021 Profiling Machine Setup Operator Authentication Interface Message Text Comment on results sent to patient via Teamly. Normal [facility] HUMAN PAPILLOMA VIRUSon 03-06 HPV HIGH RISK Negative Normal Negative [facility] Comment on above: Order Comment: This test is performed using an automated nucleic acid amplification assay (SMIC, [employer] [place], [place]). This assay detects RNA of HPV types 16,18,31,33,35,39,45,51,52,56,58,59,66 and 68 in cervical specimens. Result Comment: A ne gative result does not exclude the possibility of low levels of infection or sampling error. 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: menses: Q month Last pap: 11/24 STD's: no BC/HRT: CI. Mammo: no Sexual Activity: yes Patient's last menstrual period was 03/04/2021. Urinary Incontinence: no Urinary Urge: no Family history of uterine or ovarian cancer: no Family history of colon cancer: no Family history of breast cancer: no Regular self breast exam: no History of abnormal mammogram: no History of abnormal lipids: no Meds: Current Outpatient Medications on File Prior to Visit Medication Sig Dispense Refill * sertraline (ZOLOFT) 50 MG tablet Take 1 Tablet by mouth daily. 90 Tablet 3 No current facility-administered medications on file prior to visit. All: Allergies Allergen Reactions * Amoxicillin Hives * Penicillins Rash Past Medical History: Diagnosis Date * Acid reflux * Heart murmur 12/23/2016 Overview: as a child only * Paronychia, toe 05/19/2017 Past Surgical History: Procedure Laterality Date * REPAIR, LACERATION, CERVICAL N/A 10/11/2019 Procedure: REPAIR, LACERATION, CERVICAL; Surgeon: Kahlil Osborn MD; Location: LABOR AND DELIVERY; Service: Obstetrics PE: BP 120/60 Pulse 85 Resp 16 Wt 172 lb (78 kg) LMP 03/04/2021 No BMI 29.52 kg/m??? GEN: normal general appearance; no acute distress; well nourished; normal gait and stance; oriented to time, place, and person; appropriate mood and affect SKIN: no rashes, lesion, ulcers HEENT: normal external appearance of ears and nose THYROID: no thyromegally NECK: no masses or crepitus NODES: no cervical or supraclavicular lymphadenopathy BREAST: symmetrical; non-tender; no: masses, retractions, dimpling, discharge. 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 VAGINA: mucosa is healthy and without lesions; vaginal ponce are well supported without evidence of prolapse CERVIX: appears normal without lesions or discharge UTERUS: normal size, contour, and mobility; non-tender; well supported ADNEXA: no masses, non-tender RECTAL: no rectocele, no masses, no hemorrhoids EXTR: non-tender; no cords, no clubbing, cyanosis, or edema Labs: no Studies: no A/P: Pt is a 25 year old female who presents for routine bobbin sorter 1) Check pap 2) OCP Rx - Loestrin. 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 .Patient was identified by name and date of . ROCIO Quesada . Allergies Allergen Reactions * Amoxicillin Hives * Penicillins Rash Normal [facility] ED NOTEon 10-09-2017 ED NOTE HNO ID: [id number]: Anai RosarioRn) MAX Westfallervice: Emergency MedicineAuthor Type: Registered NurseType: ED NotesFiled: 10/09/2017 6:52 PMNote Text:Pt given discharge instructions, pt questions answered and pt denies anyfurther questions at time of discharge. Pt ambulates out of dept with asteady gait.Pt denies any sob at this time, resp even and unlabored Normal [facility] ED NOTE HNO ID: [id number] Author: Joanie RosarioRn) MASOOD Storey Service: Emergency Medicine Author Type: Registered Nurse Type: ED Notes Filed: 10/09/2017 5:43 PM Note Text: Denies fever, cough or other sx. Normal [facility] ED PROV NOTEon 10-09-2017 ED PROV NOTE HNO ID: [id number]: Vini Stroudrvice: Emergency MedicineAuthor Type: PhysicianType: ED Provider NotesFiled: 10/09/2017 6:42 PMNote Text:ED Provider NotePatient Name: Cristina ReedMRN: [id number] DATE: 10/09/17HistoryPatient presents with:Sore ThroatHPI Comments: Patient presents with throat pain that has been constant forthe past week. Patient thinks that there may be something stuck in herthroat. Patient states she has been eating and drinking in order to tryto push it down. Patient states she has pain with swallowing. Patient isunsure what type of foreign body may be in her throat. Patient denies anyfevers or chills. Patient denies any cough. Patient denies any nausea orvomiting.History provided by: PatientLanguage dye winch operator used: NoPAST MEDICAL HISTORYDiagnosis Date- Heart murmurNo past surgical history on file.No family history on file.Social HistorySocial History Main Topics- Smoking status: Former Smoker Types: Cigarettes Quit date: 10/09/2013- Smokeless tobacco: None- Alcohol use Yes Comment: occasionally- Drug use: No- Sexual activity: Not AskedALLERGIESAllergen Reactions- Penicillins RashReview of SystemsConstitutional: Negative for chills and fever.HENT: Positive for sore throat and trouble swallowing.Respiratory: Negative for cough and shortness of breath.Gastrointestinal: Negative for nausea and vomiting.Musculoskeletal : Positive for neck pain. Negative for back pain.Neurological: Negative for weakness and numbness.Physical ExamBP 134/80 Pulse 89 Temp (Src) 99.1 (Temporal Artery) Resp 16 Ht 5'4 (1.63m) Wt 180 lb (81.6kg) SpO2 100% LMP 10/01/2017 BMI 30.88kg/(m2).Physical ExamConstitutional: She is oriented to person, place, and time. She appearswell-developed and well-nourished.HENT:Head : Normocephalic and atraumatic.Mouth/Throat: Oropharynx is clear and moist and mucous membranes arenormal. No posterior oropharyngeal edema, posterior oropharyngeal erythemaor tonsillar abscesses.Neck: Trachea normal, normal range of motion and full passive range ofmotion without pain. Neck supple.Cardiovascular: Normal rate and regular rhythm.Pulmonary/Chest: Effort normal and breath sounds normal. No respiratorydistress.Lymp hadenopathy: Head (left side): No submental and no submandibular adenopathypresent. She has cervical adenopathy. Left cervical: Superficial cervical adenopathy present.Neurological: She is alert and oriented to person, place, and time. Nocranial nerve deficit.Skin: Skin is warm and dry.Psychiatric: She has a normal mood and affect. Her behavior is normal.Nursing note and vitals reviewed.Diagnostic TestingED Labs Ordered and Reviewed - No data to displayXR NECK SOFT TISSUE 2V AP/LAT Final ResultEXAM TITLE: ?NECK SOFT TISSUES, 2 VIEWS?DATE: ?10/09/2017 18:01?COMPARISON: ?None.?CLINICAL INDICATION/HISTORY: ?Left-sided throat pain. ?Possible foreignbody.?TECHNIQUE: ?Frontal and lateral views of the neck soft tissues wereobtained. ??FINDINGS: ?The prevertebral soft tissues are within normal limits.?Epiglottisappear s normal. ?No radiopaque foreign body is noted as imaged. ?There issmoothreversal of the normal cervical lordosis.?IMPRESSION: Within normal limits. ?No radiopaque foreign body identified.?ProceduresMe dical Decision Making / ED CourseED CoursePatient concerned over possible foreign body in throat. Soft tissuex-rays of the neck were obtained. There is no foreign body noted.Patient was given a GI cocktail here. Patient was instructed to follow upwith her primary care physician in 7-10 days. Patient understood and wasagreeable with plan. All questions were answered.Encounter Diagnosis ICD-10-CM1. Odynophagia R13.10PlanThe Patient was DISCHARGED: Counseled patient regarding radiology resultsAND suspected diagnosis AND need for follow-up. Discharged home with verbaland written instructions. They were instructed to return as needed forpersistent or worsening symptoms or any new concerns.Condition at time of disposition: stableSIGNATURE: Derrick Hays, Diana Hays, DO10/09/17 1842 Normal [facility] NECK SOFT TISSUEon 7 NECK SOFT TISSUE Performed at [facility] APPROVED BY: Wagner Dudley MD EXAM TITLE: NECK SOFT TISSUES, 2 VIEWS DATE: 10/09/2017 18:01 COMPARISON: None. CLINICAL INDICATION/HISTORY: Left-sided throat pain. Possible foreign body. TECHNIQUE: Frontal and lateral views of the neck soft tissues were obtained. FINDINGS: The prevertebral soft tissues are within normal limits. Epiglottis appears normal. No radiopaque foreign body is noted as imaged. There is smooth reversal of the normal cervical lordosis. IMPRESSION: Within normal limits. No radiopaque foreign body identified. Normal [facility] Vital Signs Date Time Vital Sign Value Performing Clinician Facility 05-02-2025 08:12-0400 Diastolic blood pressure 82 mm[Hg] No Primary Care Physician [facility] 05-02-2025 08:12-0400 Heart rate 95 /min No Primary Care Physician [facility] 05-02-2025 08:12-0400 Respiratory rate 18 /min No Primary Care Physician [facility] 05-02-2025 08:12-0400 SaO2% (BldA) [Mass fraction] 98 % No Primary Care Physician [facility] 05-02-2025 08:12-0400 Systolic blood pressure 125 mm[Hg] No Primary Care Physician [facility] 04-18-2025 11:14-0400 Body weight 86.18 kg No Primary Care Physician [facility] 04-18-2025 11:14-0400 Diastolic blood pressure 83 mm[Hg] No Primary Care Physician [facility] 04-18-2025 11:14-0400 Heart rate 85 /min No Primary Care Physician [facility] 04-18-2025 11:14-0400 Respiratory rate 18 /min No Primary Care Physician [facility] 04-18-2025 11:14-0400 SaO2% (BldA) [Mass fraction] 97 % No Primary Care Physician [facility] 04-18-2025 11:14-0400 Systolic blood pressure 118 mm[Hg] No Primary Care Physician [facility] 01-03-2025 14:06-0500 Body height 162.56 cm No Primary Care Physician [facility] 01-03-2025 14:06-0500 Body mass index (BMI) [Ratio] 35.2 kg/m2 No Primary Care Physician [facility] 01-03-2025 14:06-0500 Body weight 93.21 kg No Primary Care Physician [facility] 01-03-2025 14:06-0500 Diastolic blood pressure 75 mm[Hg] No Primary Care Physician [facility] 01-03-2025 14:06-0500 Systolic blood pressure 126 mm[Hg] No Primary Care Physician [facility] 09-20-2024 07:41-0500 Body mass index (BMI) [Ratio] 32.28 kg/m2 Aubrey Stentz PA-C Work Phone: [facility] 09-20-2024 07:41-0500 Body weight 88 kg Aubrey Stentz PA-C Work Phone: [facility] 09-20-2024 07:41-0500 Diastolic blood pressure 78 mm[Hg] Aubrey Stentz PA-C Work Phone: [facility] 09-20-2024 07:41-0500 Heart rate 93 /min Aubrey Stentz PA-C Work Phone: [facility] 09-20-2024 07:41-0500 SaO2% (BldA) [Mass fraction] 98 % Aubrey Stentz PA-C Work Phone: [facility] 09-20-2024 07:41-0500 Systolic blood pressure 122 mm[Hg] Aubrey Stentz PA-C Work Phone: [facility] 05-27-2024 10:12-0400 Body height 165.1 cm Aubrey Stentz PA-C Work Phone: [facility] 05-27-2024 10:12-0400 Body mass index (BMI) [Ratio] 31.28 kg/m2 Aubrey Stentz PA-C Work Phone: [facility] 05-27-2024 10:12-0400 Body temperature 97.5 [degF] Aubrey Stentz PA-C Work Phone: [facility] 05-27-2024 10:12-0400 Body weight 85.28 kg Aubrey Stentz PA-C Work Phone: [facility] 05-27-2024 10:12-0400 Diastolic blood pressure 78 mm[Hg] Aubrey Stentz PA-C Work Phone: [facility] 05-27-2024 10:12-0400 Heart rate 78 /min Aubrey Stentz PA-C Work Phone: [facility] 05-27-2024 10:12-0400 SaO2% (BldA) [Mass fraction] 98 % Aubrey Stentz PA-C Work Phone: [facility] 05-27-2024 10:12-0400 Systolic blood pressure 112 mm[Hg] Aubrey Stentz PA-C Work Phone: [facility] 02-01-2024 12:04-0400 Body height 162.56 cm KEYONNA [facility] 02-01-2024 12:03-0400 Body mass index (BMI) [Ratio] 31.9 kg/m2 KEYONNA DAVIS [facility] 02-01-2024 12:03-0400 Body weight 84.36 kg KEYONNA DAVIS [facility] 02-01-2024 12:03-0400 Diastolic blood pressure 68 mm[Hg] KEYONNA DAVIS [facility] 02-01-2024 12:03-0400 Systolic blood pressure 123 mm[Hg] KEYONNA SUSAN [facility] 12-25-2023 09:37-0500 Body height 165.1 cm Aubrey Stentz PA-C Work Phone: [facility] 12-25-2023 09:37-0500 Body mass index (BMI) [Ratio] 32.28 kg/m2 Aubrey Stentz PA-C Work Phone: [facility] 12-25-2023 09:37-0500 Body weight 88 kg Aubrey Stentz PA-C Work Phone: [facility] 12-25-2023 09:37-0500 Diastolic blood pressure 72 mm[Hg] Aubrey Stentz PA-C Work Phone: [facility] 12-25-2023 09:37-0500 Heart rate 96 /min Aubrey Stentz PA-C Work Phone: [facility] 12-25-2023 09:37-0500 SaO2% (BldA) [Mass fraction] 98 % Aubrey Stentz PA-C Work Phone: [facility] 12-25-2023 09:37-0500 Systolic blood pressure 122 mm[Hg] Aubrey Stentz PA-C Work Phone: [facility] 12-19-2023 14:06-0500 Body temperature 97.9 [degF] KEYONNA DAVIS [facility] 12-19-2023 14:06-0500 Diastolic blood pressure 82 mm[Hg] KEYONNA DAVIS [facility] 12-19-2023 14:06-0500 Heart rate 68 /min [facility] 12-19-2023 14:06-0500 Respiratory rate 16 /min [facility] 12-19-2023 14:06-0500 Systolic blood pressure 135 mm[Hg] [facility] 12-19-2023 08:18-0500 SaO2% (BldA) [Mass fraction] 98 % [facility] 12-18-2023 08:17-0500 Body height 162.56 cm [facility] 12-18-2023 08:17-0500 Body mass index (BMI) [Ratio] 36.7 kg/m2 [facility] 12-18-2023 08:17-0500 Body weight 97.1 kg [facility] 12-14-2023 13:55-0500 Body mass index (BMI) [Ratio] 36.4 kg/m2 [facility] 12-14-2023 13:55-0500 Body weight 96.33 kg [facility] 12-14-2023 13:55-0500 Diastolic blood pressure 78 mm[Hg] [facility] 12-14-2023 13:55-0500 Systolic blood pressure 123 mm[Hg] [facility] 12-11-2023 09:01-0500 Body mass index (BMI) [Ratio] 36 kg/m2 [facility] 12-11-2023 09:01-0500 Body weight 95.25 kg [facility] 12-11-2023 09:01-0500 Diastolic blood pressure 68 mm[Hg] [facility] 12-11-2023 09:01-0500 Systolic blood pressure 107 mm[Hg] [facility] 12-04-2023 09:02-0500 Body mass index (BMI) [Ratio] 36.2 kg/m2 [facility] 12-04-2023 09:02-0500 Body weight 95.7 kg [facility] 12-04-2023 09:02-0500 Diastolic blood pressure 76 mm[Hg] [facility] 12-04-2023 09:02-0500 Systolic blood pressure 123 mm[Hg] [facility] 11-29-2023 23:57-0500 Heart rate 82 /min [facility] 11-29-2023 23:57-0500 SaO2% (BldA) [Mass fraction] 99 % [facility] 11-29-2023 23:01-0500 Diastolic blood pressure 75 mm[Hg] [facility] 11-29-2023 23:01-0500 Systolic blood pressure 129 mm[Hg] [facility] 11-29-2023 22:46-0500 Body height 162.56 cm [facility] 11-29-2023 22:46-0500 Body mass index (BMI) [Ratio] 36.1 kg/m2 [facility] 11-29-2023 22:46-0500 Body weight 95.61 kg [facility] 11-29-2023 21:42-0500 Body temperature 97.3 [degF] [facility] 11-27-2023 08:48-0500 Body mass index (BMI) [Ratio] 36.1 kg/m2 [facility] 11-27-2023 08:48-0500 Body weight 95.31 kg [facility] 11-27-2023 08:48-0500 Diastolic blood pressure 74 mm[Hg] [facility] 11-27-2023 08:48-0500 Systolic blood pressure 111 mm[Hg] [facility] 11-13-2023 09:08-0500 Body height 162.56 cm [facility] 11-13-2023 09:08-0500 Body mass index (BMI) [Ratio] 35.6 kg/m2 [facility] 11-13-2023 09:08-0500 Body weight 94.12 kg [facility] 11-13-2023 09:08-0500 Diastolic blood pressure 77 mm[Hg] [facility] 11-13-2023 09:08-0500 Systolic blood pressure 113 mm[Hg] [facility] 10-31-2023 09:49-0500 Diastolic blood pressure 76 mm[Hg] [facility] 10-31-2023 09:49-0500 Systolic blood pressure 118 mm[Hg] [facility] 10-31-2023 09:02-0500 Body mass index (BMI) [Ratio] 35.2 kg/m2 [facility] 10-31-2023 09:02-0500 Body weight 92.98 kg [facility] 10-16-2023 08:57-0500 Body height 162.56 cm [facility] 10-16-2023 08:57-0500 Body mass index (BMI) [Ratio] 34.9 kg/m2 [facility] 10-16-2023 08:57-0500 Body weight 92.3 kg [facility] 10-16-2023 08:57-0500 Diastolic blood pressure 64 mm[Hg] [facility] 10-16-2023 08:57-0500 Systolic blood pressure 118 mm[Hg] [facility] 10-02-2023 09:13-0500 Body height 162.56 cm [facility] 10-02-2023 09:13-0500 Body mass index (BMI) [Ratio] 34.5 kg/m2 [facility] 10-02-2023 09:13-0500 Body weight 91.28 kg [facility] 10-02-2023 09:13-0500 Diastolic blood pressure 72 mm[Hg] [facility] 10-02-2023 09:13-0500 Systolic blood pressure 113 mm[Hg] [facility] 09-25-2023 08:41-0500 Body height 165.1 cm Keyonna CASTILLO Work Phone: [facility] 09-25-2023 08:41-0500 Body mass index (BMI) [Ratio] 33.2 kg/m2 Keyonna Davis ROCKET ENGINE COMPONENT MECHANIC-REAL ESTATE ASSESSOR Work Phone: [facility] 09-25-2023 08:41-0500 Body temperature 97.5 [degF] Keyonna Davis ROCKET ENGINE COMPONENT MECHANIC-REAL ESTATE ASSESSOR Work Phone: [facility] 09-25-2023 08:41-0500 Body weight 90.49 kg Keyonna Davis ROCKET ENGINE COMPONENT MECHANIC-REAL ESTATE ASSESSOR Work Phone: [facility] 09-25-2023 08:41-0500 Diastolic blood pressure 64 mm[Hg] Keyonna Davis ROCKET ENGINE COMPONENT MECHANIC-REAL ESTATE ASSESSOR Work Phone: [facility] 09-25-2023 08:41-0500 Heart rate 107 /min Keyonna Davis ROCKET ENGINE COMPONENT MECHANIC-REAL ESTATE ASSESSOR Work Phone: [facility] 09-25-2023 08:41-0500 SaO2% (BldA) [Mass fraction] 98 % Keyonna Davis ROCKET ENGINE COMPONENT MECHANIC-REAL ESTATE ASSESSOR Work Phone: [facility] 09-25-2023 08:41-0500 Systolic blood pressure 114 mm[Hg] Keyonna Davis ROCKET ENGINE COMPONENT MECHANIC-REAL ESTATE ASSESSOR Work Phone: [facility] 09-01-2023 08:38-0400 Body mass index (BMI) [Ratio] 34.7 kg/m2 KEYONNA [facility] 09-01-2023 08:38-0400 Body weight 91.73 kg KEYONNA SUSAN [facility] 08-04-2023 09:53-0400 Body mass index (BMI) [Ratio] 34.2 kg/m2 [facility]-04-[facility]23 09:53-0400 Body weight 90.49 kg [facility] 08-04-2023 09:53-0400 Diastolic blood pressure 70 mm[Hg] [facility] 08-04-2023 09:53-0400 Systolic blood pressure 118 mm[Hg] [facility] 07-07-2023 13:42-0400 Body height 162.56 cm KEYONNA DAVIS [facility] 07-07-2023 13:40-0400 Body mass index (BMI) [Ratio] 33.9 kg/m2 KEYONNATHOM DAVIS [facility] 07-07-2023 13:40-0400 Body weight 89.58 kg KEYONNA DAVIS [facility] 06-14-2023 14:58-0400 Body mass index (BMI) [Ratio] 34 kg/m2 KEYONNATHOM DAVIS [facility] 06-14-2023 14:58-0400 Body weight 89.81 kg KEYONNA DAVIS [facility] 06-14-2023 14:58-0400 Diastolic blood pressure 68 mm[Hg] KEYONNA SUSAN [facility] 06-14-2023 14:58-0400 Systolic blood pressure 104 mm[Hg] [facility] 06-13-2023 07:59-0400 Body mass index (BMI) [Ratio] 33.08 kg/m2 Keyonna Susan ROCKET ENGINE COMPONENT MECHANIC-REAL ESTATE ASSESSOR Work Phone: [facility] 06-13-2023 07:59-0400 Body temperature 96.91 [degF] Keyonna Susan ROCKET ENGINE COMPONENT MECHANIC-REAL ESTATE ASSESSOR Work Phone: [facility] 06-13-2023 07:59-0400 Body weight 90.17 kg Keyonna Susan ROCKET ENGINE COMPONENT MECHANIC-REAL ESTATE ASSESSOR Work Phone: [facility] 06-13-2023 07:59-0400 Diastolic blood pressure 74 mm[Hg] Keyonna Susan ROCKET ENGINE COMPONENT MECHANIC-REAL ESTATE ASSESSOR Work Phone: [facility] 06-13-2023 07:59-0400 Heart rate 111 /min Keyonna Davis ROCKET ENGINE COMPONENT MECHANIC-REAL ESTATE ASSESSOR Work Phone: [facility] 06-13-2023 07:59-0400 SaO2% (BldA) [Mass fraction] 98 % Keyonnathom Davis ROCKET ENGINE COMPONENT MECHANIC-REAL ESTATE ASSESSOR Work Phone: [facility] 06-13-2023 07:59-0400 Systolic blood pressure 122 mm[Hg] Keyonna Susan ROCKET ENGINE COMPONENT MECHANIC-REAL ESTATE ASSESSOR Work Phone: [facility] 05-15-2023 09:29-0400 Body height 162.56 cm KEYONNA BARCENASD [facility] 05-15-2023 09:29-0400 Body mass index (BMI) [Ratio] 34.7 kg/m2 KEYONNA SUSAN [facility] 05-15-2023 09:29-0400 Body weight 91.79 kg KEYONNA DAVIS [facility] 05-15-2023 09:29-0400 Diastolic blood pressure 67 mm[Hg] KEYONNA SUSAN [facility] 05-15-2023 09:29-0400 Systolic blood pressure 102 mm[Hg] [facility] 03-09-2023 07:58-0400 Body height 165.1 cm Keyonnathom Davis ROCKET ENGINE COMPONENT MECHANIC-REAL ESTATE ASSESSOR Work Phone: [facility] 03-09-2023 07:58-0400 Body mass index (BMI) [Ratio] 33.28 kg/m2 Keyonna Susan ROCKET ENGINE COMPONENT MECHANIC-REAL ESTATE ASSESSOR Work Phone: [facility] 03-09-2023 07:58-0400 Body temperature 98.6 [degF] Kyeonna Davis ROCKET ENGINE COMPONENT MECHANIC-REAL ESTATE ASSESSOR Work Phone: [facility] 03-09-2023 07:58-0400 Body weight 90.72 kg Keyonna Susan ROCKET ENGINE COMPONENT MECHANIC-REAL ESTATE ASSESSOR Work Phone: [facility] 03-09-2023 07:58-0400 Diastolic blood pressure 76 mm[Hg] Keyonna Davis ROCKET ENGINE COMPONENT MECHANIC-REAL ESTATE ASSESSOR Work Phone: [facility] 03-09-2023 07:58-0400 Heart rate 76 /min Keyonna Davis ROCKET ENGINE COMPONENT MECHANIC-REAL ESTATE ASSESSOR Work Phone: [facility] 03-09-2023 07:58-0400 Systolic blood pressure 109 mm[Hg] Keyonna Davis ROCKET ENGINE COMPONENT MECHANIC-REAL ESTATE ASSESSOR Work Phone: [facility] 01-09-2023 08:10-0500 Body height 165.1 cm Keyonna Davis ROCKET ENGINE COMPONENT MECHANIC-REAL ESTATE ASSESSOR Work Phone: [facility] 01-09-2023 08:10-0500 Body mass index (BMI) [Ratio] 32.12 kg/m2 Keyonna Davis ROCKET ENGINE COMPONENT MECHANIC-REAL ESTATE ASSESSOR Work Phone: [facility] 01-09-2023 08:10-0500 Body temperature 97.3 [degF] Keyonna Davis ROCKET ENGINE COMPONENT MECHANIC-REAL ESTATE ASSESSOR Work Phone: [facility] 01-09-2023 08:10-0500 Body weight 87.54 kg Keyonna Davis ROCKET ENGINE COMPONENT MECHANIC-REAL ESTATE ASSESSOR Work Phone: [facility] 01-09-2023 08:10-0500 Diastolic blood pressure 77 mm[Hg] Keyonna Davis ROCKET ENGINE COMPONENT MECHANIC-REAL ESTATE ASSESSOR Work Phone: [facility] 01-09-2023 08:10-0500 Heart rate 81 /min Keyonna Davis ROCKET ENGINE COMPONENT MECHANIC-REAL ESTATE ASSESSOR Work Phone: [facility] 01-09-2023 08:10-0500 Systolic blood pressure 113 mm[Hg] Keyonna Davis ROCKET ENGINE COMPONENT MECHANIC-REAL ESTATE ASSESSOR Work Phone: [facility] 12-14-2022 08:03-0500 Body height 165.1 cm Keyonna Barcenasd Work Phone: [facility] Work Phone: 12-14-2022 08:03-0500 Body mass index (BMI) [Ratio] 32.28 kg/m2 Keyonna Barcenasd Work Phone: -[facility] Work Phone: 12-14-2022 08:03-0500 Body surface area Derived from formula 1.95 m2 Keyonna Lowe Susan Work Phone: -[facility] Work Phone: 12-14-2022 08:03-0500 Body weight 88 kg Keyonna Lowe Susan Work Phone: [facility] Work Phone: 12-14-2022 08:03-0500 Diastolic blood pressure 68 mm[Hg] Keyonna Lowe Susan Work Phone: [facility] Work Phone: 12-14-2022 08:03-0500 Heart rate 74 /min Keyonna Lowe Susan Work Phone: [facility] Work Phone: 12-14-2022 08:03-0500 Systolic blood pressure 114 mm[Hg] Keyonna Lowe [place] Work Phone: [facility] Work Phone: 09-14-2022 08:22-0500 Body height 165.1 cm Keyonna Lowe Susan Work Phone: [facility] Work Phone: 09-14-2022 08:22-0500 Body mass index (BMI) [Ratio] 32.15 kg/m2 Keyonna Lowe Susan Work Phone: [facility] Work Phone: 09-14-2022 08:22-0500 Body surface area Derived from formula 1.95 m2 Keyonna Lowe Susan Work Phone: [facility] Work Phone: 09-14-2022 08:22-0500 Body weight 87.63 kg Keyonna Lowe [place] Work Phone: [facility] Work Phone: 09-14-2022 08:22-0500 Diastolic blood pressure 79 mm[Hg] Keyonna L [place] Work Phone: [facility] Work Phone: 09-14-2022 08:22-0500 Heart rate 87 /min Keyonna L Susan Work Phone: [facility] Work Phone: 09-14-2022 08:22-0500 Systolic blood pressure 115 mm[Hg] Keyonna Davis Work Phone: [facility] Work Phone: 06-29-2022 09:08-0400 Body height 165.1 cm Keyonna Barcenasd Work Phone: [facility] Work Phone: 06-29-2022 09:08-0400 Body mass index (BMI) [Ratio] 32.17 kg/m2 Keyonna Barcenasd Work Phone: [facility] Work Phone: 06-29-2022 09:08-0400 Body surface area Derived from formula 1.95 m2 Keyonna Davis Work Phone: [facility] Work Phone: 06-29-2022 09:08-0400 Body temperature 97.7 [degF] Keyonna Barcenasd Work Phone: [facility] Work Phone: 06-29-2022 09:08-0400 Body weight 87.69 kg Keyonna Davis Work Phone: [facility] Work Phone: 06-29-2022 09:08-0400 Diastolic blood pressure 70 mm[Hg] Keyonna Barcenasd Work Phone: [facility] Work Phone: 06-29-2022 09:08-0400 Heart rate 87 /min Keyonna Barcenasd Work Phone: [facility] Work Phone: 06-29-2022 09:08-0400 SaO2% (BldA) [Mass fraction] 98 % Keyonna Barcenasd Work Phone: [facility] Work Phone: 06-29-2022 09:08-0400 Systolic blood pressure 118 mm[Hg] Keyonna Barcenasd Work Phone: [facility] Work Phone: 05-11-2022 13:08-0400 Body height 165.1 cm Keyonna L [place] Work Phone: [address] Work Phone: 05-11-2022 13:08-0400 Body mass index (BMI) [Ratio] 33.6 kg/m2 Keyonna L [place] Work Phone: [address] Work Phone: 05-11-2022 13:08-0400 Body surface area Derived from formula 1.99 m2 Keyonna L Susan Work Phone: [address] Work Phone: 05-11-2022 13:08-0400 Body weight 91.6 kg Keyonna L Susan Work Phone: [address] Work Phone: 05-11-2022 13:08-0400 Diastolic blood pressure 78 mm[Hg] Keyonna L [place] Work Phone: [address] Work Phone: 05-11-2022 13:08-0400 Systolic blood pressure 120 mm[Hg] Keyonna L Susna Work Phone: [address] Work Phone: 03-30-2022 13:27-0400 Body height 165.1 cm Keyonna L [place] Work Phone: [facility] Work Phone: 03-30-2022 13:27-0400 Body mass index (BMI) [Ratio] 33.38 kg/m2 Keyonna L [place] Work Phone: [facility] Work Phone: 03-30-2022 13:27-0400 Body surface area Derived from formula 1.98 m2 Keyonna L [place] Work Phone: [facility] Work Phone: 03-30-2022 13:27-0400 Body weight 91 kg Keyonna Lowe [place] Work Phone: [facility] Work Phone: 03-30-2022 13:27-0400 Diastolic blood pressure 62 mm[Hg] Keyonna Lowe [place] Work Phone: [facility] Work Phone: 03-30-2022 13:27-0400 Systolic blood pressure 110 mm[Hg] Keyonna L [place] Work Phone: [facility] Work Phone: 03-29-2022 08:07-0400 Body temperature 97.5 [degF] Keyonna Lowe Susan Work Phone: [facility] Work Phone: 03-29-2022 08:07-0400 Diastolic blood pressure 62 mm[Hg] Keyonna Lowe Susan Work Phone: [facility] Work Phone: 03-29-2022 08:07-0400 Heart rate 64 /min Keyonna Lowe [place] Work Phone: [facility] Work Phone: 03-29-2022 08:07-0400 Systolic blood pressure 108 mm[Hg] Keyonna Lowe Susan Work Phone: [facility] Work Phone: 03-02-2022 07:38-0400 Body height 165.1 cm Keyonna Lowe Susan Work Phone: [facility] Work Phone: 03-02-2022 07:38-0400 Body mass index (BMI) [Ratio] 33.18 kg/m2 Keyonna L [place] Work Phone: [facility] Work Phone: 03-02-2022 07:38-0400 Body surface area Derived from formula 1.98 m2 Keyonna Davis Work Phone: [facility] Work Phone: 03-02-2022 07:38-0400 Body weight 90.44 kg Keyonna Davis Work Phone: [facility] Work Phone: 03-02-2022 07:38-0400 Diastolic blood pressure 80 mm[Hg] Keyonna Davis Work Phone: [facility] Work Phone: 03-02-2022 07:38-0400 Heart rate 72 /min Keyonna Davis Work Phone: [facility] Work Phone: 03-02-2022 07:38-0400 Systolic blood pressure 118 mm[Hg] Keyonna Davis Work Phone: [facility] Work Phone: 09-20-2021 16:00-0500 Body height 162 [address] [facility] 09-20-2021 16:00-0500 Body temperature 97.16 [degF] Text Entry [facility] 09-20-2021 16:00-0500 Diastolic blood pressure 67 mm[Hg] Text Entry [facility] 09-20-2021 16:00-0500 Heart rate 88 /min Text Entry [facility] 09-20-2021 16:00-0500 SaO2% (BldA) [Mass fraction] 98 % Text Entry [facility] 09-20-2021 16:00-0500 Systolic blood pressure 115 mm[Hg] Text Entry [facility] Encounters Encounter Date Encounter Type Care Provider Facility Start: 05-02-2025 End: 05-02-[address] Braydon Adame MD -[facility] Work Phone: Start: 05-02-2025 End: 05-02-2025 ambulatory No Primary Care Physician [facility] Work Phone: Start: 04-18-2025 End: 04-18-[address] Braydon Adame MD -[facility] Work Phone: Start: 04-18-2025 End: 04-18-2025 ambulatory No Primary Care Physician [facility] Work Phone: Start: 03-28-2025 End: 03-28-2025 ambulatory [facility] Start: 01-03-2025 End: 01-03-[address] Eleanor Zimmerman DO -[facility] Work Phone: Start: 01-03-2025 End: 01-03-2025 ambulatory No Primary Care Physician [facility] Work Phone: Start: 01-03-2025 End: 01-03-2025 ambulatory Eleanor Zimmerman Facility:[facility] Start: 12-07-2024 End: 12-07-2024 Letter encounter Stalin BEAN-D[place] Work Phone: [facility] Start: 09-20-2024 End: 09-20-2024 ambulatory [facility] Start: 09-20-2024 End: 09-20-2024 Office outpatient visit 15 minutes [place] Estelita PA-C Work Phone: [facility] Comment on above: Depressive disorder (Primary Dx); Anxiety Start: 09-01-2024 End: 09-01-2024 Letter encounter Stalin BEAN-C Work Phone: [facility] Start: 08-29-2024 End: 08-29-2024 ambulatory No Primary Care Physician Facility[place] Start: 08-06-2024 End: 08-06-2024 Online digital e/m svc est pt <7 d 11-20 minutes Natasha John ROCKET ENGINE COMPONENT MECHANIC-REAL ESTATE ASSESSOR Work Phone: [facility] Comment on above: Acute non-recurrent sinusitis, unspecified location (Primary Dx) Start: 08-06-2024 End: 08-06-2024 ambulatory [facility] Ambulatory Start: 07-19-2024 End: 07-19-2024 ambulatory Pallavi Cavanaugh Facility:[facility] Start: 07-09-2024 ambulatory Janes Yun NP Facil ity:[facility] Start: 06-27-2024 End: 06-27-2024 ambulatory No Primary Care Physician Facility:[facility] Start: 05-27-2024 End: 05-27-2024 ambulatory AUBREY ROMERO [facility] Start: 05-27-2024 End: 05-27-2024 Office outpatient visit 15 minutes Aubrey Stentz PA-C Work Phone: [facility] Comment on above: Flank pain as manife station of blood transfusion reaction (Primary Dx); Acute cystitis without hematuria; Abnormal urinalysis Start: 02-01-2024 End: 02-01-2024 Patient encounter procedure KEYONNA DAVIS [facility] Work Phone: Start: 02-01-2024 End: 02-01-2024 ambulatory [facility] Work Phone: Start: 02-01-2024 End: 02-01-2024 Patient encounter procedure [facility]Laboratory, Specimen Work Phone: Start: 02-01-2024 End: 02-01-2024 Patient encounter procedure KEYONNA DAVIS [facility] Work Phone: Start: 12-25-2023 End: 12-25-2023 Office outpatient visit 15 minutes Aubrey Stentz PA-C Work Phone: [facility] Comment on above: Depression, controll ed (Primary Dx); Rhinosinusitis Start: 12-19-2023 Non-patient / Non-visit KEYONNA DAVIS [facility] Start: 12-18-2023 Non-patient / Non-visit KEYONNA [facility] Start: 12-18-2023 End: 12-19-2023 Evaluation and management of inpatient KEYONNA BARCENASD [facility] Work Phone: Start: 12-14-2023 End: 12-14-2023 Patient encounter procedure KEYONNA DAVIS [facility] Work Phone: Start: 12-11-2023 End: 12-11-2023 Patient encounter procedure KEYONNA DAVIS [facility] Work Phone: Start: 12-04-2023 End: 12-04-2023 Patient encounter procedure KEYONNA DAVIS [facility] Work Phone: Start: 12-01-2023 Non-patient / Non-visit KEYONNA DAVIS [facility] Start: 11-29-2023 End: 11-30-2023 ambulatory KEYONNA [facility] Work Phone: Start: 11-29-2023 End: 11-30-2023 Patient encounter procedure KEYONNA [facility] Work Phone: Start: 11-27-2023 End: 11-27-2023 Patient encounter procedure KEYONNA [facility]Labor[facility], Specimen Work Phone: Start: 11-27-2023 End: 11-27-2023 Patient encounter procedure KEYONNA DAVIS [facility] Work Phone: Start: 11-20-2023 End: 11-20-2023 ambulatory KEYONNA [facility] Work Phone: Start: 11-20-2023 End: 11-20-2023 Patient encounter procedure KEYONNA [facility], [facility] Work Phone: Start: 11-13-2023 End: 11-13-2023 Patient encounter procedure KEYONNA DAVIS [facility] Work Phone: Start: 10-31-2023 End: 10-31-2023 Patient encounter procedure KEYONNA DAVIS [facility] Work Phone: Start: 10-16-2023 End: 10-16-2023 Patient encounter procedure KEYONNA DAVIS [facility] Work Phone: Start: 10-11-2023 End: 10-11-[address] [facility] Work Phone: Start: 10-11-2023 End: 10-11-2023 Patient encounter procedure KEYONNA DAVIS [facility] Work Phone: Start: 10-06-2023 End: 10-06-2023 ambulatory KEYONNA DAVIS [facility] Start: 10-02-2023 End: 10-02-2023 ambulatory KEYONNA [facility] Work Phone: Start: 10-02-2023 End: 10-02-2023 Patient encounter procedure KEYONNA DAVIS [facility] Work Phone: Start: 09-25-2023 End: 09-25-2023 Office outpatient visit 15 minutes Keyonna Davis ROCKET ENGINE COMPONENT MECHANIC-REAL ESTATE ASSESSOR Work Phone: [facility] Comment on above: Acute mucoid otitis media of right ear (Primary Dx) Start: 09-01-2023 End: 09-01-2023 Patient encounter procedure KEYONNA DAVIS [facility] Work Phone: Start: 08-17-2023 End: 08-17-2023 ambulatory ALBER HARRIS [facility] Start: 08-04-2023 End: 08-04-2023 ambulatory MD [facility] Start: 08-04-2023 End: 08-04-2023 Patient encounter procedure KEYONNA DAVIS [facility] Work Phone: Start: 07-07-2023 End: 07-07-2023 ambulatory KEYONNA [facility] Work Phone: Start: 07-07-2023 End: 07-07-2023 Patient encounter procedure KEYONNA SUSAN [facility] Specimen Work Phone: Start: 07-07-2023 End: 07-07-2023 Patient encounter procedure KEYONNA DAVIS [facility] Work Phone: Start: 06-14-2023 End: 06-14-2023 Patient encounter procedure KEYONNA DAVIS [facility] Work Phone: Start: 06-13-2023 End: 06-13-2023 ambulatory KEYONNA Lowe [facility] Start: 06-13-2023 End: 06-13-2023 Office outpatient visit 15 minutes Keyonna Davis ROCKET ENGINE COMPONENT MECHANIC-REAL ESTATE ASSESSOR Work Phone: [facility] Comment on above: Acute cystitis witho ut hematuria (Primary Dx); Proteinuria, unspecified type; Depression, controlled Start: 06-03-2023 End: 06-03-2023 ambulatory KEOYNNA Lowe [facility] Start: 06-03-2023 End: 06-03-2023 Office outpatient visit 25 minutes Julio Moore MD Work Phone: [facility] Comment on above: Dysuria (Primary Dx) ; Acute vaginitis Start: 06-02-2023 End: 06-02-2023 ambulatory [facility] Work Phone: Start: 06-02-2023 End: 06-02-2023 Patient encounter procedure KEYONNA [facility] Work Phone: Start: 05-30-2023 End: 05-30-2023 ambulatory [facility] Work Phone: Start: 05-30-2023 End: 05-30-2023 Patient encounter procedure KEYONNA [facility], OP Pavilion Start: 05-15-2023 End: 05-15-2023 ambulatory [facility] Work Phone: Start: 05-15-2023 End: 05-15-2023 Patient encounter procedure KEYONNA DAVIS [facility] Spec[facility] Work Phone: Start: 05-15-2023 End: 05-15-2023 Patient encounter procedure KEYONNA DAVIS [facility] Work Phone: Start: 05-03-2023 End: 05-03-[address] [facility] Work Phone: Start: 05-03-2023 End: 05-03-[address] [facility] Ultrasound Work Phone: Start: 04-15-2023 End: 04-15-[address] [facility] Work Phone: Start: 04-15-2023 End: 04-15-[address] [facility] Start: 04-13-2023 End: 04-13-[address] [facility] Start: 03-09-2023 End: 03-09-2023 Office outpatient visit 15 minutes Keyonna Davis ROCKET ENGINE COMPONENT MECHANIC-REAL ESTATE ASSESSOR Work Phone: [facility] Comment on above: Rhinosinusitis (Prim magy Dx) Start: 02-16-20[address] Keyonna albright [place] Facility:[id number] Start: 01-09-2023 AUDIT Keyonna Davis Work Phone: [facility] Work Phone: Start: 01-09-2023 End: 01-09-2023 Office outpatient visit 15 minutes Keyonna Davis ROCKET ENGINE COMPONENT MECHANIC-REAL ESTATE ASSESSOR Work Phone: [facility] Comment on above: Other acute recurren t sinusitis (Primary Dx); Non-seasonal allergic rhinitis, unspecified trigger; Recurrent acute allergic otitis media of both ears Start: 12-15-2022 Chart Update Keyonna Davis Work Phone: [facility] Work Phone: Start: 12-14-2022 Office outpatient vi sit 15 minutes Keyonna Davis Work Phone: [facility] Work Phone: Start: 12-14-2022 [address] Mrs. Keyonna albright [place] Facility:[id number] Start: 12-03-2022 Letter encounter Stalinaustin morillo PA-C Work Phone: [facility] Start: 09-14-2022 Office outpatient vi sit 15 minutes Keyonna Barcenasd Work Phone: [facility] Work Phone: Start: 09-14-2022 [address] Mrs[address] Keyonna albright [place] Facility:[id number] Start: 07-20-2022 ambulatory Mrs. Keyonna albright [place] Facility:[id number] Start: 07-04-2022 ambulatory Mrs. Keyonna albright [place] Facility:[id number] Start: 06-29-2022 Office outpatient vi sit 15 minutes Keyonna Barcenasd Work Phone: [facility] Work Phone: Start: 06-29-2022 ambulatory Mrs. Keyonna albright [place] Facility:[id number] Start: 06-14-2022 AUDIT Keyonna Barcenasd Work Phone: [facility] Work Phone: Start: 05-23-2022 Chart Update Keyonna Davis [facility] Work Phone: Start: 05-11-2022 Periodic preventive med est patient 18-39 yrs Keyonna Barcenasd Work Phone: [facility] [address] Work Phone: Start: 05-11-2022 ambulatory MD BEVERLY ASTUDILLO Facility:[facility] Start: 04-12-2022 AUDIT Keyonna Barcenasd [facility] [address] Work Phone: Start: 03-30-2022 amb[address] Mrs. Keyonna albright [place] Facility:[id number] Start: 03-30-2022 Chart Update Keyonna Davis Work Phone: [facility] Work Phone: Start: 03-29-2022 ambulatory Mrs. Keyonna Davis Facility:[id number] Start: 03-03-2022 Chart Update Keyonna Davis Work Phone: [facility] Work Phone: Start: 03-02-2022 Current tobacco non- user cad cap copd pv dm Keyonna Davis Work Phone: [facility] Work Phone: Start: 03-02-2022 ambulatory Mrs. Keyonna Davis Facility:[id number] Start: 11-04-2021 End: 11-05-2021 ambulatory STALIN ISABEL Facility:[facility] Start: 09-20-2021 End: 09-20-2021 Emergency department patient visit [facility] Start: 03-18-2021 End: 03-18-2021 ambulatory UNKNOWN PROVIDER Facility:[facility] Start: End: Patient encounter status Keyonna Davis Work Phone: [facility] Work Phone: Patient encounter procedure Keyonna Davis Work Phone: [facility] Work Phone: Procedures Date Procedure Procedure Detail Performing Clinician Start: 05-27-2024 Urnls dip stick/tabl et rgnt auto w/o microscopy Aubrey Stentleslie PA-C Work Phone: Start: 11-27-2023 Group B Streptococcu s Culture KEYONNA BARCENASD Start: 11-20-2023 Ultrasound scan for growth KEYONNA BARCENASD Start: 10-06-2023 SARS-COV-2 AND INFLU FREDI A/B PCR AUBREY STENTZ Start: 07-07-2023 Cytopathology proced ure, preparation of smear, genital source KEYONNA BARCENASD Start: 07-07-2023 Investigation of tra nsfusion reaction KEYONNA BARCENASD Start: 07-07-2023 Urine culture KEYONNA Valencia Start: 06-13-2023 Bacteria identified in Urine by Culture AUBREY STENTZ Start: 06-13-2023 Comprehensive metabo lic 2000 panel - Serum or Plasma AUBREY STENTZ Start: 06-13-2023 URINALYSIS MICROSCOPIC ONLY AUBREY STENTZ Start: 06-13-2023 URINALYSIS WITH REFL EX MICROSCOPIC AUBREY STENTZ Start: 06-05-2023 Bacteria identified in Urine by Culture AUBREY STENTZ Start: 06-03-2023 TRICH VAGINALIS, AMPLIFIED AUBREY STENTZ Start: 06-03-2023 URINALYSIS MICROSCOPIC ONLY AUBREY STENTZ Start: 06-03-2023 URINALYSIS WITH REFL EX MICROSCOPIC AUBREY STENTZ Start: 05-15-2023 Urine culture KEYONNA BARCENAS Erik Start: 05-03-2023 Transvaginal obstetr ic ultrasonography Start: 04-13-2023 Transvaginal obstetr ic ultrasonography Start: 05-11-2022 Microscopic observat ion [Identifier] in Cervix by Cyto stain Keyonna Susan ROCKET ENGINE COMPONENT MECHANIC-REAL ESTATE ASSESSOR Work Phone: Start: 03-03-2022 Lipid 1996 panel - S amanda or Plasma Keyonna Susan ROCKET ENGINE COMPONENT MECHANIC-REAL ESTATE ASSESSOR Work Phone: Start: 03-18-2021 Microscopic observat ion [Identifier] in Cervix by Cyto stain Stalin Isabel PA-C Work Phone: Operation on uterus Keyonna Lowe [place] Work Phone: Plan of Treatment Date Care Activity Detail Author Start: 2045 Shingles (RZV) Vacci ne (1 of 2) Shingles (RZV) Vaccine (1 of 2) [facility] Start: 2045 Zoster Vaccines (1 of 2) Zoste r Vaccines (1 of 2) [facility] Start: 10-02-2033 DTaP/Tdap/Td Vaccine s (9 - Td or Tdap) DTaP/Tdap/Td Vaccines (9 - Td or Tdap) [facility] Start: 10-02-2033 Tetanus vaccination Tetanus (T d or Tdap) Booster [facility] Start: 07-19-2029 DTaP/Tdap/Td Vaccine s (8 - Td or Tdap) DTaP/Tdap/Td Vaccines (8 - Td or Tdap) [facility] Start: 07-19-2029 DTaP/Tdap/Td Vaccine s (9 - Td or Tdap) DTaP/Tdap/Td Vaccines (9 - Td or Tdap) [facility] Start: 07-19-2029 Tetanus vaccination Tetanus (T d or Tdap) Booster [facility] Start: 03-03-2027 Lipid panel Lipid Panel [facility] Start: 05-11-2025 Screening for malign ant neoplasm of cervix [facility] Start: 03-28-2025 End: 03-28-2025 Patient encounter procedure 03/28/2025 7:30 AM EDT Office Visit [facility] [address] [place] [id number] Aubrey Romero PA-C [address] [facility] [place] [facility] [place] [address] [place] [id number] [facility] Start: 12-23-2024 End: 12-23-2024 Patient encounter procedure 12/23/2024 9:30 AM EST Office Visit [facility] [address] [place] [id number] Aubrey Romero PA-C [address] [facility] [place] [facility] [place] [address] [place] [address] [facility] Start: 07-07-2024 COVID-19 Vaccine ( season) COVID-19 Vaccine ( season) [facility] Start: 07-07-2024 COVID-19 Vaccine ( season) COVID-19 Vaccine ( season) [facility] Start: 07-07-2024 Influenza vaccination Influenza Vacc ine (#1) [facility] Start: 05-27-2024 End: 06-03-2024 Bacteria identified in Urine by Culture Urine Culture Microbiology Routine Flank pain as manifestation of blood transfusion reaction Expected: 05/27/2024 (Approximate), Expires: 06/03/2024 [facility] Work Phone: Comment on above: Expected: 05/27/2024 (Approximate), Expires: 06/03/2024 Start: 05-27-2024 End: 05-27-2025 Basic metabolic 2000 panel - Serum or Plasma Basic metabolic panel Lab Routine Flank pain as manifestation of blood transfusion reaction Expected: 05/27/2024 (Approximate), Expires: 05/27/2025 [facility] Work Phone: Comment on above: Expected: 05/27/2024 (Approximate), Expires: 05/27/2025 Start: 05-27-2024 End: 05-27-2025 CBC panel - Blood by Automated count CBC Lab Routine Flank pain as manifestation of blood transfusion reaction Expected: 05/27/2024 (Approximate), Expires: 05/27/2025 [facility] Service Area Work Phone: Comment on above: Expected: 05/27/2024 (Approximate), Expires: 05/27/2025 Start: 03-18-2024 Screening for malign ant neoplasm of cervix [facility] Start: 12-25-2023 End: 12-25-2023 Patient encounter procedure 12/25/2023 9:30 AM EST Office Visit [facility] [address] [place] [id number] Keyonna Davis, ROCKET ENGINE COMPONENT MECHANIC-REAL ESTATE ASSESSOR [address] [facility] [place] [facility] [place] [address] [place] [phone] [facility] Start: 12-19-2023 [facility] Start: 12-18-[address] [facility] Start: 12-18-2023 Application of ice collar, cap or bag [facility] Start: 12-18-[address] [facility] Start: 12-18-2023 Introduction of urin magy catheter [facility] Start: 12-18-2023 Me[address]uring intake and output [facility] Start: 12-18-[address] [facility] Start: 12-18-[address] [facility] Start: 12-18-2023 Provision of activit y privileges [facility] Start: 12-18-[address] [facility] Start: 12-18-2023 [facility] Start: 12-18-2023 Admission procedure [facility] Start: 12-18-2023 Consultation [facility] Start: 11-29-[address] [facility] Start: 11-29-2023 Obstetric monitoring [facility] Start: 11-29-[address] [facility] Start: 11-29-2023 [facility] Start: 11-29-2023 Patient discharge [facility] Start: 11-27-2023 Streptococcus agalac tiae [Presence] in Unspecified specimen by Organism specific culture [facility] Start: 11-27-2023 Group B Streptococcu s Culture Group B Streptococcus Culture [facility] Start: 07-07-2023 COVID-19 Vaccine ( season) COVID-19 Vaccine () [facility] Start: 07-07-2023 Influenza vaccination Influenza Vacc ine (#1) [facility] Start: 06-13-2023 End: 06-13-2024 Comprehensive metabolic 2000 panel - Serum or Plasma Comprehensive Metabolic Panel Lab Routine Acute cystitis without hematuria Proteinuria, unspecified type Depression, controlled Expected: 06/13/2023 (Approximate), Expires: 06/13/2024 [facility] Work Phone: Comment on above: Expected: 06/13/2023 (Approximate), Expires: 06/13/2024 Start: 06-13-2023 End: 06-13-2024 Urinalysis complete panel - Urine Urinalysis with Reflex Microscopic Lab Routine Acute cystitis without hematuria Proteinuria, unspecified type Expected: 06/13/2023 (Approximate), Expires: 06/13/2024 [facility] Service Area Work Phone: Comment on above: Expected: 06/13/2023 (Approximate), Expires: 06/13/2024 Start: 06-13-2023 FUV, Provider: Keyonna Davis, Status: Pen, Time: 8:15 AM FUV, Provider: Keyonna Davis, Status: Pen, Time: 8:15 AM [facility] Work Phone: Start: 06-13-2023 End: 06-13-2023 Patient encounter procedure [facility] Start: 06-03-2023 End: 06-03-2024 Chlamydia trachomatis and Neisseria gonorrhoeae DNA [Identifier] in Unspecified specimen by DEBORAH with probe detection C. Trachomatis / N. Gonorrhoeae, Amplified Detection Lab Routine Dysuria Acute vaginitis Expected: 06/03/2023 (Approximate), Expires: 06/03/2024 [facility] Service Area Work Phone: Comment on above: Expected: 06/03/2023 (Approximate), Expires: 06/03/2024 Start: 06-03-2023 End: 06-03-2024 Trichomonas vaginalis rRNA [Presence] in Unspecified specimen by DEBORAH with probe detection TRICH VAGINALIS, AMPLIFIED Lab Routine Dysuria Expected: 06/03/2023 (Approximate), Expires: 06/03/2024 [facility] Work Phone: Comment on above: Expected: 06/03/2023 (Approximate), Expires: 06/03/2024 Start: 06-03-2023 End: 06-03-2024 Urinalysis complete panel - Urine Urinalysis with Reflex Microscopic Lab Routine Dysuria Expected: 06/03/2023 (Approximate), Expires: 06/03/2024 [facility] Work Phone: Comment on above: Expected: 06/03/2023 (Approximate), Expires: 06/03/2024 Start: 03-08-2023 FUV, Provider: Keyonna Davis, Status: Pen, Time: 8:15 AM FUV, Provider: Keyonna Davis, Status: Pen, Time: 8:15 AM [facility] Work Phone: Start: 03-03-2023 Diabetes mellitus screening Diabetes Screening [facility] Start: 12-14-2022 FUV, Provider: Keyonna Davis, Status: Pen, Time: 8:45 AM FUV, Provider: Keyonna Davis, Status: Pen, Time: 8:45 AM [facility] Work Phone: Start: 08-06-2022 Influenza vaccination Influenza Vacc ine (#1) [facility] Start: 2022 HPV Vaccine (optiona l start 27-45 years) HPV Vaccine (optional start 27-45 years) [facility] Start: 04-20-2022 NPV, Provider: Beverly Astudillo, Status: Pen, Time: 1:15 PM NPV, Provider: Beverly Astudillo, Status: Pen, Time: 1:[address] Work Phone: Start: 04-13-2022 NPV, Provider: Rafael Myers, Status: Pen, Time: 1:45 PM NPV, Provider: Rafael Myers, Status: Pen, Time: 1:45 PM [facility] Work Phone: Start: 03-30-2022 NPV, Provider: Rafael Myers, Status: Pen, Time: 1:30 PM NPV, Provider: Rafael Myers, Status: Pen, Time: 1:30 PM [facility] Work Phone: Start: 10-22-2021 COVID-19 Vaccine (3 - Booster for Moderna series) COVID-19 Vaccine (3 - Booster for Moderna series) [facility] Start: 10-22-2021 COVID-19 Vaccine (3 - Moderna series) COVID-19 Vaccine (3 - Moderna series) [facility] Start: 2016 Screening for malign ant neoplasm of cervix [facility] Start: 2014 Hepatitis A (HAV) Va ccine (optional start 19+ years) Hepatitis A (HAV) Vaccine (optional start 19+ years) [facility] Start: 2013 [facility] C [facility] Start: 07-16-1999 Varicella vaccination Varicell a Vaccines (2 of 2 - 2-dose childhood series) [facility] Start: 1995 Annual Wellness Visi t (AWV) Annual Wellness Visit (AWV) [facility] Start: 1995 HIV screening HIV Screening [facility] Start: 1995 Yearly Adult Physical Yearly Adult P hysical [facility] Beta-hemolytic Streptococcus culture [facility] CBC W Auto Different ial panel - Blood [facility] Glucose [Mass/volume ] in Serum or Plasma --1 hour post [address] [facility] Hepatitis B surface antigen measurement [facility] Hepatitis C antibody measurement [facility] HIV 1+2 Ab+HIV1 p24 Ag [Presence] in Serum or Plasma by Immunoassay [facility] Patient Education Kick Counts ED False Labor OB Triage: Return to Hospital or Notify Physician if you Experience: [facility] Work Phone: Patient referral [facility] Work Phone: Rubella IgG measurement [facility] Treponema sp Ab [Presence] in Serum [facility] Ultrasound scan - obstetric [facility] Ultrasound scan for growth [facility] Immunizations Immunization Date Immunization Notes Care Provider Leonora john 08-22-2024 influenza, seasonal, injectable, preservative free No Primary Care Physician [facility] 10-02-2023 influenza, injectabl e, quadrivalent, preservative free KEYONNA DAVIS [facility] 10-02-2023 tetanus toxoid, redu marianna diphtheria toxoid, and acellular pertussis vaccine, adsorbed KEYONNA DAVIS [facility] 10-02-2023 influenza virus vaccine, unspecified formulation Natasha John ROCKET ENGINE COMPONENT MECHANIC-REAL ESTATE ASSESSOR Work Phone: [facility] Work Phone: 08-29-2022 influenza, injectabl e, quadrivalent, contains preservative Keyonna Davis APRN-REAL ESTATE ASSESSOR Work Phone: [facility] Work Phone: 08-29-2022 influenza, injectabl e, quadrivalent, preservative free Keyonna Davis Work Phone: [facility] Work Phone: Comment on above: Series: 08-29-2022 influenza, seasonal, injectable Keyonna L [place] Work Phone: [facility] Work Phone: Comment on above: Series: 08-29-2022 influenza virus vaccine, unspecified formulation Julio Moore MD Work Phone: [facility] Work Phone: 08-27-2021 Moderna COVID-19 Vaccine 100 MCG/0.5ML Intramuscular Suspension Keyonna L [place] Work Phone: [facility] Work Phone: 07-24-2021 Moderna COVID-19 Vaccine 100 MCG/0.5ML Intramuscular Suspension Keyonna L [place] Work Phone: [facility] Work Phone: 07-19-2019 influenza, injectabl e, quadrivalent, preservative free Keyonna L [place] Work Phone: [facility] Work Phone: 07-19-2019 tetanus toxoid, redu marianna diphtheria toxoid, and acellular pertussis vaccine, adsorbed Keyonna L [place] Work Phone: [facility] Work Phone: 07-19-2019 influenza virus vaccine, unspecified formulation Stalin Isabel PA-C Work Phone: [facility] 05-22-2017 tetanus toxoid, redu marianna diphtheria toxoid, and acellular pertussis vaccine, adsorbed Stalin BEAN-C Work Phone: [facility] Work Phone: 04-28-2017 hepatitis B vaccine, adult dosage Keyonna L [place] Work Phone: [facility] 12-23-2016 tetanus toxoid, redu marianna diphtheria toxoid, and acellular pertussis vaccine, adsorbed Keyonna L [place] Work Phone: [facility] 10-19-2016 hepatitis B vaccine, unspecified formulation Keyonna Davis Work Phone: [facility] Work Phone: 08-24-2016 meningococcal polysaccharide (groups A, C, Y and W-135) diphtheria toxoid conjugate vaccine (MCV4P) Keyonna Davis Work Phone: [facility] Work Phone: 08-18-2016 influenza virus vaccine, unspecified formulation Keyonna Davis Work Phone: [facility] Work Phone: 12-02-2014 tuberculin skin test ; purified protein derivative solution, intradermal Stalin Isabel PA-C Work Phone: [facility] 06-18-1999 diphtheria, tetanus toxoids and acellular pertussis vaccine, unspecified formulation Keyonna Davis Work Phone: [facility] 06-18-1999 measles, mumps and rubella virus vaccine Keyonna Barcenasd Work Phone: [facility] Work Phone: 08-06-1997 diphtheria, tetanus toxoids and acellular pertussis vaccine, unspecified formulation Keyonna Davis Work Phone: [facility] Work Phone: 12-11-1996 diphtheria, tetanus toxoids and acellular pertussis vaccine, unspecified formulation Keyonna Davis Work Phone: [facility] Work Phone: 12-11-1996 hepatitis B vaccine, unspecified formulation Keyonna Barcenasd Work Phone: [facility] Work Phone: 12-11-1996 measles, mumps and rubella virus vaccine Keyonna Barcenasd Work Phone: [facility] Work Phone: 12-11-1996 poliovirus vaccine, inactivated Keyonna L [place] Work Phone: [facility] Work Phone: 12-11-1996 varicella virus vaccine Hilary Lowe [place] Work Phone: [facility] Work Phone: 02-28-1996 hepatitis B vaccine, pediatric or pediatric/adolescent dosage Keyonna L [place] Work Phone: [facility] Work Phone: 02-28-1996 hepatitis B vaccine, unspecified formulation Stalin BEAN-C Work Phone: [facility] 02-28-1996 trivalent poliovirus vaccine, live, oral Keyonna Barcenasd Work Phone: [facility] Work Phone: 1995 diphtheria, tetanus toxoids and acellular pertussis vaccine, unspecified formulation Keyonna L [place] Work Phone: [facility] Work Phone: 1995 haemophilus influenz ae type b vaccine, PRP-T conjugate Keyonna L [place] Work Phone: [facility] Work Phone: 1995 poliovirus vaccine, inactivated Stalin BEAN-C Work Phone: [facility] 1995 trivalent poliovirus vaccine, live, oral Keyonna Barcenasd Work Phone: [facility] Work Phone: 1995 diphtheria, tetanus toxoids and acellular pertussis vaccine, unspecified formulation Keyonna L [place] Work Phone: [facility] Work Phone: 1995 haemophilus influenz ae type b vaccine, PRP-T conjugate Keyonna L [place] Work Phone: [facility] Work Phone: 1995 hepatitis B vaccine, pediatric or pediatric/adolescent dosage Keyonna Davis Work Phone: [facility] Work Phone: 1995 poliovirus vaccine, inactivated Stalin Isabel PA-C Work Phone: [facility] 1995 trivalent poliovirus vaccine, live, oral Keyonna Davis Work Phone: [facility] Work Phone: 1995 hepatitis B vaccine, unspecified formulation Keyonna Davis Work Phone: [facility] Work Phone: Payers Date Payer Category Payer Unknown [id number] 2024 Self-pay 2022 Unknown 2021 Commercial Managed C are - HMO [employer] - PPO/POS [id number] 2021 Managed Care (Private) [facility] PL[facility] [id number] 2021 Private Health Insurance [id number] 2021 Private Health Insurance [id number] 2021 Unknown [id number] 1995 Unknown [id number] 2.840.1.160225.3.579.2. 732 1995 Unknown [id number] 2.840.1.010419.3.579.2. 732 1995 Unknown [id number] 2.840.1.043194.3.579.2. 356 1995 Unknown [id number] 2.840.1.121061.3.579.2. 356 1995 Unknown [id number] 2.840.1.096960.3.579.2. 356 1995 Unknown [id number] 2.840.1.802212.3.579.2. 356 1995 Unknown [id number] 2.840.1.701916.3.579.2. 356 1995 Unknown [id number] 2.840.1.791320.3.579.2. 356 1995 Unknown [id number] 2.840.1.653645.3.579.2. 356 1995 Unknown [id number] 2.16840.1.993436.3.579.2. 356 1995 Unknown [id number] 2.16840.1.129201.3.579.2. 356 1995 Unknown [id number] 2.16840.1.771571.3.579.2. 356 1995 Unknown [id number] 2.16840.1.566644.3.579.2. 1069 1995 Unknown [id number] 2.16840.1.429327.3.579.2. 479 1995 Unknown [id number] 2.840.1.600136.3.579.2. 479 1995 Unknown [id number] 2.840.1.925433.3.579.2. 124 1995 Unknown [id number] 2.840.1.596399.3.579.2. 124 1995 Unknown [id number] 2.840.1.877034.3.579.2. 124 1995 Unknown [id number] 2.840.1.790321.3.579.2. 1244 1995 Unknown [id number] 2.840.1.355596.3.579.2. 1243 1995 Unknown [id number] 2.840.1.772484.3.579.2. 124 1995 Unknown [id number] 2.840.1.989816.3.579.2. 1243 1995 Unknown [id number] 2.840.1.733269.3.579.2. 1244 Unknown [id number] 2840.1.554906.3.579.2. 462 Unknown [id number] 2840.1.078131.3.579.2. 462 Unknown [id number] 2840.1.837943.3.579.2. 462 Unknown [id number] 2840.1.011673.3.579.2. 462 Unknown [id number] 2840.1.214078.3.579.2. 462 Unknown [id number] 2840.1.499401.3.579.2. 462 Unknown [id number] 2840.1.882974.3.579.2. 462 Unknown [id number] 2.16.840.1.632520.3.579.2. 462 Social History Date Type Detail Facility [facility] Start: 05-15-2023 End: 02-01-2024 Tobacco smoking consumption unknown [facility] Start: 11-03-2021 End: 01-09-2023 Does not have living will Does not have living will [facility] Start: 12-23-2016 End: 01-09-2023 Tobacco smoking status [...] 1995 Sex Assigned At Female [facility] Start: 11-03-2021 End: 01-09-2023 Tobacco use panel [facility] Start: 1995 Sex Assigned At Not on file [facility] Work Phone: Start: 08-16-2019 Gender identity Identifies as female gender (finding) [facility] Start: 12-30-2022 End: 09-20-2024 Exposure to SARS-CoV-2 (event) Not sure [facility] Start: 06-13-2023 End: 05-27-2024 Alcohol intake Ex-drinker (finding) [facility] Work Phone: Start: 07-27-2024 End: 08-06-2024 Exposure to SARS-CoV-2 (event) Unable to assess [facility] Within the last year , have you been afraid of your partner or ex-partner? No [facility] How often do you att end meetings of the clubs or organizations you belong to? Patient declined [facility] Are you now , , , , never or living with a partner? [facility] How hard is it for y ou to pay for the very basics like food, housing, medical care, and heating Not very hard [facility] Do you feel stress - tense, restless, nervous, or anxious, or unable to sleep at night because your mind is troubled all the time - these days [OSQ] Only a little [facility] Start: 08-29-2024 Tobacco smoking status NHIS Ex-smoker (finding) [facility] Start: 09-09-2012 End: 01-16-2025 Sex Female (finding) [facility] Start: 11-03-2021 Details of drug misuse behavior Does not misuse drugs (situation) [facility] Start: 11-03-2021 History of sexual behavior Sexually active [facility] Goals Date Patient Goal Desired Activity /State Functional Status Date Assessment Result Facility 10-10-2019 Are you deaf, or do you have serious difficulty hearing No 10/10/2019 8:05 PM Nicky Adkins RN No [facility] 10-10-2019 Are you blind, or do you have serious difficulty seeing, even when wearing glasses No 10/10/2019 8:05 PM Nicky Adkins, MASOOD No [facility] 10-10-2019 Do you have serious difficulty walking or climbing stairs No 10/10/2019 8:05 PM Nicky Adkins, MAS[place] No [facility] 10-10-2019 Do you have difficul ty dressing or bathing No 10/10/2019 8:05 PM Nicky Adkins, MAS[place] No [facility] 10-10-2019 Because of a physica l, mental, or emotional condition, do you have difficulty doing errands alone such as visiting a physician's office or shopping No 10/10/2019 8:05 PM [facility]kins[facility] 05-11-2022 to 01-03-2025 Note Date & Type Note Facility 01-03-2025 Evaluation note Diagnosis Onset Date Resolution Encounter for counseling regarding contraception acute January 03, 2025 2:02pm Weight gain acute December 2:02pm [facility] Work Phone: 1(951) 603-287802-28-2025 Evaluation note* Diagnosis Onset Date Resolution Status Admit Date Encounter for counseling regarding contraception acute January 03, 2025 2:02pm Weight gain acute December 2:02pm Intradermal nevus of face acute April 18, 2025 10:42am [facility] Work Phone: 1(737) 927-371611-15-2024 History of Present illness Narrative* Aubrey Romero PA-C - 09/20/2024 7:30 AM EST Subjective Patient ID: Cristina Smiley is a 29 y.o. female who presents for pt here for med check (Pt would like to discuss decreasing med ). HPI ANXIETY/DEPRESSION: Current regimen is 75mg, was using mainly for post depression, doing well, would like to decrease. No other issues. Review of Systems Constitutional: Negative. Respiratory: Negative. Cardiovascular: Negative. Gastrointestinal: Negative. Objective BP 122/78 Pulse 93 Wt 88 kg (194 lb) SpO2 98% BMI 32.28 kg/m Physical Exam Constitutional: General: She is not in acute distress. Appearance: Normal appearance. She is not ill-appearing. HENT: Head: Normocephalic and atraumatic. Eyes: Extraocular Movements: Extraocular movements intact. Conjunctiva/sclera: Conjunctivae normal. Cardiovascular: Rate and Rhythm: Normal rate. Pulmonary: Effort: Pulmonary effort is normal. Abdominal: General: There is no distension. Musculoskeletal: General: Normal range of motion. Cervical back: Normal range of motion. Skin: General: Skin is warm and dry. Neurological: General: No focal deficit present. Mental Status: She is alert and oriented to person, place, and time. Psychiatric: Mood and Affect: Mood normal. Behavior: Behavior normal. Thought Content: Thought content normal. Judgment: Judgment normal. Assessment/Plan Decrease sertraline to 50mg daily. Follow up 6 months or sooner prn. documented in this [facility] Work Phone: 1(118) 782-757810-01-2024 History of Present illness Narrative* JONATHAN Cabello - 08/06/2024 3:00 PM EDT Subjective Patient ID: Cristina Smiley is a 29 y.o. female who presents for Sinusitis (Pt is being seen today for a possible sinus infection. Reports her sx started last Monday, reports her sx are sinus pressure and ear pressure but denies pain, reports she was coughing a couple days ago but that has since stopped. Denies body aches, fever, sore throat and headache. Reports she has tried OTC meds and they have not helped. ). Here with sinus pressure, ear pressure, sinus congestion x 8-9 days. Yellow nasal congestion. No further sinus drainage, but feels like it's stuck there. Was coughing for a couple of days, but no further cough since sinus drainage stopped. Not improving. Still . born in December. Review of Systems Constitutional: Negative. HENT: Positive for congestion and sinus pressure. Negative for sore throat. Respiratory: Negative. Cardiovascular: Negative. Gastrointestinal: Negative. Skin: Negative. Psychiatric/Behavioral: Negative. Objective LMP 08/06/2024 (Exact Date) Yes Physical Exam Neurological: Mental Status: She is alert. Psychiatric: Mood and Affect: Mood normal. Thought Content: Thought content normal. Judgment: Judgment normal. Assessment/Plan Diagnoses and all orders for this visit: Acute non-recurrent sinusitis, unspecified location - azithromycin (Zithromax) 250 mg tablet; Take 2 tablets (500 mg) by mouth once daily for 1 day, THEN 1 tablet (250 mg) once daily for 4 days. Take 2 tabs (500 mg) by mouth today, than 1 daily for 4 days.. Will treat sinus infection with Zpack which has worked well in the past. Allergy to PCN. To add Flonase NS daily Follow up symptoms worsen/change/concerns documented in this [facility] Work Phone: 1(363) 529-814110-01-2024 Instructions* Patient Instructions* JONATHAN Cabello - 08/06/2024 3:00 PM EDT Follow up symptoms not resolving completely or worsens, changes, concerns documented in this [facility] Work Phone: 1(835) 664-922707-22-2024 History of Present illness Narrative* Aubrey Romero PA-C - 05/27/2024 10:00 AM EDT Subjective Patient ID: Cristina Smiley is a 28 y.o. female who presents for upper left side back pain (Ptc/o urine frequency, lower abdominal pain ). HPI L flank pain a little over a week ago, cleared after cranberry juice, now pain is back last couple of days, tenderness to palpation, feels like possible UTI as well. No fever. Review of Systems Constitutional: Negative. Respiratory: Negative. Cardiovascular: Negative. Gastrointestinal: Negative. Objective BP 112/78 Pulse 78 Temp 36.4 C (97.5 F) Ht 1.651 m (5' 5) Wt 85.3 kg (188 lb) SpO2 98% BMI 31.28 kg/m Physical Exam Constitutional: General: She is not in acute distress. Appearance: Normal appearance. She is not ill-appearing. HENT: Head: Normocephalic and atraumatic. Eyes: Extraocular Movements: Extraocular movements intact. Conjunctiva/sclera: Conjunctivae normal. Cardiovascular: Rate and Rhythm: Normal rate. Pulmonary: Effort: Pulmonary effort is normal. Abdominal: General: There is no distension. Musculoskeletal: General: Normal range of motion. Cervical back: Normal range of motion. Skin: General: Skin is warm and dry. Neurological: General: No focal deficit present. Mental Status: She is alert and oriented to person, place, and time. Psychiatric: Mood and Affect: Mood normal. Behavior: Behavior normal. Thought Content: Thought content normal. Judgment: Judgment normal. Assessment/Plan IO UA shows trace protein and rene, will send for culture. Rx meloxicam. CBC/BMP today. May order US/CT if not resolving. Follow up prn. documented in this [facility] Work Phone: 1(637) 870-459503-28-2024 NotePap Smear Specimen AdequacyMarch 2023 1:08pmComment.Satisfactory for evaluation. Endocervical and/or squamous metaplasticcells (endocervical component)are present.[facility]ACED A#[id number]. Francis HospitalComment on above:Satisfactory for evaluation. Endocervical and/or squamous metaplasticcells (endocervical component)are present.12-25-2023 History of Present illness Narrative* Aubrey Romero PA-C - 12/25/2023 9:30 AM EST Subjective Patient ID: Cristina Smiley is a 28 y.o. female who presents for 6 month [facility] . HPI Compliant with sertraline 50mg daily, was induced 1 week ago, uneventful delivery and healthy . 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 Flonase effect prn allergies. Review of Systems Constitutional: Negative. Respiratory: Negative. Cardiovascular: Negative. Gastrointestinal: Negative. Objective BP 122/72 Pulse 96 Ht 1.651 m (5' 5) Wt 88 kg (194 lb) LMP 02/15/2023 SpO2 98% BMI 32.28 kg/m Physical Exam Constitutional: General: She is not in acute distress. Appearance: Normal appearance. She is not ill-appearing. HENT: Head: Normocephalic and atraumatic. Eyes: Extraocular Movements: Extraocular movements intact. Conjunctiva/sclera: Conjunctivae normal. Cardiovascular: Rate and Rhythm: Normal rate. Pulmonary: Effort: Pulmonary effort is normal. Abdominal: General: There is no distension. Musculoskeletal: General: Normal range of motion. Cervical back: Normal range of motion. Skin: General: Skin is warm and dry. Neurological: General: No focal deficit present. Mental Status: She is alert and oriented to person, place, and time. Psychiatric: Mood and Affect: Mood normal. Behavior: Behavior normal. Thought Content: Thought content normal. Judgment: Judgment normal. Assessment/Plan Will add 25mg sertraline daily for a total of 75mg daily. She will let me know if effective. Refilled Flonase. Follow up 1 year or sooner prn. documented in this [facility] Work Phone: 1(429) 615-322302-13-2024 Progress note Author Pallavi Cavanaugh [facility] December 19, 2023 7:29am Note Date/Time December 19, 2023 7:29am [facility] Medical Records Department [address] [place] [address] Progress Note - OBGYN 12/19/23 0727 MR#: [id number] Acct: [id number] Name: CRISTINA SMILEY Rep # :[id number] : 1995 28 From: Pallavi Cavanaugh CNM PCP: Care Physician,No Primary Status :ADM IN Location: [place] [address] Subjective Subjective Patient doing well without complaints. Tolerating PO. Ambulating and voiding without difficulty. Feeding well. Denies chest pain, shortness of breath, calf pain/swelling, fevers, chills, lightheadedness. Objective Data Objective Data Vital Signs: Vital Signs Temp Pulse Resp BP Pulse Ox O2 Del Method 97.4 F L 61 16 127/66 H 100 Room Air 12/19/23 03:46 12/19/23 03:46 12/19/23 03:46 12/19/23 03:46 12/19/23 03:46 12/19/23 03:46 Oxygen Delivery Method Room Air Weight: 214 lb 1.102 oz Body Mass Index (BMI) 36.7 Intake & Output: Intake and Output for Last 24 Hours 12/17/23 12/18/23 12/19/23 23:59 23:59 23:59 Intake Total 2134.16 / 2134.16 Output Total 1050 / 1050 400 / 400 Balance 1084.16 / 1084.16 -400 / -400 Lab / Micro Data Attestation: I reviewed the patient's lab results. 12/18/23 07:55 Labs: Laboratory Results - last 24 hr 12/18/23 07:55: WBC 11.5 H, RBC 3.87 L, Hgb 10.7 L, Hct 33.7 L, MCV 87.1, MCH 27.6, MCHC 31.8 L, RDW Std Deviation 52.0 H, RDW Coeff of Aniceto 16.5 H, Plt Count 338, MPV 10.1, Immature Gran % (Auto) 0.400, Neut % (Auto) 70.2 H, Lymph % (Auto) 21.3, [place] % (Auto) 7.4, Eos % (Auto) 0.4, Baso % (Auto) 0.3, Absolute Neuts (auto) 8.1 H, Absolute Lymphs (auto) 2.45, Nucleated RBC % 0, Syphilis Total Ab Non-reactive, Blood Type O POSITIVE, Antibody Screen NEGATIVE ROS Constitutional Constitutional: Reports systems reviewed and no addt'l complaints, except as documented; Denies anorexia or headache(s) Cardiovascular Cardiovascular: Reports systems reviewed and no addt'l complaints, except as documented; Denies dizziness, dyspnea, nausea or tachypnea Respiratory/Chest Respiratory/Chest: Reports systems reviewed and no addt'l complaints, except as documented; Denies cough, dyspnea, shortness of breath at rest or tachypnea Gastrointestinal Gastrointestinal: Reports systems reviewed and no addt'l complaints, except as documented; Denies abdominal pain, constipation or nausea Genitourinary Genitourinary: Reports systems reviewed and no addt'l complaints, except as documented; Denies burning urination, difficulty urinating, dysuria, urinary frequency or urinary incontinence Musculoskeletal Musculoskeletal: Reports systems reviewed and no addt'l complaints, except as documented Integumentary Integumentary: Reports systems reviewed and no addt'l complaints, except as documented Neurologic Neurologic: Reports systems reviewed and no addt'l complaints, except as documented; Denies abnormal speech, dizziness or headache(s) Psychiatric Psychiatric: Reports systems reviewed and no addt'l complaints, except as documented Endocrine Endocrinology: Reports systems reviewed and no addt'l complaints, except as documented Hematologic/Lymphatic Hematologic/Lymphatic: Reports systems reviewed and no addt'l complaints, exceptas documented Physical Exam Const alert, oriented x3 and no apparent distress Neck full ROM Resp normal respiratory effort, normal air movement and no retractions Effort and Inspection: able to speak in complete sentences and symmetric chest movement GI soft to palpation Bladder / Kidney Exam: bladder normal to palpation Uterus Palpation: uterus fundus firm Extremity normal to inspection and full ROM Psych mental status grossly normal, thought process normal and cooperative Assessment & Plan (1) Vaginal delivery: PLAN: s/p PPD # 1 1. routine post delivery care 2. breast feeding- support given 3. rh positive 4. rubella immune 5. Discharge home Charges/Coding Multi Select Codes Urinary/Genital Urinary/Genital CPT Codes: No Charge 12/19/23 0729 <Electronically signed by Pallavi Cavanaugh CNM> Cosigner Signature (if applicable): CC: ~ Signed [facility] Work Phone: 1(312) 878-385902-12-2024 History and physical note Author Azucena Nam [facility] December 18, 2023 6:17pm Note Date/Time December 18, 2023 8:43am [facility] Medical Records Department [address] [place] [address] H&P Exam - DIGESTER 12/18/23 0841 MR#: [id number] Acct: [id number] Name: CRISTINA SMILEY Rep # :[id number] : 1995 28 From: Azucena avila MD PCP: Care Physician,No Primary Status :ADM IN Location: [place] [id number] HPI - General General Date of Admission: 12/18/23 HPI Narrative CRISTINA SMILEY, is a 28 F who presents for IOL secondary to polyhydramnios Maternal Data Information IRMA Calculator Estimated Delivery Date Method Current WG Current Estimate 12/19/23 LMP (Certain) 39w 6d PFSH PFS Medical History (Updated 12/18/23 @ 08:[address] Azucena Nam MD) Anxiety Bicornuate uterus Depression History of blood transfusion Polyhydramnios Home Medications cholecalciferol (vitamin D3) 50 mcg (2,000 unit) capsule 50 mcg PO DAILY 05/15/23 [History Last Taken 12/17/23 22:30 50 mcg] docosahexaenoic acid 200 mg capsule ( DHA) mg PO 05/15/23 [History Last Taken 12/17/23 22:30 200 mg] famotidine 20 mg tablet (Pepcid) 20 mg PO DAILY heartburn #30 tabs 05/15/23 [Rx Last Taken 12/17/23 22:30 20 mg] ondansetron HCl 4 mg tablet 4 mg PO Q4H #60 tabs 05/15/23 [Rx Last Taken Unknown] sertraline 50 mg tablet (Zoloft) 50 mg PO DAILY anxiety/dep 05/15/23 [History Last Taken 12/17/23 22:30 50 mg] promethazine 12.5 mg tablet 12.5 mg PO Q6H PRN nausea and vomiting #90 tabs 06/20/23 [Rx Last Taken Unknown] aspirin 81 mg tablet,delayed release (Adult Low Dose Aspirin) 81 mg DAILY Covid positive 11/29/23 [History Last Taken 12/17/23 22:30 81 mg] Allergy/AdvReac Type Severity Reaction Status Date / Time Penicillins AdvReac Mild rash Verified 12/18/23 08:13 Family History Mother , 2016 Thyroid disorder Hypertension Diabetes PCOS (polycystic ovarian syndrome) Father Diabetes Hypertension Sister PCOS (polycystic ovarian syndrome) Social History adopted: No household members: family number of children: 1 current occupational status: employed 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 Date Name GA/Weeks Outcome Route Bth Weight Gen Labor Lgth Anesthesia Del Locatn Provider FOB 10/11/19 Eugenia live - full term 7#6oz Female 12 epi dural [facility] Delivery Date: 10/11/19 Last Updated by: Cheryle Velasco heart shaped uterus, laceration of uterus was taking to OR Visit Details Expected Delivery Route/Plan Labor Preferences- CB/BF classes: no labor support person: Carlos labor intervention preferences: pain management options preferred: epidural cut cord/dad catch: dad cuts the cord : yes PP control planned: discussed discussed possible routes of delivery and associated risks: [] special requests: [] Plans Covid status: discussed Flu vaccine: discussed Tdap vaccine: given Rhogam: na LARC form signed: yes Problem list reviewed and updated with the most current plan of care details and appropriate orders placed. Relevant counseling for the gestational age provided. Continue routine care and follow up unless otherwise noted in visit notes/problem list details OB Flowsheet Initial Weight: Not Recorded Date -?-?-?-?-?-?-?-?-?-?-?-?- EGA Weight BP Urine Prot -?-?-?-?-?-?-?-?-?-?-?-?- Glucose FHR FuHt Pres Dilation -?-?-?-?-?-?-?-?-?-?-?-?- Effaced St Visit Note 05/15/23 -?-?-?-?-?-?-?-?-?-?-?-?- 8w 6d 202 lb 6 oz 102/67 Nega tive -?-?-?-?-?-?-?-?-?-?-?-?- Negative 169 -?-?-?-?--?-?-?-?-?-?-?-?- SM- CRL consiste nt with LMP 06/14/23 -?-?-?-?-?-?-?-?-?-?-?-?- 13w 1d 198 lb 104/68 Negative -?-?-?-?-?-?-?-?-?-?-?-?- Negative 170 -?-?-?-?-?-?-?-?-?-?-?-?- MH-No VB. Recent UTI tx [facility]-culture pending. Br US confirm FHT 07/07/23 -?-?-?-?-?-?-?-?-?-?-?-?- 16w 3d 197 lb 8 oz Negative -?-?-?-?-?-?-?-?-?-?-?-?- Negative 160 -?-?-?-?-?-?-?-?-?-?-?-?- KW-no vb/elise horan. increased thick vaginal discharge, no odor, itching. US on 08/0408/04/23 -?-?-?-?-?-?-?-?-?-?-?-?- 20w 3d 199 lb 8 oz 118/70 Nega tive -?-?-?-?-?-?-?-?-?-?-?-?- Negative 156 -?-?-?-?--?-?-?-?-?-?-?-?- LC- no vb/crampi ng today. had some spotting after lifting heavy boxes last week. resolved. has anatomy scan today. 09/01/23 -?-?-?-?-?-?-?-?-?-?-?-?- 24w 3d 202 lb 4 oz -?-?-?-?-?-?-?-?-?-?-?-?- 155 -?-?-?-?-?-?-?-?-?-?-?-?- LC- no vb/ctx/lo f. good fm. no concerns. 28 week labs ordered. 10/02/23 -?-?-?-?-?-?-?-?-?-?-?-?- 28w 6d 201 lb 4 oz 113/72 Nega tive -?-?-?-?-?-?-?-?-?-?-?-?- Negative 150 28 -?-?-?-?-?-?-?-?-?-?-?-?- JV- 3rd tri labs done today and pending. no lof, vaginal bleeding, or dec fm. tdap done today. wants FMLA paper work filled out. 10/16/23 -?-?-?-?-?-?-?-?-?-?-?-?- 30w 6d 203 lb 8 oz 118/64 Nega tive -?-?-?-?-?-?-?-?-?-?-?-?- Negative 161 30 -?-?-?-?-?-?-?-?-?-?-?-?- MH-No VB, LOF. G ood FM. Recent covid-start low dose ASA. 36 wk growth US ordered 10/31/23 -?-?-?-?-?-?-?-?-?-?-?-?- 33w 0d 205 lb 118/76 Negative -?-?-?-?-?-?-?-?-?-?-?-?- Negative 140 32 -?-?-?-?-?-?-?-?-?-?-?-?- LC- no vb/ctx/lo f. good fm. compression stockings for trace LE edema. no s/sx of PEC. 11/13/23 -?-?-?-?-?-?-?-?-?-?-?-?- 34w 6d 207 lb 8 oz 113/77 Nega tive -?-?-?-?-?-?-?-?-?-?-?-?- Negative 125 33 -?-?-?-?-?-?-?-?-?-?-?-?- JV- no lof, vagi nal bleeding, or dec fm. having leg and lower back cramping. has ultrasound next visit. 11/27/23 -?-?-?-?-?-?-?-?-?-?-?-?- 36w 6d 210 lb 2 oz 111/74 Nega tive -?-?-?-?-?-?-?-?-?-?-?-?- Negative 130 37 -?-?-?-?-?-?-?-?-?-?-?-?- JV- no lof, vagi nal bleeding, or dec fm. MADDISON today is 25 - 27 cm (measured twice) 12/04/23 -?-?-?-?-?-?-?-?-?-?-?-?- 37w 6d 211 lb 123/76 Negative -?-?-?-?-?-?-?-?-?-?-?-?- Negative 150 Cephalic 2.5 -?-?-?-?-?-?-?-?-?-?-?-?- 70 -2 JV- heart tracing showed some marked variability in the beginning of the NST, followed by moderate variability and + accelerations. JV- heart tracing showed kalie e marked variability in the beginning of the NST, followed by moderate variability and + accelerations. MADDISON is 19 today 12/11/23 -?-?-?-?-?-?-?-?-?-?-?-?- 38w 6d 210 lb 107/68 -?-?-?-?-?-?-?-?-?-?-?-?- 140 Cephalic 2.5 -?-?-?-?-?-?-?-?-?-?-?-?- 50 -2 SM- no vb lof good fm no regular ctx set up for IOL monday per patient request due to daughters surgery monday SM- no vb lof good fm no reg ular ctx set up for IOL monday per patient request due to daughters surgery monday, repeat nst 12/14/23 -?-?-?-?-?-?-?-?-?-?-?-?- 39w 2d 212 lb 6 oz 123/78 Nega tive -?-?-?-?-?-?-?-?-?-?-?-?- Negative 140 -?-?-?-?-?-?-?-?-?-?-?-?- MH-NST only reac tive. NST FHR Rate Baby A Baseline: 130 Variability:: Moderate Accelerations:: 15 x 15 Decelerations:: None NST Reactive:: Yes FHR Category:: Category I Uterine Activity:: irregular ROS Constitutional Constitutional: Reports systems reviewed and no addt'l complaints, except as documented Eyes Eyes: Denies change in vision ENT HEENT: Reports systems reviewed and no addt'l complaints, except as documented; Denies headache(s) Cardiovascular Cardiovascular: Reports systems reviewed and no addt'l complaints, except as documented; Denies chest pain or dyspnea Respiratory/Chest Respiratory/Chest: Reports systems reviewed and no addt'l complaints, except as documented Gastrointestinal Gastrointestinal: Reports systems reviewed and no addt'l complaints, except as documented; Denies abdominal pain Genitourinary Genitourinary: Reports systems reviewed and no addt'l complaints, except as documented, contractions Details: present (irregular) and movement Details: present; Denies dysuria or genital lesions Musculoskeletal Musculoskeletal: Reports systems reviewed and no addt'l complaints, except as documented Neurologic Neurologic: Reports systems reviewed and no addt'l complaints, except as documented Endocrine Endocrinology: Reports systems reviewed and no addt'l complaints, except as documented Vital Signs Vital Signs Vital Signs: 12/18/23 07:37 12/18/23 07:37 12/18/23 07:36 Temperature Temperature Source Temporal Pulse Rate 96 Blood Pressure 132/78 H BP Systolic 132 BP Diastolic 78 12/18/23 07:36 12/18/23 08:36 12/18/23 08:36 Temperature 98.9 F Temperature Source Pulse Rate 77 Blood Pressure 124/71 H BP Systolic 124 BP Diastolic 71 Weight Weight: 214 lb 1.102 oz Body Mass Index (BMI) 36.7 Physical Exam Const alert, oriented x3, no apparent distress and healthy appearing HEENT normocephalic and moist oral mucous membranes Head and Scalp: atraumatic Neck full ROM, no lymphadenopathy, supple and thyroid normal General: trachea midline Lymph Lymphatic: no lymphadenopathy noted Chest inspection of chest normal Resp normal respiratory effort Cardio regular rate GI normal to inspection, nondistended, normoactive bowel sounds, soft to palpation and non-tender Inspection: gravid external exam normal Manual OB Exam: estimated gestational size appropriate, presentation cephalic, dilated, effaced and station Extremity normal to inspection General Extremity: Negative for edema Skin no rashes or lesions noted Neuro no focal motor deficits and deep tendon reflexes 2+ bilaterally Motor Exam: strength 5/5 throughout and clonus absent Psych mental status grossly normal Labs Labs Labs: Blood Type O POSITIVE Antibody Screen NEGATIVE Hct 33.7 % (37-47) L Hgb 10.7 g/dL (12.0-15.0) L Pap Smear Negative Obstetrics Ultrasound Syphilis Total Ab Non-reactive Rubella IgG Antibody Reactive (Nonreactive) Hep Bs Antigen Non-Reactive (Nonreactive) Hepatitis C Antibody Non-Reactive (Nonreactive) Chlamydia DNA (DEBORAH) Negative (Negative) N.gonorrhoeae DNA (DEBORAH) Negative (Negative) HIV 1&2 Antibody Non-Reactive (Nonreactive) Glucose 1 Hr 50 gm 165 mg/dL (70-140) H Gest Glucose Tolerance MG/DL Assessment & Plan (1) Polyhydramnios affecting in third trimester: COMMENT: weekly nsts, deliver 40 weeks, repeat NST ordered . (2) COVID-19 affecting in second trimester: COMMENT: start low dose ASA (3) Need for Tdap vaccination: COMMENT: Given 10/02/23 (4) Needs flu shot: COMMENT: Given 10/02/23 (5) UTI in : QUALIFIERS: Trimester: second trimester Qualified Code(s): O23.42 - Unspecified infection of urinary tract in , second trimester COMMENT: Seen urgent care at , took 4 days of macrobid. Urine culture negative (6) Abnormal glucose level: COMMENT: 3 HR GTT Normal (7) Obesity affecting : QUALIFIERS: Trimester: third trimester Obesity type affecting : unspecified obesity Qualified Code(s): O99.213 - Obesity complicating , third trimester COMMENT: GCT 1 tm ordered, healthy weight gain encouraged. (8) History of hemorrhage: COMMENT: obtain records from [facility], questionable cervical laceration at delivery. received blood transfusion. (9) : QUALIFIERS: Weeks of gestation: 39 weeks Qualified Code(s): Z3A.39 - 39 weeks gestation of COMMENT: NIPT LR. declined carrier. NL anatomy. desires cord banking.-paperwork provided. 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 36 week growth. 67% (12) Encounter for induction of labor: PLAN: Plan Patient presents IOL, plan management for with pitocin/AROM. Pain management: plans epidural. GBS negative. Management of any complications: poly I have reviewed the [facility] and made any clinically relevant updates. 12/18/231816 <Electronically signed by Azucena Nam MD> Cosigner Signature (if applicable): CC: Dr. Azucena Nam MD; No Primary Care Physician~ Signed [facility] Work Phone: 1([phone]) 295-411302-12-2024 Discharge summary Author Azucena Nam [facility] December 18, 2023 6:11pm Note Date/Time December 18, 2023 6:11pm [facility] Medical Records Department [address] [place] [address] Instructions for Home/Discharge Instructions 12/18/231809 MR#: [id number] Acct: [id number] Name: CRISTINA SMILEY Rep # :[id number] : 1995 28 From: Azucena avila MD PCP: Ele Physician,No Primary Status :ADM IN Discharge Instructions Diet Discharge Diet: No restrictions Activity Discharge Activity: Return to Normal Activity, May Not Drive (while taking narcotic pain medications.) and May Shower May resume sexual activity in: 4-6 weeks Dressing / Incision Call your doctor if your incision/area has: Continuous Slow Oozing, Sudden Increased Bleeding, Increased Pain/ Swelling, Increased Redness and Foul Smelling Discharge Follow Up Care Please Follow Up With: Azucena Nam MD When: Call [phone] to make an appointment with your doctor in 6 weeks. If you had elevated blood pressure or 4th degree laceration, you will need to be seen in 2 weeks. Test Results: Test results from this visit will be discussed in further detail at your follow- up appointment, if applicable. Discharge Plan Admission Admit Date/Time: 12/18/23 07:10 Attending Provider: Azucena Nam Primary Care Provider: Ele Lott,Thalia Primary Discharge Orders/Prescriptions Prescriptions: No Action sertraline [Zoloft] 50 mg tablet 50 mg PO DAILY cholecalciferol (vitamin D3) 50 mcg (2,000 unit) capsule 50 mcg PO DAILY DHA 200 mg capsule PO famotidine [Pepcid] 20 mg tablet 20 mg PO DAILY Qty: 30 6RF ondansetron HCl 4 mg tablet 4 mg PO Q4H Qty: 60 3RF aspirin [Adult Low Dose Aspirin] 81 mg tablet,delayed release (DR/EC) 81 mg DAILY promethazine 12.5 mg tablet 12.5 mg PO Q6H PRN (Reason: nausea and vomiting) Qty: 90 2RF Referrals / Follow Up: Ele Physician,No Primary [Primary Care Provider] - Disposition Disposition (needs filled in before D/C Order can be placed): Home, Self Care 12/18/231810<Electronically signed by Azucena Nam MD>Azucena Nam MD CC: No Primary Care Physician ~ Signed [facility] Work Phone: 1([phone]) 791-105802-12-2024 Discharge summary Author Azucena Nam [facility] December 18, 2023 6:11pm Note Date/Time December 18, 2023 6:11pm [facility] Medical Records Department [address] [place] [address] Instructions for Home/Discharge Instructions 12/18/231810 MR#: [id number] Acct: [id number] Name: CRISTINA SMILEY Rep # :[id number] : 1995 28 From: Azucena avila MD PCP: Care Physician,No Primary Status :ADM IN Discharge Instructions Diet Discharge Diet: No restrictions Activity May resume sexual activity in: 4-6 weeks Dressing / Incision Call your doctor if your incision/area has: Continuous Slow Oozing, Sudden Increased Bleeding, Increased Pain/ Swelling, Increased Redness and Foul Smelling Discharge Follow Up Care Please Follow Up With: Azucena Nam MD Test Results: Test results from this visit will be discussed in further detail at your follow- up appointment, if applicable. Discharge Plan Admission Admit Date/Time: 12/18/23 07:10 Attending Provider: Azucena Nam Primary Care Provider: Care Physician,No Primary Discharge Orders/Prescriptions Prescriptions: No Action sertraline [Zoloft] 50 mg tablet 50 mg PO DAILY cholecalciferol (vitamin D3) 50 mcg (2,000 unit) capsule 50 mcg PO DAILY DHA 200 mg capsule PO famotidine [Pepcid] 20 mg tablet 20 mg PO DAILY Qty: 30 6RF ondansetron HCl 4 mg tablet 4 mg PO Q4H Qty: 60 3RF aspirin [Adult Low Dose Aspirin] 81 mg tablet,delayed release (DR/EC) 81 mg DAILY promethazine 12.5 mg tablet 12.5 mg PO Q6H PRN (Reason: nausea and vomiting) Qty: 90 2RF Referrals / Follow Up: Care Physician,No Primary [Primary Care Provider] - Disposition Disposition (needs filled in before D/C Order can be placed): Home, Self Care 12/18/231810<Electronically signed by Azucena Nam MD>Azucena Nam MD CC: No Primary Care Physician ~ Signed [facility] Work Phone: [phone]) 944-714602-12-2024 Procedure [facility] 09-22-2023 History of Present illness Narrative* Keyonna Davis, ROCKET ENGINE COMPONENT MECHANIC-REAL ESTATE ASSESSOR - 09/25/2023 10:30 AM EST Subjective Patient ID: Cristina Smiley is a 28 y.o. female who presents [...] C (97.5 F) Ht 1.651 m (5' 5) Wt90.5 kg (199 lb 8 oz) LMP 02/15/2023 SpO2 98% BMI 33.20 kg/m Physical Exam Vitals reviewed. Constitutional: General: She is not in acute distress. Appearance: Normal appearance. HENT: Right Ear: Swelling and tenderness present. Tympanic membrane is perforated. Left Ear: Tympanic membrane and ear canal normal. Mouth/Throat: Lips: [place]. Mouth: Mucous membranes are moist. Pharynx: Posterior [...] symptoms persist or worsen documented in this [facility] Work Phone: [phone]) 727-841208-08-2023 History of Present illness Narrative* JONATHAN Romano - 06/13/2023 8:00 AM EDT Subjective Patient ID: Cristina Smiley is a 28 y.o. female who presents [...] days, is prescribed Zofran not effective, following DIGESTER next appointment tomorrow Denies depression symptoms UTI [...] - Health Maintenance; Future [facility]: [phone]) [phone] Evaluation + Plan note* Assessment & Plan Note - Julio Moore MD - 06/03/2023 10:19 AM EDTAssociated Problem(s): Dysuria -Patient is 12 weeks . [...] Patient agreed with the plan of care. [facility] Work Phone: [phone]) [phone] Miscellaneous Notes* Assessment & Plan Note - Julio Moore MD - 06/03/2023 10:19 AM EDTAssociated Problem(s): Dysuria -Patient is 12 weeks . [...] the plan of care. [facility] Work Phone: [phone]) [phone] History of Present illness Narrative* Julio Moore MD - 06/03/2023 9:45 AM EDT Subjective Patient ID: Cristina Smiley is a 28 y.o. female who presents [...] N. Gonorrhoeae, Amplified Detection [facility] Work Phone: [phone] 124-819805-04-2023 History of Present illness Narrative* Keyonna Davis APRN-SAYRA - 03/09/2023 8:00 AM EDT Subjective Patient ID: Cristina Smiley is a 27 y.o. female who presents [...] postnasal drip, rhinorrhea, sinus pressure, sinus pain andsore throat. Respiratory: Negative for chest tightness, shortness of breath and wheezing. Cardiovascular: Negative for chest pain, palpitations and leg swelling. Gastrointestinal: Negative for constipation, diarrhea, nausea and vomiting. Genitourinary: Negative. Musculoskeletal: Negative. Skin: Negative. Neurological: Negative for dizziness, light-headedness and headaches. Objective BP 109/76 (Patient Position: Standing) Pulse 76 Temp 37 C (98.6 F) Ht 1.651 m (5' 5) Wt 90.7 kg (200 lb) BMI 33.28 [...] Sinus: Frontal sinus tenderness present. Mouth/Throat: Lips: [place]. Mouth: Mucous membranes are moist. Pharynx: Oropharyngeal [...] medication such as Tg. [facility] Work Phone: [phone] Instructions* Patient Instructions* JONATHAN Romano - 03/09/2023 8:00 AM EDT Complete entire coarse of antibiotics, return if symptoms persist or worsen [facility] Work Phone: [phone] Evaluation + Plan note* Assessment & Plan Note - JONATHAN Du - 01/09/2023 9:08 AM ESTAssociated Problem(s): Allergic rhinitis Symptoms reoccurring, will refer to ENT [facility] Work Phone: [phone] Miscellaneous Notes* Assessment & Plan Note - JONATHAN Du - 01/09/2023 9:08 AM ESTAssociated Problem(s): Allergic rhinitis Symptoms reoccurring, will refer to ENT [facility] Work Phone: [phone] History of Present illness Narrative* Maddison Atkins MA - 01/09/2023 8:45 AM EST Subjective Patient ID: Cristina Smiley is a 27 y.o. female who presents for Nasal Congestion. HPI Review of Systems Objective BP 113/77 (Patient Position: Sitting) Pulse 81 Temp 36.3 C (97.3 F) Ht 1.651 m (5' 5) Wt 87.5 kg (193 lb) BMI 32.12 kg/m Physical Exam Assessment/Plan * Keyonna Susan, SADAF-SAYRA - 01/09/2023 8:45 AM EST Subjective Patient ID: Cristina Smiley is a 27 y.o. female who presents for Nasal Congestion. Earache There is pain in both ears. This is a recurrent problem. The current episode started yesterday. Theproblem occurs constantly. The problem has been unchanged. There has been no fever. The fever has been present for 1 to 2 days. The pain is at a severity of 5/10 (left worse than right). The pain is moderate. Associated symptoms include coughing, headaches, rhinorrhea and a sore throat. Pertinent ne gatives include no diarrhea, ear discharge, hearing loss or vomiting. Treatments tried: flonase, mucinex D. The treatment provided no relief. Her past medical history is significant for a chronic earinfection. Review of Systems Constitutional: Negative for activity change and fever. HENT: Positive for ear pain, rhinorrhea, sinus pressure, sinus pain and sore throat. Negative for ear discharge and hearing loss. Respiratory: Positive for cough. Negative for shortness of breath and wheezing. Gastrointestinal: Negative for diarrhea, nausea and vomiting. Skin: Negative for color change. Allergic/Immunologic: Positive for environmental allergies. Neurological: Positive for headaches. Objective BP 113/77 (Patient Position: Sitting) Pulse 81 Temp 36.3 C (97.3 F) Ht 1.651 m (5' 5) Wt 87.5 kg (193 lb) BMI 32.12 kg/m Physical Exam Constitutional: Appearance: Normal appearance. HENT: Right Ear: Hearing normal. Swelling and tenderness present. A middle ear effusion is present. Left Ear: Hearing normal. Swelling and tenderness present. A middle ear effusion is present. Neurological: Mental Status: She is alert. Assessment/Plan Problem List Items Addressed This Visit Other Allergic rhinitis Symptoms reoccurring, will refer to ENT Relevant Medications [id number]-weqhidcct-FV 2-30-10 mg/5 mL syrup Other Relevant Orders Referral to ENT Other Visit Diagnoses Other acute recurrent sinusitis - Primary Relevant Medications arlwlykqcuhdjrp-kkiriapqd-XG 2-30-10 mg/5 mL syrup Recurrent acute allergic otitis media of both ears Relevant Medications ciprofloxacin-dexamethasone (CiproDEX) otic suspension Return if symptoms worsen or do not improve in 5-7 days. documented in this [facility] Work Phone: [phone]) [phone] History of Present illness Narrative* Cristina is a 27 female here today with Complaint of sinus symptoms with cough and ear ache. * Sx onset Monday evening * sx included fatigue, congestion CHRIS, bilateral ear pain, ear feels full, diarrhea. Fever on 06/28/22 100.2, productive cough. * OTC Advil and NyQuil with minimal relief. [facility] Work Phone: [phone] NoteAccession #: [id number] Date of Procedure: 05/11/2022 Pathologist: [facility], Cyt[facility] Date Reported: 05/23/2022 Date Received: 05/11/2022 Submitting Physician: BEVERLY ASTUDILLO M.D. FINAL CYTOLOGICAL INTERPRETATION A. THINPREP PAP CERVICAL: Specimen adequacy: SATISFACTORY FOR EVALUATION. Quality Indicator: Endocervical/transformation zone component is present. General Categorization: NEGATIVE FOR INTRAEPITHELIAL LESION OR MALIGNANCY. Ancillary Testing: Specimen does not meet the requisition-stated criteria for HPV testing. See Pap test interpretation above. QC review performed at [facility], [address] [place] [address] This specimen has been analyzed by the InteranaPrep Imaging System ([employer] an automated imaging and review system, which assists the laboratory in evaluating cells on ThinPrep Pap tests. Following automated imaging, selected de la cruz from every slide were reviewed by a tube depatcher and/or pathologist. Electronically Signed Out By [facility], Cytology//JAYLYN/ELOISA By the signature on this report, the individual or group listed as making the Final Interpretation/Diagnosis certifies that they have reviewed this case. Diagnostic interpretation performed at [facility] [address] [facility] 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 Patient reports that she does notuse anything for contraception has not been trying to prevent a . She has currently a child that is 2-1/2 years old. The child was conceived spontaneously. Patient reports a family history of PCOS however she reports that her menstrual cycles come monthly. Patient reports that she has concerns about recent weight gain however she reports that her PCP did a whole panel of blood work and awork-up and thus far has not found any clear source for her recent weight gain[address] Work Phone: Evaluation note* Diagnosis Rhinosinusitis- Primary documented in this encounter [facility] Work Phone: Evaluation noteNo assessment information available [facility] Work Phone: Evaluation note* Diagnosis Onset Date Resolution Status Bicornuate uterus acute History of hemorrhage acute Obesity affecting acute acute Supervision of high-risk acute [facility] Work Phone: Evaluation note* Diagnosis Dysuria- Primary Acute vaginitis Unspecified vaginitis and vulvovaginitis documented in this encounter [facility] Work Phone: Evaluation note* Diagnosis Acute cystitis without hematuria- Primary Proteinuria, unspecified type Depression, controlled documented in this encounter [facility] Work Phone: Evaluation note* Diagnosis Onset Date Resolution Status Bicornuate uterus acute History of hemorrhage acute Obesity affecting acute acute Supervision of high-risk acute Abnormal glucose level acute Bicornuate uterus acute History of hemorrhage acute Obesity affecting acute acute Supervision of high-risk acute UTI in acute Abnormal glucose level acute Bicornuate uterus acute History of hemorrhage acute Obesity affecting acute acute Supervision of high-risk acute UTI in acute [facility] Work Phone: Evaluation note* Diagnosis Acute mucoid otitis media of right ear- Primary documented in this encounter [facility] Work Phone: Evaluation note* Diagnosis Onset Date Resolution Status Abnormal glucose level acute Bicornuate uterus acute History of hemorrhage acute Obesity affecting acute acute Supervision of high-risk acute UTI in acute Abnormal glucose level acute Bicornuate uterus acute History of hemorrhage acute Obesity affecting acute acute Supervision of high-risk acute UTI in acute Abnormal glucose level acute Bicornuate uterus acute History of hemorrhage acute Obesity affecting acute acute Supervision of high-risk acute UTI in acute Vaginal discharge acute Abnormal glucose level acute Bicornuate uterus acute History of hemorrhage acute Obesity affecting acute acute Supervision of high-risk acute UTI in acute Vaginal discharge acute Abnormal glucose level acute Bicornuate uterus acute History of hemorrhage acute Obesity affecting acute acute Supervision of high-risk acute UTI in acute Vaginal discharge acute [facility] Work Phone: Evaluation note* Diagnosis Onset Date Resolution Status Abnormal glucose level acute Bicornuate uterus acute History of hemorrhage acute Obesity affecting acute acute Supervision of high-risk acute UTI in acute Abnormal glucose level acute Bicornuate uterus acute History of hemorrhage acute Obesity affecting acute acute Supervision of high-risk acute UTI in acute Abnormal glucose level acute Bicornuate uterus acute History of hemorrhage acute Obesity affecting acute acute Supervision of high-risk acute UTI in acute Abnormal glucose level acute Bicornuate uterus acute History of hemorrhage acute Obesity affecting acute acute Supervision of high-risk acute UTI in acute Bicornuate uterus acute COVID-19 affecting in second trimester acute History of hemorrhage acute Obesity affecting acute acute Supervision of high-risk acute [facility] Work Phone: Evaluation note* Diagnosis Onset Date Resolution Status Abnormal glucose level acute Bicornuate uterus acute History of hemorrhage acute Obesity affecting acute acute Supervision of high-risk acute UTI in acute Abnormal glucose level acute Bicornuate uterus acute History of hemorrhage acute Obesity affecting acute acute Supervision of high-risk acute UTI in acute Abnormal glucose level acute Bicornuate uterus acute History of hemorrhage acute Obesity affecting acute acute Supervision of high-risk acute UTI in acute Bicornuate uterus acute COVID-19 affecting in second trimester acute History of hemorrhage acute Obesity affecting acute acute Supervision of high-risk acute Abnormal glucose level acute Bicornuate uterus acute COVID-19 affecting in second trimester acute History of hemorrhage acute Need for Tdap vaccination ac [place] Needs flu shot acute Obesity affecting acute acute Supervision of high-risk acute Abnormal glucose level acute Bicornuate uterus acute COVID-19 affecting in second trimester acute History of hemorrhage acute Need for Tdap vaccination ac [place] Needs flu shot acute Obesity affecting acute acute Supervision of high-risk acute UTI in acute [facility] Work Phone: Evaluation note* Diagnosis Onset Date Resolution Status Abnormal glucose level acute Bicornuate uterus acute History of hemorrhage acute Obesity affecting acute acute Supervision of high-risk acute UTI in acute Abnormal glucose level acute Bicornuate uterus acute History of hemorrhage acute Obesity affecting acute acute Supervision of high-risk acute UTI in acute Abnormal glucose level acute Bicornuate uterus acute History of hemorrhage acute Obesity affecting acute acute Supervision of high-risk acute UTI in acute Bicornuate uterus acute COVID-19 affecting in second trimester acute History of hemorrhage acute Obesity affecting acute acute Supervision of high-risk acute Abnormal glucose level acute Bicornuate uterus acute COVID-19 affecting in second trimester acute History of hemorrhage acute Need for Tdap vaccination ac [place] Ne[place] flu shot acute Obesity affecting acute acute Supervision of high-risk acute Abnormal glucose level acute Bicornuate uterus acute COVID-19 affecting in second trimester acute History of hemorrhage acute Need for Tdap vaccination ac [place] Ne[place] flu shot acute Obesity affecting acute acute Supervision of high-risk acute UTI in acute Abnormal glucose level acute Bicornuate uterus acute COVID-19 affecting in second trimester acute History of hemorrhage acute Need for Tdap vaccination ac [place] Ne[place] flu shot acute Obesity affecting acute Polyhydramnios affecting in third trimester acute acute Supervision of high-risk acute UTI in acute [facility] Work Phone: Evaluation note* Diagnosis Onset Date Resolution Status Vaginal delivery acute [facility] Work Phone: Evaluation note* Diagnosis Depression, controlled- Primary Rhinosinusitis documented in this encounter [facility] Work Phone: Evaluation note* Diagnosis Onset Date Resolution Status Routine Follow-Up noneactive [facility] Work Phone: Evaluation note* Diagnosis Acute non-recurrent sinusitis, unspecified location- Primary documented in this encounter [facility] Work Phone: Evaluation note* Diagnosis Depressive disorder- Primary Depressive disorder, not elsewhere classified Anxiety Anxiety state, unspecified documented in this encounter [facility] Work Phone: Evaluation note* Diagnosis Other acute recurrent sinusitis- Primary Non-seasonal allergic rhinitis, unspecified trigger Recurrent acute allergic otitis media of both ears Dysuria- Primary Acute vaginitis Unspecified vaginitis and vulvovaginitis Flank pain as manifestation of blood transfusion reaction- Primary Acute cystitis without hematuria Abnormal urinalysis Other nonspecific finding on examination of urine documented in this encounter [facility] Work Phone: Evaluation note* Diagnosis Other acute recurrent sinusitis- Primary Non-seasonal allergic rhinitis, unspecified trigger Recurrent acute allergic otitis media of both ears documented in this encounter [facility] Work Phone: History of Present illness [...] vaccines * Had COVID infection in 10/2021 [facility] Work Phone: History of Present illness [...] vaccines * Had COVID infection in 10/2021 [facility] Work Phone: History of Present illness Narrative* Cristina is a 27 yo female, here today with complaints of acute anxiety. * She is having increase in stress anxiety related to purchase/home building. 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 * the costs of building from ground up is becoming expensive and now is dealing with financial strain * recently stopped taking her Zoloft and she was feeling well and restarted 1 week ago * she reports difficulty falling asleep due to worry, irritability and frustration. * She denies HI/SI [facility] Work Phone: History of Present illness Narrative* [...] She denies anxiety or depression symptom. * [facility] 1 month ago, unsure if , is not currently on control and is sexually active [facility] Work Phone: Reason for referral (narrative)* Consultation (Routine) - Authorized Specialty Diagnoses / Procedures Referred By Manolo tee Referred To Contact Primary Care Procedures Follow Up In Primary Care - Health Maintenance Keyonna Davis, SADAF-SAYRA [address] [facility] [place] [facility] [place], [place] [address] Referral ID Status Reason Start Date Expiration Date V isits Requested Visits Authorized [id number] Authorized 06/13/2023 12/10/2023 1 1 T [facility] Work Phone: Reason for referral (narrative)* Consultation (Routine) - Authorized Specialty Diagnoses / Procedures Referred By Contac t Referred To Contact Primary Care Procedures Follow Up In Primary Care - Established Aubrey Romero PA-C [address] [facility] [place] [facility] [place], [place] [id number] Referral ID Status Reason Start Date Expiration Date V isits Requested Visits Authorized [id number] Authorized 12/25/2023 12/24/2024 1 1 [facility] Work Phone: reason for referral (narrative)* Consultation (Routine) - Authorized Specialty Diagnoses / Procedures Referred By Contac t Referred To Contact Primary Care Procedures Follow Up In Primary Care - Established Aubrey Romero PA-C [address] [facility] [place] [facility] [place], [place] [id number] Phone: tel: fax: Referral ID Status Reason Start Date Expiration Date V isits Requested Visits Authorized [id number] Authorized 09/20/2024 09/20/2025 1 1 [facility] Work Phone: reason for referral (narrative)* Consultation (Routine) - Authorized Specialty Diagnoses / Procedures Referred By Contac t Referred To Contact Otolaryngology Diagnoses Non-seasonal allergic rhinitis, unspecified trigger Procedures [place] OFFICE/OUTPATIENT NEW HIGH MDM 60-74 MINUTES Keyonna Davis APRN-SAYRA [address] [facility] [place] [facility] [place], [address] [address] Yared Venegas MD [address] [facility] [address] Referral ID Status Reason Start Date Expiration Date Visits Requested Visits Authorized [id number] Authorized Specialty Services Required 01/09/2023 07/08/2023 1 1 [facility] Work Phone: Reason for referral (narrative)No reason for referral [facility]: Summary Purpose Family History No [...] of hypertensi on: Mother, Father(V17.49, Z82.49) Status:Active Relationship Condition Age at Onset Recorded Date/T margaret mother Disorder of thyroid Unknown Hypertension Unknown Diabetes mellitus Unknown Polycystic ovary syndrome Unknown father Diabetes mellitus Unknown sister Polycystic ovary syndrome Unknown Advance Directives No Advanced Directives Records FoundLatest Code Status on File Code Status Date Activated Date Inactivated Comments Full Code 10/11/2019 4:23 PM 10/13/2019 6:48 PM Full Code 10/10/2019 8:02 PM 10/11/2019 4:22 PM Advance Directive Response Recorded Date/ Time Living Will No December 18 8:22am Power of Leather Products Supervisor No December 18, 2023 8:22am Advance Directive Response Recorded Date/ Time Living Will No December 18 024 9:22am Power of Leather Products Supervisor No December 18, 2023 9:22am Date Activated Date Inactivated Comments 10/11/2019 4:23 PM 10/13/2019 6:48 PM Date Activated Date Inactivated Comments 10/10/2019 8:02 PM 10/11/2019 4:22 PM Chief [...] span. LMP:04/19/2022inus pressure/ear pain/cough with production.Anxiety.Med refills. Chief Complaint and Reason for Visit Chief Complaint PELVIC PAIN, R/O ECT OPIC HCG LEVELS Chief Complaint PELVIC PAIN, R/O ECT OPIC HCG LEVELS Other specified related conditions, firs Chief Complaint PELVIC PAIN, R/O ECT OPIC HCG LEVELS Other specified related conditions, firs NOB LMP 5 Reason for Visit Bicornuate uterus History of hemorrhage Obesity affecting Supervision of high-risk Chief Complaint PELVIC PAIN, R/O ECT OPIC HCG LEVELS Other specified related conditions, firs NOB LMP 5 Encounter for screening for diabetes mellitus Reason for Visit Bicornuate uterus History of hemorrhage Obesity affecting Supervision of high-risk Chief Complaint PELVIC PAIN, R/O ECT OPIC HCG LEVELS Other specified related conditions, firs NOB LMP 5 Encounter for screening for diabetes mellitus 13 WK OB 16 WK OB Reason for Visit Bicornuate uterus History of hemorrhage Obesity affecting Supervision of high-risk Abnormal glucose level Bicornuate uterus History of hemorrhage Obesity affecting Supervision of high-risk UTI in Abnormal glucose level Bicornuate uterus History of hemorrhage Obesity affecting Supervision of high-risk UTI in Chief Complaint 13 WK OB 16 WK OB 20 WK OB 24 WK OB/Needs to sign records release 28 WK OB/GLUCOSE Reason for Visit Abnormal glucose lev el Bicornuate uterus History of hemorrhage Obesity affecting Supervision of high-risk UTI in Abnormal glucose level Bicornuate uterus History of hemorrhage Obesity affecting Supervision of high-risk UTI in Abnormal glucose level Bicornuate uterus History of hemorrhage Obesity affecting Supervision of high-risk UTI in Vaginal discharge Abnormal glucose level Bicornuate uterus History of hemorrhage Obesity affecting Supervision of high-risk UTI in Vaginal discharge Abnormal glucose level Bicornuate uterus History of hemorrhage Obesity affecting Supervision of high-risk UTI in Vaginal discharge Chief Complaint 16 WK OB 20 WK OB 24 WK OB/Needs to sign records release 28 WK OB/GLUCOSE SCREEN FOR GESTATIONAL DM 30 WK OB Reason for Visit Abnormal glucose lev el Bicornuate uterus History of hemorrhage Obesity affecting Supervision of high-risk UTI in Abnormal glucose level Bicornuate uterus History of hemorrhage Obesity affecting Supervision of high-risk UTI in Abnormal glucose level Bicornuate uterus History of hemorrhage Obesity affecting Supervision of high-risk UTI in Abnormal glucose level Bicornuate uterus History of hemorrhage Obesity affecting Supervision of high-risk UTI in Bicornuate uterus COVID-19 affecting in second trimester History of hemorrhage Obesity affecting Supervision of high-risk Chief Complaint 20 WK OB 24 WK OB/Needs to sign records release 28 WK OB/GLUCOSE SCREEN FOR GESTATIONAL DM 30 WK OB 32 WK OB 34 WK OB WELL BEING Reason for Visit Abnormal glucose lev el Bicornuate uterus History of hemorrhage Obesity affecting Supervision of high-risk UTI in Abnormal glucose level Bicornuate uterus History of hemorrhage Obesity affecting Supervision of high-risk UTI in Abnormal glucose level Bicornuate uterus History of hemorrhage Obesity affecting Supervision of high-risk UTI in Bicornuate uterus COVID-19 affecting in second trimester History of hemorrhage Obesity affecting Supervision of high-risk Abnormal glucose level Bicornuate uterus COVID-19 affecting in second trimester History of hemorrhage Need for Tdap vaccination Needs flu shot Obesity affecting Supervision of high-risk Abnormal glucose level Bicornuate uterus COVID-19 affecting in second trimester History of hemorrhage Need for Tdap vaccination Needs flu shot Obesity affecting Supervision of high-risk UTI in Chief Complaint 20 WK OB 24 WK OB/Needs to sign records release 28 WK OB/GLUCOSE SCREEN FOR GESTATIONAL DM 30 WK OB 32 WK OB 34 WK OB WELL BEING 36 WK OB RULE OUT LABOR Reason for Visit Abnormal glucose lev el Bicornuate uterus History of hemorrhage Obesity affecting Supervision of high-risk UTI in Abnormal glucose level Bicornuate uterus History of hemorrhage Obesity affecting Supervision of high-risk UTI in Abnormal glucose level Bicornuate uterus History of hemorrhage Obesity affecting Supervision of high-risk UTI in Bicornuate uterus COVID-19 affecting in second trimester History of hemorrhage Obesity affecting Supervision of high-risk Abnormal glucose level Bicornuate uterus COVID-19 affecting in second trimester History of hemorrhage Need for Tdap vaccination Needs flu shot Obesity affecting Supervision of high-risk Abnormal glucose level Bicornuate uterus COVID-19 affecting in second trimester History of hemorrhage Need for Tdap vaccination Needs flu shot Obesity affecting Supervision of high-risk UTI in Abnormal glucose level Bicornuate uterus COVID-19 affecting in second trimester History of hemorrhage Need for Tdap vaccination Needs flu shot Obesity affecting Polyhydramnios affecting in third trimester Supervision of high-risk UTI in Chief Complaint 24 WK OB/Needs to si gn records release 28 WK OB/GLUCOSE SCREEN FOR GESTATIONAL DM 30 WK OB 32 WK OB 34 WK OB WELL BEING 36 WK OB RULE OUT LABOR RULE OUT LABOR 37 WK OB/NST 38 WK OB/NST NST VAGINAL DELIVERY VAGINAL DELIVERY VAGINAL DELIVERY Reason for Visit Vaginal delivery Chief Complaint SCREEN FOR GESTATION AL DM 30 WK OB 32 WK OB 34 WK OB WELL BEING 36 WK OB RULE OUT LABOR RULE OUT LABOR 37 WK OB/NST 38 WK OB/NST NST VAGINAL DELIVERY VAGINAL DELIVERY VAGINAL DELIVERY visit (obstetrics) Supply Assessment Reason for Visit Routine F ollow-Up Chief Complaint Admit Date Nexplanon Removal January 03, 2025 2:02pm INT ORDERS January 03, 2025 2:49pm Reason for Visit Admit Date Encounter for counseling regarding contr aception January 03, 2025 2:02pm Weight gain January 03, 2025 2:02pm Chief Complaint Admit Date Nexplanon Removal January 03, 2025 2:02pm INT ORDERS January 03, 2025 2:49pm MOLES ON FACE April 18, 2025 10:4 2am Chief Complaint Admit Date Nexplanon Removal January 03, 2025 2:02pm INT ORDERS January 03, 2025 2:49pm MOLES ON FACE April 18, 2025 10:4 2am IN OFFICE PROCEDURE May 02, 2025 8:04 am Reason for Visit Admit Date Encounter for counseling regarding contr aception January 03, 2025 2:02pm Weight gain January 03, 2025 2:02pm Intradermal nevus of face April 18 10:42am Additional Source Comments INFORMATION SOURCE (unrecogn ized section and content) DATE CREATED AUTHOR 05/01/2018 [facility] DATE CREATED AUTHOR AUTHOR'S ORGANIZ ATION 05/01/2018 [facility] DATE CREATED AUTHOR AUTHOR'S ORGANIZ ATION 12/19/2021 [facility] DATE CREATED AUTHOR AUTHOR'S ORGANIZ ATION 02/18/2023 [facility] DATE CREATED AUTHOR AUTHOR'S ORGANIZ ATION 02/18/2023 [facility] DATE CREATED AUTHOR AUTHOR'S ORGANIZ ATION 06/16/2023 [facility] DATE CREATED AUTHOR AUTHOR'S ORGANIZ ATION 08/18/2023 [facility] DATE CREATED AUTHOR AUTHOR'S ORGANIZ ATION 05/29/2024 [facility] DATE CREATED AUTHOR AUTHOR'S ORGANIZ ATION 04/03/2025 [facility] DATE CREATED AUTHOR AUTHOR'S ORGANIZ ATION 05/02/2025 [facility] <item> Privacy Markings (unrecogniz ed section and content) Section Author: Shayla Palacios PROHIBITION ON REDISCLOSURE OF CONFIDENTIAL INFORMATION This notice accompanies a disclosure of information concerning a client made to you with the consent of such client. Care Teams (unrecognized sec tion and content) Fire Tower Keeper Relationship Specialty Start Date End Date Stalin Isabel PA-C [address] [place] [id number] PCP - General Family Medicine 12/23/16 Kahlil Osborn MD [address] [place] [address] Physician Obstetrics/Gynecology 08/11/20 Fire Tower Keeper Relationship Specialty Start Date End Date Keyonna Davis, ROCKET ENGINE COMPONENT MECHANIC-REAL ESTATE ASSESSOR [address] [facility] [place] [facility] [place], [place] [phone] PCP - General 03/02/22 Team Status: Active Member Role Status Dates KEYONNA DAVIS Primary Care Provider Active Team Status: Inactive Member Role Status Dates SUSAN NEWBY Primary Care Provider Active Lucina Christie CNM Attending Provider, Referring Pr ovider Active Team Status: Inactive Member Role Status Dates SUSAN NEWBY Primary Care Provider Active Dr. Azucena Nam MD Attending Provider, Referr ing Provider Active Team Status: Active Member Role Status Dates No Primary Care Physician Primary Care Provider Active Team Status: Inactive Member Role Status Dates Dr. Azucena Nam MD Attending Provider Active SUSAN NEWBY Primary Care Provider, Referring Provider Active Team Status: Inactive Member Role Status Dates No Primary Care Physician Primary Care Provider Active Dr. Azucena Nam MD Attending Provider, Referr ing Provider Active Fire Tower Keeper Relationship Specialty Start Date End Date Keyonna Davis, ROCKET ENGINE COMPONENT MECHANIC-REAL ESTATE ASSESSOR [address] [facility] [place] [facility] [place], [place] [phone] PCP - General 03/02/22 Team Status: Active Member Role Status Dates Janes Malcolm BASKET OPERATOR, BASKET OPERATOR-C Attending Provider, Referring Provider Active SUSAN NEWBY Primary Care Provider Active Team Status: Inactive Member Role Status Dates Janes Malcolm BASKET OPERATOR, BASKET OPERATOR-C Attending Provider, Referring Provider Active SUSAN NEWBY Primary Care Provider Active Fire Tower Keeper Relationship Specialty Start Date End Date Keyonna Davis, ROCKET ENGINE COMPONENT MECHANIC-REAL ESTATE ASSESSOR [address] [facility] [place] [facility] [place], [address] [address] PCP - General 03/02/22 Team Status: Inactive Member Role Status Dates Dr. Eleanor Zimmerman DO Active Janes Malcolm BASKET OPERATOR, BASKET OPERATOR-C Attending Provider Active SUSAN NEWBY Primary Care Provider, Referring Provider Active Team Status: Inactive Member Role Status Pallavi Cavanaugh CNM Attending Provider Active Team Status: Inactive Member Role Status Pallavi Cavanaugh CNM Attending Provider, Referring Pro vider Active Team Status: Inactive Member Role Status Lucina Christie CNM Attending Provider Active Team Status: Inactive Member Role Status Dr. Eleanor Zimmerman DO Attending Provider Activ e Team Status: Inactive Member Role Status Lucina Christie CNM Attending Provider, Referring Pr ovider Active Team Status: Inactive Member Role Status Janes Malcolm BASKET OPERATOR, BASKET OPERATOR-C Attending Provider Active SUSAN NEWBY Primary Care Provider, Referring Provider Active Team Status: Inactive Member Role Status Lucina Christie CNM Attending Provider, Referring Pr ovider Active SUSAN NEWBY Primary Care Provider Active Team Status: Inactive Member Role Status Lucina Christie CNM Attending Provider Active SUSAN NEWBY Primary Care Provider, Referring Provider Active Team Status: Inactive Member Role Status Dr. Eleanor Zimmerman DO Attending Provider Activ e SUSAN NEWBY Primary Care Provider, Referring Provider Active Team Status: Inactive Member Role Status SUSAN NEWBY Primary Care Provider Active Janes Malcolm BASKET OPERATOR, BASKET OPERATOR-C Attending Provider, Referring Provider Active Team Status: Active Member Role Status No Primary Care Physician Primary Care Provider Active Dr. Eleanor Zimmerman DO Attending Provider, Refe rring Provider Active Team Status: Inactive Member Role Status No Primary Care Physician Primary Care Provider Active Dr. Eleanor Zimmerman DO Attending Provider, Refe rring Provider Active Team Status: Inactive Member Role Status Dr. Eleanor Zimmerman DO Attending Provider Activ e No Primary Care Physician Primary Care Provider, Refer ring Provider Active Team Status: Inactive Member Role Status Dr. Azucena Nam MD Attending Provider Active No Primary Care Physician Primary Care Provider, Refer ring Provider Active Team Status: Active Member Role Status No Primary Care Physician Primary Care Provider Active Dr. Eleanor Zimmerman DO Attending Provider, Referring Provider, Other Provider Active Team Status: Inactive Member Role Status No Primary Care Physician Primary Care Provider, Refer ring Provider Active Janes Malcolm BASKET OPERATOR, BASKET OPERATOR-C Attending Provider Active Team Status: Active Member Role Status No Primary Care Physician Primary Care Provider Active Dr. Azucena Nam MD Admit Provid er, Attending Provider, Other Provider Active Team Status: Active Member Role Status Dates No Primary Care Physician Primary Care Provider Active Dr. Azucena Nam MD Admit Provider, Other Prov ider Active Pallavi Cavanaugh CNM Attending Provider Active Team Status: Inactive Member Role Status Dates No Primary Care Physician Primary Care Provider Active Dr. Azucena Nam MD Admit Provider, Attending Provider Active Fire Tower Keeper Relationship Specialty Start Date End Date Aubrey Romero PA-C [address] [facility], [place] [address] [place] [phone] PCP - General Family Medicine 12/19/23 Team Status: Inactive Member Role Status Dates No Primary Care Physician Primary Care Provider, Refer ring Provider Active Dr. Azucena Nam MD Attending Provider Active Team Status: Inactive Member Role Status Dates No Primary Care Physician Primary Care Provider, Refer ring Provider Active Jen Thurston BASKET OPERATOR, BASKET OPERATOR-C Attending Provider Active Fire Tower Keeper Relationship Specialty Start Date End Date Aubrey Romero PA-C [address] [facility], [place] [address] [place] [phone] PCP - General Family Medicine 12/19/23 Fire Tower Keeper Relationship Specialty Start Date End Date Stalin Isabel PA-C [address] [place] [address] [place] [id number] PCP - General Family Medicine 12/23/16 Kahlil Osborn MD [address] [place] [id number] Physician Obstetrics/Gynecology 08/11/20 Fire Tower Keeper Relationship Specialty Start Date End Date Aubrey Romero PA-C [address] [facility], [place] [address] [place] [phone] PCP - General Family Medicine 12/19/23 Fire Tower Keeper Relationship Specialty Start Date End Date Aubrey Romero PA-C [address] [facility] [place] [facility] [place], [facility] [address] [place] [phone] PCP - General Family Medicine 12/19/23 Fire Tower Keeper Relationship Specialty Start Date End Date Keyonna Davis APRN-REAL ESTATE ASSESSOR [address] [facility] [place] [facility] [place], [place] [address] [place] [phone] PCP - General 03/02/22 Team Status: Inactive Member Role Status Dates No Primary Care Physician Primary Care Provider Active Start: January 03, 2025 End: January 03, 2025 No Primary Care Physician Referring Provider Active Start: January 03, 2025 End: January 03, 2025 Dr. Eleanor Zimmerman DO Attending Provider Activ e Start: January 03, 2025 End: January 03, 2025 Team Status: Inactive Member Role Status Dates No Primary Care Physician Primary Care Provider Active Start: January 03, 2025 End: January 03, 2025 Dr. Eleanor Zimmerman DO Attending Provider Activ e Start: January 03, 2025 End: January 03, 2025 Dr. Eleanor Zimmerman DO Referring Provider Activ e Start: January 03, 2025 End: January 03, 2025 Team Status: Inactive Member Role Status Dates No Primary Care Physician Primary Care Provider Active Start: April 18, 2025 End: April 18, 2025 No Primary Care Physician Referring Provider Active Start: April 18, 2025 End: April 18, 2025 Dr. Braydon Adame MD Attending Provider Active Start: April 18, 2025 End: April 18, 2025 Fire Tower Keeper Relationship Specialty Start Date End Date Stalin Isabel PA-C PCP - General Family Medicine 12/23/16 Kahlil Osborn MD [address] [place] [address] Physician Obstetrics/Gynecology 08/11/20 Team Status: Inactive Member Role Status Dates No Primary Care Physician Primary Care Provider Active Start: May 02, 2025 End: May 02, 2025 No Primary Care Physician Referring Provider Active Start: May 02, 2025 End: May 02, 2025 Dr. Braydon Adame MD Attending Provider Active Start: May 02, 2025 End: May 02, 2025 Reason for Visit (unrecogniz ed section and content) Reason Comments Earache Reason Comments Follow up visit Depression Anxiety, vitamin d d eficiency Reason Comments Sinusitis Cough Earache Reason Comments 6 month medcheck Reason Comments Sinusitis Pt is being seen tod ay for a possible sinus infection. Reports her sx started last Monday, reports her sx are sinus pressure and ear pressure but denies pain, reports she was coughing a couple days ago but that has since stopped. Denies body aches, fever, sore throat and headache. Reports she has tried OTC meds and they have not helped. Reason Comments pt here for med check Pt would like to d iscuss decreasing med Reason Comments upper left side back pain Pt c/o urine f requency, lower abdominal pain Reason Comments Nasal Congestion Goals (unrecognized section and content) Goals may be documented in a n alternate sectionGoals may be documented in an alternate sectionGoals may be documented in an alternate sectionGoals may be documented in an alternate sectionGoals may be documented in an alternate sectionGoals may be documented in an alternate sectionGoals may be documented in an alternate sectionGoals may be documented in an alternate sectionGoals may be documented in an alternate sectionGoals may be documented in an alternate sectionGoals may be documented in an alternate sectionGoals may be documented in an alternate sectionGoals may be documented in an alternate section FOR RECORDS PERTAINING TO PATIENTS WHO ARE [...] BE BASED ON THE PRIMARY CLINICAL RECORDS. [employer] [facility]. provides no warranty or guarantee of the accuracy or completeness of information in this document.
== END | disposition home or self-care (01) ==
LOC: LABSPEC 08:56
PROVIDERS: Referring Provider Surgery Plastic and Reconstructive Surgery; Visit Provider Surgery Plastic and Reconstructive Surgery
DX: D22.39 Melanocytic nevi of other parts of face (principal)
CPT/HCPCS: 88305